=== PATIENT | male | born 1970 | race Caucasian/White ===

== ENCOUNTER 2023-02-25 08:25 | Outpatient (OUT) | payer MEDICAID, SELFPAY ==
[2023-02-25 08:55] LABS: Basophils Absolute Auto 0.1 10^3/uL (0.0-0.1); Eosinophils Absolute Auto 0.2 10^3/uL (0.0-0.7); Eosinophils Percent Auto 3.9 % (0.9-7.0); Hematocrit 42.3 % (42.0-54.0); Hemoglobin 14.2 g/dL (14.0-18.0); Immature Granulocytes Abs Auto 0.02 10^3/uL (0.00-0.03); Immature Granulocytes Pct Auto 0.3 % (0.0-0.5); Lymphocytes Absolute Auto 1.4 10^3/uL (1.2-3.8); Lymphocytes Percent Auto 22.1 % (20.5-60.0); Mean Corpuscular HGB Conc 33.6 g/dL (29.9-35.2); Mean Corpuscular Hemoglobin 29.5 pg (25.9-34.0); Mean Corpuscular Volume 87.8 fL (80.0-94.0); Mean Platelet Volume 8.7 fL (9.5-13.5); Monocytes Absolute Auto 0.4 10^3/uL (0.3-0.8); Monocytes Percent Auto 6.3 % (1.7-12.0); Neutrophils Absolute Auto 4.1 10^3/uL (1.4-6.5); Neutrophils Percent Auto 66.4 % (43.0-75.0); Platelet Count 229 10^3/uL (150-450); Red Blood Count 4.82 10^6/uL (4.70-6.10); White Blood Count 6.2 10^3/uL (4.0-11.0)
[2023-02-25 09:37] LABS: Estimated Average Glucose 123 mg/dL; Glycohemoglobin A1C 5.9 % (4.5-6.2)
[2023-02-25 09:53] LABS: Alanine Aminotransferase 36 U/L (16-63); Albumin Globulin Ratio 1.1; Albumin Level 4.1 g/dL (3.4-5.0); Alkaline Phosphatase 152 U/L (46-116); Aspartate Amino Transferase 15 U/L (15-37); Bilirubin Total 0.9 mg/dL (0.2-1.0); Calcium 9.5 mg/dL (8.5-10.1); Carbon Dioxide 24.1 mmol/L (21.0-32.0); Chloride 102 mmol/L (98-107); Chol HDL Ratio 3.6; Cholesterol 118 mg/dL (<=200); Estimated GFR (African America >60 (>=60); Estimated GFR (Non-African Ame >60 (>=60); Free T3 2.93 pg/mL (2.18-3.98); Globulin 3.8 g/dL; Glucose 110 mg/dL (74-106); HDL Cholesterol 33 mg/dL (40-60); Potassium 4.1 mmol/L (3.5-5.1); Sodium 136 mmol/L (136-145); Thyroid Stimulating Hormone 1.477 uIU/mL (0.358-3.740); Total Protein 7.9 g/dL (6.4-8.2); Triglycerides 181 mg/dL (<=150); VLDL CHOLESTEROL 36.2 mg/dL
[2023-02-25 10:01] LABS: Prostate Specific Antigen Scrn 0.39 ng/mL (<=4.00)
[2023-02-26 04:23] LABS: CA 19-9 25 U/mL (0-35)
== END 2023-02-25 08:26 | disposition home or self-care (01) ==
LOC: LAB 08:29
PROVIDERS: PCP Family Medicine; Visit Provider Family Medicine
DX: Z00.00 Encounter for general adult medical examination without abnormal findings (principal); R73.09 Other abnormal glucose; E78.5 Hyperlipidemia, unspecified
CPT/HCPCS: 36415; 80053; 80061; 83036; 84436; 84443; 84481; 85025; 86301; G0103

== ENCOUNTER 2023-08-27 10:31 | Outpatient (OUT) | payer MEDICAID, SELFPAY ==
[2023-08-27 11:09] LABS: Ammonia 29 umol/L (11-32)
[2023-08-27 11:22] LABS: Basophils Absolute Auto 0.1 10^3/uL (0.0-0.1); Eosinophils Absolute Auto 0.2 10^3/uL (0.0-0.7); Eosinophils Percent Auto 2.8 % (0.9-7.0); Hematocrit 40.3 % (42.0-54.0); Hemoglobin 13.6 g/dL (14.0-18.0); Immature Granulocytes Abs Auto 0.03 10^3/uL (0.00-0.03); Immature Granulocytes Pct Auto 0.4 % (0.0-0.5); Lymphocytes Absolute Auto 1.4 10^3/uL (1.2-3.8); Lymphocytes Percent Auto 19.9 % (20.5-60.0); Mean Corpuscular HGB Conc 33.7 g/dL (29.9-35.2); Mean Corpuscular Hemoglobin 29.4 pg (25.9-34.0); Mean Platelet Volume 8.8 fL (9.5-13.5); Monocytes Absolute Auto 0.4 10^3/uL (0.3-0.8); Neutrophils Absolute Auto 4.7 10^3/uL (1.4-6.5); Neutrophils Percent Auto 69.9 % (43.0-75.0); Platelet Count 217 10^3/uL (150-450); Red Blood Count 4.63 10^6/uL (4.70-6.10); Red Cell Distribution Width 12.8 % (11.0-15.0); White Blood Count 6.8 10^3/uL (4.0-11.0)
[2023-08-27 11:35] LABS: Estimated Average Glucose 123 mg/dL; Glycohemoglobin A1C 5.9 % (4.5-6.2)
[2023-08-27 11:52] LABS: Prostate Specific Antigen Scrn 0.29 ng/mL (<=4.00)
[2023-08-27 12:07] LABS: Alanine Aminotransferase 50 U/L (16-63); Albumin Level 3.9 g/dL (3.4-5.0); Alkaline Phosphatase 151 U/L (46-116); Anion Gap 14.5; Aspartate Amino Transferase 20 U/L (15-37); BUN Creatinine Ratio 20.5; Calcium 9.3 mg/dL (8.5-10.1); Carbon Dioxide 25.6 mmol/L (21.0-32.0); Chloride 103 mmol/L (98-107); Chol HDL Ratio 3.7; Cholesterol 130 mg/dL (<=200); Estimated GFR (African America >60 (>=60); Estimated GFR (Non-African Ame >60 (>=60); Free T3 3.52 pg/mL (2.18-3.98); Globulin 3.8 g/dL; Glucose 101 mg/dL (74-106); HDL Cholesterol 35 mg/dL (40-60); Potassium 4.1 mmol/L (3.5-5.1); Sodium 139 mmol/L (136-145); Thyroid Stimulating Hormone 1.237 uIU/mL (0.358-3.740); Total Protein 7.7 g/dL (6.4-8.2); Triglycerides 144 mg/dL (<=150); VLDL CHOLESTEROL 28.8 mg/dL
[2023-08-29 11:10] LABS: Insulin 27.9 uIU/mL (2.6-24.9)
== END 2023-08-27 10:32 | disposition home or self-care (01) ==
LOC: LAB 10:32
PROVIDERS: PCP Family Medicine; Visit Provider Family Medicine
DX: F10.10 Alcohol abuse, uncomplicated (principal); I10 Essential (primary) hypertension; E78.5 Hyperlipidemia, unspecified; R73.9 Hyperglycemia, unspecified; Z12.5 Encounter for screening for malignant neoplasm of prostate
CPT/HCPCS: 36415; 80053; 80061; 82140; 83036; 83525; 84436; 84443; 84481; 85025; G0103

== ENCOUNTER 2023-09-13 14:10 | Outpatient (OUT) | payer MEDICAID, SELFPAY ==
--- OUTSIDE RECORDS SUMMARY | 2023-09-13 14:33 | XMS_ITS | CCD ---
Author Name Unknown Address [address] [place] [address] Organization [facility] Care Team Providers Care Diamond Powder Mixer Name Role Phone MERA JURADO Attending Unavailable ALGHOTHANI, MOHAMAD Admitting Unavailable SELF, REFERRED Referring Unavailable RUBIN BARON Primary Care Unavailable VALONE, DR HOLLAND Primary Care Unavailable HOY, DR CONKLIN Attending Unavailable HOY, DR CONKLIN Consulting Unavailable ALIYAY, DR CONKLIN Admitting Unavailable WEST, DR ASHLEIGH Martinez Consulting Unavailable MISC, DR MITCHELL Attending Unavailable MISC, DR MITCHELL Admitting Unavailable MISC, DR MITCHELL Consulting Unavailable ALIYAY, DR CONKLIN Primary Care Unavailable HOY, DR CONKLIN Primary Care Unavailable ALGHOTHANI, MOHAMAAndrey Admitting Unavailable ALGHOTHANI, MICHELLE Attending Unavailable ALGHOTHANI, MOHSHOBHAD Consulting Unavailable LORAINE, DR CONKLIN Admitting Unavailable HOY, DR CONKLIN Attending Unavailable HOY, DR CONKLIN Consulting Unavailable ALIYAY, DR CONKLIN Primary Care Unavailable VALONE, DR HOLLAND Primary Care Unavailable LORAINE, DR CONKLIN Admitting Unavailable HOMiguel Ángel, DR CONKLIN Attending Unavailable MISC, DR MITCHELL Admitting Unavailable MISC, DR MITCHELL Attending Unavailable MISC, DR MITCHELL Consulting Unavailable LORAINE, DR CONKLIN Primary Care Unavailable GAMALIEL, ELVIRA Admitting Unavailable LORAINE, DR CONKLIN Primary Care Unavailable GMAALIELELVIRA Attending Unavailable GAMALIELELVIRA Consulting Unavailable ALGHOTHANI, MOHAMAD Attending Unavailable GAMALIEL, ELVIRA Attending Unavailable Rubin Baron Primary Care Physician Naren MEDEROS Attending Unavailable Naren MEDEROS Attending Unavailable Allergies Allergy Classification Reported Allergen(s) Allergy Type Date of Onset Reaction(s) Facility (1 source) No Known Medication Allergies; Translations: [No Known Medication Allergies] Propensity to adverse reactions (disorder) [facility] Repository Medications Current Medications Medication Drug Class(es) Dates Sig (Normalized) Sig (Original) aspirin 81 mg delayed release oral tablet (1 source) Platelet Aggregation Inhibitor, Nonsteroidal Anti-inflammatory Drug Start: 09-07-2023 take 1 tablet by mouth once daily aspirin 81 mg Oral EC Tab 81 mg = 1 tab(s), Oral, Daily, Refills(s) 0 Start Date: 09/07/23 Status: Ordered atorvastatin 80 mg oral tablet (1 source) HMG-CoA Reductase Inhibitor Start: 09-07-2023 take 1 tablet by mouth once daily atorvastatin 80 mg Tab 80 mg = 1 tab(s), Oral, Daily, Refills(s) 0 Start Date: 09/07/23 Status: Ordered Centrum Silver oral tablet (1 source) Start: 09-07-2023 take 1 tablet by mouth once daily Centrum Silver oral tablet 1 tab(s), Oral, Daily, Refill(s) 0 Start Date: 09/07/23 Status: Ordered clopidogrel 75 mg oral tablet (1 source) P2Y12 Platelet Inhibitor Start: 09-07-2023 take 1 tablet by mouth once daily Plavix 75 mg Tab 75 mg = 1 tab(s), Oral, Daily, Refills(s) 0 Start Date: 09/07/23 Status: Ordered ferrous sulfate 325 mg oral tablet (1 source) Start: 09-08-2023 take 1 tablet by mouth twice daily ferrous sulfate 325 mg Tab 325 mg = 1 tab(s), Oral, BID, Refills(s) 0 Start Date: 09/08/23 Status: Ordered irbesartan 300 mg oral tablet (1 source) Angiotensin 2 Receptor Tiffany Start: 09-07-2023 take 1 tablet by mouth once daily irbesartan 300 mg Tab 300 mg = 1 tab(s), Oral, Daily, Refills(s) 0 Start Date: 09/07/23 Status: Ordered metoprolol tartrate 25 mg oral tablet (1 source) beta-Adrenergic Tiffany Start: 09-07-2023 take 1 tablet by mouth twice daily Metoprolol tartrate 25 mg Tab 25 mg = 1 tab(s), Oral, BID, Refills(s) 0 Start Date: 09/07/23 Status: Ordered nitroglycerin 0.4 mg sublingual tablet (1 source) Nitrate Vasodilator Start: 09-07-2023 nitroglycerin 0.4 mg sublingual Tab 0.4 mg = 1 tab(s), SubLingual, q5min, PRN for chest pain, Refills(s) 0 Start Date: 09/07/23 Status: Ordered Problems Active Problems Problem Classification Problem Date Documented Date Episodic/Chronic Alcohol-related disorders (1 source) Alcohol abuse 09-07-2023 Chronic Cardiac dysrhythmias (2 sources) Palpitations; Translations: [Palpitations] Onset: 08-20-2023 Episodic Coronary atherosclerosis and other heart disease (9 sources) Atherosclerotic heart disease of [place] coronary artery without angina pectoris; Translations: [Coronary atherosclerosis due to lipid rich plaque] Onset: 07-24-2021 Chronic Deficiency and other anemia (2 sources) Anemia; Translations: [Anemia, unspecified] Onset: 09-08-2023 Episodic Diabetes mellitus without complication (1 source) Other abnormal glucose; Translations: [OTHER ABNORMAL GLUCOSE] Onset: 02-25-2022 Episodic Disorders of lipid metabolism (5 sources) Pure hypercholesterolemia, unspecified; Translations: [Mixed hyperlipidemia] Onset: 02-25-2022 Chronic Esophageal disorders (2 sources) Gastroesophageal reflux disease without esophagitis; Translations: [Gastro-esophageal reflux disease without esophagitis] Onset: 09-08-2023 Chronic Essential hypertension (4 sources) Essential (primary) hypertension; Translations: [Hypertensive disorder] Onset: 02-25-2022 Chronic Other nutritional; endocrine; and metabolic disorders (2 sources) Body mass index 40+ - severely obese; Translations: [Body mass index (BMI) 40.0-44.9, adult] Onset: 09-08-2023 Chronic Other nutritional; endocrine; and metabolic disorders (1 source) Morbid obesity 09-07-2023 Chronic Other screening for suspected conditions (not mental disorders or infectious disease) (2 sources) Encounter for screening for malignant neoplasm of prostate; Translations: [Encounter for screening for malignant neoplasm of rectum] Onset: 02-25-2022 Episodic Substance-related disorders (4 sources) Nicotine dependence, unspecified, uncomplicated; Translations: [Nicotine dependence] Onset: 07-24-2021 Chronic Past or Other Problems Problem Classification Problem Date Documented Da te Episodic/Chronic Nonspecific chest pain (4 sources) Chest pain, unspecified; Translations: [CHEST PAIN UNSPECIFIED] Onset: 06-09-2021 Episodic Results Test Name Value Interpretation Reference Range Facility Consent for Procedure/Surger yon 09-10-2023 Consent for Procedure/Surgery [id number] [facility] Facesheeton 09-09-2023 Facesheet [id number] 0TIFF [facility] Ambulatory Visit Summaryon 0 09-08-2023 Ambulatory Visit Summary THAD CASTRO :1970 Visit Date:09/08/2023 Ambulatory Visit Instructions Your Care Team Attending Physician - GATITO HARRISON, Naren Persaud Primary Care Physician - Loraine HARRISON, Ruibn This Is Your Medications List Contact prescribing physician if questions or concerns aspirin (aspirin 81 mg Oral EC Tab) atorvastatin (atorvastatin 80 mg Tab) clopidogrel (Plavix 75 mg Tab) ferrous sulfate (ferrous sulfate 325 mg Tab) irbesartan (irbesartan 300 mg Tab) metoprolol (Metoprolol tartrate 25 mg Tab) multivitamin with minerals (Centrum Silver oral tablet) nitroglycerin (nitroglycerin 0.4 mg sublingual Tab) Procedures Performed Angioplasty of bilateral iliac arteries and insertion of bilateral iliac artery stents using fluoroscopic guidance with contrast, Cholecystectomy, Coronary artery stent, History of ankle surgery. Discharge Vitals Heart Rate (Peripheral) 72 Respiratory Rate 16 Blood Pressure 146/88 Height 187.9 cm Height 74 in Weight 146 kg Weight 321.2 lb BMI 41.35 Medications What How Much When Instructions Unchanged aspirin (aspirin 81 mg Oral EC Tab) 1 Tablets By Mouth Every day Contact prescribing physician if questions or concerns Unchanged atorvastatin (atorvastatin 80 mg Tab) 1 Tablets By Mouth Every day Contact prescribing physician if questions or concerns Unchanged clopidogrel (Plavix 75 mg Tab) 1 Tablets By Mouth Every day Contact prescribing physician if questions or concerns Unchanged ferrous sulfate (ferrous sulfate 325 mg Tab) 1 Tablets By Mouth 2 times a day Contact prescribing physician if questions or concerns Unchanged irbesartan (irbesartan 300 mg Tab) 1 Tablets By Mouth Every day Contact prescribing physician if questions or concerns Unchanged metoprolol (Metoprolol tartrate 25 mg Tab) 1 Tablets By Mouth 2 times a day Contact prescribing physician if questions or concerns Unchanged multivitamin with minerals (Centrum Silver oral tablet) 1 Tablets By Mouth Every day Contact prescribing physician if questions or concerns Unchanged nitroglycerin (nitroglycerin 0.4 mg sublingual Tab) 1 Tablets Sublingual Every 5 minutes as needed for for chest pain Contact prescribing physician if questions or concerns Medications and Immunizations Administered Not Given influenza virus vaccine, inactivated, Patient Refuses Allergies No Known Allergies No Known Medication Allergies Problems Ongoing - Any problem that you are currently receiving treatment for. Alcohol abuse Anemia BMI 40.0-44.9, adult Coronary arteriosclerosis Hypertensive disorder Morbid obesity Tobacco dependence syndrome Patient Survey You may receive a survey via text or e-mail asking about your office visit. Please share your experience with us by completing your survey. We appreciate your feedback and thank you for choosing us for your care. Normal [facility] Physician Referralon 024 Physician Referral [id number] [facility] Physician Referralon 024 Physician Referral [id number] [facility] Office Visiton 08-20-2023 Follow-up visit [id number] Thad Castro 1970 M Date Provider Department Center 08/20/2023 120-ELVIRA ALSTON MARY Spears Family History Problem Relation Age of Onset Hypertension Mother Pancreatic cancer Mother Coronary artery disease Father Stomach cancer Father Other Father Heart murmur Sister Hypertension Brother Family Status - Relation Status Age at Mother Father Sister Brother Level of Service:88529 [place] OFFICE/OUTPATIENT ESTABLISHED MOD MDM 30 MIN Normal [facility] Office Visiton 02-12-2023 Follow-up visit [id number] Thad Castro 1970 M Date Provider Department Center 02/12/2023 3848-MICHELLE GLEASON Family History Problem Relation Age of Onset Hypertension Mother Pancreatic cancer Mother Coronary artery disease Father Stomach cancer Father Other Father Heart murmur Sister Hypertension Brother Family Status - Relation Status Age at Mother Father Sister Brother Level of Service:56098 [place] OFFICE/OUTPATIENT ESTABLISHED LOW MDM 20-29 MIN Normal [facility] INSULINon 02-24-2022 Insulin 14.5 uIU/mL Normal 2.6-24.9 [facility] Comment on above: Performed By: #### I NSULIN #### [facility] [address] [place] [address] Dr. Carmelita White BILIRUBIN CONJUGATED (DIRECT )on 02-23-2022 BILI, CONJUGATED 0.2 mg/dL Normal 0.0-0.2 [facility] Comment on above: Performed By: #### D JEMMA #### [facility] [address] [place] [address] Dr. Carmelita White CBC AUTO DIFFon 02-23-2022 BASO # 0.1 103/ul Normal 0.0-0.1 [facility] Comment on above: Performed By: #### C BC #### [facility] [address] [place] [address] Dr. Carmelita White Basophils/100 WBC (Bld) 1.2 % Normal 0.2-2.0 [facility] Comment on above: Performed By: #### C BC #### [facility] [address] [place] [address] Dr. Carmelita White EO # 0.2 103/ul Normal 0.0-0.7 [facility] Comment on above: Performed By: #### C BC #### [facility] [address] [place] [address] Dr. Carmelita White Eosinophils/100 WBC (Bld) 4.0 % Normal 0.9-7.0 [facility] Comment on above: Performed By: #### C BC #### [facility] [address] [place] [address] Dr. Carmelita White Erythrocyte distribution width (RBC) [Ratio] 13.2 % Normal 11.0-15.0 [facility] Comment on above: Performed By: #### C BC #### [facility] [address] [place] [address] Dr. Carmelita White Hematocrit (Bld) [Volume fraction] 38.7 % Critically low 42.0-54.0 [facility] Comment on above: Performed By: #### C BC #### [facility] [address] [place] [address] Dr. Carmelita White Hemoglobin (Bld) [Mass/Vol] 13.4 g/dL Critically low 14.0-18.0 [facility] Comment on above: Performed By: #### C BC #### [facility] [address] [place] [address] Dr. Carmelita White IG # 0.02 10e3/ul Normal 0.00-0.03 [facility] Comment on above: Performed By: #### C BC #### [facility] [address] [place] [address] Dr. Carmelita White IG % 0.3 % Normal 0.0-0.5 [facility] Comment on above: Performed By: #### C BC #### [facility] [address] [place] [address] Dr. Carmelita White LYMPH # 1.5 103/ul Normal 1.2-3.8 [facility] Comment on above: Performed By: #### C BC #### [facility] [address] [place] [address] Dr. Carmelita White Lymphocytes/100 WBC (Bld) 24.1 % Normal 20.5-60.0 [facility] Comment on above: Performed By: #### C BC #### [facility] [address] [place] [address] Dr. Carmelita White MANUAL DIFF REQ NO Normal [facility] Comment on above: Performed By: #### C BC #### [facility] [address] [place] [address] Dr. Carmelita White MCH (RBC) [Entitic mass] 30.5 pg Normal 25.9-34.0 [facility] Comment on above: Performed By: #### C BC #### [facility] [address] [place] [address] Dr. Carmelita White MCHC (RBC) [Mass/Vol] 34.6 g/dL Normal 29.9-35.2 [facility] Comment on above: Performed By: #### C BC #### [facility] [address] [place] [address] Dr. Carmelita White MCV (RBC) [Entitic vol] 88.2 fL Normal 80.0-94.0 [facility] Comment on above: Performed By: #### C BC #### [facility] [address] [place] [address] Dr. Carmelita White MONO # 0.4 103/ul Normal 0.3-0.8 [facility] Comment on above: Performed By: #### C BC #### [facility] [address] [place] [address] Dr. Carmelita White Monocytes/100 WBC (Bld) 6.6 % Normal 1.7-12.0 [facility] Comment on above: Performed By: #### C BC #### [facility] [address] [place] [address] Dr. Carmelita White NEUT # 3.9 103/ul Normal 1.4-6.5 [facility] Comment on above: Performed By: #### C BC #### [facility] [address] [place] [address] Dr. Carmelita White Neutrophils/100 WBC (Bld) 63.8 % Normal 43.0-75.0 [facility] Comment on above: Performed By: #### C BC #### [facility] [address] [place] [address] Dr. Carmelita White Platelet mean volume (Bld) [Entitic vol] 8.5 fL Critically low 9.5-13.5 [facility] Comment on above: Performed By: #### C BC #### [facility] [address] [place] [address] Dr. Carmelita White PLT 204 103/ul Normal 150-450 [facility] Comment on above: Performed By: #### C BC #### [facility] [address] [place] [address] Dr. Carmelita White RBC 4.39 106/ul Critically low 4.70-6.10 [facility] Comment on above: Performed By: #### C BC #### [facility] [address] [place] [address] Dr. Carmelita White WBC 6.1 103/ul Normal 4.0-11.0 [facility] Comment on above: Performed By: #### C BC #### [facility] [address] [address] [address] Carmelita White GLYCOHEMOGLOBIN A1Con 2021 ADA RECOMMENDATION SEE BELOW Normal [facility] Comment on above: Result Comment: ADA RECOMMENDED LIMIT 4.0 - 6.0 ADA THERAPEUTIC TARGET < 7.0 ACTION SUGGESTED > 7.0 Performed By: #### A 1C #### [facility] [address] [address] [address] Carmelita White Glucose [Mass/Vol] 120 mg/dL Normal [facility] Comment on above: Performed By: #### A 1C #### [facility] [address] [address] [address] Carmelita White HbA1c (Bld) [Mass fraction] 5.8 % Normal 4.5-6.2 [facility] Comment on above: Performed By: #### A 1C #### [facility] [address] [address] [address] Carmelita White LIPID PROFILEon 02-23-2022 CHOL-HDL RATIO NORM SEE BELOW Normal [facility] Comment on above: Result Comment: 3.3 - 4.4 LOW RISK 4.4 - 7.1 AVERAGE RISK 7.1 - 11.0 MODERATE RISK >11.0 HIGH RISK Performed By: #### L IPID, CMP, URIC ####[facility] [address] [address]DrSuri White Cholesterol [Mass/Vol] 147 mg/dL Normal <=200 [facility] Comment on above: Performed By: #### L IPID, CMP, URIC ####[facility] [address] [place], [place] [address]TfSuri White Cholesterol in HDL [Mass/Vol] 34 mg/dL Critically low 40-60 [facility] Comment on above: Performed By: #### L IPID, CMP, URIC ####[facility] [address] [address]DrSuri White Cholesterol in LDL [Mass/Vol] 84.6 mg/dL Normal [facility] Comment on above: Performed By: #### L IPID, CMP, URIC ####[facility] [address] [address]Dr. Cramelita White Cholesterol.total/Ch olesterol in HDL [Mass ratio] 4.3 {ratio} Normal [facility] Comment on above: Performed By: #### L IPID, CMP, URIC ####[facility] [address] [address]Dr. Carmelita White HDL NORMAL > or = 60 mg/dl - LO W CARDIOVASCULAR RISK <40 mg/dl - HIGH CARDIOVASCULAR RISK Normal [facility] Comment on above: Performed By: #### L IPID, CMP, URIC ####[facility] [address] [address]Dr. Carmelita White LDL CALC NORMAL SEE BELOW Normal [facility] Comment on above: Result Comment: <100 mg/dl OPTIMAL 100 - 129 mg/dl NEAR OR ABOVE OPTIMAL 130 - 159 mg/dl BORDERLINE HIGH 160 - 189 mg/dl HIGH >190 mg/dl VERY HIGH Performed By: #### L IPID, CMP, URIC ####[facility] [address] [address]Dr. Carmelita White Triglyceride [Mass/Vol] 142 mg/dL Normal <=150 [facility] Comment on above: Performed By: #### L IPID, CMP, URIC ####[facility] [address] [address]Dr. Carmelita White VLDL CALC 28.4 mg/dL Normal [facility] Comment on above: Performed By: #### L IPID, CMP, URIC ####[facility] [address] [address]Dr. Carmelita White PROF 14(COMP METB)on 022 Albumin [Mass/Vol] 4.0 g/dL Normal 3.4-5.0 [facility] Comment on above: Performed By: #### L IPID, CMP, URIC ####[facility] [address] [address]Dr. Carmelita White Albumin/Globulin [Mass ratio] 1.2 {ratio} Normal [facility] Comment on above: Performed By: #### L IPID, CMP, URIC ####[facility] [address] [address]Dr. Carmelita White ALP [Catalytic activity/Vol] 131 U/L Critically high 46-116 [facility] Comment on above: Performed By: #### L IPID, CMP, URIC ####[facility] [address] [address]Dr. Carmelita White ALT [Catalytic activity/Vol] 36 U/L Normal 16-63 [facility] Comment on above: Performed By: #### L IPID, CMP, URIC ####[facility] [address] [address]Dr. Carmelita White Anion gap [Moles/Vol] 13.0 mmol/L Normal [facility] Comment on above: Performed By: #### L IPID, CMP, URIC ####[facility] [address] [place], [place] [address]Dr. Carmelita White AST [Catalytic activity/Vol] 14 U/L Critically low 15-37 [facility] Comment on above: Performed By: #### L IPID, CMP, URIC ####[facility] [address] [place], [place] [address]Dr. Carmelita White Bilirubin [Mass/Vol] 0.7 mg/dL Normal 0.2-1.0 [facility] Comment on above: Performed By: #### L IPID, CMP, URIC ####[facility] [address] [place], [place] [address]Dr. Carmelita Christopher Calcium [Mass/Vol] 9.3 mg/dL Normal 8.5-10.1 [facility] Comment on above: Performed By: #### L IPID, CMP, URIC ####[facility] [address] [address]Dr. Carmelita White Chloride [Moles/Vol] 104 mmol/L Normal 98-107 [facility] Comment on above: Performed By: #### L IPID, CMP, URIC ####[facility] [address] [place], [place] [address]Dr. Carmelita White CO2 [Moles/Vol] 27.2 mmol/L Normal 21.0-32.0 [facility] Comment on above: Performed By: #### L IPID, CMP, URIC ####[facility] [address] [address]Dr. Carmelita White Creatinine [Mass/Vol] 1.20 mg/dL Normal 0.70-1.30 [facility] Comment on above: Performed By: #### L IPID, CMP, URIC ####[facility] [address] [address]Dr. Carmelita White EGFR-AF HAITIAN >60 Normal >=60 [facility] Comment on above: Performed By: #### L IPID, CMP, URIC ####[facility] [address] [address]Dr. Carmelita White EGFR-NON AF HAITIAN >60 Normal >=60 [facility] Comment on above: Performed By: #### L IPID, CMP, URIC ####[facility] [address] [address]Dr. Carmelita White Globulin (S) [Mass/Vol] 3.4 g/dL Normal [facility] Comment on above: Performed By: #### L IPID, CMP, URIC ####[facility] [address] [address]Dr. Carmelita Whiet Glucose [Mass/Vol] 97 mg/dL Normal 74-106 [facility] Comment on above: Performed By: #### L IPID, CMP, URIC ####[facility] [address] [address]Dr. Carmelita White Potassium [Moles/Vol] 4.2 mmol/L Normal 3.5-5.1 [facility] Comment on above: Performed By: #### L IPID, CMP, URIC ####[facility] [address] [address]Dr. Carmelita White Protein [Mass/Vol] 7.4 g/dL Normal 6.4-8.2 [facility] Comment on above: Performed By: #### L IPID, CMP, URIC ####[facility] [address] [address]Dr. Carmelita White Sodium [Moles/Vol] 140 mmol/L Normal 136-145 [facility] Comment on above: Performed By: #### L IPID, CMP, URIC ####[facility] [address] [address]Dr. Carmelita White Urea nitrogen [Mass/Vol] 19.0 mg/dL Critically high 7.0-18.0 [facility] Comment on above: Performed By: #### L IPID, CMP, URIC ####[facility] [address] [address]Dr. Carmelita White Urea nitrogen/Creatinine [Mass ratio] 15.8 mg/mg Normal [facility] Comment on above: Performed By: #### L IPID, CMP, URIC ####[facility] [address] [address]Dr. Carmelita White URIC ACID SERUMon 02-23-2022 Urate [Mass/Vol] 6.5 mg/dL Normal 3.5-7.2 [facility] Comment on above: Performed By: #### L IPID, CMP, URIC ####[facility] [id number] [place] [address]Dr. Carmelita White GLYCOHEMOGLOBIN A1Con 2021 ADA RECOMMENDATION ADA THERAPEUTIC TARGET 6.0 - 7.0 ACTION SUGGESTED > 7.0 Normal [facility] Comment on above: Performed By: #### A 1C #### [facility] [address] [address] [address] Carmelita White Glucose [Mass/Vol] 126 mg/dL Normal [facility] Comment on above: Performed By: #### A 1C #### [facility] [address] [address] [address] Carmelita White HbA1c (Bld) [Mass fraction] 6.0 % Normal <=6.0 [facility] Comment on above: Performed By: #### A 1C #### [facility] [address] [address] [address] Carmelita White LIPID PROFILEon 08-04-2021 CHOL-HDL RATIO NORM SEE BELOW Normal [facility] Comment on above: Result Comment: 3.3 - 4.4 LOW RISK 4.4 - 7.1 AVERAGE RISK 7.1 - 11.0 MODERATE RISK >11.0 HIGH RISK Performed By: #### L IPID #### [facility] [address] [address] [address] Carmelita White Cholesterol [Mass/Vol] 150 mg/dL Normal <=200 [facility] Comment on above: Performed By: #### L IPID #### [facility] [address] [address] [address] Carmelita White Cholesterol in HDL [Mass/Vol] 34 mg/dL Normal [facility] Comment on above: Performed By: #### L IPID #### [facility] [address] [address] [address] Carmelita White Cholesterol in LDL [Mass/Vol] 79.2 mg/dL Normal [facility] Comment on above: Performed By: #### L IPID #### [facility] [address] [address] [address] Carmelita White Cholesterol.total/Ch olesterol in HDL [Mass ratio] 4.4 {ratio} Normal [facility] Comment on above: Performed By: #### L IPID #### [facility] [address] [address] [address] Carmelita White HDL NORMAL > or = 60 mg/dl - LO W CARDIOVASCULAR RISK <40 mg/dl - HIGH CARDIOVASCULAR RISK Normal [facility] Comment on above: Performed By: #### L IPID #### [facility] [address] [address] [address] Carmelita White LDL CALC NORMAL SEE BELOW Normal [facility] Comment on above: Result Comment: <100 mg/dl OPTIMAL 100 - 129 mg/dl NEAR OR ABOVE OPTIMAL 130 - 159 mg/dl BORDERLINE HIGH 160 - 189 mg/dl HIGH >190 mg/dl VERY HIGH Performed By: #### L IPID #### [facility] [address] [address] [address] Carmelita White Triglyceride [Mass/Vol] 184 mg/dL Critically high <=150 [facility] Comment on above: Performed By: #### L IPID #### [facility] [address] [address] [address] Carmelita White VLDL CALC 36.8 mg/dL Normal [facility] Comment on above: Performed By: #### L IPID #### [facility] [address] [address] [address] Carmelita White CBC W/DIFFon 06-24-2021 ABS IMM GRANS 0.0 10*3/uL Normal 0.0-0.2 [facility] Comment on above: Order Comment: No: D o not add to previous draw Performed By: #### 5 0103 #### [facility] [address] [place] [address], [facility] ABS NEUTROPHILS 4.6 10*3/uL Normal 1.6-7.6 [facility] Comment on above: Order Comment: No: D o not add to previous draw Performed By: #### 5 0103 #### [facility] [address] [place] [address], [facility] Basophils (Bld) [#/Vol] 0.1 10*3/uL Normal 0.0-0.2 [facility] Comment on above: Order Comment: No: D o not add to previous draw Performed By: #### 5 0103 #### [facility] [address] [place] [address], [facility] Basophils/100 WBC (Bld) 1.0 % Normal 0.0-1.0 [facility] Comment on above: Order Comment: No: D o not add to previous draw Performed By: #### 5 0103 #### [facility] [address] [place] [address], [facility] Eosinophils (Bld) [#/Vol] 0.2 10*3/uL Normal 0.0-0.5 [facility] Comment on above: Order Comment: No: D o not add to previous draw Performed By: #### 5 0103 #### [facility] [address] [place] [address], [facility] Eosinophils/100 WBC (Bld) 2.8 % Normal 0.0-6.0 [facility] Comment on above: Order Comment: No: D o not add to previous draw Performed By: #### 5 0103 #### [facility] [address] Erythrocyte distribution width (RBC) [Ratio] 12.7 % Normal 11.5-15.0 [facility] Comment on above: Order Comment: No: D o not add to previous draw Performed By: #### 5 0103 #### [facility] [address] Hematocrit (Bld) [Volume fraction] 41.5 % Normal 39.0-50.0 [facility] Comment on above: Order Comment: No: D o not add to previous draw Performed By: #### 5 0103 #### [facility] [address] [facility] [place] [address], [facility] Hemoglobin (Bld) [Mass/Vol] 13.9 g/dL Normal 13.0-17.0 [facility] Comment on above: Order Comment: No: D o not add to previous draw Performed By: #### 5 0103 #### [facility] [address] [facility] [place] [address], [facility] IMMATURE GRANS 0.3 % Normal 0.0-1.0 [facility] Comment on above: Order Comment: No: D o not add to previous draw Performed By: #### 5 0103 #### [facility] [address] [place] [address], [facility] Lymphocytes (Bld) [#/Vol] 1.7 10*3/uL Normal 1.2-4.0 [facility] Comment on above: Order Comment: No: D o not add to previous draw Performed By: #### 5 0103 #### [facility] [address] [place] [address], [facility] Lymphocytes/100 WBC (Bld) 24.0 % Normal 20.0-45.0 [facility] Comment on above: Order Comment: No: D o not add to previous draw Performed By: #### 5 0103 #### [facility] [address] [place] [address], [facility] MCH (RBC) [Entitic mass] 29.9 pg Normal 27.0-33.0 [facility] Comment on above: Order Comment: No: D o not add to previous draw Performed By: #### 5 0103 #### [facility] [address] [place] [address], [facility] MCHC (RBC) [Mass/Vol] 33.5 g/dL Normal 32.0-35.0 [facility] Comment on above: Order Comment: No: D o not add to previous draw Performed By: #### 5 0103 #### [facility] [address] [facility] [place] [address], [facility] MCV (RBC) [Entitic vol] 89.2 fL Normal 82.0-98.0 [facility] Comment on above: Order Comment: No: D o not add to previous draw Performed By: #### 5 0103 #### [facility] [address] [place] [address], [facility] Monocytes (Bld) [#/Vol] 0.6 10*3/uL Normal 0.1-1.0 [facility] Comment on above: Order Comment: No: D o not add to previous draw Performed By: #### 5 0103 #### [facility] [address] [place] [address], [facility] MONOS 8.0 % Normal 5.0-12.0 [facility] Comment on above: Order Comment: No: D o not add to previous draw Performed By: #### 5 0103 #### [facility] [address] [place] [address], [facility] Neutrophils/100 WBC (Bld) 63.9 % Normal 40.0-72.0 [facility] Comment on above: Order Comment: No: D o not add to previous draw Performed By: #### 5 0103 #### [facility] [address] [facility] [place] [address], [facility] Nucleated RBC/100 WBC (Bld) [Ratio] 0 % Normal 0-0 [facility] Comment on above: Order Comment: No: D o not add to previous draw Performed By: #### 5 0103 #### [facility] [address] [facility] [place] [address], [facility] PLAT CNT 187 10*3/uL Normal 150-400 [facility] Comment on above: Order Comment: No: D o not add to previous draw Performed By: #### 5 0103 #### [facility] [address] [facility] [address], [facility] RBC (Bld) [#/Vol] 4.65 10*6/uL Normal 4.20-5.70 The [facility] Comment on above: Order Comment: No: D o not add to previous draw Performed By: #### 5 0103 #### [facility] [address] [facility] [place] [address], [facility] WBC (Bld) [#/Vol] 7.22 10*3/uL Normal 4.00-10.60 [facility] Comment on above: Order Comment: No: D o not add to previous draw Performed By: #### 5 0103 #### [facility] [address] [facility] [address], [facility] COMP METABOLIC PANELon 06-24 Albumin [Mass/Vol] 3.9 g/dL Normal 3.5-5.7 [facility] Comment on above: Order Comment: No: D o not add to previous draw Performed By: #### 0 0121, [id number] #### [facility] [address] [place] [address], [facility] ALKALINE PHOSPH 108 IU/L High 34-104 [facility] Comment on above: Order Comment: No: D o not add to previous draw Performed By: #### 0 0121, 15306 #### [facility] [address] [place] [address], [place] ALT [Catalytic activity/Vol] 26 U/L Normal 7-52 [facility] Comment on above: Order Comment: No: D o not add to previous draw Performed By: #### 0 0121, [id number] #### [facility] [address] [place] [address], [place] AST [Catalytic activity/Vol] 12 U/L Low 13-39 [facility] Comment on above: Order Comment: No: D o not add to previous draw Performed By: #### 0 012, 26960 #### [facility] [address] [place] [address], [place] Bilirubin [Mass/Vol] 0.8 mg/dL Normal 0.3-1.0 [facility] Comment on above: Order Comment: No: D o not add to previous draw Performed By: #### 0 0121, [id number] #### [facility] [address] [place] [address], [place] Calcium [Mass/Vol] 9.0 mg/dL Normal 8.6-10.3 [facility] Comment on above: Order Comment: No: D o not add to previous draw Performed By: #### 0 0121, [id number] #### [facility] [address] [place] [address], [place] Chloride [Moles/Vol] 103 mmol/L Normal 98-107 [facility] Comment on above: Order Comment: No: D o not add to previous draw Performed By: #### 0 0121, 78313 #### [facility] [address] [place] [address], [place] CO2 [Moles/Vol] 28 mmol/L Normal 21-31 [facility] Comment on above: Order Comment: No: D o not add to previous draw Performed By: #### 0 0121, 13135 #### [facility] [address] [place] [address], [place] Creatinine [Mass/Vol] 1.24 mg/dL Normal 0.70-1.30 [facility] Comment on above: Order Comment: No: D o not add to previous draw Performed By: #### 0 0121, 32402 #### [facility] [address] [place] [address], [place] GFR/1.73 sq M.predicted among blacks MDRD (S/P/Bld) [Vol rate/Area] mL/min/{1.73_m2} Normal >60 [facility] Comment on above: Order Comment: No: D o not add to previous draw Performed By: #### 0 012, 07102 #### [facility] [address] [place] [address], [place] GFR/1.73 sq M.predicted among non-blacks MDRD (S/P/Bld) [Vol rate/Area] mL/min/{1.73_m2} Normal >60 [facility] Comment on above: Order Comment: No: D o not add to previous draw Performed By: #### 0 0121, 61162 #### [facility] [address] [place] [address], [place] Glucose [Mass/Vol] 102 mg/dL High 70-100 [facility] Comment on above: Order Comment: No: D o not add to previous draw Performed By: #### 0 0121, 81533 #### [facility] [address] [place] [address], [place] Potassium [Moles/Vol] 4.3 mmol/L Normal 3.5-5.1 [facility] Comment on above: Order Comment: No: D o not add to previous draw Performed By: #### 0 0121, 36940 #### [facility] [address] [place] [address], [place] Protein [Mass/Vol] 6.3 g/dL Normal 6.0-8.3 [facility] Comment on above: Order Comment: No: D o not add to previous draw Performed By: #### 0 0121, 43588 #### [facility] [address] [place] [address], [place] Sodium [Moles/Vol] 136 mmol/L Normal 136-145 [facility] Comment on above: Order Comment: No: D o not add to previous draw Performed By: #### 0 0121, 15685 #### [facility] [address] [place] [address], [place] Urea nitrogen [Mass/Vol] 22 mg/dL Normal 7-25 [facility] Comment on above: Order Comment: No: D o not add to previous draw Performed By: #### 0 0121, 62212 #### [facility] [address] [place] [address], [place] LIPID PROFILEon 06-24-2021 Cholesterol [Mass/Vol] 149 mg/dL Normal 120-200 [facility] Comment on above: Order Comment: No: D o not add to previous draw Result Comment: CHOL ESTEROL REFERENCE RANGE: 20 YEARS AND OLDER CARDIOVASCULAR RISK Less than 200 mg/dl Low Risk 200 to 239 mg/dl Borderline Risk 240 mg/dl and greater High Risk Performed By: #### 0 0121, 58782 #### [facility] [address] [place] [address], [place] Cholesterol in HDL [Mass/Vol] 34 mg/dL Normal 23-92 [facility] Comment on above: Order Comment: No: D o not add to previous draw Result Comment: Slig ht variation in normal range could be due to gender and/or age. HDL CHOLESTEROL REFERENCE RANGE: 20 years and older Cardiovascular Risk > or =60 mg/dL Desirable 40 TO 59 mg/dL Low Risk <40 mg/dL High Risk Performed By: #### 0 0121, 22307 #### [facility] [address] [place] [address], [facility] Cholesterol in LDL [Mass/Vol] 101 mg/dL Normal 0-130 [facility] Comment on above: Order Comment: No: D o not add to previous draw Result Comment: LDL IS A CALCULATION LDL IS ONLY VALID IF THE TRIG IS LESS THAN 400. Performed By: #### 0 0121, 31986 #### [facility] [address] [place] [address], [facility] Cholesterol.total/Ch olesterol in HDL [Mass ratio] 4.4 {ratio} Normal .0-4.5 [facility] Comment on above: Order Comment: No: D o not add to previous draw Performed By: #### 0 0121, 54562 #### [facility] [address] [place] [address], [facility] NON-HDL CHOLESTEROL 115 mg/dL Normal [facility] Comment on above: Order Comment: No: D o not add to previous draw Performed By: #### 0 0121, 49230 #### [facility] [address] [place] [address], [place] Triglyceride [Mass/Vol] 72 mg/dL Normal 40-149 [facility] Comment on above: Order Comment: No: D o not add to previous draw Result Comment: TRIG LYCERIDE REFERENCE RANGE: 20 YEARS AND OLDER CARDIOVASCULAR RISK LESS THAN 150 mg/dl LOW RISK 150 TO 199 mg/dl BORDERLINE RISK 200 mg/dl AND GREATER HIGH RISK Performed By: #### 0 0121, 20960 #### [facility] [address] [place] [address], [place] VLDL CHOL 14 mg/dL Normal 0-40 [facility] Comment on above: Order Comment: No: D o not add to previous draw Performed By: #### 0 0121, 76407 #### [facility] [address] Cardiovascular Lab Reporton 06-23-2021 Cardiovascular Lab Report [facility] Patient Name: Thad Castro MR #: [id number] [facility] Physician: Michelle Gleason MD Department of Service Date: 06/23/2021 Medicine Birthdate: 1970 Division of Room #: 3CD [id number] Cardiology Adult Cardiovascular Services [facility] [address] [place] [address] Cardiovascular Laboratory Report Cardiovascular Laboratory Report FINAL IMPRESSIONS: 1. 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 2. 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 RECOMMENDATIONS: 1. Aspirin 81 mg lifelong. 2. Plavix 75 mg daily for a minimum of 6 months, preferably intermediate card tender. 3. Aggressive risk factor modification. 4. Optimization of medical management; high-intensity statin therapy, a beta tiffany, and angiotensin-convertin g enzyme inhibitor as indicated. 5. Medical management of non obstructive lesions. May consider PCI of RCA if patient continues to have symptoms. 6. Follow up with me in Clinic in 4 weeks, or sooner as needed. 7. Follow up with PCP as scheduled PROCEDURE: After risks, benefits, and alternatives were explained, written informed consent was obtained. The patient was prepped and draped in usual sterile fashion. Using 1% lidocaine solution, local infiltration anesthesia was achieved over the right femoral artery. Using a micropuncture kit with ultrasound guidance and using a modified Seldinger technique, access to the right femoral artery was obtained. Coronary angiography was performed using the JR4 and JL4 catheters. After reviewing the images, it was elected to proceed with an interventional procedure. A 6-Kosovan XB 3.5 catheter was advanced in and coaxially engaged into the left main ostium. A 0.014 Runthrough NS wire was advanced through the catheter across the suspect stenosis and positioned distally. Balloon angioplasty was performed using a 2.5 x 12 mm noncompliant balloon. Balloon angioplasty was repeated using a 3.0 x 20 mm noncompliant balloon. An inadequate result over the proximal to mid LAD was treated using a 3.0 x 24 mm Synergy drug-eluting stent. Final dilation of the proximal portion of the stent was performed with a 3.5 x 12 mm noncompliant balloon. Repeat imaging showed an optimal result. Final angiography with the wire removed showed TEZ-3 flow with no dissection, thrombus, or distal wire trauma. At this point, it was elected to conclude the procedure. Overall, the patient tolerated the procedure well. There were no overt complications. He was to be transferred to Recovery in stable condition. FINDINGS: Hemodynamics: AO 95/68 (79). Left Ventriculography: This was not performed. Ejection fraction: Normal by noninvasive imaging. CORONARY ARTERIES: Left Main Coronary Artery: This arises from the left coronary cusp. It bifurcates into the left anterior descending and left circumflex coronary artery. Minimal narrowing in distal portion of vessel. Left Anterior Descendin% MiD LAD stenosis with TEZ 2 flow. This was a the bifrucation of a small diagnoal vessel, which was patent. Severe stenosis followed by several tandem lesions of moderate severity. 99% stenosis at baseline was reduced to 0% by balloon angioplasty and placement of a 3.0 x 24 mm Synergy drug-eluting stent. Final images showed TEZ-3 flow with no dissection, thrombus, or distal wire trauma. Left Circumflex: Luminal irregularities throughout. Right coronary artery. This is a dominant vessel giving rise to the posterior descending and posterolateral branches. There is a 60% mid vessel stenosis, followed by 70% distal vessel stenosis. INDICATIONS: Unstable angina, abnormal stress test Electronically Signed by: Michelle Gleason MD 06/23/2021 08:23 P Michelle Gleason MD Date Dict: 06/23/2021/07:55 P/Michelle Gleason MD Date Trans: 06/23/2021 07:55 P/ [id number] cc: Rubin Baron M.D. [address] [place] [address] Normal [facility] POC SARS COV2 ANTIGEN NEGATI VEon 06-23-2021 POC SARS COV2 ANTIGEN NEG Negative Normal NEGATIVE [facility] Comment on above: Result Comment: Nega tive results from patients with symptom onset beyond seven days, should be treated presumptive and confirmation with a molecular assay, if necessary, for patient management, may be performed. Negative results do not rule out SARS-CoV-2 infection and should not be used as the sole basis for treatment or patient management decisions, including infection control decisions. Negative results should be considered in the context of a patient?s recent exposures, history and the presence of clinical signs and symptoms consistent with COVID-19. The [employer] COVID-19 Ag Card is a lateral flow immunoassay intended for the qualitative detection of nucleocapsid protein antigen from SARS-CoV-2 in direct nasal swabs from individuals within the first seven days of symptom onset. Testing is limited to laboratories certified under the Clinical Laboratory Improvement Amendments of 1988 (CLIA), 42 U.S.C. ???263a, that meet the requirements to perform moderate, high or waived complexity tests. This test is authorized for use at the Point of Care (POC), i.e., in patient care settings operating under a CLIA Certificate of Waiver, Certificate of Compliance, or Certificate of Accreditation. Performed By: #### 3 1977 #### [facility] [address] [place] [address], [facility] CBC AUTO DIFFon 06-18-2021 BASO # 0.1 103/ul Normal 0.0-0.1 [facility] Comment on above: Performed By: #### C BC #### [facility] [address] [place] [address] Dr. Carmelita White Basophils/100 WBC (Bld) 0.9 % Normal 0.2-2.0 [facility] Comment on above: Performed By: #### C BC #### [facility] [address] [place] [address] Dr. Carmelita White EO # 0.2 103/ul Normal 0.0-0.7 [facility] Comment on above: Performed By: #### C BC #### [facility] [address] [place] [address] Dr. Carmelita White Eosinophils/100 WBC (Bld) 2.6 % Normal 0.9-7.0 [facility] Comment on above: Performed By: #### C BC #### [facility] [address] [place] [address] Dr. Carmelita White Erythrocyte distribution width (RBC) [Ratio] 12.4 % Normal 11.0-15.0 [facility] Comment on above: Performed By: #### C BC #### [facility] [address] [place] [address] Dr. Carmelita White Hematocrit (Bld) [Volume fraction] 44.8 % Normal 42.0-54.0 [facility] Comment on above: Performed By: #### C BC #### [facility] [address] [place] [address] Dr. Carmelita White Hemoglobin (Bld) [Mass/Vol] 15.2 g/dL Normal 14.0-18.0 [facility] Comment on above: Performed By: #### C BC #### [facility] [address] [place] [address] Dr. Carmelita White IG # 0.03 10e3/ul Normal 0.00-0.03 [facility] Comment on above: Performed By: #### C BC #### [facility] [address] [place] [address] Dr. Carmelita White IG % 0.5 % Normal 0.0-0.5 [facility] Comment on above: Performed By: #### C BC #### [facility] [address] [place] [address] Dr. Carmelita White LYMPH # 1.5 103/ul Normal 1.2-3.8 [facility] Comment on above: Performed By: #### C BC #### [facility] [address] [place] [address] Dr. Carmelita White Lymphocytes/100 WBC (Bld) 22.5 % Normal 20.5-60.0 [facility] Comment on above: Performed By: #### C BC #### [facility] [address] [place] [address] Dr. Carmelita White MANUAL DIFF REQ NO Normal [facility] Comment on above: Performed By: #### C BC #### [facility] [address] [place] [address] Dr. Carmelita White MCH (RBC) [Entitic mass] 29.7 pg Normal 25.9-34.0 [facility] Comment on above: Performed By: #### C BC #### [facility] [address] [place] [address] Dr. Carmelita White MCHC (RBC) [Mass/Vol] 33.9 g/dL Normal 29.9-35.2 [facility] Comment on above: Performed By: #### C BC #### [facility] [address] [place] [address] Dr. Carmelita White MCV (RBC) [Entitic vol] 87.5 fL Normal 80.0-94.0 [facility] Comment on above: Performed By: #### C BC #### [facility] [address] [place] [address] Dr. Carmelita White MONO # 0.4 103/ul Normal 0.3-0.8 [facility] Comment on above: Performed By: #### C BC #### [facility] [address] [place] [address] Dr. Carmelita White Monocytes/100 WBC (Bld) 5.5 % Normal 1.7-12.0 [facility] Comment on above: Performed By: #### C BC #### [facility] [address] [place] [address] Dr. Carmelita White NEUT # 4.5 103/ul Normal 1.4-6.5 [facility] Comment on above: Performed By: #### C BC #### [facility] [address] [place] [address] Dr. Carmelita White Neutrophils/100 WBC (Bld) 68.0 % Normal 43.0-75.0 [facility] Comment on above: Performed By: #### C BC #### [facility] [address] [address] [address] Carmelita White Platelet mean volume (Bld) [Entitic vol] 8.5 fL Critically low 9.5-13.5 [facility] Comment on above: Performed By: #### C BC #### [facility] [address] [place] [address] Dr. Carmelita White PLT 238 103/ul Normal 150-450 [facility] Comment on above: Performed By: #### C BC #### [facility] [address] [address] [address] Carmelita White RBC 5.12 106/ul Normal 4.70-6.10 [facility] Comment on above: Performed By: #### C BC #### [facility] [address] [place] [address] Dr. Carmelita White WBC 6.5 103/ul Normal 4.0-11.0 [facility] Comment on above: Performed By: #### C BC #### [facility] [address] [place] [address] Dr. Carmelita White PROF CHEM 8 (BAS METB)on Anion gap [Moles/Vol] 14.7 mmol/L Normal [facility] Comment on above: Performed By: #### B MP #### [facility] [address] [place] [address] Dr. Carmelita White Calcium [Mass/Vol] 9.3 mg/dL Normal 8.4-10.2 [facility] Comment on above: Performed By: #### B MP #### [facility] [address] [place] [address] Dr. Carmelita White Chloride [Moles/Vol] 101 mmol/L Normal 98-107 [facility] Comment on above: Performed By: #### B MP #### [facility] [address] [place] [address] Dr. Carmelita White CO2 [Moles/Vol] 28.2 mmol/L Normal 22.0-30.0 [facility] Comment on above: Performed By: #### B MP #### [facility] [address] [place] [address] Dr. Carmelita White Creatinine [Mass/Vol] 1.33 mg/dL Critically high 0.66-1.25 [facility] Comment on above: Performed By: #### B MP #### [facility] [address] [address] [address] Carmelita White EGFR-AF HAITIAN >60 Normal >=60 [facility] Comment on above: Performed By: #### B MP #### [facility] [address] [address] [address] Carmelita White EGFR-NON AF HAITIAN 57 mL/min/1.73m2 Critically low >=60 [facility] Comment on above: Performed By: #### B MP #### [facility] [address] [address] [address] Carmelita White Glucose [Mass/Vol] 99 mg/dL Normal 74-106 [facility] Comment on above: Performed By: #### B MP #### [facility] [address] [address] [address] Carmelita White Potassium [Moles/Vol] 4.9 mmol/L Normal 3.4-5.0 [facility] Comment on above: Performed By: #### B MP #### [facility] [address] [address] [address] Carmelita White Sodium [Moles/Vol] 139 mmol/L Normal 137-145 [facility] Comment on above: Performed By: #### B MP #### [facility] [address] [address] [address] Carmelita White Urea nitrogen [Mass/Vol] 21.0 mg/dL Critically high 9.0-20.0 [facility] Comment on above: Performed By: #### B MP #### [facility] [address] [address] [address] Carmelita White Urea nitrogen/Creatinine [Mass ratio] 15.8 mg/mg Normal [facility] Comment on above: Performed By: #### B MP #### [facility] [address] [address] [address] Carmelita White NM STRESS/REST MULTIon 06-09 NM STRESS/REST MULTI Patient: JOO CASTRO. Exam Date: 06/09/2021 : 1970 Gender:M Ordering : DR RUBIN BARON . Admission #: [id number] Family : Order #: [id number] CLICK HERE TO VIEW EXAM RADIOLOGY REPORT PROCEDURE: RADIONUCLIDE IMAGING STRESS/REST MULTI COMPARISON: None. INDICATIONS: Chest pain TECHNIQUE: Exam Description: Stress/Rest two day protocol gated SPECT Rest Imagin.1 mCi Tc-99m Cardiolite IV on 06-11-2021 Stress Imaging 25.4 mCi Tc-99m Cardiolite IV on 06-09-2021 Exercise Protocol: 0.4 mg Lexiscan given IV Heart Rate (bpm): Rest: 95 Max: 115 PMHR: 68 Blood Pressure: Rest: 134/90 Max: 138/88 Symptoms: Rest and peak stress ECG findings were non-diagnostic and the exercise portion of the study was Non-diagnostic per attending physician Dr. Desir due to EKG changes at baseline. For more details please see separate cardiac stress test report. FINDINGS: QUALITY OF STUDY: Good. PERFUSION DEFECT: LOCATION: Mid-anterior. Mid-anteroseptal. Apical anterior. [place]. SIZE: Medium (3-4 segments). SEVERITY: Severe. TYPE: Reversible. WALL MOTION: Moderate hypokinesis: Mid-anterior. Mid-anteroseptal. Apical anterior. LV SIZE: Normal. 95 mL. TID / TCD: None; 1.0 LVEF: Normal. Calculated EF 63%. SUMMARY: Myocardial perfusion imaging study has ABNORMAL findings. CONCLUSION: 1. Large area of transmural decreased perfusion in the anterior wall and apex, LAD distribution. This area demonstrates significant redistribution. Reversible ischemia is suspected. 2. Nondiagnostic exercise test secondary to baseline EKG changes 3. Further evaluation is recommended Dictated by: Ashleigh Mathur MD on 06/11/2021 at 13:15 Approved by: Ashleigh Mathur MD on 06/11/2021 at 13:23 Normal [facility] Vital Signs Date Time Vital Sign Value Performing Clinician Rudolph patton 09-08-2023 14:53-0500 Blood Pressure Location Naren MEDEROS [facility] [place] 09-08-2023 14:53-0500 Diastolic blood pressure 88 mm[Hg] Naren MEDEROS [facility] [place] 09-08-2023 14:53-0500 Heart rate 72 /min Naren NILL [facility] [place] 09-08-2023 14:53-0500 Respiratory rate 16 /min Naren NILL [facility] [place] 09-08-2023 14:53-0500 Systolic blood pressure 146 mm[Hg] Naren NILL [facility] [place] Encounters Encounter Date Encounter Type Care Provider Facility Start: 09-08-2023 End: 09-09-2023 [facility] Start: 09-08-2023 End: 09-08-2023 Patient encounter procedure Naren R NILL [facility] [place] Start: 09-07-2023 ambulatory Naren MEDEROS [facility] Start: 09-06-2023 ambulatory Naren MEDEROS [facility] Start: 08-20-2023 End: 08-20-2023 ambulatory ELVIRA ALSTON [facility] Start: 02-12-2023 End: 02-12-2023 ambulatory MICHELLE GLEASON [facility] Start: 02-23-2022 End: 02-24-2022 ambulatory ELVIRA ALSTON Facility: Start: 08-04-2021 End: 08-05-[address] RUBIN BARON Facility:[facility] Start: 06-28-2021 Encounter for preprocedural laboratory examination DR DOCTOR MILLER [facility] Start: 06-25-[address] DOCTOR MILLER Facility :[facility] Start: 06-23-2021 End: 06-24-2021 ambulatory MERA JURADO Facility:[facility] Start: 06-18-2021 End: 06-19-[address] DOCTOR MILLER Facility:[facility] Start: 06-18-2021 End: 06-19-2021 Encounter for preprocedural laboratory examination DR DOCTOR MILLER Facility:[facility] Start: 06-11-[address] AMALIA loo:[facility] Start: 06-09-2021 End: 06-10-[address] AMALIA FLORES Facility:[facility] Procedures Date Procedure Procedure Detail Performing Clinician Start: 02-23-[address] LAURA FLORES Comment on above: Performed By: #### P [facility] #### [facility] [address] [address] [address] Carmelita White [facility] [employer] Coronary artery sten t (physical object) Naren SeeMeL Fluoroscopic angiopl asty of bilateral iliac arteries and insertion of bilateral iliac artery stents Naren [employer] History of ankle surgery Maik hanatalie [employer] Immunizations Immunization Date Immunization Notes Care Provider Fa [facility] 07-24-2021 SARS-CoV-2 (COVID-19 ) mRNA BNT-162b2 vax [employer] [facility] 11-25-2020 SARS-CoV-2 (COVID-19 ) mRNA BNT-162b2 vax [employer] [facility] 11-04-2020 SARS-CoV-2 (COVID-19 ) mRNA BNT-162b2 vax [employer] [facility] NEGATED: Highlighted row has not occurred!09-08-2023 influenza virus vaccine, unspecified formulation Naren SeeMeL [facility] Payers Date Payer Category Payer Unknown [id number] 2.16.8 [id number] 1970 Unknown [id number] 2.16.84 [id number] 1970 Unknown [id number] 2.16.84 [id number] 1970 Unknown [id number] 2.16.84 [id number] 1970 Unknown [id number] 2.16.84 [id number] 1970 Unknown [id number] 2.16.84 [id number] 1970 Unknown [id number] 2.16.84 [id number] 1970 Unknown [id number] 2.16.84 [id number] 1970 Unknown [id number] 2.16.8 [id number] 1970 Unknown [id number] 2.16.8 [id number] 1960 Medicaid [id number] Social History Date Type Detail Facility Start: 09-08-2023 Tobacco smoking status Light t obacco smoker (finding) [facility] [place] Tobacco smoking status Smokeless tobacco user within last 30 days [facility] [place] Sex Assigned At Male [facility] Functional Status Date Assessment Result Facility 09-08-2023 Functional Status N/A [facility] Clinical Notes 02-12-2023 to 09-08-2023 Note Date & Type Note Facility 09-08-2023 Note Chief Complaint consultation for anemia HPI Staff 52 year old male presents on consultation from Dr. Baron for anemia. H/H 13.6/ 40.3. Patient on Plavix for history of coronary stent. Denies abdominal or rectal pain. No rectal bleeding or change in bowel habits. Denies nausea or vomiting. No unexplained weight loss. Never had colonoscopy in the past. No known family history of colon cancer. History of Present Illness 52 yo male with h/o CAD, h/o angioplasty with stent, PVD, htn, referred for mild anemia and GERD; no dysphagia or odynophagia, takes over the counter H2 blockers with some relief; no N/V, no abd pain, no change in bms or blood in stools, no melena; recently started on iron therapy; abd operations significant for open cholecystectomy, no previous EGD or colonoscopy; no fmhx of colon cancer or IBD; on baby asa and Plavix daily, no SBE prophylaxis; smokes and chews tobacco daily. Review of Systems PHQ Score Initial Depression Screen Score: 0 SCORE ROS - Provider Constitutional: no fever, no sweats, no weight loss. Eyes: no glasses, no blurred vision, no visual loss. ENMT: no dentures, no hoarseness, no swallowing difficulties, no hearing loss, no ear infection(s), no nose bleeds. Cardiovascular: normal blood pressure, no chest pain, regular heartbeat, no heart murmur. Respiratory: no shortness of breath, no cough, no asthma, no wheezing. Gastrointestinal: no nausea, no vomiting, no diarrhea, no constipation, no blood in stool, no change in bowel habits, no abdominal pain, no hepatitis. Genitourinary: no kidney stones, no urine infection, no dysuria. Musculoskeletal: no pain, no weakness. Skin: no changing moles, no rash, no skin lumps. Neurologic: no seizures, no epilepsy, no headache. Psychiatric: no emotional or psychiatric problem. Heme/Lymph: no bleeding problems, no anemia, no blood clots, no transfusions. Allergy/Immunologic: no swollen lymph nodes/glands, no IV drug abuse. Other: Additional ROS info: Except as noted in the above Review of Systems and in the History of Present Illness, all other systems have been reviewed and are negative or noncontributory. Physical Exam Vitals & Measurements HR: 72(Peripheral) RR: 16 BP: 146/88 HT: 74 in HT: 187.9 cm WT: 146 kg WT: 321.2 lb BMI: 41.35 HEENT: normal conjunctiva, sclera clear, no scleral icterus, EOM intact, PERRLA, oral mucosa moist without lesions. Neck: trachea midline, no mass, symmetric, no thyromegaly or nodules, no adenopathy Respiratory: lungs expiratory wheezes, respirations non labored. Cardiovascular: regular rate and rhythm, no murmur, no pedal edema or varicosities. Gastrointestinal: obese, soft, non distended, well-healed, right subcostal incision and right lower quadrant incision no tenderness, no masses, no palpable hernias, diastasis recti no, no hepatosplenomegaly; normal bs Lymphatic: no cervical adenopathy, no supraclavicular adenopathy. Musculoskeletal: normal gait, digits and nails without infection, nodes, cyanosis, clubbing. Skin: no rashes, no lesions, no ulcers, no subcutaneous nodules, induration. Psychiatric/Neuro: oriented to time, place, person, judgement normal, affect appropriate for age, insight intact, no focal deficits. Tests: labs reviewed, , review of old records completed , Discussed surgical options, risks, and possible complications with patient. Assessment/Plan 1. Anemia (D64.9: Anemia, unspecified) plan EGD and colonoscopy under anesthesia for further evaluation, informed consent obtained. 2. Chronic GERD (K21.9: Gastro-esophageal reflux disease without esophagitis) see # 1 3. BMI 40.0-44.9, adult (Z68.41: Body mass index [BMI] 40.0-44.9, adult) recommend diet and exercise 4. Tobacco dependence syndrome (F17.290: Nicotine dependence, other tobacco product, uncomplicated) We strongly recommend to quit tobacco use. Cigarette smoking harms nearly every organ of the body, causes many diseases, and reduces the health of smokers in general. Quitting smoking lowers your risk for smoking-related diseases and can add years to your life. We encourage you to visit www.smokefree.gov access to helpful resources including free telephone support. If you decide on prescription treatment to help you quit, your family doctor would be happy to provide these. Follow-up No qualifying data available Problem List/Past Medical History Ongoing Alcohol abuse Anemia BMI 40.0-44.9, adult Chronic GERD Coronary arteriosclerosis Hypertensive disorder Morbid obesity Tobacco dependence syndrome Historical No qualifying data Procedure/Surgical History Angioplasty of bilateral iliac arteries and insertion of bilateral iliac artery stents using fluoroscopic guidance with contrast, Cholecystectomy, Coronary artery stent, History of ankle surgery. Medications aspirin 81 mg Oral EC Tab, 81 mg= 1 tab(s), Oral, Daily atorvastatin 80 mg Tab, 80 mg= 1 tab(s), Oral, Daily Centrum Silver oral tablet, 1 tab(s), (more content not included)... [facility] Comment on above: Result Comment: Elec tronically Signed By: GATITO HARRISON, Naren Gleason\Date and Time Signed: 09/08/23 19:40 EST 08-20-2023 Note Continues to smoke a nd provider had strong conversation with pt that he needs to completely stop smoking to prevent stent re-occlusion and management of CAD [facility] 08-20-2023 Note Patient here for 6 m o follow up CAD, hypertension, and hyperlipidemia. Had routine labs back in Feb 2023. Denies chest pain, SOB, and palpitations. Review of Systems Cardiovascular: Positive for leg swelling (resolves by morning). Musculoskeletal: Positive for arthritis and back pain. All other systems reviewed and are negative. [facility] 08-20-2023 Note [facility] CARDIOLOGY PROGR ESS NOTE HPI: Thad Castro is a 52 y.o. male here for past medical history including hypertension, hyperlipidemia, and CAD status post PCI of the LAD in 05/2021. HPI Patient here for 6 mo follow up CAD, hypertension, and hyperlipidemia. Had routine labs back in Feb 2023. Denies chest pain, SOB, and palpitations. States overall he feels well, denied any activity limiting symptoms. States he remains active with work, does not have a regular exercise regime. Still smokes here and there. Denied chest pain, SOB, Orthopnea, palpitations or bleeding tendencies Having routine annual labs next month with PCP. Review of Systems Cardiovascular: Positive for leg swelling (resolves by morning). Musculoskeletal: Positive for arthritis and back pain. All other systems reviewed and are negative. Visit Vitals BP 138/86 (BP Location: Right arm, Patient Position: Sitting) Pulse 96 Ht 1.88 m (6' 2 ) Wt (!) 146 kg (322 lb) SpO2 94% BMI 41.34 kg/m??? Smoking Status Every Day BSA 2.76 m??? No Known Allergies Medications: Current Outpatient Medications on File Prior to Visit Medication Sig Dispense Refill nitroglycerin (Nitrostat) 0.4 mg SL tablet DISSOLVE 1 TAB UNDER TONGUE FOR CHEST PAIN*MAY REPEAT EVERY 5 MINUTES IF PAIN PERSISTS/MAX 3 TABS* [DISCONTINUED] aspirin 81 mg EC tablet Take 1 tablet (81 mg) by mouth in the morning. 90 tablet 3 [DISCONTINUED] atorvastatin (Lipitor) 80 mg tablet Take 1 tablet (80 mg) by mouth in the morning. 90 tablet 3 [DISCONTINUED] clopidogrel (Plavix) 75 mg tablet Take 1 tablet (75 mg) by mouth in the morning. 90 tablet 3 [DISCONTINUED] ezetimibe (Zetia) 10 mg tablet Take 1 tablet (10 mg) by mouth in the morning. 90 tablet 3 [DISCONTINUED] irbesartan (Avapro) 300 mg tablet Take 300 mg by mouth in the morning. [DISCONTINUED] metoprolol tartrate (Lopressor) 25 mg tablet Take 0.5 tablets (12.5 mg) by mouth in the morning and at bedtime. 90 tablet 3 No current facility-administered medications on file prior to visit. Physical Exam: Constitutional: Appearance: Normal appearance. Without apparent distress, Obese HENT: Head: Normocephalic and atraumatic. Nose: Nose normal. Mouth/Throat: Mouth: Mucous membranes are moist. Eyes: Extraocular Movements: Extraocular movements intact. Conjunctiva/sclera: Conjunctivae normal. Neck: Vascular: No JVD. Cardiovascular: Rate and Rhythm: Normal rate and regular rhythm. Pulses: Radial pulses are 3 on the right side and 3on the left side. Posterior tibial pulses are 3 on the right side and 3 on the left side. Heart sounds: Normal heart sounds, S1 normal and S2 normal. Pulmonary: Effort: Pulmonary effort is normal. Breath sounds: Normal breath sounds. Abdominal: General: Bowel sounds are normal. Palpations: Abdomen is soft. Musculoskeletal: General: Normal range of motion. Cervical back: Normal range of motion. Right lower leg: No edema. Left lower leg: No edema. Skin: General: Skin is warm and dry. Capillary Refill: Capillary refill takes less than 2 seconds. Neurological: General: No focal deficit present. Mental Status: he is alert and oriented to person, place, and time. Psychiatric: Mood and Affect: Mood normal. Behavior: Behavior normal. Thought Content: Thought content normal. Judgment: Judgment normal. Labs: 02/25/23 CBC normal K+ normal BUN 17, CR 1.13 normal GFR > 60 A1C 5.9 borderline AST 15, ALT 36- normal ALP 152- elevated Chol 118, Trig 181, HDL 33, LDL 49- well controlled Last lab values have been reviewed CV Testin06/23/21 TTE 06/03/21 No echocardiogram results found for the past 12 months Assessment/Plan: Mixed hyperlipidemia Continue lipitor and zetia Well controlled and liver function normal Hypertension Hypertension is well controlled Continue irbesartan, metoprolol Renal function normal Coronary arteriosclerosis Coronary artery disease is stable Continue GDMT- ASA and plavix group home, lipitor and zetia, with metoprolol D/W risk factor and lifestyle modifications- heart healthy diet, regular exercise as tolerated and continue all medications. Tobacco dependence syndrome Continues to smoke and provider had strong conversation with pt that he needs to completely stop smoking to prevent stent re-occlusion and management of CAD RTC 6 months [facility] 08-20-2023 Note Coronary artery dise ase is stable Continue GDMT- ASA and plavix group home, lipitor and zetia, with metoprolol D/W risk factor and lifestyle modifications- heart healthy diet, regular exercise as tolerated and continue all medications. [facility] 08-20-2023 Note Hypertension is well controlled Continue irbesartan, metoprolol Renal function normal [facility] 08-20-2023 Note Continue lipitor and zetia Well controlled and liver function normal [facility] 02-12-2023 Note Cardiology Follow Up Progress Note Chief Complaint: follow up HPI: Thad Castro is a 51 y.o. male with a past medical history including hypertension, hyperlipidemia, and CAD status post PCI of the LAD in 05/2021. Patient presents to clinic for routine follow up. Patient adamantly denies any cardiac complaints or concerns. Patient denies any chest pain or shortness of breath. Patient denies any lower extremity edema, orthopnea, or proximal nocturnal dyspnea. No near-syncope or syncope. No dizziness or lightheadedness. He is taking all of his medications without issue. Metoprolol was previously stopped by his PCP due to borderline blood pressure, and has since been resumed. He states that his Bp is well controlled at home when he checks. Cardiology ROS: GENERAL: Denies fever, chills, night sweats, weight loss. HEENT: Denies changes in vision, photophobia, changes in hearing, epistaxis, oral bleeding. CARDIOVASCULAR: Denies chest pain, exertional dyspnea, orthopnea/PND, lower extremity edema, palpitations, lightheadedness/dizziness. RESPIRATORY: Denies SOB, coughing, wheezing GI: Denies abdominal pain, nausea/vomiting, heartburn, melena/hematochezia. RENAL: Denies dysuria, hematuria, flank pain. MSK: Denies muscle weakness/pain, arthralgias/joint pain. NEUROLOGIC: Denies LOC, weakness, numbness, headaches. SKIN: Denies abnormal rashes or bleeding. PSYCH: Denies significant anxiety, depression, sleep disturbances. Medications Current Outpatient Medications on File Prior to Visit Medication Sig Dispense Refill aspirin 81 mg EC tablet Take 1 tablet (81 mg) by mouth in the morning. 90 tablet 3 atorvastatin (Lipitor) 80 mg tablet Take 1 tablet (80 mg) by mouth in the morning. 90 tablet 3 clopidogrel (Plavix) 75 mg tablet Take 1 tablet (75 mg) by mouth in the morning. 90 tablet 3 ezetimibe (Zetia) 10 mg tablet Take 1 tablet (10 mg) by mouth in the morning. 90 tablet 3 irbesartan (Avapro) 300 mg tablet Take 300 mg by mouth in the morning. metoprolol tartrate (Lopressor) 25 mg tablet Take 12.5 mg by mouth in the morning and at bedtime. nitroglycerin (Nitrostat) 0.4 mg SL tablet DISSOLVE 1 TAB UNDER TONGUE FOR CHEST PAIN*MAY REPEAT EVERY 5 MINUTES IF PAIN PERSISTS/MAX 3 TABS* No current facility-administered medications on file prior to visit. Allergies Patient has no known allergies. Physical Exam VITAL SIGNS: BP 142/88 (BP Location: Right arm, Patient Position: Sitting) Pulse 83 Ht 1.88 m (6' 2 ) Wt (!) 144 kg (318 lb) SpO2 96% BMI 40.83 kg/m??? Constitutional: Well developed, Well nourished, No acute distress, Non-toxic appearance. HENT: Normocephalic, Atraumatic, Bilateral external ears have normal appearance, Nose appears normal, nares are patent. Eyes: PERRLA, EOMI, Conjunctiva normal, No discharge. Neck: Normal range of motion, No tenderness, Supple, No stridor. No cervical lymphadenopathy noted. Cardiovascular: Normal heart rate, Normal rhythm, No murmurs, No rubs, No gallops. Thorax & Lungs: Normal breath sounds, No respiratory distress, No wheezing, No chest tenderness to palpation. Abdomen: Bowel sounds normal, Soft, Nontender, No masses, No pulsatile masses. Skin: Warm, Dry, No erythema, No rash. Back: No tenderness, No CVA tenderness. Extremities: Intact distal pulses, No edema, No tenderness, No cyanosis, No clubbing. Musculoskeletal: Grossly normal strength in extremities Neurologic: Alert & oriented x 3, no gross focal neurological deficits Psychiatric: Affect normal, Judgment normal, Mood normal. Impression: -HTN: well controlled -Hyperlipidemia: on atorvastatin and ezetimibe -CAD s/p PCI: no angina or anginal equivalents Plan: -We will continue aspirin, Plavix, atorvastatin, and ezetimibe for CAD. Patient denies any angina or anginal equivalents. He denies any bleeding risk. He prefers to stay on Plavix at this time and will continue unless patient has any bleeding issues. -Continue Metoprolol for CAD and HTN. He will monitor daily blood pressures and will contact cardiology for persistently abnormal Bps. Can change to Toprol if Bp is issue. -Optimize medical management -Aggressive risk factor modification -Plan of care discussed with patient. All questions were answered. Patient voices understanding and is agreeable with current plan. -Patient was educated on red flag symptoms. Strict return precautions were provided. Patient verbalizes understanding -Follow-up in cardiology clinic in 6 months, or sooner as needed. Michelle Gleason MD Interventional Cardiology [facility] Michelle Gleason MD Interventional Cardiology [facility] 02-12-2023 Note Patient here for 6 m o follow up CAD, hypertension, and hyperlipidemia. Since last visit, Dr. Baron re-started him on low dose metoprolol. Doesn't check his BP at home very often, as he feels great. Denies chest pain, SOB, and lightheadedness. [facility] Evaluation + Plan note No data available for this section General Surgery [facility] Discharge instructions No data available for this section General [facility] [place] [facility] note No data available for this section General [facility] [place] Summary Purpose Family History No Family History Records FoundNo Family History Records FoundNo Family History Records Found No data available for this section No Family History Records Found Advance Directives No Advanced Directives Records FoundNo Advanced Directives Records FoundNo Advanced Directives Records FoundNo Advanced Directives Records Found Additional Source Comments (unrecognized sect ion and content) No Status Records FoundNo Status Records FoundNo Status Records FoundNo Status Records Found INFORMATION SOURCE (unrecogn ized section and content) DATE CREATED AUTHOR 06/28/2021 [facility] DATE CREATED AUTHOR AUTHOR'S ORGANIZ ATION 02/26/2022 [facility] DATE CREATED AUTHOR AUTHOR'S ORGANIZ ATION 08/21/2023 [facility] DATE CREATED AUTHOR AUTHOR'S ORGANIZ ATION [facility] informatio n (unrecognized section and content) Personnel Name: Rubin Baron MD Address: Address: [address] [place] [address] FOR RECORDS PERTAINING TO PATIENTS WHO ARE OR HAVE BEEN ENROLLED IN A CHEMICAL DEPENDENCY/SUBSTANCEABUSE PROGRAM, SOME INFORMATION MAY BE OMITTED. This clinical summary was aggregated from multiple sources. Caution should be exercised in using it in the provision of clinical care. This summary normalizes information from multiple sources, and as a consequence, information in this document may materially change the coding, format and clinical context of patient data. In addition, data may be omitted in some cases. CLINICAL DECISIONS SHOULD BE BASED ON THE PRIMARY CLINICAL RECORDS. [facility] [employer] provides no warranty or guarantee of the accuracy or completeness of information in this document.
== END 2023-09-13 14:11 | disposition home or self-care (01) ==
LOC: PST 14:10
PROVIDERS: PCP Family Medicine; Visit Provider Surgery
DX: D64.9 Anemia, unspecified (principal); K21.9 Gastro-esophageal reflux disease without esophagitis; Z12.11 Encounter for screening for malignant neoplasm of colon

== ENCOUNTER 2023-09-22 07:49 | Day surgery (SDC) | payer MEDICAID, SELFPAY ==
--- NOTE | 2023-09-22 | OP_ITS ---
OPERATION DATE: 09/22/2023 PREOPERATIVE DIAGNOSIS: Iron deficiency anemia, gastroesophageal reflux disease. POSTOPERATIVE DIAGNOSIS: Small hiatal hernia as well as antral gastritis and a 3 mm sigmoid colon polyp. PROCEDURE: EGD with antral biopsy and colonoscopy to cecum with cold forceps polypectomy x1 for sigmoid polyp. SURGEON: Naren Valentino M.D. ANESTHESIA: Monitored anesthesia care. ESTIMATED BLOOD LOSS: Less than 1 mL. INDICATIONS AND CONSENT: Patient is a 52 yo male with h/o mild anemia and GERD, indications, risks benefits of proceeding with EGD and colonoscopy under anesthesia were explained in detail to patient, including risks of bleeding, aspiration, bowel perforation, anesthesia complications or need for further surgery, and informed consent was obtained. PROCEDURE: Patient brought to the operating room, placed in the left lateral decubitus position. Monitored anesthesia care was provided. Bite block was placed in the patient?s mouth. Scope was inserted into the oropharynx. Under direct visualization, it was advanced into the esophagus, past the cricopharyngeus, down to the stomach. The stomach was insufflated with air. The pylorus was traversed down to the descending portion of the duodenum. There was no evidence of duodenitis or ulceration. There was no scarring within the pyloric channel. Scope was pulled back into the stomach and retroflexed. There was noted to be a small, sliding type hiatal hernia. Within the antrum, there was noted to be superficial gastritis with erosions. No ulcerations. No active bleeding. o old or new blood. Biopsy was obtained with pediatric cold biopsy forceps with good hemostasis. The GE junction was noted at approximately 40 cm. There was no distal esophagitis or Gallardo?s changes. The remainder of the esophagus was unremarkable. The scope was then withdrawn. Patient was then positioned for colonoscopy. Rectal exam was performed which showed no masses or blood. The scope was inserted into the anal canal. Under direct visualization was advanced. It was advanced to the cecum where cecal markings were clearly identified. There was noted to be a good prep. Upon withdrawal of the scope, mucosal surfaces were carefully examined. There were no mass lesions or inflammatory changes. No significant diverticulosis. Within the distal sigmoid colon, there was noted to be a 3 mm sessile polyp that was removed with cold biopsy forceps with good hemostasis. The scope was retroflexed in the anal canal. There was no significant hemorrhoidal disease. Scope was then withdrawn. Patient tolerated procedure well, was sent to recovery room in good condition. folow up colonoscopy likely in 5 years, but will depend on pathology results. CC: Leeroy Baron M.D. [facility]
--- OUTSIDE RECORDS SUMMARY | 2023-09-22 07:50 | XMS_ITS | CCD ---
Author Name Unknown Address [address] [place] [address] Organization [facility] Care Team Providers Care Consumer Insight Analyst Name Role Phone MERA JURADO Attending Unavailable ALGHOTHANI, MOHAMAD Admitting Unavailable SELF, REFERRED Referring Unavailable RUBIN BARON Primary Care Unavailable VALONE, DR HOLLAND Primary Care Unavailable HOY, DR CONKLIN Attending Unavailable HOY, DR CONKILN Consulting Unavailable ALIYAY, DR CONKLIN Admitting Unavailable WEST, DR ASHLEIGH Martinez Consulting Unavailable MISC, DR MITCHELL Attending Unavailable MISC, DR MITCHELL Admitting Unavailable MISC, DR MITCHELL Consulting Unavailable ALIYAY, DR CONKLIN Primary Care Unavailable HOY, DR CONKLIN Primary Care Unavailable ALGHOTHANI, MOHAMAAndrey Admitting Unavailable ALGHOTHANI, MICHELLE Attending Unavailable ALGHOTHANI, MOHSHOBHAD Consulting Unavailable LORAINE, DR CONKLIN Admitting Unavailable HOY, DR CONKILN Attending Unavailable HOY, DR CONKLIN Consulting Unavailable ALIYAY, DR CONKLIN Primary Care Unavailable VALONE, DR HOLLAND Primary Care Unavailable LORAINE, DR CONKLIN Admitting Unavailable HOMiguel Ángel, DR CONKLIN Attending Unavailable MISC, DR MITCHELL Admitting Unavailable MISC, DR MITCHELL Attending Unavailable MISC, DR MITCHELL Consulting Unavailable LORAINE, DR CONKLIN Primary Care Unavailable GAMALIEL, ELVIRA Admitting Unavailable LORAINE, DR CONKLIN Primary Care Unavailable GAMALIELELVIRA Attending Unavailable GAMALIELELVIRA Consulting Unavailable ALGHOTHANI, MOHAMAD [...] disease (9 sources) Atherosclerotic heart disease of [place] coronary artery without angina pectoris; Translations: [Coronary [...] Test Name Value Interpretation Reference Range Facility [facility] 09-13-2023 Forms [id number] .00TIFF [facility] Consent for Procedure/Surger yon 09-10-2023 Consent for Procedure/Surgery [id number] .00TIFF [facility] Facesheeton 09-09-2023 Facesheet [id number]#1.0 0TIFF [facility] Ambulatory Visit Summaryon 0 09-08-2023 Ambulatory Visit Summary THAD CASTRO :1970 Visit Date:09/08/2023 Ambulatory Visit Instructions Your Care Team Attending Physician - GATITO HARRISON, Naren Persaud Primary Care Physician - Loraine HARRISON, Rubin This Is Your Medications List Contact prescribing [...] for choosing us for your care. Normal [facility] Physician Referralon 024 Physician Referral [id number] .00TIFF Normal [facility] Physician Referralon 024 Physician Referral [id number] .00TIFF Normal [facility] Office Visiton 08-20-2023 Follow-up visit [id number] Thad Castro 1970 M [facility] Provider Department Center 08/20/2023 120-ELVIRA ALSTON MARY Spears Family History Problem Relation Age of Onset Hypertension Mother Pancreatic cancer Mother Coronary artery disease Father Stomach cancer Father Other Father Heart murmur Sister Hypertension Brother Family Status - Relation Status Age at Mother Father Sister Brother Level of Service:95677 [place] OFFICE/OUTPATIENT ESTABLISHED MOD MDM 30 MIN Normal [facility] Office Visiton 02-12-2023 Follow-up visit [id number] Thad Castro 1970 M Date Provider Department Center 02/12/2023 3848-MICHELLE GLEASON MARY Spears Family History Problem Relation Age of Onset Hypertension Mother Pancreatic cancer Mother Coronary artery disease Father Stomach cancer Father Other Father Heart murmur Sister Hypertension Brother Family Status - Relation Status Age at Mother Father Sister Brother Level of Service:02096 [place] OFFICE/OUTPATIENT ESTABLISHED LOW MDM 20-29 MIN Normal [facility] INSULINon 02-24-2022 Insulin 14.5 uIU/mL Normal 2.6-24.9 [facility] Comment on above: Performed By: #### I NSULIN #### [facility] [address] [place] [address] Dr. Carmelita White BILIRUBIN CONJUGATED (DIRECT )on 02-23-2022 BILI, CONJUGATED 0.2 mg/dL Normal 0.0-0.2 [facility] Comment on above: Performed By: #### D JEMMA #### [facility] [address] [place] [address] Dr. Carmelita White CBC AUTO DIFFon 02-23-2022 BASO # 0.1 103/ul Normal 0.0-0.1 [facility] Comment on above: Performed By: #### C BC #### [facility] [address] [place] [address] Dr. Carmelita White Basophils/100 WBC (Bld) 1.2 % Normal 0.2-2.0 [facility] Comment on above: Performed By: #### C BC #### [facility] [address] [place] [address] Dr. Carmelita White EO # 0.2 103/ul Normal 0.0-0.7 [facility] Comment on above: Performed By: #### C BC #### [facility] [address] [place] [address] Dr. Carmelita White Eosinophils/100 WBC (Bld) 4.0 % Normal 0.9-7.0 [facility] Comment on above: Performed By: #### C BC #### [facility] [address] [place] [address] Dr. Carmelita White Erythrocyte distribution width (RBC) [Ratio] 13.2 % Normal 11.0-15.0 [facility] Comment on above: Performed By: #### C BC #### [facility] [address] [place] [address] Dr. Carmelita White Hematocrit (Bld) [Volume fraction] 38.7 % Critically low 42.0-54.0 [facility] Comment on above: Performed By: #### C BC #### [facility] [address] [place] [address] Dr. Carmelita White Hemoglobin (Bld) [Mass/Vol] 13.4 g/dL Critically low 14.0-18.0 [facility] Comment on above: Performed By: #### C BC #### [facility] [address] [place] [address] Dr. Carmelita White IG # 0.02 10e3/ul Normal 0.00-0.03 [facility] Comment on above: Performed By: #### C BC #### [facility] [address] [place] [address] Dr. Carmelita White IG % 0.3 % Normal 0.0-0.5 [facility] Comment on above: Performed By: #### C BC #### [facility] [address] [place] [address] Dr. Carmelita White LYMPH # 1.5 103/ul Normal 1.2-3.8 [facility] Comment on above: Performed By: #### C BC #### [facility] [address] [place] [address] Dr. Carmelita White Lymphocytes/100 WBC (Bld) 24.1 % Normal 20.5-60.0 [facility] Comment on above: Performed By: #### C BC #### [facility] [address] [place] [address] Dr. Carmelita Whtie MANUAL DIFF REQ NO Normal [facility] Comment on above: Performed By: #### C BC #### [facility] [address] [place] [address] Dr. Carmelita White MCH (RBC) [Entitic mass] 30.5 pg Normal 25.9-34.0 [facility] Comment on above: Performed By: #### C BC #### [facility] [address] [place] [address] Dr. Carmelita White MCHC (RBC) [Mass/Vol] 34.6 g/dL Normal 29.9-35.2 [facility] Comment on above: Performed By: #### C BC #### [facility] [address] [address] [address] Carmelita White MCV (RBC) [Entitic vol] 88.2 fL Normal 80.0-94.0 [facility] Comment on above: Performed By: #### C BC #### [facility] [address] [address] [address] Carmelita White MONO # 0.4 103/ul Normal 0.3-0.8 [facility] Comment on above: Performed By: #### C BC #### [facility] [address] [address] [address] Carmelita White Monocytes/100 WBC (Bld) 6.6 % Normal 1.7-12.0 [facility] Comment on above: Performed By: #### C BC #### [facility] [address] [place] [address] Dr. Carmelita White NEUT # 3.9 103/ul Normal 1.4-6.5 [facility] Comment on above: Performed By: #### C BC #### [facility] [address] [place] [address] Dr. Carmelita White Neutrophils/100 WBC (Bld) 63.8 % Normal 43.0-75.0 [facility] Comment on above: Performed By: #### C BC #### [facility] [address] [place] [address] Dr. Carmelita White Platelet mean volume (Bld) [Entitic vol] 8.5 fL Critically low 9.5-13.5 [facility] Comment on above: Performed By: #### C BC #### [facility] [address] [place] [address] Dr. Carmelita White PLT 204 103/ul Normal 150-450 [facility] Comment on above: Performed By: #### C BC #### [facility] [address] [address] [address] Carmelita White RBC 4.39 106/ul Critically low 4.70-6.10 The [facility] Comment on above: Performed By: #### C BC #### [facility] [address] [address] [address] Carmelita White WBC 6.1 103/ul Normal 4.0-11.0 [facility] Comment on above: Performed By: #### C BC #### [facility] [address] [address] [address] Carmelita White GLYCOHEMOGLOBIN A1Con 2021 ADA RECOMMENDATION SEE BELOW Normal [facility] Comment on above: Result Comment: ADA RECOMMENDED LIMIT 4.0 - 6.0 ADA THERAPEUTIC TARGET < 7.0 ACTION SUGGESTED > 7.0 Performed By: #### A 1C #### [facility] [address] [address] [address] Carmelita White Glucose [Mass/Vol] 120 mg/dL Normal [facility] Comment on above: Performed By: #### A 1C #### [facility] [address] [address] [address] Carmelita White HbA1c (Bld) [Mass fraction] 5.8 % Normal 4.5-6.2 [facility] Comment on above: Performed By: #### A 1C #### [facility] [address] [address] [address] Carmelita White LIPID PROFILEon 02-23-2022 CHOL-HDL RATIO NORM SEE BELOW Normal [facility] Comment on above: Result Comment: 3.3 - 4.4 LOW RISK 4.4 - 7.1 AVERAGE RISK 7.1 - 11.0 MODERATE RISK >11.0 HIGH RISK Performed By: #### L IPID, CMP, URIC ####[facility] [address] [id number]. Carmelita White Cholesterol [Mass/Vol] 147 mg/dL Normal <=200 [facility] Comment on above: Performed By: #### L IPID, CMP, URIC ####[facility] [address] [place] [id number] White Cholesterol in HDL [Mass/Vol] 34 mg/dL Critically low 40-60 [facility] Comment on above: Performed By: #### L IPID, CMP, URIC ####[facility] [address] [id number]. Carmelita White Cholesterol in LDL [Mass/Vol] 84.6 mg/dL Normal [facility] Comment on above: Performed By: #### L IPID, CMP, URIC ####[facility] [address] [id number]. Carmelita White Cholesterol.total/Ch olesterol in HDL [Mass ratio] 4.3 {ratio} Normal [facility] Comment on above: Performed By: #### L IPID, CMP, URIC ####[facility] [address] [id number]. Carmelita White HDL NORMAL > or = 60 mg/dl - LO W CARDIOVASCULAR RISK <40 mg/dl - HIGH CARDIOVASCULAR RISK Normal [facility] Comment on above: Performed By: #### L IPID, CMP, URIC ####[facility] [address] [address]Dr. Carmelita White LDL CALC NORMAL SEE BELOW Normal The [facility] Comment on above: Result Comment: <100 mg/dl OPTIMAL 100 - 129 mg/dl NEAR OR ABOVE OPTIMAL 130 - 159 mg/dl BORDERLINE HIGH 160 - 189 mg/dl HIGH >190 mg/dl VERY HIGH Performed By: #### L IPID, CMP, URIC ####[facility] [address] [id number]. Carmelita White Triglyceride [Mass/Vol] 142 mg/dL Normal <=150 [facility] Comment on above: Performed By: #### L IPID, CMP, URIC ####[facility] [address] [id number]. Carmelita White VLDL CALC 28.4 mg/dL Normal [facility] Comment on above: Performed By: #### L IPID, CMP, URIC ####[facility] [address] [address]Dr. Carmelita White PROF 14(COMP METB)on 022 Albumin [Mass/Vol] 4.0 g/dL Normal 3.4-5.0 [facility] Comment on above: Performed By: #### L IPID, CMP, URIC ####[facility] [address] [address]Dr. Carmelita White Albumin/Globulin [Mass ratio] 1.2 {ratio} Normal [facility] Comment on above: Performed By: #### L IPID, CMP, URIC ####[facility] [address] [address]Dr. Carmelita White ALP [Catalytic activity/Vol] 131 U/L Critically high 46-116 [facility] Comment on above: Performed By: #### L IPID, CMP, URIC ####[facility] [address] [address]Dr. Carmelita White ALT [Catalytic activity/Vol] 36 U/L Normal 16-63 [facility] Comment on above: Performed By: #### L IPID, CMP, URIC ####[facility] [address] [address]Dr. Carmelita White Anion gap [Moles/Vol] 13.0 mmol/L Normal [facility] Comment on above: Performed By: #### L IPID, CMP, URIC ####[facility] [address] [place], [place] [address]Dr. Carmelita White AST [Catalytic activity/Vol] 14 U/L Critically low 15-37 [facility] Comment on above: Performed By: #### L IPID, CMP, URIC ####[facility] [address] [address]Dr. Carmelita White Bilirubin [Mass/Vol] 0.7 mg/dL Normal 0.2-1.0 [facility] Comment on above: Performed By: #### L IPID, CMP, URIC ####[facility] [address] [address]Dr. Carmelita White Calcium [Mass/Vol] 9.3 mg/dL Normal 8.5-10.1 [facility] Comment on above: Performed By: #### L IPID, CMP, URIC ####[facility] [address] [address]Dr. Carmelita White Chloride [Moles/Vol] 104 mmol/L Normal 98-107 [facility] Comment on above: Performed By: #### L IPID, CMP, URIC ####[facility] [address] [address]Dr. Nandaenrique Christopher CO2 [Moles/Vol] 27.2 mmol/L Normal 21.0-32.0 [facility] Comment on above: Performed By: #### L IPID, CMP, URIC ####[facility] [address] [address]Dr. Carmelita White Creatinine [Mass/Vol] 1.20 mg/dL Normal 0.70-1.30 [facility] Comment on above: Performed By: #### L IPID, CMP, URIC ####[facility] [address] [address]Dr. Carmelita White EGFR-AF PALAUAN >60 Normal >=60 [facility] Comment on above: Performed By: #### L IPID, CMP, URIC ####[facility] [address] [address]Dr. Carmelita White EGFR-NON AF PALAUAN >60 Normal >=60 [facility] Comment on above: Performed By: #### L IPID, CMP, URIC ####[facility] [address] [place], [place] [address]Dr. Carmelita White Globulin (S) [Mass/Vol] 3.4 g/dL Normal [facility] Comment on above: Performed By: #### L IPID, CMP, URIC ####[facility] [address] [address]Dr. Carmelita White Glucose [Mass/Vol] 97 mg/dL Normal 74-106 [facility] Comment on above: Performed By: #### L IPID, CMP, URIC ####[facility] [address] [address]Dr. Carmelita White Potassium [Moles/Vol] 4.2 mmol/L Normal 3.5-5.1 [facility] Comment on above: Performed By: #### L IPID, CMP, URIC ####[facility] [address] [address]Dr. Carmelita White Protein [Mass/Vol] 7.4 g/dL Normal 6.4-8.2 [facility] Comment on above: Performed By: #### L IPID, CMP, URIC ####[facility] [address] [address]Dr. Carmelita White Sodium [Moles/Vol] 140 mmol/L Normal 136-145 [facility] Comment on above: Performed By: #### L IPID, CMP, URIC ####[facility] [address] [address]Dr. Carmelita White Urea nitrogen [Mass/Vol] 19.0 mg/dL Critically high 7.0-18.0 [facility] Comment on above: Performed By: #### L IPID, CMP, URIC ####[facility] [address] [address]Dr. Carmelita White Urea nitrogen/Creatinine [Mass ratio] 15.8 mg/mg Normal [facility] Comment on above: Performed By: #### L IPID, CMP, URIC ####[facility] [address] [address]Dr. Carmelita White URIC ACID SERUMon 02-23-2022 Urate [Mass/Vol] 6.5 mg/dL Normal 3.5-7.2 [facility] Comment on above: Performed By: #### L IPID, CMP, URIC ####[facility] [address] [address]Dr. Carmelita White GLYCOHEMOGLOBIN A1Con 2021 ADA RECOMMENDATION ADA THERAPEUTIC TARGET 6.0 - 7.0 ACTION SUGGESTED > 7.0 Normal [facility] Comment on above: Performed By: #### A 1C #### [facility] [address] [address] [address] Carmelita White Glucose [Mass/Vol] 126 mg/dL Normal [facility] Comment on above: Performed By: #### A 1C #### [facility] [address] [address] [address] Carmelita White HbA1c (Bld) [Mass fraction] 6.0 % Normal <=6.0 [facility] Comment on above: Performed By: #### A 1C #### [facility] [address] [address] [address] Carmelita White LIPID PROFILEon 08-04-2021 CHOL-HDL RATIO NORM SEE BELOW Normal [facility] Comment on above: Result Comment: 3.3 - 4.4 LOW RISK 4.4 - 7.1 AVERAGE RISK 7.1 - 11.0 MODERATE RISK >11.0 HIGH RISK Performed By: #### L IPID #### [facility] [address] [address] [address] Carmelita White Cholesterol [Mass/Vol] 150 mg/dL Normal <=200 [facility] Comment on above: Performed By: #### L IPID #### [facility] [address] [address] [address] Carmelita White Cholesterol in HDL [Mass/Vol] 34 mg/dL Normal [facility] Comment on above: Performed By: #### L IPID #### [facility] [address] [address] [address] Carmelita White Cholesterol in LDL [Mass/Vol] 79.2 mg/dL Normal [facility] Comment on above: Performed By: #### L IPID #### [facility] [address] [address] [address] Carmelita White Cholesterol.total/Ch olesterol in HDL [Mass ratio] 4.4 {ratio} Normal [facility] Comment on above: Performed By: #### L IPID #### [facility] [address] [address] [address] Carmelita White HDL NORMAL > or = 60 mg/dl - LO W CARDIOVASCULAR RISK <40 mg/dl - HIGH CARDIOVASCULAR RISK Normal [facility] Comment on above: Performed By: #### L IPID #### [facility] [address] [place], [place] [id number] Dr. Carmelita White LDL CALC NORMAL SEE BELOW Normal The [facility] Comment on above: Result Comment: <100 mg/dl OPTIMAL 100 - 129 mg/dl NEAR OR ABOVE OPTIMAL 130 - 159 mg/dl BORDERLINE HIGH 160 - 189 mg/dl HIGH >190 mg/dl VERY HIGH Performed By: #### L IPID #### [facility] [address] [address] [address] Carmelita White Triglyceride [Mass/Vol] 184 mg/dL Critically high <=150 [facility] Comment on above: Performed By: #### L IPID #### [facility] [address] [address] [address] Carmelita White VLDL CALC 36.8 mg/dL Normal [facility] Comment on above: Performed By: #### L IPID #### [facility] [address] [address] [address] Carmelita White CBC W/DIFFon 06-24-2021 ABS IMM GRANS 0.0 10*3/uL Normal 0.0-0.2 The [facility] Comment on above: Order Comment: No: D o not add to previous draw Performed By: #### 5 0103 #### [facility] [address] ABS NEUTROPHILS 4.6 10*3/uL Normal 1.6-7.6 [facility] Comment on above: Order Comment: No: D o not add to previous draw Performed By: #### 5 0103 #### [facility] [address] [place] [address], [facility] Basophils (Bld) [#/Vol] 0.1 10*3/uL Normal 0.0-0.2 The [facility] Comment on above: Order Comment: No: D o not add to previous draw Performed By: #### 5 0103 #### [facility] [address] [place] [address], [facility] Basophils/100 WBC (Bld) 1.0 % Normal 0.0-1.0 [facility] Comment on above: Order Comment: No: D o not add to previous draw Performed By: #### 5 0103 #### [facility] [address] [place] [address], [facility] Eosinophils (Bld) [#/Vol] 0.2 10*3/uL Normal 0.0-0.5 [facility] Comment on above: Order Comment: No: D o not add to previous draw Performed By: #### 5 0103 #### [facility] [address] [place] [address], [facility] Eosinophils/100 WBC (Bld) 2.8 % Normal 0.0-6.0 The [facility] Comment on above: Order Comment: No: D o not add to previous draw Performed By: #### 5 0103 #### [facility] [address] Erythrocyte distribution width (RBC) [Ratio] 12.7 % Normal 11.5-15.0 The [facility] Comment on above: Order Comment: No: D o not add to previous draw Performed By: #### 5 0103 #### [facility] [address] Hematocrit (Bld) [Volume fraction] 41.5 % Normal 39.0-50.0 [facility] Comment on above: Order Comment: No: D o not add to previous draw Performed By: #### 5 0103 #### [facility] [address] [place] [address], [facility] Hemoglobin (Bld) [Mass/Vol] 13.9 g/dL Normal 13.0-17.0 [facility] Comment on above: Order Comment: No: D o not add to previous draw Performed By: #### 5 0103 #### [facility] [address] [place] [address], [facility] IMMATURE GRANS 0.3 % Normal 0.0-1.0 The [facility] Comment on above: Order Comment: No: D o not add to previous draw Performed By: #### 5 0103 #### [facility] [address] [place] [address], [facility] Lymphocytes (Bld) [#/Vol] 1.7 10*3/uL Normal 1.2-4.0 The [facility] Comment on above: Order Comment: No: D o not add to previous draw Performed By: #### 5 0103 #### [facility] [address] [place] [address], [facility] Lymphocytes/100 WBC (Bld) 24.0 % Normal 20.0-45.0 [facility] Comment on above: Order Comment: No: D o not add to previous draw Performed By: #### 5 0103 #### [facility] [address] [place] [address], [facility] MCH (RBC) [Entitic mass] 29.9 pg Normal 27.0-33.0 [facility] Comment on above: Order Comment: No: D o not add to previous draw Performed By: #### 5 0103 #### [facility] [address] MCHC (RBC) [Mass/Vol] 33.5 g/dL Normal 32.0-35.0 [facility] Comment on above: Order Comment: No: D o not add to previous draw Performed By: #### 5 0103 #### [facility] [address] [place] [address], [facility] MCV (RBC) [Entitic vol] 89.2 fL Normal 82.0-98.0 [facility] Comment on above: Order Comment: No: D o not add to previous draw Performed By: #### 5 0103 #### [facility] [address] [place] [address], [facility] Monocytes (Bld) [#/Vol] 0.6 10*3/uL Normal 0.1-1.0 The [facility] Comment on above: Order Comment: No: D o not add to previous draw Performed By: #### 5 0103 #### [facility] [address] [place] [address], [facility] MONOS 8.0 % Normal 5.0-12.0 The [facility] Comment on above: Order Comment: No: D o not add to previous draw Performed By: #### 5 0103 #### [facility] [address] [place] [id number], [facility] Neutrophils/100 WBC (Bld) 63.9 % Normal 40.0-72.0 The [facility] Comment on above: Order Comment: No: D o not add to previous draw Performed By: #### 5 0103 #### [facility] [address] [place] [id number], [facility] Nucleated RBC/100 WBC (Bld) [Ratio] 0 % Normal 0-0 The [facility] Comment on above: Order Comment: No: D o not add to previous draw Performed By: #### 5 0103 #### [facility] [address] [facility] [place] [address], [facility] PLAT CNT 187 10*3/uL Normal 150-400 The [facility] Comment on above: Order Comment: No: D o not add to previous draw Performed By: #### 5 0103 #### [facility] [address] [place] [address], [facility] RBC (Bld) [#/Vol] 4.65 10*6/uL Normal 4.20-5.70 The [facility] Comment on above: Order Comment: No: D o not add to previous draw Performed By: #### 5 0103 #### [facility] [address] [place] [address], [facility] WBC (Bld) [#/Vol] 7.22 10*3/uL Normal 4.00-10.60 [facility] Comment on above: Order Comment: No: D o not add to previous draw Performed By: #### 5 3 #### [facility] [address] [place] [id number], [facility] COMP METABOLIC PANELon 06-24 Albumin [Mass/Vol] 3.9 g/dL Normal 3.5-5.7 [facility] Comment on above: Order Comment: No: D o not add to previous draw Performed By: #### 0 0121, [id number] #### [facility] [address] [place] [address], [place] ALKALINE PHOSPH 108 IU/L High 34-104 [facility] Comment on above: Order Comment: No: D o not add to previous draw Performed By: #### 0 0121, [id number] #### [facility] [address] [place] [address], [place] ALT [Catalytic activity/Vol] 26 U/L Normal 7-52 [facility] Comment on above: Order Comment: No: D o not add to previous draw Performed By: #### 0 0121, [id number] #### [facility] [address] [place] [address], [place] AST [Catalytic activity/Vol] 12 U/L Low 13-39 [facility] Comment on above: Order Comment: No: D o not add to previous draw Performed By: #### 0 0121, [id number] #### [facility] [address] [place] [address], [place] Bilirubin [Mass/Vol] 0.8 mg/dL Normal 0.3-1.0 [facility] Comment on above: Order Comment: No: D o not add to previous draw Performed By: #### 0 0121, [id number] #### [facility] [address] [place] [address], [place] Calcium [Mass/Vol] 9.0 mg/dL Normal 8.6-10.3 [facility] Comment on above: Order Comment: No: D o not add to previous draw Performed By: #### 0 0121, 85106 #### [facility] [address] [place] [address], [place] Chloride [Moles/Vol] 103 mmol/L Normal 98-107 [facility] Comment on above: Order Comment: No: D o not add to previous draw Performed By: #### 0 0121, [id number] #### [facility] [address] [place] [address], [place] CO2 [Moles/Vol] 28 mmol/L Normal 21-31 [facility] Comment on above: Order Comment: No: D o not add to previous draw Performed By: #### 0 0121, 11283 #### [facility] [address] [place] [address], [place] Creatinine [Mass/Vol] 1.24 mg/dL Normal 0.70-1.30 [facility] Comment on above: Order Comment: No: D o not add to previous draw Performed By: #### 0 0121, 77359 #### [facility] [address] [place] [address], [place] GFR/1.73 sq M.predicted among blacks MDRD (S/P/Bld) [Vol rate/Area] mL/min/{1.73_m2} Normal >60 [facility] Comment on above: Order Comment: No: D o not add to previous draw Performed By: #### 0 0121, 10914 #### [facility] [address] [place] [address], [place] GFR/1.73 sq M.predicted among non-blacks MDRD (S/P/Bld) [Vol rate/Area] mL/min/{1.73_m2} Normal >60 [facility] Comment on above: Order Comment: No: D o not add to previous draw Performed By: #### 0 0121, 06822 #### [facility] [address] [place] [address], [place] Glucose [Mass/Vol] 102 mg/dL High 70-100 [facility] Comment on above: Order Comment: No: D o not add to previous draw Performed By: #### 0 0121, 81870 #### [facility] [address] [place] [address], [facility] Potassium [Moles/Vol] 4.3 mmol/L Normal 3.5-5.1 [facility] Comment on above: Order Comment: No: D o not add to previous draw Performed By: #### 0 0121, 77100 #### [facility] [address] [place] [address], [facility] Protein [Mass/Vol] 6.3 g/dL Normal 6.0-8.3 [facility] Comment on above: Order Comment: No: D o not add to previous draw Performed By: #### 0 0121, 34814 #### [facility] [address] [place] [address], [facility] Sodium [Moles/Vol] 136 mmol/L Normal 136-145 [facility] Comment on above: Order Comment: No: D o not add to previous draw Performed By: #### 0 0121, 08825 #### [facility] [address] [place] [id number], [facility] Urea nitrogen [Mass/Vol] 22 mg/dL Normal 7-25 [facility] Comment on above: Order Comment: No: D o not add to previous draw Performed By: #### 0 0121, 69065 #### [facility] [address] [place] [address], [place] LIPID PROFILEon 06-24-2021 Cholesterol [Mass/Vol] 149 mg/dL Normal 120-200 [facility] Comment on above: Order Comment: No: D o not add to previous draw Result Comment: CHOL ESTEROL REFERENCE RANGE: 20 YEARS AND OLDER CARDIOVASCULAR RISK Less than 200 mg/dl Low Risk 200 to 239 mg/dl Borderline Risk 240 mg/dl and greater High Risk Performed By: #### 0 0121, 14454 #### [facility] [address] [place] [address], [facility] Cholesterol in HDL [Mass/Vol] 34 mg/dL Normal 23-92 [facility] Comment on above: Order Comment: No: D o not add to previous draw Result Comment: Slig ht variation in normal range could be due to gender and/or age. HDL CHOLESTEROL REFERENCE RANGE: 20 years and older Cardiovascular Risk > or =60 mg/dL Desirable 40 TO 59 mg/dL Low Risk <40 mg/dL High Risk Performed By: #### 0 0121, 17282 #### [facility] [address] [place] [address], [facility] Cholesterol in LDL [Mass/Vol] 101 mg/dL Normal 0-130 [facility] Comment on above: Order Comment: No: D o not add to previous draw Result Comment: LDL IS A CALCULATION LDL IS ONLY VALID IF THE TRIG IS LESS THAN 400. Performed By: #### 0 0121, [id number] #### [facility] [address] [place] [address], [facility] Cholesterol.total/Ch olesterol in HDL [Mass ratio] 4.4 {ratio} Normal .0-4.5 [facility] Comment on above: Order Comment: No: D o not add to previous draw Performed By: #### 0 0121, 27669 #### [facility] [address] [place] [address], [facility] NON-HDL CHOLESTEROL 115 mg/dL Normal [facility] Comment on above: Order Comment: No: D o not add to previous draw Performed By: #### 0 0121, 39577 #### [facility] [address] [place] [address], [place] Triglyceride [Mass/Vol] 72 mg/dL Normal 40-149 [facility] Comment on above: Order Comment: No: D o not add to previous draw Result Comment: TRIG LYCERIDE REFERENCE RANGE: 20 YEARS AND OLDER CARDIOVASCULAR RISK LESS THAN 150 mg/dl LOW RISK 150 TO 199 mg/dl BORDERLINE RISK 200 mg/dl AND GREATER HIGH RISK Performed By: #### 0 0121, 77979 #### [facility] [address] [place] [address], [facility] VLDL CHOL 14 mg/dL Normal 0-40 [facility] Comment on above: Order Comment: No: D o not add to previous draw Performed By: #### 0 0121, 99022 #### [facility] [address] [place], [place] [id number] [place] [address] Cardiovascular Lab Reporton 06-23-2021 Cardiovascular Lab Report [facility] Patient Name: Thad Castro MR #: [id number] [facility] Physician: Michelle Gleason MD Department of Service Date: 06/23/2021 Medicine Birthdate: 1970 Division of Room #: 3CD 602633 Cardiology Adult Cardiovascular Services [facility] [address] [facility] [place]. [place] [address] Cardiovascular Laboratory Report Cardiovascular Laboratory Report FINAL IMPRESSIONS: 1. 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 2. 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 RECOMMENDATIONS: 1. Aspirin 81 mg lifelong. 2. Plavix 75 mg daily for a minimum of 6 months, preferably usp. 3. Aggressive risk factor modification. 4. Optimization [...] to proceed with an interventional procedure. A 6-Malay XB 3.5 catheter was advanced in and [...] Gleason MD Date Trans: 06/23/2021 07:55 P/ [id number] cc: Rubin Baron M.D. [address] [facility] [id number] Normal [facility] POC SARS COV2 ANTIGEN NEGATI VEon 06-23-2021 POC SARS COV2 ANTIGEN NEG Negative Normal NEGATIVE [facility] Comment on above: Result Comment: Nega [...] signs and symptoms consistent with COVID-19. The [facility] COVID-19 Ag Card is a lateral flow [...] Certificate of Accreditation. Performed By: #### 3 [facility] #### [facility] [address] CBC AUTO DIFFon 06-18-2021 BASO # 0.1 103/ul Normal 0.0-0.1 [facility] Comment on above: Performed By: #### C BC #### [facility] [address] [place] [address] [address] Carmelita White Basophils/100 WBC (Bld) 0.9 % Normal 0.2-2.0 [facility] Comment on above: Performed By: #### C BC #### [facility] [address] [place] [address] Dr. Carmelita White EO # 0.2 103/ul Normal 0.0-0.7 [facility] Comment on above: Performed By: #### C BC #### [facility] [address] [place] [address] Dr. Carmelita White Eosinophils/100 WBC (Bld) 2.6 % Normal 0.9-7.0 [facility] Comment on above: Performed By: #### C BC #### [facility] [address] [place] [address] Dr. Carmelita White Erythrocyte distribution width (RBC) [Ratio] 12.4 % Normal 11.0-15.0 [facility] Comment on above: Performed By: #### C BC #### [facility] [address] [place] [address] Dr. Carmelita White Hematocrit (Bld) [Volume fraction] 44.8 % Normal 42.0-54.0 [facility] Comment on above: Performed By: #### C BC #### [facility] [address] [place] [address] Dr. Carmelita White Hemoglobin (Bld) [Mass/Vol] 15.2 g/dL Normal 14.0-18.0 [facility] Comment on above: Performed By: #### C BC #### [facility] [address] [place] [address] Dr. Carmelita White IG # 0.03 10e3/ul Normal 0.00-0.03 [facility] Comment on above: Performed By: #### C BC #### [facility] [address] [place] [address] Dr. Carmelita White IG % 0.5 % Normal 0.0-0.5 [facility] Comment on above: Performed By: #### C BC #### [facility] [address] [place] [address] Dr. Carmelita White LYMPH # 1.5 103/ul Normal 1.2-3.8 [facility] Comment on above: Performed By: #### C BC #### [facility] [address] [place] [address] Dr. Carmelita White Lymphocytes/100 WBC (Bld) 22.5 % Normal 20.5-60.0 [facility] Comment on above: Performed By: #### C BC #### [facility] [address] [place] [address] Dr. Carmelita White MANUAL DIFF REQ NO Normal [facility] Comment on above: Performed By: #### C BC #### [facility] [address] [place] [address] Dr. Carmelita White MCH (RBC) [Entitic mass] 29.7 pg Normal 25.9-34.0 [facility] Comment on above: Performed By: #### C BC #### [facility] [address] [place] [address] Dr. Carmelita White MCHC (RBC) [Mass/Vol] 33.9 g/dL Normal 29.9-35.2 [facility] Comment on above: Performed By: #### C BC #### [facility] [address] [place] [address] Dr. Carmelita White MCV (RBC) [Entitic vol] 87.5 fL Normal 80.0-94.0 [facility] Comment on above: Performed By: #### C BC #### [facility] [address] [place] [address] Dr. Carmelita White MONO # 0.4 103/ul Normal 0.3-0.8 [facility] Comment on above: Performed By: #### C BC #### [facility] [address] [place] [address] Dr. Carmelita White Monocytes/100 WBC (Bld) 5.5 % Normal 1.7-12.0 [facility] Comment on above: Performed By: #### C BC #### [facility] [address] [place] [address] Dr. Carmelita White NEUT # 4.5 103/ul Normal 1.4-6.5 [facility] Comment on above: Performed By: #### C BC #### [facility] [address] [place] [address] Dr. Carmelita White Neutrophils/100 WBC (Bld) 68.0 % Normal 43.0-75.0 [facility] Comment on above: Performed By: #### C BC #### [facility] [address] [place] [address] Dr. Carmelita White Platelet mean volume (Bld) [Entitic vol] 8.5 fL Critically low 9.5-13.5 [facility] Comment on above: Performed By: #### C BC #### [facility] [address] [place] [address] Dr. Carmelita White PLT 238 103/ul Normal 150-450 [facility] Comment on above: Performed By: #### C BC #### [facility] [address] [place] [address] Dr. Carmelita White RBC 5.12 106/ul Normal 4.70-6.10 [facility] Comment on above: Performed By: #### C BC #### [facility] [address] [place] [address] Dr. Carmelita White WBC 6.5 103/ul Normal 4.0-11.0 [facility] Comment on above: Performed By: #### C BC #### [facility] [address] [place] [address] Dr. Carmelita White PROF CHEM 8 (BAS METB)on Anion gap [Moles/Vol] 14.7 mmol/L Normal [facility] Comment on above: Performed By: #### B MP #### [facility] [address] [place] [address] Dr. Carmelita White Calcium [Mass/Vol] 9.3 mg/dL Normal 8.4-10.2 [facility] Comment on above: Performed By: #### B MP #### [facility] [address] [place] [address] Dr. Carmelita White Chloride [Moles/Vol] 101 mmol/L Normal 98-107 [facility] Comment on above: Performed By: #### B MP #### [facility] [address] [place] [address] Dr. Carmelita White CO2 [Moles/Vol] 28.2 mmol/L Normal 22.0-30.0 [facility] Comment on above: Performed By: #### B MP #### [facility] [address] [place] [address] [address] Carmelita White Creatinine [Mass/Vol] 1.33 mg/dL Critically high 0.66-1.25 [facility] Comment on above: Performed By: #### B MP #### [facility] [address] [place] [address] [address] Carmelita White EGFR-AF PALAUAN >60 Normal >=60 [facility] Comment on above: Performed By: #### B MP #### [facility] [address] [place] [address] [address] Carmelita White EGFR-NON AF PALAUAN 57 mL/min/1.73m2 Critically low >=60 [facility] Comment on above: Performed By: #### B MP #### [facility] [address] [place] [address] [address] Carmelita White Glucose [Mass/Vol] 99 mg/dL Normal 74-106 [facility] Comment on above: Performed By: #### B MP #### [facility] [address] [place] [address] [address] Carmelita White Potassium [Moles/Vol] 4.9 mmol/L Normal 3.4-5.0 [facility] Comment on above: Performed By: #### B MP #### [facility] [address] [place] [address] [address] Carmelita White Sodium [Moles/Vol] 139 mmol/L Normal 137-145 [facility] Comment on above: Performed By: #### B MP #### [facility] [address] [place] [address] [address] Carmelita White Urea nitrogen [Mass/Vol] 21.0 mg/dL Critically high 9.0-20.0 [facility] Comment on above: Performed By: #### B MP #### [facility] [address] [place] [address] [address] Carmelita White Urea nitrogen/Creatinine [Mass ratio] 15.8 mg/mg Normal [facility] Comment on above: Performed By: #### B #### [facility] [address] [place] [address] [address] Carmelita White NM STRESS/REST MULTIon 06-09 NM STRESS/REST MULTI Patient: JOO CASTRO. Exam Date: 06/09/2021 : 1970 Gender:M Ordering : DR RUBIN BARON . Admission #: [id number] Family : Order #: [id number] CLICK HERE TO VIEW EXAM RADIOLOGY REPORT [...] PERFUSION DEFECT: LOCATION: Mid-anterior. Mid-anteroseptal. Apical anterior. Corona. SIZE: Medium (3-4 segments). SEVERITY: Severe. TYPE: [...] Mathur MD on 06/11/2021 at 13:23 Normal [facility] Vital Signs Date Time Vital Sign Value Performing Clinician Faci [facility] 09-08-2023 14:53-0500 Blood Pressure Location Naren NILL [facility] 09-08-2023 14:53-0500 Diastolic blood pressure 88 mm[Hg] Naren NILL [facility] 09-08-2023 14:53-0500 Heart rate 72 /min Naren NILL [facility] [place] 09-08-2023 14:53-0500 Respiratory rate 16 /min Naren NILL [facility] 09-08-2023 14:53-0500 Systolic blood pressure 146 mm[Hg] Naren NILL [facility] Encounters Encounter Date Encounter Type Care Provider Facility Start: 09-08-2023 End: 09-09-2023 ambulatory Naren R JIMYL [facility] Start: 09-08-2023 End: 09-08-2023 Patient encounter procedure Naren Hung NILL [facility] [place] Start: 09-07-2023 ambulatory Naren AHNL Facility:[facility] Start: 09-06-2023 ambulatory Naren AHNL Facility:[facility] Start: 08-20-2023 End: 08-20-2023 ambulatory ELVIRA ALSTON [facility] Start: 02-12-2023 End: 02-12-2023 ambulatory MICHELLE GLEASON [facility] Start: 02-23-2022 End: 02-24-2022 ambulatory ELVIRA ALSTON Facility:[facility] Start: 08-04-2021 End: 08-05-[address] RUBIN BARON Facility:[facility] Start: 06-28-2021 Encounter for preprocedural laboratory examination DR DOCTOR MILLER [facility] Start: 06-25-[address] DOCTOR MILLER Facility :[facility] Start: 06-23-2021 End: 06-24-2021 ambulatory MERA JURADO Facility:[facility] Start: 06-18-2021 End: 06-19-[address] DOCTOR MILLER Facility:[facility] Start: 06-18-2021 End: 06-19-2021 Encounter for preprocedural laboratory examination DR DOCTOR MILLER Facility:[facility] Start: 06-11-[address] AMALIA FLORES Facil ity:[facility] Start: 06-09-2021 End: 06-10-[address] AMALIA FLORES Facility:[facility] Procedures Date Procedure Procedure Detail Performing Clinician Start: 02-23-[address] LAURA FLORES Comment on above: Performed By: #### P [facility] #### [facility] [address] [place] [address] [address] Carmelita White Cholecystectomy Naren [employer] Coronary artery sten t (physical object) Naren [employer] Fluoroscopic angiopl asty of bilateral iliac arteries and insertion of bilateral iliac artery stents Naren [employer] History of ankle surgery Maik hael NILL Immunizations Immunization Date Immunization Notes Care Provider [facility] 07-24-2021 SARS-CoV-2 (COVID-19 ) mRNA BNT-162b2 vax Naren [employer] [facility] 11-25-2020 SARS-CoV-2 (COVID-19 ) mRNA BNT-162b2 vax Naren [employer] [facility] 11-04-2020 SARS-CoV-2 (COVID-19 ) mRNA BNT-162b2 vax Naren [employer] [facility] NEGATED: Highlighted row has not occurred!09-08-2023 influenza virus vaccine, unspecified formulation Naren [employer] [facility] Payers Date Payer Category Payer Unknown [id number] 2.16.8 [id number] 1970 Unknown [id number] 2.16.84 [id number] 1970 Unknown [id number] 2.16.84 [id number] 1970 Unknown [id number] 2.16.84 [id number] 1970 Unknown [id number] 2.16.84 [id number] 1970 Unknown [id number] 2.16.84 [id number] 1970 Unknown [id number] 2.16.84 [id number] 1970 Unknown [id number] 2.16.84 [id number] 1970 Unknown [id number] 2.16.8 [id number] 1970 Unknown [id number] 2.16.8 [id number] 1960 Medicaid [id number] Social History Date Type Detail Facility Start: 09-08-2023 Tobacco smoking status Light t obacco smoker (finding) [facility] Tobacco smoking status Smokeless tobacco user within last 30 days [facility] Sex Assigned At Male [facility] Functional Status Date Assessment Result Facility 09-08-2023 Functional Status N/A [facility] Clinical Notes 02-12-2023 to 09-08-2023 Note Date [...] tablet, 1 tab(s), (more content not included)... [facility] Comment on above: Result Comment: Elec tronically Signed By: GATITO HARRISON, Naren Gleason\Date and Time Signed: 09/08/23 19:40 EST 08-20-2023 Note Continues to smoke a nd provider had strong conversation with pt that he needs to completely stop smoking to prevent stent re-occlusion and management of CAD [facility] 08-20-2023 Note Patient here for 6 m o follow up CAD, hypertension, and hyperlipidemia. Had routine labs back in Feb 2023. Denies chest pain, SOB, and palpitations. Review of Systems Cardiovascular: Positive for leg swelling (resolves by morning). Musculoskeletal: Positive for arthritis and back pain. All other systems reviewed and are negative. [facility] 08-20-2023 Note UTP CARDIOLOGY PROGR ESS [...] is stable Continue GDMT- ASA and plavix usp, lipitor and zetia, with metoprolol D/W risk factor and lifestyle modifications- heart healthy diet, regular exercise as tolerated and continue all medications. 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 [facility] 08-20-2023 Note Hypertension is well controlled Continue irbesartan, metoprolol Renal function normal [facility] 08-20-2023 Note Continue lipitor and zetia Well controlled and liver function normal [facility] 02-12-2023 Note Cardiology Follow Up Progress [...] as needed. Michelle Gleason MD Interventional Cardiology [facility] Michelle Gleason MD Interventional Cardiology [facility] 02-12-2023 Note Patient here for 6 m o follow up CAD, hypertension, and hyperlipidemia. Since last visit, Dr. Baron re-started him on low dose metoprolol. Doesn't check his BP at home very often, as he feels great. Denies chest pain, SOB, and lightheadedness. [facility] Evaluation + Plan note No data available for this section [facility] Discharge instructions No data available for this section [facility] Progress note No data available for this section [facility] Summary Purpose Family History No Family History [...] and content) DATE CREATED AUTHOR 06/28/2021 [facility] DATE CREATED AUTHOR AUTHOR'S ORGANIZ ATION 02/26/2022 [facility] DATE CREATED AUTHOR AUTHOR'S ORGANIZ ATION 08/21/2023 [facility] DATE CREATED AUTHOR AUTHOR'S ORGANIZ ATION 09/14/2023 [facility] Patient Care team informatio n (unrecognized section and content) Personnel Name: Rubin Baron MD Address: Address: [address] [place] [address] FOR RECORDS PERTAINING TO PATIENTS WHO ARE [...] BE BASED ON THE PRIMARY CLINICAL RECORDS. [employer] provides no warranty or guarantee of the accuracy or completeness of information in this document.
[2023-09-22 08:00] VITALS: BP 139/89; PULSE 110; RESP 20; TEMP 36.2; O2SAT 97; BMI 44.2
[2023-09-22] MEDS: LACTATED RINGER'S SOLUTION 1,000 ML 50 ML IV (08:21)
[2023-09-22 10:29] VITALS: BP 125/82; PULSE 79; RESP 20; O2SAT 98
[2023-09-22 10:59] VITALS: BP 140/99; PULSE 90; RESP 20; O2SAT 96
== END 2023-09-22 10:59 | disposition home or self-care (01) ==
PROVIDERS: PCP Family Medicine; Visit Provider Surgery
PROC: (CPT 00813; principal; 2023-09-22 09:10)
DX: Z12.11 Encounter for screening for malignant neoplasm of colon (principal); K21.9 Gastro-esophageal reflux disease without esophagitis; D50.9 Iron deficiency anemia, unspecified; K44.9 Diaphragmatic hernia without obstruction or gangrene; K63.5 Polyp of colon; K29.70 Gastritis, unspecified, without bleeding; F17.210 Nicotine dependence, cigarettes, uncomplicated; I25.10 Atherosclerotic heart disease of native coronary artery without angina pectoris; F10.10 Alcohol abuse, uncomplicated; Z79.02 Long term (current) use of antithrombotics/antiplatelets; Z95.5 Presence of coronary angioplasty implant and graft; I73.9 Peripheral vascular disease, unspecified; I10 Essential (primary) hypertension; Z90.49 Acquired absence of other specified parts of digestive tract; Z79.82 Long term (current) use of aspirin; E66.9 Obesity, unspecified; Z68.41 Body mass index [BMI] 40.0-44.9, adult
CPT/HCPCS: 00813; 43239; 45380; 88305; 99999; J2704

== ENCOUNTER 2024-02-25 13:58 | Outpatient (OUT) | payer MEDICAID, SELFPAY ==
--- OUTSIDE RECORDS SUMMARY | 2024-02-25 14:08 | XMS_ITS | CCD ---
Author Organization [facility] Care Team Providers Care Mottler Operator Name Role Phone MERA JURADO Attending Unavailable ALGHOROSA M MOHAMAD Admitting Unavailable SELF, REFERRED Referring Unavailable RUBIN BARON Primary Care Unavailable VALONE, DR HOLLAND Primary Care Unavailable HOY, DR CONKLIN Attending Unavailable HOY, DR CONKLIN Consulting Unavailable HOY, DR CONKLIN Admitting Unavailable WEST, DR ASHLEIGH Martinez Consulting Unavailable MISC, DR MITCHELL Attending Unavailable MISC, DR MITCHELL Admitting Unavailable MISC, DR MITCHELL Consulting Unavailable ALIYAY, DR CONKLIN Primary Care Unavailable HOY, DR CONKLIN Primary Care Unavailable ALGHOTHANI, MOHAMAD Admitting Unavailable ALGHOTHANI, MICHELLE Attending Unavailable ALGHOTHPANCHO, MOHSHOBHAD Consulting Unavailable ALIYAY, DR CONKLIN Admitting Unavailable HOY, DR CONKLIN Attending Unavailable HOY, DR CONKLIN Consulting Unavailable ALIYAY, DR CONKLIN Primary Care Unavailable VALONE, DR HOLLAND Primary Care Unavailable HOY, DR CONKLIN Admitting Unavailable HOY, DR CONKLIN Attending Unavailable MISC, DR MITCHELL Admitting Unavailable MISC, DR MITCHELL Attending Unavailable MISC, DR MITCHELL Consulting Unavailable LOU, DR CONKLIN Primary Care Unavailable GAMALIEL, ELVIRA Admitting Unavailable HOMiguel Ángel, DR CONKLIN Primary Care Unavailable GAMALIEL, ELVIRA Attending Unavailable GAMALIEL, ELVIRA Consulting Unavailable Rubin Baron Primary Care Physician [phone] Naren MEDEROS Attending Unavailable NILLNaren Attending Unavailable NILNaren Hernandez Attending Unavailable NILLNaren Attending Unavailable ALGHOTHANI, MOHAMAD Attending Unavailable ALGHOTHANI, MOHAMAD Attending Unavailable GAMALIEL, ELVIRA Attending Unavailable Allergies Allergy Classification Reported Allergen(s) Allergy Type Date of Onset Reaction(s) Facility (1 source) No Known Medication Allergies; Translations: [No Known Medication Allergies] Propensity to adverse reactions (disorder) [facility] Repository Medications Current Medications Medication Drug Class(es) Dates Sig (Normalized) Sig (Original) aspirin 81 mg delayed release oral tablet (2 sources) Platelet Aggregation Inhibitor, Nonsteroidal Anti-inflammatory Drug Start: 09-07-2023 take 1 tablet by mouth once daily aspirin 81 mg Oral EC Tab 81 mg = 1 tab(s), Oral, Daily, Refills(s) 0 Start Date: 09/07/23 Status: Ordered atorvastatin 80 mg oral tablet (2 sources) HMG-CoA Reductase Inhibitor Start: 09-07-2023 take 1 tablet by mouth once daily atorvastatin 80 mg Tab 80 mg = 1 tab(s), Oral, Daily, Refills(s) 0 Start Date: 09/07/23 Status: Ordered Centrum Silver oral tablet (2 sources) Start: 09-07-2023 take 1 tablet by mouth once daily Centrum Silver oral tablet 1 tab(s), Oral, Daily, Refill(s) 0 Start Date: 09/07/23 Status: Ordered clopidogrel 75 mg oral tablet (2 sources) P2Y12 Platelet Inhibitor Start: 09-07-2023 take 1 tablet by mouth once daily Plavix 75 mg Tab 75 mg = 1 tab(s), Oral, Daily, Refills(s) 0 Start Date: 09/07/23 Status: Ordered ferrous sulfate 325 mg oral tablet (2 sources) Start: 09-08-2023 take 1 tablet by mouth twice daily ferrous sulfate 325 mg Tab 325 mg = 1 tab(s), Oral, BID, Refills(s) 0 Start Date: 09/08/23 Status: Ordered irbesartan 300 mg oral tablet (2 sources) Angiotensin 2 Receptor Tiffany Start: 09-07-2023 take 1 tablet by mouth once daily irbesartan 300 mg Tab 300 mg = 1 tab(s), Oral, Daily, Refills(s) 0 Start Date: 09/07/23 Status: Ordered metoprolol tartrate 25 mg oral tablet (2 sources) beta-Adrenergic Tiffany Start: 09-07-2023 take 1 tablet by mouth twice daily Metoprolol tartrate 25 mg Tab 25 mg = 1 tab(s), Oral, BID, Refills(s) 0 Start Date: 09/07/23 Status: Ordered nitroglycerin 0.4 mg sublingual tablet (2 sources) Nitrate Vasodilator Start: 09-07-2023 nitroglycerin 0.4 mg sublingual Tab 0.4 mg = 1 tab(s), SubLingual, q5min, PRN for chest pain, Refills(s) 0 Start Date: 09/07/23 Status: Ordered Problems Active Problems Problem Classification Problem Date Documented Date Episodic/Chronic Abdominal hernia (1 source) Diaphragmatic hernia; Translations: [Diaphragmatic hernia without obstruction or gangrene] Onset: 10-05-2023 Episodic Alcohol-related disorders (2 sources) Alcohol abuse 09-07-2023 Chronic Cardiac dysrhythmias (2 sources) Palpitations; Translations: [Palpitations] Onset: 01-25-2024 Episodic Coronary atherosclerosis and other heart disease (10 sources) Atherosclerotic heart disease of [place] coronary artery without angina pectoris; Translations: [Coronary arteriosclerosis] Onset: 07-24-2021 Chronic Deficiency and other anemia (3 sources) Anemia; Translations: [Anemia, unspecified] Onset: 09-08-2023 Episodic Diabetes mellitus without complication (1 source) Other abnormal glucose; Translations: [OTHER ABNORMAL GLUCOSE] Onset: 02-25-2022 Episodic Disorders of lipid metabolism (5 sources) Pure hypercholesterolemia, unspecified; Translations: [Mixed hyperlipidemia] Onset: 02-25-2022 Chronic Esophageal disorders (5 sources) Gastroesophageal reflux disease without esophagitis; Translations: [Gastro-esophageal reflux disease without esophagitis] Onset: 09-08-2023 Chronic Essential hypertension (5 sources) Essential (primary) hypertension; Translations: [Hypertensive disorder] Onset: 02-25-2022 09-07-2023 Chronic Other and unspecified benign neoplasm (1 source) Polyp of colon; Translations: [Polyp of colon] Onset: 10-05-2023 Episodic Other and unspecified benign neoplasm (1 source) Polyp of sigmoid colon 10-05-2023 Episodic Other nutritional; endocrine; and metabolic disorders (3 sources) Body mass index 40+ - severely obese; Translations: [Body mass index (BMI) 40.0-44.9, adult] Onset: 09-08-2023 Chronic Other nutritional; endocrine; and metabolic disorders (2 sources) Morbid obesity 09-07-2023 Chronic Other screening for suspected conditions (not mental disorders or infectious disease) (2 sources) Encounter for screening for malignant neoplasm of prostate; Translations: [Encounter for screening for malignant neoplasm of rectum] Onset: 02-25-2022 Episodic Substance-related disorders (5 sources) Nicotine dependence; Translations: [Nicotine dependence, other tobacco product, uncomplicated] Onset: 07-24-2021 Chronic Past or Other Problems Problem Classification Problem Date Documented Da te Episodic/Chronic Nonspecific chest pain (4 sources) Chest pain, unspecified; Translations: [CHEST PAIN UNSPECIFIED] Onset: 06-09-2021 Episodic Results Test Name Value Interpretation Reference Range Facility Office Visiton 01-25-2024 Follow-up visit [id number] Thad Castro 1970 M Date Provider Department Center 01/25/2024 3848-MICHELLE GLEASON CARD [facility] Family History Problem Relation Age of Onset Hypertension Mother Pancreatic cancer Mother Coronary artery disease Father Stomach cancer Father Other Father Heart murmur Sister Hypertension Brother Family Status - Relation Status Age at Mother Father Sister Brother Level of Service:35793 MI OFFICE/OUTPATIENT ESTABLISHED LOW MDM 20 MIN Normal [facility] Pathology Noteon 10-11-2023 Pathology Note [id number]#1.00TIFF Normal [facility] Pathology Noteon 10-07-2023 Pathology Note [id number]#1.00TIFF Normal [facility] Reminderson 10-07-2023 Reminders - From: Tanya Ibrahim LPN To: N - Clinical; Sent: 10/07/2023 09:11:34 EDT Show up: 08/22/2033 07:00:00 EST Subject: colonoscopy recall Due Date/Time: 09/22/2033 07:00:00 EST Reminder/Recall Patient due for screening colonoscopy 09/22/2033. Normal [facility] Ambulatory Visit Summaryon 0 10-05-2023 Ambulatory Visit Summary GLORIA, THADSHERI ASHRAF :1970 Visit Date:10/05/2023 Ambulatory Visit Instructions Your Care Team Attending Physician - GATITO HARRISON, Naren Persaud Primary Care Physician - Rubin Baron MD This Is Your Medications List aspirin (aspirin 81 mg Oral EC Tab) atorvastatin (atorvastatin 80 mg Tab) clopidogrel (Plavix 75 mg Tab) ferrous sulfate (ferrous sulfate 325 mg Tab) irbesartan (irbesartan 300 mg Tab) metoprolol (Metoprolol tartrate 25 mg Tab) multivitamin with minerals (Centrum Silver oral tablet) nitroglycerin (nitroglycerin 0.4 mg sublingual Tab) Procedures Performed Colonoscopy (09/22/2023), EGD - esophagogastroduodenoscopy (09/22/2023), Angioplasty of bilateral iliac arteries and insertion of bilateral iliac artery stents using fluoroscopic guidance with contrast, Cholecystectomy, Coronary artery stent, History of ankle surgery. Medications What How Much When Instructions Unchanged aspirin (aspirin 81 mg Oral EC Tab) 1 Tablets By Mouth Every day Unchanged atorvastatin (atorvastatin 80 mg Tab) 1 Tablets By Mouth Every day Unchanged clopidogrel (Plavix 75 mg Tab) 1 Tablets By Mouth Every day Unchanged ferrous sulfate (ferrous sulfate 325 mg Tab) 1 Tablets By Mouth 2 times a day Unchanged irbesartan (irbesartan 300 mg Tab) 1 Tablets By Mouth Every day Unchanged metoprolol (Metoprolol tartrate 25 mg Tab) 1 Tablets By Mouth 2 times a day Unchanged multivitamin with minerals (Centrum Silver oral tablet) 1 Tablets By Mouth Every day Unchanged nitroglycerin (nitroglycerin 0.4 mg sublingual Tab) 1 Tablets Sublingual Every 5 minutes as needed for for chest pain Allergies No Known Allergies No Known Medication Allergies Problems Ongoing - Any problem that you are currently receiving treatment for. Alcohol abuse Anemia BMI 40.0-44.9, adult Chronic GERD Coronary arteriosclerosis Hypertensive disorder Morbid obesity Tobacco dependence syndrome Patient Survey You may receive a survey via text or e-mail asking about your office visit. Please share your experience with us by completing your survey. We appreciate your feedback and thank you for choosing us for your care. Dottie Ruiz [facility] General Surgery Office/Clini c Noteon 10-05-2023 General Surgery Office/Clinic Note Chief Complaint post operative follow up HPI Staff 13 day post operative follow up post EGD with antral biopsy and colonoscopy with sigmoid polypectomy. History of Present Illness s/p EGD and colonoscopy done for mild anemia and GERD; small hiatal hernia, mild antral gastritis, bx obtained, but pathology pending; 3 mm sigmoid colon polyp removed, path pending; denies abd pain or blood in stools; GERD controlled. Review of Systems ROS - Provider Constitutional: no fever, no [...] and are negative or noncontributory. Physical Exam ROS - Provider Constitutional: no fever, no [...] been reviewed and are negative or noncontributory. Assessment/Plan 1. Hiatal hernia with GERD (K44.9: Diaphragmatic hernia without obstruction or gangrene) controlled; call with problems/questions. 2. Sigmoid polyp (K63.5: Polyp of colon) path pending, if adenomatous polyp, recommend surveillance colonoscopy in 5 years, will call patient with results. Gastro-esophageal reflux disease without esophagitis (K21.9: Gastro-esophageal reflux disease without esophagitis) Follow-up No qualifying data available Problem List/Past Medical History Ongoing Alcohol abuse Anemia BMI 40.0-44.9, adult Chronic GERD Coronary arteriosclerosis Hiatal hernia with GERD Hypertensive disorder Morbid obesity Sigmoid polyp Tobacco dependence syndrome Historical No qualifying data Procedure/Surgical History Colonoscopy (09/22/2023), EGD - esophagogastroduodenoscopy (09/22/2023), Angioplasty of bilateral iliac arteries and insertion of bilateral iliac artery stents using fluoroscopic guidance with contrast, Cholecystectomy, Coronary artery stent, History of ankle surgery. Medications aspirin 81 mg Oral EC Tab, 81 mg= 1 tab(s), Oral, Daily atorvastatin 80 mg Tab, 80 mg= 1 tab(s), Oral, Daily Centrum Silver oral tablet, 1 tab(s), Oral, Daily ferrous sulfate 325 mg Tab, 325 mg= 1 tab(s), Oral, BID irbesartan 300 mg Tab, 300 mg= 1 tab(s), Oral, Daily Metoprolol tartrate 25 mg Tab, 25 mg= 1 tab(s), Oral, BID nitroglycerin 0.4 mg sublingual Tab, 0.4 mg= 1 tab(s), SubLingual, q5min, PRN Plavix 75 mg Tab, 75 mg= 1 tab(s), Oral, Daily Allergies No Known Allergies No Known Medication Allergies Social History Alcohol Current, Beer, 1-2 times per week, 09/08/2023 Substance Abuse - Denies Substance Abuse, 09/08/2023 Tobacco 5-9 cigarettes (between 1/4 to 1/2 pack)/day in last 30 days Tobacco Use:. Smokeless tobacco user within last 30 days Smokeless Tobacco Use:. Cigarettes, Oral, Started age 20.0 Years. Yes, 09/08/2023 Family History Heart disease: Father. Pancreatic adenocarcinoma: Mother and Father. Immunizations Vaccine Date Status Comments influenza virus vaccine, inactivated - Not Given Patient Refuses SARS-CoV-2 (COVID-19) mRNA BNT-162b2 vax (more content not included)... [facility] Comment on above: Result Comment: Elec tronically Signed By: GATIOT HARRISON, Naren Persaud\.br\Date and Time Signed: 10/05/23 15:16 EDT Outside Colonoscopyon 2023 Outside Colonoscopy [id number]#1.00TIFF [facility] Formson 09-13-2023 Forms [id number]#1.00TIFF [facility] Consent for Procedure/Surger yon 09-10-2023 Consent for Procedure/Surgery [id number]#1.00TIFF [facility] Facesheeton 09-09-2023 Facesheet [id number]#1.00TIFF [facility] Ambulatory Visit Summaryon 0 09-08-2023 Ambulatory Visit Summary THAD CASTRO :1970 Visit Date:09/08/2023 Ambulatory Visit Instructions Your Care Team Attending Physician - Naren MEDEROS MD Primary Care Physician - Rubin Baron MD This Is Your Medications List Contact prescribing [...] you for choosing us for your care. [facility] Physician Referralon 024 Physician Referral [id number]#1.00TIFF [facility] Physician Referralon 024 Physician Referral [id number]#1.00TIFF [facility] Office Visiton 08-20-2023 Follow-up visit [id number] Thad Castro 1970 M Date Provider Department Center 08/20/2023 ELVIRA PAIGE Family History Problem Relation Age of Onset Hypertension Mother Pancreatic cancer Mother Coronary artery disease Father Stomach cancer Father Other Father Heart murmur Sister Hypertension Brother Family Status - Relation Status Age at Mother Father Sister Brother Level of Service:37039 MI OFFICE/OUTPATIENT ESTABLISHED MOD MDM 30 MIN Normal [facility] Office Visiton 02-12-2023 Follow-up visit [id number] Thad Castro 1970 M Date Provider Department Center 02/12/2023 3848-MICHELLE GLEASON CARD [facility] Family History Problem Relation Age of Onset Hypertension Mother Pancreatic cancer Mother Coronary artery disease Father Stomach cancer Father Other Father Heart murmur Sister Hypertension Brother Family Status - Relation Status Age at Mother Father Sister Brother Level of Service:18189 MI OFFICE/OUTPATIENT ESTABLISHED LOW MDM 20-29 MIN Normal [facility] INSULINon 02-24-2022 Insulin 14.5 uIU/mL Normal 2.6-24.9 [facility] Comment on above: Performed By: #### I NSULIN #### [facility] [address] [place] [address] Dr. Carmelita White BILIRUBIN CONJUGATED (DIRECT )on 02-23-2022 BILI, CONJUGATED 0.2 mg/dL Normal 0.0-0.2 [facility] Comment on above: Performed By: #### D JEMMA #### [facility] [address] [place] [address] Dr. Carmelita White CBC AUTO DIFFon 02-23-2022 BASO # 0.1 103/ul Normal 0.0-0.1 [facility] Comment on above: Performed By: #### C BC #### [facility] [address] [place] [address] Dr. Carmelita White Basophils/100 WBC (Bld) 1.2 % Normal 0.2-2.0 [facility] Comment on above: Performed By: #### C BC #### [facility] [address] [place] [address] Dr. Carmelita White EO # 0.2 103/ul Normal 0.0-0.7 [facility] Comment on above: Performed By: #### C BC #### [facility] [address] [place] [address] Dr. Carmelita White Eosinophils/100 WBC (Bld) 4.0 % Normal 0.9-7.0 [facility] Comment on above: Performed By: #### C BC #### [facility] [address] [place] [address] Dr. Carmelita White Erythrocyte distribution width (RBC) [Ratio] 13.2 % Normal 11.0-15.0 [facility] Comment on above: Performed By: #### C BC #### [facility] [address] [place] [address] Dr. Carmelita White Hematocrit (Bld) [Volume fraction] 38.7 % Critically low 42.0-54.0 [facility] Comment on above: Performed By: #### C BC #### [facility] [address] [place] [address] Dr. Carmelita White Hemoglobin (Bld) [Mass/Vol] 13.4 g/dL Critically low 14.0-18.0 [facility] Comment on above: Performed By: #### C BC #### [facility] [address] [place] [address] Dr. Carmelita White IG # 0.02 10e3/ul Normal 0.00-0.03 [facility] Comment on above: Performed By: #### C BC #### [facility] [address] [place] [address] Dr. Carmelita White IG % 0.3 % Normal 0.0-0.5 [facility] Comment on above: Performed By: #### C BC #### [facility] [address] [place] [address] Dr. Carmelita White LYMPH # 1.5 103/ul Normal 1.2-3.8 [facility] Comment on above: Performed By: #### C BC #### [facility] [address] [place] [address] Dr. Carmelita White Lymphocytes/100 WBC (Bld) 24.1 % Normal 20.5-60.0 [facility] Comment on above: Performed By: #### C BC #### [facility] [address] [place] [address] Dr. Carmelita White MANUAL DIFF REQ NO Normal [facility] Comment on above: Performed By: #### C BC #### [facility] [address] [place] [address] Dr. Carmelita White MCH (RBC) [Entitic mass] 30.5 pg Normal 25.9-34.0 [facility] Comment on above: Performed By: #### C BC #### [facility] [address] [place] [address] Dr. Carmelita White MCHC (RBC) [Mass/Vol] 34.6 g/dL Normal 29.9-35.2 [facility] Comment on above: Performed By: #### C BC #### [facility] [address] [place] [address] Dr. Carmelita White MCV (RBC) [Entitic vol] 88.2 fL Normal 80.0-94.0 [facility] Comment on above: Performed By: #### C BC #### [facility] [address] [place] [address] Dr. Carmelita White MONO # 0.4 103/ul Normal 0.3-0.8 [facility] Comment on above: Performed By: #### C BC #### [facility] [address] [place] [address] Dr. Carmelita White Monocytes/100 WBC (Bld) 6.6 % Normal 1.7-12.0 [facility] Comment on above: Performed By: #### C BC #### [facility] [address] [place] [address] Dr. Carmelita White NEUT # 3.9 103/ul Normal 1.4-6.5 [facility] Comment on above: Performed By: #### C BC #### [facility] [address] [place] [address] Dr. Carmelita White Neutrophils/100 WBC (Bld) 63.8 % Normal 43.0-75.0 [facility] Comment on above: Performed By: #### C BC #### [facility] [address] [place] [address] Dr. Carmelita White Platelet mean volume (Bld) [Entitic vol] 8.5 fL Critically low 9.5-13.5 [facility] Comment on above: Performed By: #### C BC #### [facility] [address] [place] [address] Dr. Carmelita White PLT 204 103/ul Normal 150-450 [facility] Comment on above: Performed By: #### C BC #### [facility] [address] [address] [address] Carmelita White RBC 4.39 106/ul Critically low 4.70-6.10 [facility] Comment on above: Performed By: #### C BC #### [facility] [address] [place] [address] Dr. Carmelita White WBC 6.1 103/ul Normal 4.0-11.0 [facility] Comment on above: Performed By: #### C BC #### [facility] [address] [place] [address] Dr. Carmelita White GLYCOHEMOGLOBIN A1Con 2021 ADA RECOMMENDATION SEE BELOW Normal [facility] Comment on above: Result Comment: ADA RECOMMENDED LIMIT 4.0 - 6.0 ADA THERAPEUTIC TARGET < 7.0 ACTION SUGGESTED > 7.0 Performed By: #### A 1C #### [facility] [address] [place] [address] Dr. Carmelita White Glucose [Mass/Vol] 120 mg/dL Normal [facility] Comment on above: Performed By: #### A 1C #### [facility] [address] [place] [address] Dr. Carmelita White HbA1c (Bld) [Mass fraction] 5.8 % Normal 4.5-6.2 [facility] Comment on above: Performed By: #### A 1C #### [facility] [address] [place] [address] Dr. Carmelita White LIPID PROFILEon 02-23-2022 CHOL-HDL RATIO NORM SEE BELOW Normal [facility] Comment on above: Result Comment: 3.3 - 4.4 LOW RISK 4.4 - 7.1 AVERAGE RISK 7.1 - 11.0 MODERATE RISK >11.0 HIGH RISK Performed By: #### L IPID, CMP, URIC ####[facility] [id number] [id number]. Carmelita White Cholesterol [Mass/Vol] 147 mg/dL Normal <=200 [facility] Comment on above: Performed By: #### L IPID, CMP, URIC ####[facility] [id number] [id number]. Carmelita White Cholesterol in HDL [Mass/Vol] 34 mg/dL Critically low 40-60 [facility] Comment on above: Performed By: #### L IPID, CMP, URIC ####[facility] [id number] [id number]. Carmelita White Cholesterol in LDL [Mass/Vol] 84.6 mg/dL Normal [facility] Comment on above: Performed By: #### L IPID, CMP, URIC ####[facility] [id number] [id number]. Carmelita White Cholesterol.total/ Cholesterol in HDL [Mass ratio] 4.3 {ratio} Normal [facility] Comment on above: Performed By: #### L IPID, CMP, URIC ####[facility] [id number] [id number]. Carmelita White HDL NORMAL > or = 60 mg/dl - LO W CARDIOVASCULAR RISK <40 mg/dl - HIGH CARDIOVASCULAR RISK Normal [facility] Comment on above: Performed By: #### L IPID, CMP, URIC ####[facility] [id number] [id number]. Carmelita White LDL CALC NORMAL SEE BELOW Normal [facility] Comment on above: Result Comment: <100 mg/dl OPTIMAL 100 - 129 mg/dl NEAR OR ABOVE OPTIMAL 130 - 159 mg/dl BORDERLINE HIGH 160 - 189 mg/dl HIGH >190 mg/dl VERY HIGH Performed By: #### L IPID, CMP, URIC ####[facility] [id number] [id number]. Carmelita White Triglyceride [Mass/Vol] 142 mg/dL Normal <=150 [facility] Comment on above: Performed By: #### L IPID, CMP, URIC ####[facility] [id number] [id number]. Carmelita White VLDL CALC 28.4 mg/dL Normal [facility] Comment on above: Performed By: #### L IPID, CMP, URIC ####[facility] [address] [place] [address]Dr. Carmelita White PROF 14(COMP METB)on 022 Albumin [Mass/Vol] 4.0 g/dL Normal 3.4-5.0 [facility] Comment on above: Performed By: #### L IPID, CMP, URIC ####[facility] [id number] [place] [address]Dr. Carmelita White Albumin/Globulin [Mass ratio] 1.2 {ratio} Normal [facility] Comment on above: Performed By: #### L IPID, CMP, URIC ####[facility] [id number] [address]Dr. Carmelita White ALP [Catalytic activity/Vol] 131 U/L Critically high 46-116 [facility] Comment on above: Performed By: #### L IPID, CMP, URIC ####[facility] [id number] [place] [address]Dr. Carmelita White ALT [Catalytic activity/Vol] 36 U/L Normal 16-63 [facility] Comment on above: Performed By: #### L IPID, CMP, URIC ####[facility] [id number] [place] [address]Dr. Carmelita White Anion gap [Moles/Vol] 13.0 mmol/L Normal [facility] Comment on above: Performed By: #### L IPID, CMP, URIC ####[facility] [address] [place] [address]Dr. Carmelita White AST [Catalytic activity/Vol] 14 U/L Critically low 15-37 [facility] Comment on above: Performed By: #### L IPID, CMP, URIC ####[facility] [address] [place] [address]Dr. Carmelita White Bilirubin [Mass/Vol] 0.7 mg/dL Normal 0.2-1.0 [facility] Comment on above: Performed By: #### L IPID, CMP, URIC ####[facility] [address] [place] [address]Dr. Carmelita White Calcium [Mass/Vol] 9.3 mg/dL Normal 8.5-10.1 [facility] Comment on above: Performed By: #### L IPID, CMP, URIC ####[facility] [address] [place] [address]Dr. Carmelita White Chloride [Moles/Vol] 104 mmol/L Normal 98-107 [facility] Comment on above: Performed By: #### L IPID, CMP, URIC ####[facility] [address] [place], [place] [address]Dr. Carmelita White CO2 [Moles/Vol] 27.2 mmol/L Normal 21.0-32.0 [facility] Comment on above: Performed By: #### L IPID, CMP, URIC ####[facility] [address] [place], [place] [address]Dr. Carmelita White Creatinine [Mass/Vol] 1.20 mg/dL Normal 0.70-1.30 [facility] Comment on above: Performed By: #### L IPID, CMP, URIC ####[facility] [address] [place], [place] [address]Dr. Carmelita White EGFR-AF NIGERIEN >60 Normal >=60 [facility] Comment on above: Performed By: #### L IPID, CMP, URIC ####[facility] [address] [place], [place] [address]Dr. Carmelita White EGFR-NON AF NIGERIEN >60 Normal >=60 [facility] Comment on above: Performed By: #### L IPID, CMP, URIC ####[facility] H[address] [place], [place] [address]Dr. Carmelita White Globulin (S) [Mass/Vol] 3.4 g/dL Normal [facility] Comment on above: Performed By: #### L IPID, CMP, URIC ####[facility] [address] [place] [address]Dr. Carmelita White Glucose [Mass/Vol] 97 mg/dL Normal 74-106 [facility] Comment on above: Performed By: #### L IPID, CMP, URIC ####[facility] [address] [place] [address]Dr. Carmelita White Potassium [Moles/Vol] 4.2 mmol/L Normal 3.5-5.1 [facility] Comment on above: Performed By: #### L IPID, CMP, URIC ####[facility] [address] [place] [address]Dr. Carmelita White Protein [Mass/Vol] 7.4 g/dL Normal 6.4-8.2 [facility] Comment on above: Performed By: #### L IPID, CMP, URIC ####[facility] [address] [place], [place] [address]Dr. Nandaenrique White Sodium [Moles/Vol] 140 mmol/L Normal 136-145 [facility] Comment on above: Performed By: #### L IPID, CMP, URIC ####[facility] [address] [place] [address]Dr. Carmelita White Urea nitrogen [Mass/Vol] 19.0 mg/dL Critically high 7.0-18.0 [facility] Comment on above: Performed By: #### L IPID, CMP, URIC ####[facility] [address] [place] [address]Dr. Nandaenrique White Urea nitrogen/Creatinin e [Mass ratio] 15.8 mg/mg Normal [facility] Comment on above: Performed By: #### L IPID, CMP, URIC ####[facility] [address] [place] [address]Dr. Carmelita White URIC ACID SERUMon 02-23-2022 Urate [Mass/Vol] 6.5 mg/dL Normal 3.5-7.2 [facility] Comment on above: Performed By: #### L IPID, CMP, URIC ####[facility] [address] [place], [place] [address]Dr. Nandaenrique White GLYCOHEMOGLOBIN A1Con 2021 ADA RECOMMENDATION ADA THERAPEUTIC TARG ET 6.0 - 7.0 ACTION SUGGESTED > 7.0 Normal [facility] Comment on above: Performed By: #### A 1C #### [facility] [address] [place] [address] Dr. Carmelita White Glucose [Mass/Vol] 126 mg/dL Normal [facility] Comment on above: Performed By: #### A 1C #### [facility] [address] [address] [address] Carmelita White HbA1c (Bld) [Mass fraction] 6.0 % Normal <=6.0 [facility] Comment on above: Performed By: #### A 1C #### [facility] [address] [place] [address] Dr. Carmelita White LIPID PROFILEon 08-04-2021 CHOL-HDL RATIO NORM SEE BELOW Normal [facility] Comment on above: Result Comment: 3.3 - 4.4 LOW RISK 4.4 - 7.1 AVERAGE RISK 7.1 - 11.0 MODERATE RISK >11.0 HIGH RISK Performed By: #### L IPID #### [facility] [address] [address] [address] Carmelita White Cholesterol [Mass/Vol] 150 mg/dL Normal <=200 [facility] Comment on above: Performed By: #### L IPID #### [facility] [address] [place] [address] Dr. Carmelita White Cholesterol in HDL [Mass/Vol] 34 mg/dL Normal [facility] Comment on above: Performed By: #### L IPID #### [facility] [address] [address] [address] Carmelita White Cholesterol in LDL [Mass/Vol] 79.2 mg/dL Normal [facility] Comment on above: Performed By: #### L IPID #### [facility] [address] [place] [address] Dr. Carmelita White Cholesterol.total/ Cholesterol in HDL [Mass ratio] 4.4 {ratio} Normal [facility] Comment on above: Performed By: #### L IPID #### [facility] [address] [address] [address] Carmelita White HDL NORMAL > or = 60 mg/dl - LO W CARDIOVASCULAR RISK <40 mg/dl - HIGH CARDIOVASCULAR RISK Normal [facility] Comment on above: Performed By: #### L IPID #### [facility] [address] [address] [address] Carmelita White LDL CALC NORMAL SEE BELOW Normal [facility] Comment on above: Result Comment: <100 mg/dl OPTIMAL 100 - 129 mg/dl NEAR OR ABOVE OPTIMAL 130 - 159 mg/dl BORDERLINE HIGH 160 - 189 mg/dl HIGH >190 mg/dl VERY HIGH Performed By: #### L IPID #### [facility] [address] [address] [address] Carmelita White Triglyceride [Mass/Vol] 184 mg/dL Critically high <=150 [facility] Comment on above: Performed By: #### L IPID #### [facility] [address] [address] [address] Carmelita White VLDL CALC 36.8 mg/dL Normal [facility] Comment on above: Performed By: #### L IPID #### [facility] [address] [address] [address] Carmelita White CBC W/DIFFon 06-24-2021 ABS IMM GRANS 0.0 10*3/uL Normal 0.0-0.[address] [facility] Comment on above: Order Comment: No: D o not add to previous draw Performed By: #### 5 0103 #### [facility] [address] [place] [address], [facility] ABS NEUTROPHILS 4.6 10*3/uL Normal 1.6-7.[address] [facility] Comment on above: Order Comment: No: D o not add to previous draw Performed By: #### 5 0103 #### [facility] [address] [place] [address], [facility] Basophils (Bld) [#/Vol] 0.1 10*3/uL Normal 0.0-0.[address] [facility] Comment on above: Order Comment: No: D o not add to previous draw Performed By: #### 5 0103 #### [facility] [address] [place] [address], [facility] Basophils/100 WBC (Bld) 1.0 % Normal 0.0-1.[address] [facility] Comment on above: Order Comment: No: D o not add to previous draw Performed By: #### 5 0103 #### [facility] [address] [place] [address], [facility] Eosinophils (Bld) [#/Vol] 0.2 10*3/uL Normal 0.0-0.[address] [facility] Comment on above: Order Comment: No: D o not add to previous draw Performed By: #### 5 0103 #### [facility] [address] [place] [address], [facility] Eosinophils/100 WBC (Bld) 2.8 % Normal 0.0-6.[address] [facility] Comment on above: Order Comment: No: D o not add to previous draw Performed By: #### 5 0103 #### [facility] [address] [place] [address], [facility] Erythrocyte distribution width (RBC) [Ratio] 12.7 % Normal 11.5-15.[address] [facility] Comment on above: Order Comment: No: D o not add to previous draw Performed By: #### 5 0103 #### [facility] [address] [place] [address], [facility] Hematocrit (Bld) [Volume fraction] 41.5 % Normal 39.0-50.[address] [facility] Comment on above: Order Comment: No: D o not add to previous draw Performed By: #### 5 0103 #### [facility] [address] [place] [address], [facility] Hemoglobin (Bld) [Mass/Vol] 13.9 g/dL Normal 13.0-17.[address] [facility] Comment on above: Order Comment: No: D o not add to previous draw Performed By: #### 5 0103 #### [facility] [address] [place] [address], [facility] IMMATURE GRANS 0.3 % Normal 0.0-1.[address] [facility] Comment on above: Order Comment: No: D o not add to previous draw Performed By: #### 5 0103 #### [facility] [address] [place] [address], [facility] Lymphocytes (Bld) [#/Vol] 1.7 10*3/uL Normal 1.2-4.[address] [facility] Comment on above: Order Comment: No: D o not add to previous draw Performed By: #### 5 0103 #### [facility] [address] [place] [address], [facility] Lymphocytes/100 WBC (Bld) 24.0 % Normal 20.0-45.[address] [facility] Comment on above: Order Comment: No: D o not add to previous draw Performed By: #### 5 0103 #### [facility] [address] [place] [address], [facility] MCH (RBC) [Entitic mass] 29.9 pg Normal 27.0-33.[address] [facility] Comment on above: Order Comment: No: D o not add to previous draw Performed By: #### 5 0103 #### [facility] [address] [place] [address], [facility] MCHC (RBC) [Mass/Vol] 33.5 g/dL Normal 32.0-35.[address] [facility] Comment on above: Order Comment: No: D o not add to previous draw Performed By: #### 5 0103 #### [facility] [address] [place] [address], [facility] MCV (RBC) [Entitic vol] 89.2 fL Normal 82.0-98.[address] [facility] Comment on above: Order Comment: No: D o not add to previous draw Performed By: #### 5 0103 #### [facility] [address] [place] [address], [facility] Monocytes (Bld) [#/Vol] 0.6 10*3/uL Normal 0.1-1.[address] [facility] Comment on above: Order Comment: No: D o not add to previous draw Performed By: #### 5 0103 #### [facility] [address] [place] [address], [facility] MONOS 8.0 % Normal 5.0-12.[address] [facility] Comment on above: Order Comment: No: D o not add to previous draw Performed By: #### 5 0103 #### [facility] [address] [place] [address], [facility] Neutrophils/100 WBC (Bld) 63.9 % Normal 40.0-72.[address] [facility] Comment on above: Order Comment: No: D o not add to previous draw Performed By: #### 5 0103 #### [facility] [address] [facility] [address], [facility] Nucleated RBC/100 WBC (Bld) [Ratio] 0 % Normal 0-[address] [facility] Comment on above: Order Comment: No: D o not add to previous draw Performed By: #### 5 0103 #### [facility] [address] [facility] [address], [facility] PLAT CNT 187 10*3/uL Normal 150-[address] [facility] Comment on above: Order Comment: No: D o not add to previous draw Performed By: #### 5 0103 #### [facility] [address] [facility] [address], [facility] RBC (Bld) [#/Vol] 4.65 10*6/uL Normal 4.20-5.[address] [facility] Comment on above: Order Comment: No: D o not add to previous draw Performed By: #### 5 0103 #### [facility] [address] [place] [address], [facility] WBC (Bld) [#/Vol] 7.22 10*3/uL Normal 4.00-10.[address] [facility] Comment on above: Order Comment: No: D o not add to previous draw Performed By: #### 5 0103 #### [facility] [address] [place] [address], [facility] COMP METABOLIC PANELon 06-24 Albumin [Mass/Vol] 3.9 g/dL Normal 3.5-5.[address] [facility] Comment on above: Order Comment: No: D o not add to previous draw Performed By: #### 0 0121, [id number] #### [facility] [address] [place] [address], [facility] ALKALINE PHOSPH 108 IU/L High 34-[address] [facility] Comment on above: Order Comment: No: D o not add to previous draw Performed By: #### 0 0121, 78546 #### [facility] [address] [place] [address], [facility] ALT [Catalytic activity/Vol] 26 U/L Normal 7-[address] [facility] Comment on above: Order Comment: No: D o not add to previous draw Performed By: #### 0 0121, [id number] #### [facility] [address] [place] [address], [facility] AST [Catalytic activity/Vol] 12 U/L Low 13-[address] [facility] Comment on above: Order Comment: No: D o not add to previous draw Performed By: #### 0 0121, [id number] #### [facility] [address] [place] [address], [facility] Bilirubin [Mass/Vol] 0.8 mg/dL Normal 0.3-1.[address] [facility] Comment on above: Order Comment: No: D o not add to previous draw Performed By: #### 0 0121, 34090 #### [facility] [address] [place] [address], [place] Calcium [Mass/Vol] 9.0 mg/dL Normal 8.6-10.[address] [facility] Comment on above: Order Comment: No: D o not add to previous draw Performed By: #### 0 0121, 07440 #### [facility] [address] [place] [address], [place] Chloride [Moles/Vol] 103 mmol/L Normal 98-[address] [facility] Comment on above: Order Comment: No: D o not add to previous draw Performed By: #### 0 0121, 56769 #### [facility] [address] [place] [address], [place] CO2 [Moles/Vol] 28 mmol/L Normal 21-[address] [facility] Comment on above: Order Comment: No: D o not add to previous draw Performed By: #### 0 0121, 81876 #### [facility] [address] [place] [address], [place] Creatinine [Mass/Vol] 1.24 mg/dL Normal 0.70-1.[address] [facility] Comment on above: Order Comment: No: D o not add to previous draw Performed By: #### 0 0121, [id number] #### [facility] [address] [place] [address], [place] GFR/1.73 sq M.predicted among blacks MDRD (S/P/Bld) [Vol rate/Area] mL/min/{1.73_m2} Normal >[address] [facility] Comment on above: Order Comment: No: D o not add to previous draw Performed By: #### 0 0121, 23517 #### [facility] [address] [place] [address], [place] GFR/1.73 sq M.predicted among non-blacks MDRD (S/P/Bld) [Vol rate/Area] mL/min/{1.73_m2} Normal >[address] [facility] Comment on above: Order Comment: No: D o not add to previous draw Performed By: #### 0 0121, 03266 #### [facility] [address] [place] [address], [place] Glucose [Mass/Vol] 102 mg/dL High 70-[address] [facility] Comment on above: Order Comment: No: D o not add to previous draw Performed By: #### 0 0121, 73365 #### [facility] [address] [place] [address], [place] Potassium [Moles/Vol] 4.3 mmol/L Normal 3.5-5.[address] [facility] Comment on above: Order Comment: No: D o not add to previous draw Performed By: #### 0 0121, 02960 #### [facility] [address] [place] [address], [place] Protein [Mass/Vol] 6.3 g/dL Normal 6.0-8.[address] [facility] Comment on above: Order Comment: No: D o not add to previous draw Performed By: #### 0 0121, 39798 #### [facility] [address] [place] [address], [place] Sodium [Moles/Vol] 136 mmol/L Normal 136-[address] [facility] Comment on above: Order Comment: No: D o not add to previous draw Performed By: #### 0 0121, 24529 #### [facility] [address] [place] [address], [place] Urea nitrogen [Mass/Vol] 22 mg/dL Normal 7-[address] [facility] Comment on above: Order Comment: No: D o not add to previous draw Performed By: #### 0 0121, 79133 #### [facility] [address] [place] [address], [place] LIPID PROFILEon 06-24-2021 Cholesterol [Mass/Vol] 149 mg/dL Normal 120-[address] [facility] Comment on above: Order Comment: No: D o not add to previous draw Result Comment: CHOL ESTEROL REFERENCE RANGE: 20 YEARS AND OLDER CARDIOVASCULAR RISK Less than 200 mg/dl Low Risk 200 to 239 mg/dl Borderline Risk 240 mg/dl and greater High Risk Performed By: #### 0 0121, 46935 #### [facility] [address] [place] [address], [facility] Cholesterol in HDL [Mass/Vol] 34 mg/dL Normal 23-[address] [facility] Comment on above: Order Comment: No: D o not add to previous draw Result Comment: Slig ht variation in normal range could be due to gender and/or age. HDL CHOLESTEROL REFERENCE RANGE: 20 years and older Cardiovascular Risk > or =60 mg/dL Desirable 40 TO 59 mg/dL Low Risk <40 mg/dL High Risk Performed By: #### 0 0121, 53763 #### [facility] [address] [place] [address], [facility] Cholesterol in LDL [Mass/Vol] 101 mg/dL Normal 0-[address] [facility] Comment on above: Order Comment: No: D o not add to previous draw Result Comment: LDL IS A CALCULATION LDL IS ONLY VALID IF THE TRIG IS LESS THAN 400. Performed By: #### 0 0121, [id number] #### [facility] [address] [place] [address], [facility] Cholesterol.total/ Cholesterol in HDL [Mass ratio] 4.4 {ratio} Normal .0-4.[address] [facility] Comment on above: Order Comment: No: D o not add to previous draw Performed By: #### 0 0121, 99579 #### [facility] [address] [place] [address], [facility] NON-HDL CHOLESTEROL 115 mg/dL Normal [facility] Comment on above: Order Comment: No: D o not add to previous draw Performed By: #### 0 0121, 80602 #### [facility] [address] Triglyceride [Mass/Vol] 72 mg/dL Normal 40-[address] [facility] Comment on above: Order Comment: No: D o not add to previous draw Result Comment: TRIG LYCERIDE REFERENCE RANGE: 20 YEARS AND OLDER CARDIOVASCULAR RISK LESS THAN 150 mg/dl LOW RISK 150 TO 199 mg/dl BORDERLINE RISK 200 mg/dl AND GREATER HIGH RISK Performed By: #### 0 0121, 75168 #### [facility] [address] VLDL CHOL 14 mg/dL Normal 0-[address] [facility] Comment on above: Order Comment: No: D o not add to previous draw Performed By: #### 0 0121, 70161 #### [facility] [address] Cardiovascular Lab Reporton 06-23-2021 Cardiovascular Lab Report [facility] Patient Name: Thad Castro MR #: [id number] [facility] Physician: Michelle Gleason MD Department of Service Date: 06/23/2021 Medicine Birthdate: 1970 Division of Room #: [id number] Cardiology Adult Cardiovascular Services [place] [address] Cardiovascular Laboratory Report Cardiovascular Laboratory Report FINAL IMPRESSIONS: 1. 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 2. 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 RECOMMENDATIONS: 1. Aspirin 81 mg lifelong. 2. Plavix 75 mg daily for a minimum of 6 months, preferably alf. 3. Aggressive risk factor modification. 4. Optimization of medical management; high-intensity statin therapy, a beta tiffany, and angiotensin-converting enzyme inhibitor as indicated. 5. Medical management [...] to proceed with an interventional procedure. A 6-Hebrew XB 3.5 catheter was advanced in and [...] Gleason MD Date Trans: 06/23/2021 07:55 P/ [id number] cc: Rubin Baron M.D. [address] [place] [facility] [id number] [address] [facility] POC SARS COV2 ANTIGEN NEGATI VEon 06-23-2021 POC SARS COV2 ANTIGEN NEG Negative Normal NEGATIVE [facility] Comment on above: Result Comment: Nega tive [...] signs and symptoms consistent with COVID-19. The [employer] COVID-19 Ag Card is a lateral flow [...] Accreditation. Performed By: #### 3 1977 #### [facility] [address] [place] [address], [facility] CBC AUTO DIFFon 06-18-2021 BASO # 0.1 103/ul Normal 0.0-0.1 [facility] Comment on above: Performed By: #### C BC #### [facility] [address] [address] [address] Carmelita White Basophils/100 WBC (Bld) 0.9 % Normal 0.2-2.0 [facility] Comment on above: Performed By: #### C BC #### [facility] [address] [address] [address] Carmelita White EO # 0.2 103/ul Normal 0.0-0.7 [facility] Comment on above: Performed By: #### C BC #### [facility] [address] [place] [address] Dr. Carmelita White Eosinophils/100 WBC (Bld) 2.6 % Normal 0.9-7.0 [facility] Comment on above: Performed By: #### C BC #### [facility] [address] [place] [address] Dr. Carmelita White Erythrocyte distribution width (RBC) [Ratio] 12.4 % Normal 11.0-15.0 [facility] Comment on above: Performed By: #### C BC #### [facility] [address] [place] [address] Dr. Carmelita White Hematocrit (Bld) [Volume fraction] 44.8 % Normal 42.0-54.0 [facility] Comment on above: Performed By: #### C BC #### [facility] [address] [place] [address] Dr. Carmelita White Hemoglobin (Bld) [Mass/Vol] 15.2 g/dL Normal 14.0-18.0 [facility] Comment on above: Performed By: #### C BC #### [facility] [address] [place] [address] Dr. Carmelita White IG # 0.03 10e3/ul Normal 0.00-0.03 [facility] Comment on above: Performed By: #### C BC #### [facility] [address] [place] [address] Dr. Carmelita White IG % 0.5 % Normal 0.0-0.5 [facility] Comment on above: Performed By: #### C BC #### [facility] [address] [place] [address] Dr. Carmelita White LYMPH # 1.5 103/ul Normal 1.2-3.8 [facility] Comment on above: Performed By: #### C BC #### [facility] [address] [place] [address] Dr. Carmelita White Lymphocytes/100 WBC (Bld) 22.5 % Normal 20.5-60.0 [facility] Comment on above: Performed By: #### C BC #### [facility] [address] [place] [address] Dr. Carmelita White MANUAL DIFF REQ NO Normal [facility] Comment on above: Performed By: #### C BC #### [facility] [address] [place] [address] Dr. Carmelita White MCH (RBC) [Entitic mass] 29.7 pg Normal 25.9-34.0 [facility] Comment on above: Performed By: #### C BC #### [facility] [address] [place] [address] Dr. Carmelita White MCHC (RBC) [Mass/Vol] 33.9 g/dL Normal 29.9-35.2 [facility] Comment on above: Performed By: #### C BC #### [facility] [address] [place] [address] Dr. Carmelita White MCV (RBC) [Entitic vol] 87.5 fL Normal 80.0-94.0 [facility] Comment on above: Performed By: #### C BC #### [facility] [address] [place] [address] Dr. Carmelita White MONO # 0.4 103/ul Normal 0.3-0.8 [facility] Comment on above: Performed By: #### C BC #### [facility] [address] [place] [address] Dr. Carmelita White Monocytes/100 WBC (Bld) 5.5 % Normal 1.7-12.0 [facility] Comment on above: Performed By: #### C BC #### [facility] [address] [place] [address] Dr. Carmelita White NEUT # 4.5 103/ul Normal 1.4-6.5 [facility] Comment on above: Performed By: #### C BC #### [facility] [address] [place] [address] Dr. Carmelita White Neutrophils/100 WBC (Bld) 68.0 % Normal 43.0-75.0 [facility] Comment on above: Performed By: #### C BC #### [facility] [address] [place] [address] Dr. Carmelita White Platelet mean volume (Bld) [Entitic vol] 8.5 fL Critically low 9.5-13.5 [facility] Comment on above: Performed By: #### C BC #### [facility] [address] [place] [address] Dr. Carmelita White PLT 238 103/ul Normal 150-450 [facility] Comment on above: Performed By: #### C BC #### [facility] [address] [place] [address] Dr. Carmelita White RBC 5.12 106/ul Normal 4.70-6.10 [facility] Comment on above: Performed By: #### C BC #### [facility] [address] [place] [address] Dr. Carmelita White WBC 6.5 103/ul Normal 4.0-11.0 [facility] Comment on above: Performed By: #### C BC #### [facility] [address] [place] [address] Dr. Carmelita White PROF CHEM 8 (BAS METB)on Anion gap [Moles/Vol] 14.7 mmol/L Normal [facility] Comment on above: Performed By: #### B MP #### [facility] [address] [place] [address] Dr. Carmelita White Calcium [Mass/Vol] 9.3 mg/dL Normal 8.4-10.2 [facility] Comment on above: Performed By: #### B MP #### [facility] [address] [address] [address] Carmelita White Chloride [Moles/Vol] 101 mmol/L Normal 98-107 [facility] Comment on above: Performed By: #### B MP #### [facility] [address] [address] [address] Carmelita Whtie CO2 [Moles/Vol] 28.2 mmol/L Normal 22.0-30.0 [facility] Comment on above: Performed By: #### B MP #### [facility] [address] [address] [address] Carmelita White Creatinine [Mass/Vol] 1.33 mg/dL Critically high 0.66-1.25 [facility] Comment on above: Performed By: #### B MP #### [facility] [address] [address] [address] Carmelita White EGFR-AF NIGERIEN >60 Normal >=60 [facility] Comment on above: Performed By: #### B MP #### [facility] [address] [address] [address] Carmelita White EGFR-NON AF NIGERIEN 57 mL/min/1.73m2 Critically low >=60 [facility] Comment on above: Performed By: #### B MP #### [facility] [address] [address] [address] Carmelita White Glucose [Mass/Vol] 99 mg/dL Normal 74-106 [facility] Comment on above: Performed By: #### B MP #### [facility] [address] [address] [address] Carmelita White Potassium [Moles/Vol] 4.9 mmol/L Normal 3.4-5.0 [facility] Comment on above: Performed By: #### B MP #### [facility] [address] [address] [address] Carmelita White Sodium [Moles/Vol] 139 mmol/L Normal 137-145 [facility] Comment on above: Performed By: #### B MP #### [facility] [address] [address] [address] Carmelita White Urea nitrogen [Mass/Vol] 21.0 mg/dL Critically high 9.0-20.0 [facility] Comment on above: Performed By: #### B MP #### [facility] [address] [address] [address] Carmelita White Urea nitrogen/Creatinin e [Mass ratio] 15.8 mg/mg Normal [facility] Comment on above: Performed By: #### B MP #### [facility] [address] [address] [address] Carmelita White NM STRESS/REST MULTIon 06-09 NM STRESS/REST MULTI Patient: THAD CASTRO Exam Date: 06/09/2021 : 1970 Gender:M Ordering : DR RUBIN BARON . Admission #: [id number] Family : Order #: [id number] CLICK HERE TO VIEW EXAM RADIOLOGY REPORT [...] PERFUSION DEFECT: LOCATION: Mid-anterior. Mid-anteroseptal. Apical anterior. [place]. SIZE: Medium (3-4 segments). SEVERITY: Severe. TYPE: [...] Mathur MD on 06/11/2021 at 13:23 Normal [facility] Vital Signs Date Time Vital Sign Value Performing Clinician Rudolph patton 09-08-2023 14:53-0500 Blood Pressure Location Naren NILL [facility] 09-08-2023 14:53-0500 Diastolic blood pressure 88 mm[Hg] Naren NILL [facility] 09-08-2023 14:53-0500 Heart rate 72 /min Naren NILL [facility] 09-08-2023 14:53-0500 Respiratory rate 16 /min Naren NILL [facility] 09-08-2023 14:53-0500 Systolic blood pressure 146 mm[Hg] Naren NILL [facility] Encounters Encounter Date Encounter Type Care Provider Facility Start: 01-25-2024 End: 01-25-2024 ambulatory [facility] Start: 10-05-2023 End: 10-06-2023 ambulatory Naren R NILL Facility:[facility] Start: 10-05-2023 End: 10-05-2023 Patient encounter procedure Naren R NILL [facility] Nill[facility] [place] Start: 09-22-2023 End: 09-23-2023 ambulatory Naren R NILL Facility: [facility] Start: 09-08-2023 End: 09-09-2023 ambulatory Naren R NILL Facility:[facility] Start: 09-08-2023 End: 09-08-2023 Patient encounter procedure Naren R NILL [facility] N[facility] [place] Start: 09-07-2023 ambulatory Naren MEDEROS Facility:[facility] Start: 09-06-2023 ambulatory Naren MEDEROS [facility] Start: 08-20-2023 End: 08-20-2023 ambulatory ELVIRA ALSTON [facility] Start: 02-12-2023 End: 02-12-2023 ambulatory MICHELLE GLEASON [facility] Start: 02-23-2022 End: 02-24-2022 ambulatory ELVIRA ALSTON Facility:[facility] Start: 08-04-2021 End: 08-05-[address] RUBIN BARON Facility:[facility] Start: 06-28-2021 Encounter for preprocedural laboratory examination DR DOCTOR MILLER [facility] Start: 06-25-[address] DOCTOR MILLER Facility :[facility] Start: 06-23-2021 End: 06-24-2021 ambulatory MERA JURADO Facility:[facility] Start: 06-18-2021 End: 06-19-[address] DOCTOR MILLER Facility:[facility] Start: 06-18-2021 End: 06-19-2021 Encounter for preprocedural laboratory examination DR DOCTOR MILLER Facility:[facility] Start: 06-11-[address] AMALIA FLORES Facil ity:[facility] Start: 06-09-2021 End: 06-10-[address] AMALIA FLORES Facility:[facility] Procedures Date Procedure Procedure Detail Performing Clinician Start: 09-22-2023 Colonoscopy Naren MEDEROS Start: 09-22-2023 Esophagogastroduodenoscopy Naren MEDEROS Start: 02-23-[address] AMALIA FLORES Comment on above: Performed By: #### PSASC #### [facility] [address] [place] [address] Dr. Carmelita MEDEROS Coronary artery sten t (physical object) Naren MEDEROS Fluoroscopic angiopl asty of bilateral iliac arteries and insertion of bilateral iliac artery stents Naren MEDEROS History of ankle surgery Maik hael NILL Immunizations Immunization Date Immunization Notes Care Provider Fa cili 07-24-2021 SARS-CoV-2 (COVID-19 ) mRNA BNT-162b2 vax Naren NILL [facility] 11-25-2020 SARS-CoV-2 (COVID-19 ) mRNA BNT-162b2 vax Naren NILL [facility] 11-04-2020 SARS-CoV-2 (COVID-19 ) mRNA BNT-162b2 vax Naren NILL [facility] NEGATED: Highlighted row has not occurred!09-08-2023 influenza virus vaccine, unspecified formulation Naren NILL [facility] Payers Date Payer Category Payer Unknown [id number] 2.16.8 [id number] 1970 Unknown [id number] 2.16.84 [id number] 1970 Unknown [id number] 2.16.84 [id number] 1970 Unknown [id number] 2.16.84 [id number] 1970 Unknown [id number] 2.16.84 [id number] 1970 Unknown [id number] 2.16.84 [id number] 1970 Unknown [id number] 2.16.84 [id number] 1970 Unknown [id number] 2.16.84 [id number] 1970 Unknown [id number] 2.16.8 [id number] 1970 Unknown [id number] 2.16.8 [id number] 1970 Unknown [id number] 2.16.8 [id number] 1970 Unknown [id number] 2.16.8 [id number] 1960 Medicaid [id number] Social History Date Type Detail Facility Start: 09-08-2023 Tobacco smoking status Light t obacco smoker (finding) [facility] [place] Tobacco smoking status Smokeless tobacco user within last 30 days [facility] [place] Sex Assigned At Male [facility] Functional Status Date Assessment Result Facility 09-08-2023 Functional Status N/A [facility] Clinical Notes 02-12-2023 to 01-25-2024 Note Date & Type Note Facility 01-25-2024 Note Cardiology Follow Up Progress Note Chief Complaint: follow up HPI: Thad Castro is a 51 y.o. male with a past medical history including hypertension, hyperlipidemia, and CAD status post PCI of the LAD in 05/2021. Patient here for 6 mo follow up CAD, hypertension, and hyperlipidemia. He had routine labs w/ lipid profile in Aug 2023. He denies chest pain, SOB, palpitations, and lightheadedness/syncope. Doing very well from cardiac standpoint. He is taking all of his medications without issue. Cardiology ROS: GENERAL: Denies fever, chills, night [...] Take 1 tablet (81 mg) by mouth once daily as directed. 90 tablet 3 atorvastatin (Lipitor) 80 mg tablet Take 1 tablet (80 mg) by mouth in the evening. 90 tablet 3 clopidogrel (Plavix) 75 mg tablet Take 1 tablet (75 mg) by mouth once daily as directed. 90 tablet 3 ezetimibe (Zetia) 10 mg tablet Take 1 tablet (10 mg) by mouth once daily as directed. 90 tablet 3 irbesartan (Avapro) 300 mg tablet Take 1 tablet (300 mg) by mouth once daily as directed. 90 tablet 3 metoprolol tartrate (Lopressor) 25 mg tablet Take 0.5 tablets (12.5 mg) by mouth in the morning and at bedtime. 90 tablet 3 nitroglycerin (Nitrostat) 0.4 mg SL tablet DISSOLVE 1 TAB UNDER TONGUE FOR CHEST PAIN*MAY REPEAT EVERY 5 MINUTES IF PAIN PERSISTS/MAX 3 TABS* No current facility-administered medications on file prior to visit. Allergies Patient has no known allergies. Physical Exam VITAL SIGNS: BP 122/76 (BP Location: Left arm, Patient Position: Sitting) Pulse 89 Ht 1.88 m (6' 2 ) Wt (!) 148 kg (327 lb) SpO2 97% BMI 41.98 kg/m??? Constitutional: Well developed, Well nourished, No [...] will contact cardiology for persistently abnormal Bps. -Optimize medical management -Aggressive risk factor modification -Plan of care discussed with patient. All questions were answered. Patient voices understanding and is agreeable with current plan. -Patient was educated on red flag symptoms. Strict return precautions were provided. Patient verbalizes understanding -Follow-up in cardiology clinic in 6 months, or sooner as needed. Michelle Gleason MD Interventional Cardiology [facility] 09-08-2023 Note Chief Complaint consultation for anemia [...] tablet, 1 tab(s), (more content not included)... [facility] Comment on above: Result Comment: Elec tronically Signed By: GATITO HARRISON, Naren Gleason\Date and Time Signed: 09/08/23 19:40 EST 08-20-2023 Note Continues to smoke a nd provider had strong conversation with pt that he needs to completely stop smoking to prevent stent re-occlusion and management of CAD [facility] 08-20-2023 Note Patient here for 6 m o follow up CAD, hypertension, and hyperlipidemia. Had routine labs back in Feb 2023. Denies chest pain, SOB, and palpitations. Review of Systems Cardiovascular: Positive for leg swelling (resolves by morning). Musculoskeletal: Positive for arthritis and back pain. All other systems reviewed and are negative. [facility] 08-20-2023 Note [facility] CARDIOLOGY PROGR ESS NOTE [...] is stable Continue GDMT- ASA and plavix alf, lipitor and zetia, with metoprolol D/W risk factor and lifestyle modifications- heart healthy diet, regular exercise as tolerated and continue all medications. Tobacco dependence syndrome Continues to smoke and provider had strong conversation with pt that he needs to completely stop smoking to prevent stent re-occlusion and management of CAD RTC [address] [facility] 08-20-2023 Note Coronary artery dise ase is stable Continue GDMT- ASA and plavix alf, lipitor and zetia, with metoprolol D/W risk factor and lifestyle modifications- heart healthy diet, regular exercise as tolerated and continue all medications. [facility] 08-20-2023 Note Hypertension is well controlled Continue irbesartan, metoprolol Renal function normal [facility] 08-20-2023 Note Continue lipitor and zetia Well controlled and liver function normal [facility] 02-12-2023 Note Patient here for 6 m o follow up CAD, hypertension, and hyperlipidemia. Since last visit, Dr. Baron re-started him on low dose metoprolol. Doesn't check his BP at home very often, as he feels great. Denies chest pain, SOB, and lightheadedness. [facility] 02-12-2023 Note Cardiology Follow Up Progress Note [...] as needed. Michelle Gleason MD Interventional Cardiology [facility] Michelle Gleason MD Interventional Cardiology [facility] Evaluation + Plan note No data available for this section [facility] Discharge instructions No data available for this section [facility] [place] Progress note No data available for this section [facility] [place] Summary Purpose Family History No Family History Records FoundNo Family History Records Found No data available for this section No data available for this section No Family History Records FoundNo Family History Records Found Advance Directives No Advanced Directives Records FoundNo Advanced Directives Records FoundNo Advanced Directives Records FoundNo Advanced Directives Records Found Additional Source Comments (unrecognized sect ion and content) No Status Records FoundNo Status Records FoundNo Status Records FoundNo Status Records Found INFORMATION SOURCE (unrecogn ized section and content) DATE CREATED AUTHOR 06/28/2021 [facility] DATE CREATED AUTHOR AUTHOR'S ORGANIZ ATION 02/26/2022 [facility] DATE CREATED AUTHOR AUTHOR'S ORGANIZ ATION 10/12/2023 [facility] DATE CREATED AUTHOR AUTHOR'S ORGANIZ ATION 01/26/2024 [facility] Patient Care team informatio n (unrecognized section and content) Personnel Name: Rubin Baron MD Address: Address: [address] [place] [address] Personnel Name: Rubin Baron MD Address: Address: [address] [place] [address] FOR RECORDS PERTAINING TO PATIENTS WHO ARE [...] BE BASED ON THE PRIMARY CLINICAL RECORDS. [facility]. provides no warranty or guarantee of the accuracy or completeness of information in this document.
[2024-02-25 14:42] LABS: Alanine Aminotransferase 48 U/L (16-63); Albumin Globulin Ratio 1.1; Albumin Level 3.9 g/dL (3.4-5.0); Alkaline Phosphatase 142 U/L (46-116); Anion Gap 11.5; Aspartate Amino Transferase 19 U/L (15-37); BUN Creatinine Ratio 12.7; Calcium 9.2 mg/dL (8.5-10.1); Carbon Dioxide 27.4 mmol/L (21.0-32.0); Chloride 101 mmol/L (98-107); Estimated GFR (African America >60 (>=60); Estimated GFR (Non-African Ame 60 (>=60); Globulin 3.6 g/dL; Glucose 83 mg/dL (74-106); Potassium 3.9 mmol/L (3.5-5.1); Sodium 136 mmol/L (136-145); Total Protein 7.5 g/dL (6.4-8.2)
[2024-02-26 04:08] LABS: CA 19-9 24 U/mL (0-35)
== END 2024-02-25 13:59 | disposition home or self-care (01) ==
LOC: LAB 13:58
PROVIDERS: PCP Family Medicine; Visit Provider Family Medicine
DX: K21.9 Gastro-esophageal reflux disease without esophagitis (principal)
CPT/HCPCS: 36415; 80053; 86301

== ENCOUNTER 2024-08-23 11:17 | Emergency (ER) | payer MEDICAID, SELFPAY ==
[2024-08-23 11:24] VITALS: BP 108/72; PULSE 98; TEMP 37.7; O2SAT 95; BMI 37.5
--- NOTE | 2024-08-23 11:27 | XR_ITS ---
The [address] [address] Patient Name: THAD CASTRO MRN: [id number] date: 1970 Sex: M Assigned Patient Location: ER Current Patient Location: ER Accession/Order Number: [id number] Exam Date: 08/23/2024 11:30 Report Date: 08/23/2024 11:54 At the request of: MARIE CASH Procedure: XR chest 2V EXAMINATION: XR chest 2V HISTORY: sob COMPARISON: No relevant comparison available. FINDINGS: LUNGS: Patchy opacities within lateral right mid and lower lung. VASCULATURE: No increased pulmonary vasculature. PLEURA: No pneumothorax, effusion, or pleural thickening. CARDIAC: No cardiomegaly or cardiac silhouette abnormality. MEDIASTINUM: No visible mass or adenopathy. BONES: No fracture or visible bone lesion. OTHER: Negative. XR/XR chest 2V IMPRESSION: 1. Several patchy infiltrates within lateral right mid and lower lung suspected represent pneumonia. Follow-up to document clearing and to exclude soft tissue masses is recommended. Electronically authenticated by: CATHERINE MERINO Date: 08/23/2024 11:54
--- OUTSIDE RECORDS SUMMARY | 2024-08-23 11:34 | XMS_ITS | CCD ---
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 Name Role Phone MERA JURADO Attending Unavailable ALGHOROSA M MOHAMAAndrey Admitting Unavailable SELF, REFERRED Referring Unavailable RUBIN [...] MOHAMAD Admitting Unavailable ALGHOTHANI, MICHELLE Attending Unavailable ALGHOROSA M, MOHSHOBHAD Consulting Unavailable ALIYAY, DR CONKLIN Admitting [...] Consulting Unavailable Rubin Baron Primary Care Physician [phone] Naren MEDEROS Attending Unavailable NILLNaren Attending Unavailable NILNaren Hernandez Attending Unavailable NILLNaren Attending Unavailable ALGHOTHANI, MOHAMAD Attending Unavailable ALGHOTHANI, MOHAMAD Attending Unavailable GAMALIEL, ELVIRA Attending Unavailable Allergies Allergy Classification Reported Allergen(s) Allergy Type Date of Onset Reaction(s) Facility (1 source) No Known Medication Allergies; Translations: [No Known Medication Allergies] Propensity to adverse reactions (disorder) [facility] Repository Medications Current Medications Medication Drug Class(es) [...] disease (10 sources) Atherosclerotic heart disease of [place] coronary artery without angina pectoris; Translations: [Coronary [...] Range Facility Office Visiton 01-25-2024 Follow-up visit [id number] Thad Castro 1970 M Date Provider Department Center 01/25/2024 3848-MICHELLE GLEASON [facility] Family History Problem Relation Age of Onset Hypertension Mother Pancreatic cancer Mother Coronary artery disease Father Stomach cancer Father Other Father Heart murmur Sister Hypertension Brother Family Status - Relation Status Age at Mother Father Sister Brother Level of Service:28680 CO OFFICE/OUTPATIENT ESTABLISHED LOW MDM 20 MIN Normal [facility] Pathology Noteon 10-11-2023 Pathology Note [id number]#1.00TIFF Normal [facility] Pathology Noteon 10-07-2023 Pathology Note [id number]#1.00TIFF Normal [facility] Reminderson 10-07-2023 Reminders - From: Tanya Ibrahim LPN To: N - Clinical; Sent: 10/07/2023 09:11:34 EDT Show up: 08/22/2033 07:00:00 EST Subject: colonoscopy recall Due Date/Time: 09/22/2033 07:00:00 EST Reminder/Recall Patient due for screening colonoscopy 09/22/2033. Normal [facility] Ambulatory Visit Summaryon 0 10-05-2023 Ambulatory Visit [...] choosing us for your care. [facility] General Surgery Office/Clini c Noteon 10-05-2023 General [...] mRNA BNT-162b2 vax (more content not included)... [facility] Comment on above: Result Comment: Elec tronically Signed By: GATITO HARRISON, Naren Persaud\.br\Date and Time Signed: 10/05/23 15:16 EDT Outside Colonoscopyon 2023 Outside Colonoscopy [id number]#1.00TIFF [facility] Formson 09-13-2023 Forms [id number]#1.00TIFF [facility] Consent for Procedure/Surger yon 09-10-2023 Consent for Procedure/Surgery [id number]#1.00TIFF [facility] Facesheeton 09-09-2023 Facesheet [id number]#1.00TIFF [facility] Ambulatory Visit Summaryon 0 09-08-2023 Ambulatory [...] you for choosing us for your care. [facility] Physician Referralon 024 Physician Referral [id number]#1.00TIFF [facility] Physician Referralon 024 Physician Referral [id number]#1.00TIFF [facility] Office Visiton 08-20-2023 Follow-up visit [id number] Thad Castro 1970 M Date Provider Department Center 08/20/2023 ELVIRA PAIGE Family History Problem Relation Age of Onset Hypertension Mother Pancreatic cancer Mother Coronary artery disease Father Stomach cancer Father Other Father Heart murmur Sister Hypertension Brother Family Status - Relation Status Age at Mother Father Sister Brother Level of Service:89441 CO OFFICE/OUTPATIENT ESTABLISHED MOD MDM 30 MIN Normal [facility] Office Visiton 02-12-2023 Follow-up visit [id number] Thad Castro 1970 M Date Provider Department Center 02/12/2023 3848-MICHELLE GLEASON CARD [facility] Family History Problem Relation Age of Onset Hypertension Mother Pancreatic cancer Mother Coronary artery disease Father Stomach cancer Father Other Father Heart murmur Sister Hypertension Brother Family Status - Relation Status Age at Mother Father Sister Brother Level of Service:17589 CO OFFICE/OUTPATIENT ESTABLISHED LOW MDM 20-29 MIN Normal [facility] INSULINon 02-24-2022 Insulin 14.5 uIU/mL Normal 2.6-24.9 [facility] Comment on above: Performed By: #### I NSULIN #### [facility] [address] [place] [address] Dr. Carmelita White BILIRUBIN CONJUGATED (DIRECT )on 02-23-2022 BILI, CONJUGATED 0.2 mg/dL Normal 0.0-0.2 [facility] Comment on above: Performed By: #### D JEMMA #### [facility] [address] [place] [address] Dr. Carmelita White CBC AUTO DIFFon 02-23-2022 BASO # 0.1 103/ul Normal 0.0-0.1 [facility] Comment on above: Performed By: #### C BC #### [facility] [address] [place] [address] Dr. Carmelita White Basophils/100 WBC (Bld) 1.2 % Normal 0.2-2.0 [facility] Comment on above: Performed By: #### C BC #### [facility] [address] [place] [address] Dr. Carmelita White EO # 0.2 103/ul Normal 0.0-0.7 [facility] Comment on above: Performed By: #### C BC #### [facility] [address] [place] [address] Dr. Carmelita White Eosinophils/100 WBC (Bld) 4.0 % Normal 0.9-7.0 [facility] Comment on above: Performed By: #### C BC #### [facility] [address] [place] [address] Dr. Carmelita White Erythrocyte distribution width (RBC) [Ratio] 13.2 % Normal 11.0-15.0 [facility] Comment on above: Performed By: #### C BC #### [facility] [address] [place] [address] Dr. Carmelita White Hematocrit (Bld) [Volume fraction] 38.7 % Critically low 42.0-54.0 [facility] Comment on above: Performed By: #### C BC #### [facility] [address] [place] [address] Dr. Carmelita White Hemoglobin (Bld) [Mass/Vol] 13.4 g/dL Critically low 14.0-18.0 [facility] Comment on above: Performed By: #### C BC #### [facility] [address] [place] [address] Dr. Carmelita White IG # 0.02 10e3/ul Normal 0.00-0.03 [facility] Comment on above: Performed By: #### C BC #### [facility] [address] [place] [address] Dr. Carmelita White IG % 0.3 % Normal 0.0-0.5 [facility] Comment on above: Performed By: #### C BC #### [facility] [address] [place] [address] Dr. Carmelita White LYMPH # 1.5 103/ul Normal 1.2-3.8 [facility] Comment on above: Performed By: #### C BC #### [facility] [address] [place] [address] Dr. Carmelita White Lymphocytes/100 WBC (Bld) 24.1 % Normal 20.5-60.0 [facility] Comment on above: Performed By: #### C BC #### [facility] [address] [place] [address] Dr. Carmelita White MANUAL DIFF REQ NO Normal [facility] Comment on above: Performed By: #### C BC #### [facility] [address] [place] [address] Dr. Carmelita White MCH (RBC) [Entitic mass] 30.5 pg Normal 25.9-34.0 [facility] Comment on above: Performed By: #### C BC #### [facility] [address] [place] [address] Dr. Carmelita White MCHC (RBC) [Mass/Vol] 34.6 g/dL Normal 29.9-35.2 [facility] Comment on above: Performed By: #### C BC #### [facility] [address] [place] [address] Dr. Carmelita White MCV (RBC) [Entitic vol] 88.2 fL Normal 80.0-94.0 [facility] Comment on above: Performed By: #### C BC #### [facility] [address] [place] [address] Dr. Carmelita White MONO # 0.4 103/ul Normal 0.3-0.8 [facility] Comment on above: Performed By: #### C BC #### [facility] [address] [place] [address] Dr. Carmelita White Monocytes/100 WBC (Bld) 6.6 % Normal 1.7-12.0 [facility] Comment on above: Performed By: #### C BC #### [facility] [address] [place] [address] Dr. Carmelita White NEUT # 3.9 103/ul Normal 1.4-6.5 [facility] Comment on above: Performed By: #### C BC #### [facility] [address] [place] [address] Dr. Carmelita White Neutrophils/100 WBC (Bld) 63.8 % Normal 43.0-75.0 [facility] Comment on above: Performed By: #### C BC #### [facility] [address] [place] [address] Dr. Carmelita White Platelet mean volume (Bld) [Entitic vol] 8.5 fL Critically low 9.5-13.5 [facility] Comment on above: Performed By: #### C BC #### [facility] [address] [place] [address] Dr. Carmelita White PLT 204 103/ul Normal 150-450 [facility] Comment on above: Performed By: #### C BC #### [facility] [address] [address] [address] Carmelita White RBC 4.39 106/ul Critically low 4.70-6.10 [facility] Comment on above: Performed By: #### C BC #### [facility] [address] [place] [address] Dr. Carmelita White WBC 6.1 103/ul Normal 4.0-11.0 [facility] Comment on above: Performed By: #### C BC #### [facility] [address] [place] [address] Dr. Carmelita White GLYCOHEMOGLOBIN A1Con 2021 ADA RECOMMENDATION SEE BELOW Normal [facility] Comment on above: Result Comment: ADA RECOMMENDED LIMIT 4.0 - 6.0 ADA THERAPEUTIC TARGET < 7.0 ACTION SUGGESTED > 7.0 Performed By: #### A 1C #### [facility] [address] [place] [address] Dr. Carmelita White Glucose [Mass/Vol] 120 mg/dL Normal [facility] Comment on above: Performed By: #### A 1C #### [facility] [address] [place] [address] Dr. Carmelita White HbA1c (Bld) [Mass fraction] 5.8 % Normal 4.5-6.2 [facility] Comment on above: Performed By: #### A 1C #### [facility] [address] [place] [address] Dr. Carmelita White LIPID PROFILEon 02-23-2022 CHOL-HDL RATIO NORM SEE BELOW Normal [facility] Comment on above: Result Comment: 3.3 - 4.4 LOW RISK 4.4 - 7.1 AVERAGE RISK 7.1 - 11.0 MODERATE RISK >11.0 HIGH RISK Performed By: #### L IPID, CMP, URIC ####[facility] [address] [id number]. Carmelita White Cholesterol [Mass/Vol] 147 mg/dL Normal <=200 [facility] Comment on above: Performed By: #### L IPID, CMP, URIC ####[facility] [address] [id number]. Carmelita White Cholesterol in HDL [Mass/Vol] 34 mg/dL Critically low 40-60 [facility] Comment on above: Performed By: #### L IPID, CMP, URIC ####[facility] [address] [id number]. Carmelita White Cholesterol in LDL [Mass/Vol] 84.6 mg/dL Normal [facility] Comment on above: Performed By: #### L IPID, CMP, URIC ####[facility] [address] [id number]. Carmelita White Cholesterol.total/ Cholesterol in HDL [Mass ratio] 4.3 {ratio} Normal [facility] Comment on above: Performed By: #### L IPID, CMP, URIC ####[facility] [address] [id number]. Carmelita White HDL NORMAL > or = 60 mg/dl - LO W CARDIOVASCULAR RISK <40 mg/dl - HIGH CARDIOVASCULAR RISK Normal [facility] Comment on above: Performed By: #### L IPID, CMP, URIC ####[facility] [address] [id number]. Carmelita White LDL CALC NORMAL SEE BELOW Normal [facility] Comment on above: Result Comment: <100 mg/dl OPTIMAL 100 - 129 mg/dl NEAR OR ABOVE OPTIMAL 130 - 159 mg/dl BORDERLINE HIGH 160 - 189 mg/dl HIGH >190 mg/dl VERY HIGH Performed By: #### L IPID, CMP, URIC ####[facility] [address] [id number]. Carmelita White Triglyceride [Mass/Vol] 142 mg/dL Normal <=150 [facility] Comment on above: Performed By: #### L IPID, CMP, URIC ####[facility] [address] [id number]. Carmelita White VLDL CALC 28.4 mg/dL Normal [facility] Comment on above: Performed By: #### L IPID, CMP, URIC ####[facility] [address] [address]Dr. Carmelita White PROF 14(COMP METB)on 022 Albumin [Mass/Vol] 4.0 g/dL Normal 3.4-5.0 [facility] Comment on above: Performed By: #### L IPID, CMP, URIC ####[facility] [address] [address]Dr. Carmelita White Albumin/Globulin [Mass ratio] 1.2 {ratio} Normal [facility] Comment on above: Performed By: #### L IPID, CMP, URIC ####[facility] [address] [address]Dr. Carmelita White ALP [Catalytic activity/Vol] 131 U/L Critically high 46-116 [facility] Comment on above: Performed By: #### L IPID, CMP, URIC ####[facility] [address] [address]Dr. Carmelita White ALT [Catalytic activity/Vol] 36 U/L Normal 16-63 [facility] Comment on above: Performed By: #### L IPID, CMP, URIC ####[facility] [address] [address]Dr. Carmelita White Anion gap [Moles/Vol] 13.0 mmol/L Normal [facility] Comment on above: Performed By: #### L IPID, CMP, URIC ####[facility] [address] [address]Dr. Carmelita White AST [Catalytic activity/Vol] 14 U/L Critically low 15-37 [facility] Comment on above: Performed By: #### L IPID, CMP, URIC ####[facility] [address] [address]Dr. Carmelita White Bilirubin [Mass/Vol] 0.7 mg/dL Normal 0.2-1.0 [facility] Comment on above: Performed By: #### L IPID, CMP, URIC ####[facility] [address] [address]Dr. Carmelita White Calcium [Mass/Vol] 9.3 mg/dL Normal 8.5-10.1 [facility] Comment on above: Performed By: #### L IPID, CMP, URIC ####[facility] [address] [address]Dr. Carmelita White Chloride [Moles/Vol] 104 mmol/L Normal 98-107 [facility] Comment on above: Performed By: #### L IPID, CMP, URIC ####[facility] [address] [place], [place] [address]Dr. Carmelita White CO2 [Moles/Vol] 27.2 mmol/L Normal 21.0-32.0 [facility] Comment on above: Performed By: #### L IPID, CMP, URIC ####[facility] [address] [place], [place] [address]Dr. Carmelita White Creatinine [Mass/Vol] 1.20 mg/dL Normal 0.70-1.30 [facility] Comment on above: Performed By: #### L IPID, CMP, URIC ####[facility] [address] [place], [place] [address]Dr. Carmelita White EGFR-AF OMANI >60 Normal >=60 [facility] Comment on above: Performed By: #### L IPID, CMP, URIC ####[facility] [address] [place], [place] [address]Dr. Carmelita White EGFR-NON AF OMANI >60 Normal >=60 [facility] Comment on above: Performed By: #### L IPID, CMP, URIC ####[facility] [address] [place], [place] [address]Dr. Carmelita White Globulin (S) [Mass/Vol] 3.4 g/dL Normal [facility] Comment on above: Performed By: #### L IPID, CMP, URIC ####[facility] [address] [address]Dr. Carmelita White Glucose [Mass/Vol] 97 mg/dL Normal 74-106 [facility] Comment on above: Performed By: #### L IPID, CMP, URIC ####[facility] [address] [address]Dr. Carmelita White Potassium [Moles/Vol] 4.2 mmol/L Normal 3.5-5.1 [facility] Comment on above: Performed By: #### L IPID, CMP, URIC ####[facility] [address] [place] [address]Dr. Carmelita White Protein [Mass/Vol] 7.4 g/dL Normal 6.4-8.2 [facility] Comment on above: Performed By: #### L IPID, CMP, URIC ####[facility] [address] [place], [place] [address]Dr. Nandaenrique White Sodium [Moles/Vol] 140 mmol/L Normal 136-145 [facility] Comment on above: Performed By: #### L IPID, CMP, URIC ####[facility] [address] [place] [address]Dr. Carmelita White Urea nitrogen [Mass/Vol] 19.0 mg/dL Critically high 7.0-18.0 [facility] Comment on above: Performed By: #### L IPID, CMP, URIC ####[facility] [address] [address]Dr. Nandaenrique White Urea nitrogen/Creatinin e [Mass ratio] 15.8 mg/mg Normal [facility] Comment on above: Performed By: #### L IPID, CMP, URIC ####[facility] [address] [address]Dr. Carmelita White URIC ACID SERUMon 02-23-2022 Urate [Mass/Vol] 6.5 mg/dL Normal 3.5-7.2 [facility] Comment on above: Performed By: #### L IPID, CMP, URIC ####[facility] [address] [place], [place] [address]Dr. Nandaenrique White GLYCOHEMOGLOBIN A1Con 2021 ADA RECOMMENDATION ADA THERAPEUTIC TARG ET 6.0 - 7.0 ACTION SUGGESTED > 7.0 Normal [facility] Comment on above: Performed By: #### A 1C #### [facility] [address] [place] [address] Dr. Carmelita White Glucose [Mass/Vol] 126 mg/dL Normal [facility] Comment on above: Performed By: #### A 1C #### [facility] [address] [address] [address] Carmelita White HbA1c (Bld) [Mass fraction] 6.0 % Normal <=6.0 [facility] Comment on above: Performed By: #### A 1C #### [facility] [address] [place] [address] Dr. Carmelita White LIPID PROFILEon 08-04-2021 CHOL-HDL RATIO NORM SEE BELOW Normal [facility] Comment on above: Result Comment: 3.3 - 4.4 LOW RISK 4.4 - 7.1 AVERAGE RISK 7.1 - 11.0 MODERATE RISK >11.0 HIGH RISK Performed By: #### L IPID #### [facility] [address] [address] [address] Carmelita White Cholesterol [Mass/Vol] 150 mg/dL Normal <=200 [facility] Comment on above: Performed By: #### L IPID #### [facility] [address] [place] [address] Dr. Carmelita White Cholesterol in HDL [Mass/Vol] 34 mg/dL Normal [facility] Comment on above: Performed By: #### L IPID #### [facility] [address] [address] [address] Carmelita White Cholesterol in LDL [Mass/Vol] 79.2 mg/dL Normal [facility] Comment on above: Performed By: #### L IPID #### [facility] [address] [place] [address] Dr. Carmelita White Cholesterol.total/ Cholesterol in HDL [Mass ratio] 4.4 {ratio} Normal [facility] Comment on above: Performed By: #### L IPID #### [facility] [address] [address] [address] Carmelita White HDL NORMAL > or = 60 mg/dl - LO W CARDIOVASCULAR RISK <40 mg/dl - HIGH CARDIOVASCULAR RISK Normal [facility] Comment on above: Performed By: #### L IPID #### [facility] [address] [address] [address] Carmelita White LDL CALC NORMAL SEE BELOW Normal [facility] Comment on above: Result Comment: <100 mg/dl OPTIMAL 100 - 129 mg/dl NEAR OR ABOVE OPTIMAL 130 - 159 mg/dl BORDERLINE HIGH 160 - 189 mg/dl HIGH >190 mg/dl VERY HIGH Performed By: #### L IPID #### [facility] [address] [address] [address] Carmelita White Triglyceride [Mass/Vol] 184 mg/dL Critically high <=150 [facility] Comment on above: Performed By: #### L IPID #### [facility] [address] [address] [address] Carmelita White VLDL CALC 36.8 mg/dL Normal [facility] Comment on above: Performed By: #### L IPID #### [facility] [address] [address] [address] Carmelita White CBC W/DIFFon 06-24-2021 ABS IMM GRANS 0.0 10*3/uL Normal 0.0-0.2 [facility] Comment on above: Order Comment: No: D o not add to previous draw Performed By: #### 5 0103 #### [facility] [address] [facility] [place] [address], [facility] ABS NEUTROPHILS 4.6 10*3/uL Normal 1.6-7.6 [facility] Comment on above: Order Comment: No: D o not add to previous draw Performed By: #### 5 0103 #### [facility] [address] [facility] [place] [address], [facility] Basophils (Bld) [#/Vol] 0.1 10*3/uL Normal 0.0-0.2 [facility] Comment on above: Order Comment: No: D o not add to previous draw Performed By: #### 5 0103 #### [facility] [address] [place] [address], [facility] Basophils/100 WBC (Bld) 1.0 % Normal 0.0-1.0 [facility] Comment on above: Order Comment: No: D o not add to previous draw Performed By: #### 5 0103 #### [facility] [address] [place] [address], [facility] Eosinophils (Bld) [#/Vol] 0.2 10*3/uL Normal 0.0-0.5 [facility] Comment on above: Order Comment: No: D o not add to previous draw Performed By: #### 5 0103 #### [facility] [address] [place] [address], [facility] Eosinophils/100 WBC (Bld) 2.8 % Normal 0.0-6.0 [facility] Comment on above: Order Comment: No: D o not add to previous draw Performed By: #### 5 0103 #### [facility] [address] [place] [address], [facility] Erythrocyte distribution width (RBC) [Ratio] 12.7 % Normal 11.5-15.0 [facility] Comment on above: Order Comment: No: D o not add to previous draw Performed By: #### 5 0103 #### [facility] [address] [place] [address], [facility] Hematocrit (Bld) [Volume fraction] 41.5 % Normal 39.0-50.0 [facility] Comment on above: Order Comment: No: D o not add to previous draw Performed By: #### 5 0103 #### [facility] [address] [place] [address], [facility] Hemoglobin (Bld) [Mass/Vol] 13.9 g/dL Normal 13.0-17.0 [facility] Comment on above: Order Comment: No: D o not add to previous draw Performed By: #### 5 0103 #### [facility] [address] [facility] [place] [address], [facility] IMMATURE GRANS 0.3 % Normal 0.0-1.0 [facility] Comment on above: Order Comment: No: D o not add to previous draw Performed By: #### 5 0103 #### [facility] [address] [place] [address], [facility] Lymphocytes (Bld) [#/Vol] 1.7 10*3/uL Normal 1.2-4.0 [facility] Comment on above: Order Comment: No: D o not add to previous draw Performed By: #### 5 0103 #### [facility] [address] [place] [address], [facility] Lymphocytes/100 WBC (Bld) 24.0 % Normal 20.0-45.0 [facility] Comment on above: Order Comment: No: D o not add to previous draw Performed By: #### 5 0103 #### [facility] [address] [place] [address], [facility] MCH (RBC) [Entitic mass] 29.9 pg Normal 27.0-33.0 [facility] Comment on above: Order Comment: No: D o not add to previous draw Performed By: #### 5 0103 #### [facility] [address] [place] [address], [facility] MCHC (RBC) [Mass/Vol] 33.5 g/dL Normal 32.0-35.0 [facility] Comment on above: Order Comment: No: D o not add to previous draw Performed By: #### 5 0103 #### [facility] [address] [place] [address], [facility] MCV (RBC) [Entitic vol] 89.2 fL Normal 82.0-98.0 [facility] Comment on above: Order Comment: No: D o not add to previous draw Performed By: #### 5 0103 #### [facility] [address] [place] [address], [facility] Monocytes (Bld) [#/Vol] 0.6 10*3/uL Normal 0.1-1.0 [facility] Comment on above: Order Comment: No: D o not add to previous draw Performed By: #### 5 0103 #### [facility] [address] [place] [address], [facility] MONOS 8.0 % Normal 5.0-12.0 [facility] Comment on above: Order Comment: No: D o not add to previous draw Performed By: #### 5 0103 #### [facility] [address] [place] [address], [facility] Neutrophils/100 WBC (Bld) 63.9 % Normal 40.0-72.0 [facility] Comment on above: Order Comment: No: D o not add to previous draw Performed By: #### 5 0103 #### [facility] [address] [facility] [place] [address], [facility] Nucleated RBC/100 WBC (Bld) [Ratio] 0 % Normal 0-0 [facility] Comment on above: Order Comment: No: D o not add to previous draw Performed By: #### 5 0103 #### [facility] [address] [facility] [place] [address], [facility] PLAT CNT 187 10*3/uL Normal 150-400 [facility] Comment on above: Order Comment: No: D o not add to previous draw Performed By: #### 5 0103 #### [facility] [address] [facility] [place] [address], [facility] RBC (Bld) [#/Vol] 4.65 10*6/uL Normal 4.20-5.70 [facility] Comment on above: Order Comment: No: D o not add to previous draw Performed By: #### 5 0103 #### [facility] [address] [place] [address], [facility] WBC (Bld) [#/Vol] 7.22 10*3/uL Normal 4.00-10.60 [facility] Comment on above: Order Comment: No: D o not add to previous draw Performed By: #### 5 0103 #### [facility] [address] [place] [address], [facility] COMP METABOLIC PANELon 06-24 Albumin [Mass/Vol] 3.9 g/dL Normal 3.5-5.7 [facility] Comment on above: Order Comment: No: D o not add to previous draw Performed By: #### 0 0121, [id number] #### [facility] [address] [place] [address], [facility] ALKALINE PHOSPH 108 IU/L High 34-104 [facility] Comment on above: Order Comment: No: D o not add to previous draw Performed By: #### 0 0121, [id number] #### [facility] [address] [place] [address], [facility] ALT [Catalytic activity/Vol] 26 U/L Normal 7-52 [facility] Comment on above: Order Comment: No: D o not add to previous draw Performed By: #### 0 0121, [id number] #### [facility] [address] [place] [address], [facility] AST [Catalytic activity/Vol] 12 U/L Low 13-39 [facility] Comment on above: Order Comment: No: D o not add to previous draw Performed By: #### 0 0121, 91102 #### [facility] [address] [place] [address], [facility] Bilirubin [Mass/Vol] 0.8 mg/dL Normal 0.3-1.0 [facility] Comment on above: Order Comment: No: D o not add to previous draw Performed By: #### 0 0121, [id number] #### [facility] [address] [place] [address], [place] Calcium [Mass/Vol] 9.0 mg/dL Normal 8.6-10.3 [facility] Comment on above: Order Comment: No: D o not add to previous draw Performed By: #### 0 0121, [id number] #### [facility] [address] [place] [address], [place] Chloride [Moles/Vol] 103 mmol/L Normal 98-107 [facility] Comment on above: Order Comment: No: D o not add to previous draw Performed By: #### 0 0121, 77782 #### [facility] [address] [place] [address], [place] CO2 [Moles/Vol] 28 mmol/L Normal 21-31 [facility] Comment on above: Order Comment: No: D o not add to previous draw Performed By: #### 0 0121, [id number] #### [facility] [address] [place] [address], [place] Creatinine [Mass/Vol] 1.24 mg/dL Normal 0.70-1.30 [facility] Comment on above: Order Comment: No: D o not add to previous draw Performed By: #### 0 0121, 91803 #### [facility] [address] [place] [address], [place] GFR/1.73 sq M.predicted among blacks MDRD (S/P/Bld) [Vol rate/Area] mL/min/{1.73_m2} Normal >60 [facility] Comment on above: Order Comment: No: D o not add to previous draw Performed By: #### 0 0121, 03900 #### [facility] [address] [place] [address], [place] GFR/1.73 sq M.predicted among non-blacks MDRD (S/P/Bld) [Vol rate/Area] mL/min/{1.73_m2} Normal >60 [facility] Comment on above: Order Comment: No: D o not add to previous draw Performed By: #### 0 0121, 97122 #### [facility] [address] [place] [address], [place] Glucose [Mass/Vol] 102 mg/dL High 70-100 [facility] Comment on above: Order Comment: No: D o not add to previous draw Performed By: #### 0 0121, 89206 #### [facility] [address] [place] [address], [place] Potassium [Moles/Vol] 4.3 mmol/L Normal 3.5-5.1 [facility] Comment on above: Order Comment: No: D o not add to previous draw Performed By: #### 0 0121, [id number] #### [facility] [address] [place] [address], [place] Protein [Mass/Vol] 6.3 g/dL Normal 6.0-8.3 [facility] Comment on above: Order Comment: No: D o not add to previous draw Performed By: #### 0 0121, 71498 #### [facility] [address] [place] [address], [place] Sodium [Moles/Vol] 136 mmol/L Normal 136-145 [facility] Comment on above: Order Comment: No: D o not add to previous draw Performed By: #### 0 0121, 95158 #### [facility] [address] [place] [address], [place] Urea nitrogen [Mass/Vol] 22 mg/dL Normal 7-25 [facility] Comment on above: Order Comment: No: D o not add to previous draw Performed By: #### 0 0121, 70556 #### [facility] [address] [place] [address], [place] LIPID PROFILEon 06-24-2021 Cholesterol [Mass/Vol] 149 mg/dL Normal 120-200 [facility] Comment on above: Order Comment: No: D o not add to previous draw Result Comment: CHOL ESTEROL REFERENCE RANGE: 20 YEARS AND OLDER CARDIOVASCULAR RISK Less than 200 mg/dl Low Risk 200 to 239 mg/dl Borderline Risk 240 mg/dl and greater High Risk Performed By: #### 0 0121, [id number] #### [facility] [address] [place] [address], [facility] Cholesterol in HDL [Mass/Vol] 34 mg/dL Normal 23-92 [facility] Comment on above: Order Comment: No: D o not add to previous draw Result Comment: Slig ht variation in normal range could be due to gender and/or age. HDL CHOLESTEROL REFERENCE RANGE: 20 years and older Cardiovascular Risk > or =60 mg/dL Desirable 40 TO 59 mg/dL Low Risk <40 mg/dL High Risk Performed By: #### 0 0121, 77751 #### [facility] [address] [place] [address], [facility] Cholesterol in LDL [Mass/Vol] 101 mg/dL Normal 0-130 [facility] Comment on above: Order Comment: No: D o not add to previous draw Result Comment: LDL IS A CALCULATION LDL IS ONLY VALID IF THE TRIG IS LESS THAN 400. Performed By: #### 0 0121, 68632 #### [facility] [address] [place] [address], [facility] Cholesterol.total/ Cholesterol in HDL [Mass ratio] 4.4 {ratio} Normal .0-4.5 [facility] Comment on above: Order Comment: No: D o not add to previous draw Performed By: #### 0 0121, [id number] #### [facility] [address] [place] [address], [facility] NON-HDL CHOLESTEROL 115 mg/dL Normal [facility] Comment on above: Order Comment: No: D o not add to previous draw Performed By: #### 0 0121, 76183 #### [facility] [address] Triglyceride [Mass/Vol] 72 mg/dL Normal 40-149 [facility] Comment on above: Order Comment: No: D o not add to previous draw Result Comment: TRIG LYCERIDE REFERENCE RANGE: 20 YEARS AND OLDER CARDIOVASCULAR RISK LESS THAN 150 mg/dl LOW RISK 150 TO 199 mg/dl BORDERLINE RISK 200 mg/dl AND GREATER HIGH RISK Performed By: #### 0 0121, 06014 #### [facility] [address] VLDL CHOL 14 mg/dL Normal 0-40 [facility] Comment on above: Order Comment: No: D o not add to previous draw Performed By: #### 0 0121, 67162 #### [facility] [address] Cardiovascular Lab Reporton 06-23-2021 Cardiovascular Lab Report [facility] Patient Name: Thad Castro MR #: [id number] [facility] Physician: Michelle Gleason MD Department of Service Date: 06/23/2021 Medicine Birthdate: 1970 Division of Room #: 3CD 735228 Cardiology Adult Cardiovascular Services [place] [address] Cardiovascular Laboratory Report Cardiovascular Laboratory Report FINAL IMPRESSIONS: 1. 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 2. 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 RECOMMENDATIONS: 1. Aspirin 81 mg lifelong. 2. Plavix 75 mg daily for a minimum of 6 months, preferably filler leaf cutter long. 3. Aggressive risk factor modification. 4. Optimization [...] to proceed with an interventional procedure. A 6-Chinese XB 3.5 catheter was advanced in and [...] Gleason MD Date Trans: 06/23/2021 07:55 P/ [id number] cc: Rubin Baron M.D. [address] [place] [facility] [id number] Normal [facility] POC SARS COV2 ANTIGEN NEGATI VEon 06-23-2021 POC SARS COV2 ANTIGEN NEG Negative Normal NEGATIVE [facility] Comment on above: Result Comment: Nega [...] Accreditation. Performed By: #### 3 1977 #### [facility] [address] [place] [address], [facility] CBC AUTO DIFFon 06-18-2021 BASO # 0.1 103/ul Normal 0.0-0.1 [facility] Comment on above: Performed By: #### C BC #### [facility] [address] [address] [address] Carmelita White Basophils/100 WBC (Bld) 0.9 % Normal 0.2-2.0 [facility] Comment on above: Performed By: #### C BC #### [facility] [address] [address] [address] Carmelita White EO # 0.2 103/ul Normal 0.0-0.7 [facility] Comment on above: Performed By: #### C BC #### [facility] [address] [place] [address] Dr. Carmelita White Eosinophils/100 WBC (Bld) 2.6 % Normal 0.9-7.0 [facility] Comment on above: Performed By: #### C BC #### [facility] [address] [place] [address] Dr. Carmeltia White Erythrocyte distribution width (RBC) [Ratio] 12.4 % Normal 11.0-15.0 [facility] Comment on above: Performed By: #### C BC #### [facility] [address] [place] [address] Dr. Carmelita White Hematocrit (Bld) [Volume fraction] 44.8 % Normal 42.0-54.0 [facility] Comment on above: Performed By: #### C BC #### [facility] [address] [place] [address] Dr. Carmelita White Hemoglobin (Bld) [Mass/Vol] 15.2 g/dL Normal 14.0-18.0 [facility] Comment on above: Performed By: #### C BC #### [facility] [address] [place] [address] Dr. Carmelita White IG # 0.03 10e3/ul Normal 0.00-0.03 [facility] Comment on above: Performed By: #### C BC #### [facility] [address] [place] [address] Dr. Carmelita White IG % 0.5 % Normal 0.0-0.5 [facility] Comment on above: Performed By: #### C BC #### [facility] [address] [place] [address] Dr. Carmelita White LYMPH # 1.5 103/ul Normal 1.2-3.8 [facility] Comment on above: Performed By: #### C BC #### [facility] [address] [place] [address] Dr. Carmelita White Lymphocytes/100 WBC (Bld) 22.5 % Normal 20.5-60.0 [facility] Comment on above: Performed By: #### C BC #### [facility] [address] [place] [address] Dr. Carmelita White MANUAL DIFF REQ NO Normal [facility] Comment on above: Performed By: #### C BC #### [facility] [address] [place] [address] Dr. Carmelita White MCH (RBC) [Entitic mass] 29.7 pg Normal 25.9-34.0 [facility] Comment on above: Performed By: #### C BC #### [facility] [address] [place] [address] Dr. Carmelita White MCHC (RBC) [Mass/Vol] 33.9 g/dL Normal 29.9-35.2 [facility] Comment on above: Performed By: #### C BC #### [facility] [address] [place] [address] Dr. Carmelita White MCV (RBC) [Entitic vol] 87.5 fL Normal 80.0-94.0 [facility] Comment on above: Performed By: #### C BC #### [facility] [address] [place] [address] Dr. Carmelita White MONO # 0.4 103/ul Normal 0.3-0.8 [facility] Comment on above: Performed By: #### C BC #### [facility] [address] [place] [address] Dr. Carmelita White Monocytes/100 WBC (Bld) 5.5 % Normal 1.7-12.0 [facility] Comment on above: Performed By: #### C BC #### [facility] [address] [place] [address] Dr. Carmelita White NEUT # 4.5 103/ul Normal 1.4-6.5 [facility] Comment on above: Performed By: #### C BC #### [facility] [address] [place] [address] Dr. Carmelita White Neutrophils/100 WBC (Bld) 68.0 % Normal 43.0-75.0 [facility] Comment on above: Performed By: #### C BC #### [facility] [address] [place] [address] Dr. Carmelita White Platelet mean volume (Bld) [Entitic vol] 8.5 fL Critically low 9.5-13.5 [facility] Comment on above: Performed By: #### C BC #### [facility] [address] [place] [address] Dr. Carmelita White PLT 238 103/ul Normal 150-450 [facility] Comment on above: Performed By: #### C BC #### [facility] [address] [place] [address] Dr. Carmelita White RBC 5.12 106/ul Normal 4.70-6.10 [facility] Comment on above: Performed By: #### C BC #### [facility] [address] [place] [address] Dr. Carmelita White WBC 6.5 103/ul Normal 4.0-11.0 [facility] Comment on above: Performed By: #### C BC #### [facility] [address] [place] [address] Dr. Carmelita White PROF CHEM 8 (BAS METB)on Anion gap [Moles/Vol] 14.7 mmol/L Normal [facility] Comment on above: Performed By: #### B MP #### [facility] [address] [place] [address] Dr. Carmelita White Calcium [Mass/Vol] 9.3 mg/dL Normal 8.4-10.2 [facility] Comment on above: Performed By: #### B MP #### [facility] [address] [address] [address] Carmelita White Chloride [Moles/Vol] 101 mmol/L Normal 98-107 [facility] Comment on above: Performed By: #### B MP #### [facility] [address] [address] [address] Carmelita White CO2 [Moles/Vol] 28.2 mmol/L Normal 22.0-30.0 [facility] Comment on above: Performed By: #### B MP #### [facility] [address] [address] [address] Carmelita White Creatinine [Mass/Vol] 1.33 mg/dL Critically high 0.66-1.25 [facility] Comment on above: Performed By: #### B MP #### [facility] [address] [address] [address] Carmelita White EGFR-AF OMANI >60 Normal >=60 [facility] Comment on above: Performed By: #### B MP #### [facility] [address] [address] [address] Carmelita White EGFR-NON AF OMANI 57 mL/min/1.73m2 Critically low >=60 [facility] Comment on above: Performed By: #### B MP #### [facility] [address] [address] [address] Carmelita White Glucose [Mass/Vol] 99 mg/dL Normal 74-106 [facility] Comment on above: Performed By: #### B MP #### [facility] [address] [address] [address] Carmelita White Potassium [Moles/Vol] 4.9 mmol/L Normal 3.4-5.0 [facility] Comment on above: Performed By: #### B MP #### [facility] [address] [address] [address] Carmelita White Sodium [Moles/Vol] 139 mmol/L Normal 137-145 [facility] Comment on above: Performed By: #### B MP #### [facility] [address] [address] [address] Carmelita White Urea nitrogen [Mass/Vol] 21.0 mg/dL Critically high 9.0-20.0 [facility] Comment on above: Performed By: #### B MP #### [facility] [address] [address] [address] Carmelita White Urea nitrogen/Creatinin e [Mass ratio] 15.8 mg/mg Normal [facility] Comment on above: Performed By: #### B MP #### [facility] [address] [address] [address] Carmelita White NM STRESS/REST MULTIon 06-09 NM STRESS/REST MULTI Patient: THAD CASTRO Exam Date: 06/09/2021 : 1970 Gender:M Ordering : DR RUBIN BARON . Admission #: [id number] Family : Order #: [id number] CLICK HERE TO VIEW EXAM RADIOLOGY REPORT [...] PERFUSION DEFECT: LOCATION: Mid-anterior. Mid-anteroseptal. Apical anterior. [place]. SIZE: Medium (3-4 segments). SEVERITY: Severe. TYPE: [...] Mathur MD on 06/11/2021 at 13:23 Normal [facility] Vital Signs Date Time Vital Sign Value [...] Provider Facility Start: 01-25-2024 End: 01-25-2024 ambulatory [facility] Start: 10-05-2023 End: 10-06-2023 ambulatory Naren R NILL Facility:[facility] Start: 10-05-2023 End: 10-05-2023 Patient encounter procedure Naren R NILL [facility] Start: 09-22-2023 End: 09-23-2023 ambulatory Naren R NILL Facility: [facility] Start: 09-08-2023 End: 09-09-2023 ambulatory Naren R NILL Facility:[facility] Start: 09-08-2023 End: 09-08-2023 Patient encounter procedure Naren R NILL [facility] Start: 09-07-2023 ambulatory Naren MEDEROS Facility:[facility] Start: 09-06-2023 ambulatory Naren MEDEROS [facility] Start: 08-20-2023 End: 08-20-2023 ambulatory ELVIRA ALSTON [facility] Start: 02-12-2023 End: 02-12-2023 ambulatory MICHELLE GLEASON [facility] Start: 02-23-2022 End: 02-24-2022 ambulatory ELVIRA ALSTON Facility:[facility] Start: 08-04-2021 End: 08-05-[address] RUBIN BARON Facility:[facility] Start: 06-28-2021 Encounter for preprocedural laboratory examination DR DOCTOR MILLER [facility] Start: 06-25-[address] DOCTOR MILLER Facility :[facility] Start: 06-23-2021 End: 06-24-2021 ambulatory MERA JURADO Facility:[facility] Start: 06-18-2021 End: 06-19-[address] [...] on above: Performed By: #### PSASC #### [facility] [address] [place] [address] Dr. Carmelita MEDEROS Coronary artery sten t (physical object) Naren MEDEROS Fluoroscopic angiopl asty of bilateral iliac arteries and insertion of bilateral iliac artery stents Naren MEDEROS History of ankle surgery Maik hael [facility] Immunizations Immunization Date Immunization Notes Care Provider Fa cili 07-24-2021 SARS-CoV-2 (COVID-19 ) mRNA BNT-162b2 vax Naren NILL [facility] 11-25-2020 SARS-CoV-2 (COVID-19 ) mRNA BNT-162b2 vax Naren NILL [facility] 11-04-2020 SARS-CoV-2 (COVID-19 ) mRNA BNT-162b2 vax Naren NILL [facility] NEGATED: Highlighted row has not occurred!09-08-2023 influenza virus vaccine, unspecified formulation Naren NILL [facility] Payers Date Payer Category Payer Unknown [id number] 2.16.8 [id number] 1970 Unknown [id number] 2.16.84 [id number] 1970 Unknown [id number] 2.16.84 [id number] 1970 Unknown [id number] 2.16.84 [id number] 1970 Unknown [id number] 2.16.84 [id number] 1970 Unknown [id number] 2.16.84 [id number] 1970 Unknown [id number] 2.16.84 [id number] 1970 Unknown [id number] 2.16.84 [id number] 1970 Unknown [id number] 2.16.8 [id number] 1970 Unknown [id number] 2.16.8 [id number] 1970 Unknown [id number] 2.16.8 [id number] 1970 Unknown [id number] 2.16.8 [id number] 1960 Medicaid [id number] Social History Date Type Detail Facility Start: 09-08-2023 Tobacco smoking status Light t obacco smoker (finding) [facility] Tobacco smoking status Smokeless tobacco user within last 30 days [facility] Sex Assigned At Male [facility] Functional Status Date Assessment Result Facility 09-08-2023 Functional Status N/A [facility] Clinical Notes 02-12-2023 to 01-25-2024 Note [...] as needed. Michelle Gleason MD Interventional Cardiology [facility] 09-08-2023 Note Chief Complaint consultation for anemia [...] tablet, 1 tab(s), (more content not included)... [facility] Comment on above: Result Comment: Elec tronically Signed By: GATITO HARRISON, Naren Gleason\Date and Time Signed: 09/08/23 19:40 EST 08-20-2023 Note Continues to smoke a nd provider had strong conversation with pt that he needs to completely stop smoking to prevent stent re-occlusion and management of CAD [facility] 08-20-2023 Note Patient here for 6 m o follow up CAD, hypertension, and hyperlipidemia. Had routine labs back in Feb 2023. Denies chest pain, SOB, and palpitations. Review of Systems Cardiovascular: Positive for leg swelling (resolves by morning). Musculoskeletal: Positive for arthritis and back pain. All other systems reviewed and are negative. [facility] 08-20-2023 Note [facility] CARDIOLOGY PROGR ESS [...] is stable Continue GDMT- ASA and plavix filler leaf cutter long, lipitor and zetia, with metoprolol D/W risk factor and lifestyle modifications- heart healthy diet, regular exercise as tolerated and continue all medications. Tobacco dependence syndrome Continues to smoke and provider had strong conversation with pt that he needs to completely stop smoking to prevent stent re-occlusion and management of CAD RTC 6 months [facility] 08-20-2023 Note Coronary artery dise ase is stable Continue GDMT- ASA and plavix fdc, lipitor and zetia, with metoprolol D/W risk factor and lifestyle modifications- heart healthy diet, regular exercise as tolerated and continue all medications. [facility] 08-20-2023 Note Hypertension is well controlled Continue irbesartan, metoprolol Renal function normal [facility] 08-20-2023 Note Continue lipitor and zetia Well controlled and liver function normal [facility] 02-12-2023 Note Patient here for 6 m o follow up CAD, hypertension, and hyperlipidemia. Since last visit, Dr. Baron re-started him on low dose metoprolol. Doesn't check his BP at home very often, as he feels great. Denies chest pain, SOB, and lightheadedness. [facility] 02-12-2023 Note Cardiology Follow Up Progress [...] as needed. Michelle Gleason MD Interventional Cardiology [facility] Michelle Gleason MD Interventional Cardiology [facility] Evaluation + Plan note No data available for this section [facility] Discharge instructions No data available for this section [facility] Progress note No data available for this section [facility] Summary Purpose Family History No Family History [...] and content) DATE CREATED AUTHOR 06/28/2021 [facility] DATE CREATED AUTHOR AUTHOR'S ORGANIZ ATION 02/26/2022 [facility] DATE CREATED AUTHOR AUTHOR'S ORGANIZ ATION 10/12/2023 [facility] DATE CREATED AUTHOR AUTHOR'S ORGANIZ ATION 01/26/2024 [facility] [facility] Patient Care team informatio n (unrecognized section and content) Personnel Name: Rubin Baron MD Address: Address: [address] [place] [address] Personnel Name: Rubin Baron MD Address: Address: [address] [place] [address] FOR RECORDS PERTAINING TO PATIENTS WHO ARE [...] BE BASED ON THE PRIMARY CLINICAL RECORDS. [facility] [employer] [facility]. provides no warranty or guarantee of the accuracy or completeness of information in this document.
[2024-08-23 11:57] LABS: Influenza Virus A Antigen Positive; Influenza Virus B Antigen Negative; Internal Control Within Normal Limits; SARS-CoV-2 Ag NEGATIVE (NEGATIVE)
--- NOTE | 2024-08-23 12:41 | ED.URI1 ---
HPI - URI/Sore Throat General Chief Complaint: Upper Respiratory Infection Stated Complaint: FEVER VOMITTING DIARRHEA Time Seen by Provider: 08/23/24 12:35 Source: patient and family History of Present Illness HPI Narrative: Patient is a 53-year-old male who presents to the emergency department for evaluation of flulike illness for the last 3 days. Patient reports fevers as high as 103.0 Fahrenheit, cough with minimal sputum production, body aches, vomiting and diarrhea. No sick contacts in the home. He has no history of COPD, asthma or emphysema. He denies any history of diabetes. No medications taken prior to arrival. He has a history of coronary artery disease, he denies chest pain. He reports minimal exertional shortness of breath associated with the coughing. Related Data Home Medications ?Medication ?Instructions ?Recorded ?Confirmed aspirin 81 mg tablet,delayed 81 mg PO DAILY 09/13/23 09/22/23 release (Adult Low Dose Aspirin) atorvastatin 80 mg tablet 80 mg PO DAILY 09/13/23 09/22/23 clopidogrel 75 mg tablet (Plavix) 75 mg PO DAILY 09/13/23 09/22/23 ferrous sulfate 325 mg (65 mg 325 mg PO BID 09/13/23 09/22/23 iron) tablet (Feosol) irbesartan 300 mg tablet 300 mg PO DAILY 09/13/23 09/22/23 metoprolol tartrate 25 mg tablet 25 mg PO BID 09/13/23 09/22/23 zhhjtuoo-jfr-jhbwv acid 0.4 1 tab PO DAILY 09/13/23 09/22/23 mg-lycopene 300 mcg-lutein 250 mcg tablet (Centrum Silver) nitroglycerin 0.4 mg sublingual 0.4 mg sublingual Q5M 09/13/23 09/22/23 tablet Previous Rx's ?Medication ?Instructions ?Recorded albuterol sulfate 90 mcg/actuation 2 inh inhalation Q4H PRN shortness 08/23/24 aerosol inhaler of breath or wheezing #8.5 grams wbdqkcakqjzxsit-pmkfmmsrdpghppz-VS 10 ml PO Q6H PRN cold symptoms 08/23/24 2 mg-30 mg-10 mg/5 mL oral syrup #200 mL (Bromfed DM) levofloxacin 750 mg tablet 750 mg PO DAILY 5 days #5 tabs 08/23/24 ondansetron 4 mg disintegrating 4 mg PO Q6H PRN nausea and 08/23/24 tablet vomiting #12 tabs Allergies Allergy/AdvReac Type Severity Reaction Status Date / Time No Known Drug Allergies Allergy Unverified 09/13/23 09:51 Review of Systems ROS Constitutional Reports: fever and chills Ears, nose, mouth, and throat Reports: nasal congestion; Denies: throat pain Cardiovascular Denies: chest pain Respiratory Reports: shortness of breath and cough Gastrointestinal Reports: nausea, vomiting and diarrhea Musculoskeletal Denies: back pain Integumentary/Breast Denies: rash Neurological Denies: numbness in extremities or weakness in extremities Hematologic/Lymphatic Denies: easy bruising or easy bleeding PFSH PFSH Medical History Tobacco dependence ?F17.200 - Nicotine dependence, unspecified, uncomplicated (ICD-10) Morbid obesity ?E66.01 - Morbid (severe) obesity due to excess calories (ICD-10) Hypertensive disorder ?I10 - Essential (primary) hypertension (ICD-10) Coronary arteriosclerosis ?I25.10 - Atherosclerotic heart disease of [place] coronary artery without angina pectoris (ICD-10) Chronic GERD ?K21.9 - Gastro-esophageal reflux disease without esophagitis (ICD-10) Anemia ?D64.9 - Anemia, unspecified (ICD-10) Alcohol abuse ?F10.10 - Alcohol abuse, uncomplicated (ICD-10) Surgical History (Updated 09/13/23 @ 09:51 by Marianne Askew RN) History of ankle surgery ?Z98.890 - Other specified postprocedural states (ICD-10) History of coronary artery stent placement ?Z95.5 - Presence of coronary angioplasty implant and graft (ICD-10) History of cholecystectomy ?Z90.49 - Acquired absence of other specified parts of digestive tract (ICD-10) H/O angioplasty ?Z98.62 - Peripheral vascular angioplasty status (ICD-10) Family History (Updated 09/13/23 @ 09:52 by Marianne Askew RN) Other Heart disease Pancreatic adenocarcinoma Social History Within the past year, how often did you have a drink containing alcohol: 2-3 times a week Smoking status: Current every day smoker Non-prescribed substance use: denies use Highest level of school completed/degree received: high school graduate Little interest or pleasure in doing things: not at all Feeling down, depressed, or hopeless: not at all Exam Narrative Exam Narrative: Gen.: Awake, alert, in no distress Head: Normocephalic, atraumatic ENT: Moist mucous membranes Respiratory: No respiratory distress, lungs clear bilaterally, speaks in full sentences, no wheezing or rhonchi. No coughing noted Cardio: Regular rate and rhythm Extremities: Moves extremities equally Psych: Normal mood and affect Neuro: No focal neuro deficit Skin: Warm, dry, intact Constitutional Vital Signs, click to edit/add: Last Vital Signs Temp 99.8 F 08/23/24 11:24 Pulse 98 H 08/23/24 11:24 Resp 20 08/23/24 11:24 BP 108/72 08/23/24 11:24 Pulse Ox 95 08/23/24 11:24 O2 Del Method Room Air 08/23/24 11:24 Course Vital Signs Vital signs: Vital Signs Temperature 99.8 F 08/23/24 11:24 Pulse Rate 98 H 08/23/24 11:24 Respiratory Rate 20 08/23/24 11:24 Blood Pressure 108/72 08/23/24 11:24 Pulse Oximetry 95 08/23/24 11:24 Oxygen Delivery Method Room Air 08/23/24 11:24 Temperature 99.8 F 08/23/24 11:24 Pulse Rate 98 H 08/23/24 11:24 Respiratory Rate 08/23/24 11:24 Blood Pressure 108/72 08/23/24 11:24 Pulse Oximetry 95 08/23/24 11:24 Oxygen Delivery Method Room Air 08/23/24 11:24 MDM - URI/Sore Throat MDM Narrative Medical decision making narrative: Sitting in a bedside chair, breathing easily in no distress. Chest x-ray shows small patchy opacities which may represent early pneumonia, based on cardiac history, patient will be covered with Levaquin as well as Bromfed-DM and Zofran. He is hemodynamically stable. Follow-up with PCP and return to the emergency department if symptoms change or worsen SUPERVISED APC VISIT, PHYSICIAN ATTESTATION: Based on the medical record the care appears appropriate. ? Medical Records Attestation: I reviewed the patient's medical records. Lab Data Attestation: I reviewed the patient's lab results. Labs: Lab Results 08/23/24 Range/Units 11:29 Influenza Type A Ag Positive A Influenza Type B Ag Negative SARS-CoV-2 Ag (CV2AG) Negative (NEGATIVE) Imaging Data Chest x-ray: Attestation: I have reviewed the pertinent imaging results. Radiologist's impression: ITS Impressions Chest X-Ray 08/23/24 11:27 IMPRESSION: 1. Several patchy infiltrates within lateral right mid and lower lung suspected represent pneumonia. Follow-up to document clearing and to exclude soft tissue masses is recommended. Electronically authenticated by: CATHERINE MERINO Date: 08/23/2024 11:54 Discharge Plan Discharge Chief Complaint: Upper Respiratory Infection Clinical Impression: Influenza A, Pneumonia Patient Disposition: Home, Self-Care Time of Disposition Decision: 12:40 Condition: Good Prescriptions / Home Meds: New levofloxacin 750 mg tablet 750 mg PO DAILY 5 Days Qty: 5 0RF albuterol sulfate 90 mcg/actuation HFA aerosol inhaler 2 inh inhalation Q4H PRN (Reason: shortness of breath or wheezing) Qty: 8.5 0RF uvregtetgzoyaqh-lergsifoz-WQ [Bromfed DM] 2-30-10 mg/5 mL syrup 10 ml PO Q6H PRN (Reason: cold symptoms) Qty: 200 0RF ondansetron 4 mg tablet,disintegrating 4 mg PO Q6H PRN (Reason: nausea and vomiting) Qty: 12 0RF No Action aspirin [Adult Low Dose Aspirin] 81 mg tablet,delayed release (DR/EC) 81 mg PO DAILY atorvastatin 80 mg tablet 80 mg PO DAILY Centrum Silver 0.4 mg-300 mcg- 250 mcg tablet 1 tab PO DAILY ferrous sulfate [Feosol] 325 mg (65 mg iron) tablet 325 mg PO BID irbesartan 300 mg tablet 300 mg PO DAILY metoprolol tartrate 25 mg tablet 25 mg PO BID nitroglycerin 0.4 mg tablet, sublingual 0.4 mg sublingual Q5M Patient Comments: states has never used it Rx Instructions: do not exceed 3 doses per episode clopidogrel [Plavix] 75 mg tablet 75 mg PO DAILY Print Language: [place] Citizen Instructions: Influenza (ED) Referrals: Leeroy Baron MD [Primary Care Provider] - 1 week
[2024-08-23] MEDS: ALBUTEROL SULFATE 2.5 MG/3 ML VIAL NEB IH (12:48)
[2024-08-23 12:50] VITALS: PULSE 85; O2SAT 95
[2024-08-23] MEDS: DEXAMETHASONE SOD PHOS 10 MG/ML VIAL PO (13:47)
== END 2024-08-23 13:51 | disposition home or self-care (01) ==
PROVIDERS: Emergency Provider Emergency Medicine; PCP Family Medicine
DX: J10.00 Influenza due to other identified influenza virus with unspecified type of pneumonia (principal); I25.10 Atherosclerotic heart disease of native coronary artery without angina pectoris; Z95.5 Presence of coronary angioplasty implant and graft; Z90.49 Acquired absence of other specified parts of digestive tract; Z98.62 Peripheral vascular angioplasty status; F17.200 Nicotine dependence, unspecified, uncomplicated
CPT/HCPCS: 71046; 87804; 87811; 94640; 99284; J1100

== ENCOUNTER 2024-09-01 14:56 | Outpatient (OUT) | payer MEDICAID, SELFPAY ==
--- OUTSIDE RECORDS SUMMARY | 2024-09-01 15:06 | XMS_ITS | CCD ---
Author Organization [facility] Care Team Providers Care Corporate Associate Attorney Name Role Phone MERA JURADO Attending Unavailable [...] Consulting Unavailable Rubin Baron Primary Care Physician Naren MEDEROS Attending Unavailable NILLNaren Attending Unavailable NILNaren Hernandez Attending Unavailable NILLNaren Attending Unavailable ALGHOTHANI, MOHAMAD Attending Unavailable ALGHOTHANI, MOHAMAD Attending Unavailable GAMALIEL, ELVIRA Attending Unavailable Allergies Allergy Classification Reported Allergen(s) Allergy Type Date of Onset Reaction(s) Facility (1 source) No Known Medication Allergies; Translations: [No Known Medication Allergies] Propensity to adverse reactions (disorder) [facility] Repository Medications Current Medications Medication Drug [...] disease (10 sources) 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; Translations: [Coronary [...] Range Facility Office Visiton 01-25-2024 Follow-up visit [id number] Thad Castro 1970 M Date Provider Department Center 01/25/2024 3848-MICHELLE GLEASON [facility]ARD [facility] Family History Problem Relation Age of Onset Hypertension Mother Pancreatic cancer Mother Coronary artery disease Father Stomach cancer Father Other Father Heart murmur Sister Hypertension Brother Family Status - Relation Status Age at Mother Father Sister Brother Level of Service:71761 [place] OFFICE/OUTPATIENT ESTABLISHED LOW MDM 20 MIN Normal [facility] Pathology Noteon 10-11-2023 Pathology Note [id number]#1.00TIFF Normal [facility] Pathology Noteon 10-07-2023 Pathology Note [id number]#1.00TIFF Normal [facility] Reminderson 10-07-2023 Reminders - From: Tanya Ibrahim LPN To: N - Clinical; Sent: 10/07/2023 09:11:34 EDT Show up: 08/22/2033 07:00:00 EST Subject: colonoscopy recall Due Date/Time: 09/22/2033 07:00:00 EST Reminder/Recall Patient due for screening colonoscopy 09/22/2033. Normal [facility] Ambulatory Visit Summaryon 0 10-05-2023 Ambulatory [...] choosing us for your care. Dottie Ruiz [facility] General Surgery Office/Clini c Noteon 10-05-2023 [...] mRNA BNT-162b2 vax (more content not included)... [facility] Comment on above: Result Comment: Elec tronically Signed By: GATITO HARRISON, Naren Persaud\.br\Date and Time Signed: 10/05/23 15:16 EDT Outside Colonoscopyon 2023 Outside Colonoscopy [id number]#1.00TIFF [facility] Formson 09-13-2023 Forms [id number]#1.00TIFF [facility] Consent for Procedure/Surger yon 09-10-2023 Consent for Procedure/Surgery [id number]#1.00TIFF [facility] Facesheeton 09-09-2023 Facesheet [id number]#1.00TIFF [facility] Ambulatory Visit Summaryon 0 09-08-2023 Ambulatory Visit [...] you for choosing us for your care. [facility] Physician Referralon 024 Physician Referral [id number]#1.00TIFF [facility] Physician Referralon 024 Physician Referral [id number]#1.00TIFF [facility] Office Visiton 08-20-2023 Follow-up visit [id number] Thad Castro 1970 M Date Provider Department Center 08/20/2023 ELVIRA PAIGE Family History Problem Relation Age of Onset Hypertension Mother Pancreatic cancer Mother Coronary artery disease Father Stomach cancer Father Other Father Heart murmur Sister Hypertension Brother Family Status - Relation Status Age at Mother Father Sister Brother Level of Service:43462 [place] OFFICE/OUTPATIENT ESTABLISHED MOD MDM 30 MIN Normal [facility] Office Visiton 02-12-2023 Follow-up visit [id number] Thad Castro 1970 M Date Provider Department Center 02/12/2023 3848-MICHELLE GLEASON CARD [facility] Family History Problem Relation Age of Onset Hypertension Mother Pancreatic cancer Mother Coronary artery disease Father Stomach cancer Father Other Father Heart murmur Sister Hypertension Brother Family Status - Relation Status Age at Mother Father Sister Brother Level of Service:95391 [place] OFFICE/OUTPATIENT ESTABLISHED LOW MDM 20-29 MIN Normal [facility] INSULINon 02-24-2022 Insulin 14.5 uIU/mL Normal 2.6-24.9 [facility] Comment on above: Performed By: #### I NSULIN #### [facility] [address] [place] [address] Dr. Carmelita White BILIRUBIN CONJUGATED (DIRECT )on 02-23-2022 BILI, CONJUGATED 0.2 mg/dL Normal 0.0-0.2 [facility] Comment on above: Performed By: #### D JEMMA #### [facility] [address] [place] [address] Dr. Carmelita White CBC AUTO DIFFon 02-23-2022 BASO # 0.1 103/ul Normal 0.0-0.1 [facility] Comment on above: Performed By: #### C BC #### [facility] [address] [place] [address] Dr. Carmelita White Basophils/100 WBC (Bld) 1.2 % Normal 0.2-2.0 [facility] Comment on above: Performed By: #### C BC #### [facility] [address] [place] [address] Dr. Carmelita White EO # 0.2 103/ul Normal 0.0-0.7 [facility] Comment on above: Performed By: #### C BC #### [facility] [address] [place] [address] Dr. Carmelita White Eosinophils/100 WBC (Bld) 4.0 % Normal 0.9-7.0 [facility] Comment on above: Performed By: #### C BC #### [facility] [address] [place] [address] Dr. Carmelita White Erythrocyte distribution width (RBC) [Ratio] 13.2 % Normal 11.0-15.0 [facility] Comment on above: Performed By: #### C BC #### [facility] [address] [place] [address] Dr. Carmelita White Hematocrit (Bld) [Volume fraction] 38.7 % Critically low 42.0-54.0 [facility] Comment on above: Performed By: #### C BC #### [facility] [address] [place] [address] Dr. Carmelita White Hemoglobin (Bld) [Mass/Vol] 13.4 g/dL Critically low 14.0-18.0 [facility] Comment on above: Performed By: #### C BC #### [facility] [address] [place] [address] Dr. Carmelita White IG # 0.02 10e3/ul Normal 0.00-0.03 [facility] Comment on above: Performed By: #### C BC #### [facility] [address] [place] [address] Dr. Carmelita White IG % 0.3 % Normal 0.0-0.5 [facility] Comment on above: Performed By: #### C BC #### [facility] [address] [place] [address] Dr. Carmelita White LYMPH # 1.5 103/ul Normal 1.2-3.8 [facility] Comment on above: Performed By: #### C BC #### [facility] [address] [place] [address] Dr. Carmelita White Lymphocytes/100 WBC (Bld) 24.1 % Normal 20.5-60.0 [facility] Comment on above: Performed By: #### C BC #### [facility] [address] [place] [address] Dr. Carmelita White MANUAL DIFF REQ NO Normal [facility] Comment on above: Performed By: #### C BC #### [facility] [address] [place] [address] Dr. Carmelita White MCH (RBC) [Entitic mass] 30.5 pg Normal 25.9-34.0 [facility] Comment on above: Performed By: #### C BC #### [facility] [address] [place] [address] Dr. Carmelita White MCHC (RBC) [Mass/Vol] 34.6 g/dL Normal 29.9-35.2 [facility] Comment on above: Performed By: #### C BC #### [facility] [address] [place] [address] Dr. Carmelita White MCV (RBC) [Entitic vol] 88.2 fL Normal 80.0-94.0 [facility] Comment on above: Performed By: #### C BC #### [facility] [address] [place] [address] Dr. Carmelita White MONO # 0.4 103/ul Normal 0.3-0.8 [facility] Comment on above: Performed By: #### C BC #### [facility] [address] [place] [address] Dr. Carmelita White Monocytes/100 WBC (Bld) 6.6 % Normal 1.7-12.0 [facility] Comment on above: Performed By: #### C BC #### [facility] [address] [place] [address] Dr. Carmelita White NEUT # 3.9 103/ul Normal 1.4-6.5 [facility] Comment on above: Performed By: #### C BC #### [facility] [address] [place] [address] Dr. Carmelita White Neutrophils/100 WBC (Bld) 63.8 % Normal 43.0-75.0 [facility] Comment on above: Performed By: #### C BC #### [facility] [address] [place] [address] Dr. Carmelita White Platelet mean volume (Bld) [Entitic vol] 8.5 fL Critically low 9.5-13.5 [facility] Comment on above: Performed By: #### C BC #### [facility] [address] [place] [address] Dr. Carmelita White PLT 204 103/ul Normal 150-450 [facility] Comment on above: Performed By: #### C BC #### [facility] [address] [address] [address] Carmelita White RBC 4.39 106/ul Critically low 4.70-6.10 [facility] Comment on above: Performed By: #### C BC #### [facility] [address] [place] [address] Dr. Carmelita White WBC 6.1 103/ul Normal 4.0-11.0 [facility] Comment on above: Performed By: #### C BC #### [facility] [address] [place] [address] Dr. Carmelita White GLYCOHEMOGLOBIN A1Con 2021 ADA RECOMMENDATION SEE BELOW Normal [facility] Comment on above: Result Comment: ADA RECOMMENDED LIMIT 4.0 - 6.0 ADA THERAPEUTIC TARGET < 7.0 ACTION SUGGESTED > 7.0 Performed By: #### A 1C #### [facility] [address] [place] [address] Dr. Carmelita White Glucose [Mass/Vol] 120 mg/dL Normal [facility] Comment on above: Performed By: #### A 1C #### [facility] [address] [place] [address] Dr. Carmelita White HbA1c (Bld) [Mass fraction] 5.8 % Normal 4.5-6.2 [facility] Comment on above: Performed By: #### A 1C #### [facility] [address] [place] [address] Dr. Carmelita White LIPID PROFILEon 02-23-2022 CHOL-HDL RATIO NORM SEE BELOW Normal [facility] Comment on above: Result Comment: 3.3 - 4.4 LOW RISK 4.4 - 7.1 AVERAGE RISK 7.1 - 11.0 MODERATE RISK >11.0 HIGH RISK Performed By: #### L IPID, CMP, URIC ####[facility] [id number] [id number]. Carmelita White Cholesterol [Mass/Vol] 147 mg/dL Normal <=200 [facility] Comment on above: Performed By: #### L IPID, CMP, URIC ####[facility] [id number] [id number]. Carmelita White Cholesterol in HDL [Mass/Vol] 34 mg/dL Critically low 40-60 [facility] Comment on above: Performed By: #### L IPID, CMP, URIC ####[facility] [address] [id number]. Carmelita White Cholesterol in LDL [Mass/Vol] 84.6 mg/dL Normal [facility] Comment on above: Performed By: #### L IPID, CMP, URIC ####[facility] [id number] [id number]. Carmelita White Cholesterol.total/ Cholesterol in HDL [Mass ratio] 4.3 {ratio} Normal [facility] Comment on above: Performed By: #### L IPID, CMP, URIC ####[facility] [address] [id number]. Carmelita White HDL NORMAL > or = 60 mg/dl - LO W CARDIOVASCULAR RISK <40 mg/dl - HIGH CARDIOVASCULAR RISK Normal [facility] Comment on above: Performed By: #### L IPID, CMP, URIC ####[facility] [id number] [id number]. Carmelita White LDL CALC NORMAL SEE BELOW Normal [facility] Comment on above: Result Comment: <100 mg/dl OPTIMAL 100 - 129 mg/dl NEAR OR ABOVE OPTIMAL 130 - 159 mg/dl BORDERLINE HIGH 160 - 189 mg/dl HIGH >190 mg/dl VERY HIGH Performed By: #### L IPID, CMP, URIC ####[facility] [id number] [id number]. Carmelita White Triglyceride [Mass/Vol] 142 mg/dL Normal <=150 [facility] Comment on above: Performed By: #### L IPID, CMP, URIC ####[facility] [address] [id number]. Carmelita White VLDL CALC 28.4 mg/dL Normal [facility] Comment on above: Performed By: #### L IPID, CMP, URIC ####[facility] [address] [address]Dr. Carmelita White PROF 14(COMP METB)on 022 Albumin [Mass/Vol] 4.0 g/dL Normal 3.4-5.0 [facility] Comment on above: Performed By: #### L IPID, CMP, URIC ####[facility] [address] [address]Dr. Carmelita White Albumin/Globulin [Mass ratio] 1.2 {ratio} Normal [facility] Comment on above: Performed By: #### L IPID, CMP, URIC ####[facility] [address] [address]Dr. Carmelita White ALP [Catalytic activity/Vol] 131 U/L Critically high 46-116 [facility] Comment on above: Performed By: #### L IPID, CMP, URIC ####[facility] [address] [address]Dr. Carmelita White ALT [Catalytic activity/Vol] 36 U/L Normal 16-63 [facility] Comment on above: Performed By: #### L IPID, CMP, URIC ####[facility] [address] [address]Dr. Carmelita White Anion gap [Moles/Vol] 13.0 mmol/L Normal [facility] Comment on above: Performed By: #### L IPID, CMP, URIC ####[facility] [address] [address]Dr. Carmelita White AST [Catalytic activity/Vol] 14 U/L Critically low 15-37 [facility] Comment on above: Performed By: #### L IPID, CMP, URIC ####[facility] [address] [address]Dr. Carmelita White Bilirubin [Mass/Vol] 0.7 mg/dL Normal 0.2-1.0 [facility] Comment on above: Performed By: #### L IPID, CMP, URIC ####[facility] [id number] [address]Dr. Carmelita White Calcium [Mass/Vol] 9.3 mg/dL Normal 8.5-10.1 [facility] Comment on above: Performed By: #### L IPID, CMP, URIC ####[facility] [address] [address]Dr. Carmelita White Chloride [Moles/Vol] 104 mmol/L Normal 98-107 [facility] Comment on above: Performed By: #### L IPID, CMP, URIC ####[facility] [address] [place], [place] [address]Dr. Carmelita White CO2 [Moles/Vol] 27.2 mmol/L Normal 21.0-32.0 [facility] Comment on above: Performed By: #### L IPID, CMP, URIC ####[facility] [address] [place], [place] [address]Dr. Carmelita White Creatinine [Mass/Vol] 1.20 mg/dL Normal 0.70-1.30 [facility] Comment on above: Performed By: #### L IPID, CMP, URIC ####[facility] [address] [place], [place] [address]Dr. Carmelita White EGFR-AF MACANESE >60 Normal >=60 [facility] Comment on above: Performed By: #### L IPID, CMP, URIC ####[facility] [address] [place], [place] [address]Dr. Carmelita White EGFR-NON AF MACANESE >60 Normal >=60 [facility] Comment on above: Performed By: #### L IPID, CMP, URIC ####[facility] [address] [place], [place] [address]Dr. Carmelita White Globulin (S) [Mass/Vol] 3.4 g/dL Normal [facility] Comment on above: Performed By: #### L IPID, CMP, URIC ####[facility] [address] [address]Dr. Carmelita White Glucose [Mass/Vol] 97 mg/dL Normal 74-106 [facility] Comment on above: Performed By: #### L IPID, CMP, URIC ####[facility] [address] [address]Dr. Carmelita White Potassium [Moles/Vol] 4.2 mmol/L Normal 3.5-5.1 [facility] Comment on above: Performed By: #### L IPID, CMP, URIC ####[facility] [address] [address]Dr. Carmelita White Protein [Mass/Vol] 7.4 g/dL Normal 6.4-8.2 [facility] Comment on above: Performed By: #### L IPID, CMP, URIC ####[facility] [address] [place], [place] [address]Dr. Nandaenrique White Sodium [Moles/Vol] 140 mmol/L Normal 136-145 [facility] Comment on above: Performed By: #### L IPID, CMP, URIC ####[facility] [address] [address]Dr. Carmelita White Urea nitrogen [Mass/Vol] 19.0 mg/dL Critically high 7.0-18.0 [facility] Comment on above: Performed By: #### L IPID, CMP, URIC ####[facility] [address] [address]Dr. Nandaenrique White Urea nitrogen/Creatinin e [Mass ratio] 15.8 mg/mg Normal [facility] Comment on above: Performed By: #### L IPID, CMP, URIC ####[facility] [address] [address]Dr. Carmelita White URIC ACID SERUMon 02-23-2022 Urate [Mass/Vol] 6.5 mg/dL Normal 3.5-7.2 [facility] Comment on above: Performed By: #### L IPID, CMP, URIC ####[facility] [address] [place], [place] [address]Dr. Nandaenrique White GLYCOHEMOGLOBIN A1Con 2021 ADA RECOMMENDATION ADA THERAPEUTIC TARG ET 6.0 - 7.0 ACTION SUGGESTED > 7.0 Normal [facility] Comment on above: Performed By: #### A 1C #### [facility] [address] [place] [address] Dr. Carmelita White Glucose [Mass/Vol] 126 mg/dL Normal [facility] Comment on above: Performed By: #### A 1C #### [facility] [address] [address] [address] Carmelita White HbA1c (Bld) [Mass fraction] 6.0 % Normal <=6.0 [facility] Comment on above: Performed By: #### A 1C #### [facility] [address] [place] [address] Dr. Carmelita White LIPID PROFILEon 08-04-2021 CHOL-HDL RATIO NORM SEE BELOW Normal [facility] Comment on above: Result Comment: 3.3 - 4.4 LOW RISK 4.4 - 7.1 AVERAGE RISK 7.1 - 11.0 MODERATE RISK >11.0 HIGH RISK Performed By: #### L IPID #### [facility] [address] [address] [address] Carmelita White Cholesterol [Mass/Vol] 150 mg/dL Normal <=200 [facility] Comment on above: Performed By: #### L IPID #### [facility] [address] [place] [address] Dr. Carmelita White Cholesterol in HDL [Mass/Vol] 34 mg/dL Normal [facility] Comment on above: Performed By: #### L IPID #### [facility] [address] [address] [address] Carmelita White Cholesterol in LDL [Mass/Vol] 79.2 mg/dL Normal [facility] Comment on above: Performed By: #### L IPID #### [facility] [address] [place] [address] Dr. Carmelita White Cholesterol.total/ Cholesterol in HDL [Mass ratio] 4.4 {ratio} Normal [facility] Comment on above: Performed By: #### L IPID #### [facility] [address] [address] [address] Carmelita White HDL NORMAL > or = 60 mg/dl - LO W CARDIOVASCULAR RISK <40 mg/dl - HIGH CARDIOVASCULAR RISK Normal [facility] Comment on above: Performed By: #### L IPID #### [facility] [address] [address] [address] Carmelita White LDL CALC NORMAL SEE BELOW Normal [facility] Comment on above: Result Comment: <100 mg/dl OPTIMAL 100 - 129 mg/dl NEAR OR ABOVE OPTIMAL 130 - 159 mg/dl BORDERLINE HIGH 160 - 189 mg/dl HIGH >190 mg/dl VERY HIGH Performed By: #### L IPID #### [facility] [address] [address] [address] Carmelita White Triglyceride [Mass/Vol] 184 mg/dL Critically high <=150 [facility] Comment on above: Performed By: #### L IPID #### [facility] [address] [address] [address] Carmelita White VLDL CALC 36.8 mg/dL Normal [facility] Comment on above: Performed By: #### L IPID #### [facility] [address] [address] [address] Carmelita White CBC W/DIFFon 06-24-2021 ABS IMM GRANS 0.0 10*3/uL Normal 0.0-0.2 [facility] Comment on above: Order Comment: No: D o not add to previous draw Performed By: #### 5 0103 #### [facility] [address] [place] [address], [facility] ABS NEUTROPHILS 4.6 10*3/uL Normal 1.6-7.6 [facility] Comment on above: Order Comment: No: D o not add to previous draw Performed By: #### 5 0103 #### [facility] [address] [facility] [place] [address], [facility] Basophils (Bld) [#/Vol] 0.1 10*3/uL Normal 0.0-0.2 [facility] Comment on above: Order Comment: No: D o not add to previous draw Performed By: #### 5 0103 #### [facility] [address] [place] [address], [facility] Basophils/100 WBC (Bld) 1.0 % Normal 0.0-1.0 [facility] Comment on above: Order Comment: No: D o not add to previous draw Performed By: #### 5 0103 #### [facility] [address] [place] [address], [facility] Eosinophils (Bld) [#/Vol] 0.2 10*3/uL Normal 0.0-0.5 [facility] Comment on above: Order Comment: No: D o not add to previous draw Performed By: #### 5 0103 #### [facility] [address] [place] [address], [facility] Eosinophils/100 WBC (Bld) 2.8 % Normal 0.0-6.0 [facility] Comment on above: Order Comment: No: D o not add to previous draw Performed By: #### 5 0103 #### [facility] [address] [place] [address], [facility] Erythrocyte distribution width (RBC) [Ratio] 12.7 % Normal 11.5-15.0 [facility] Comment on above: Order Comment: No: D o not add to previous draw Performed By: #### 5 0103 #### [facility] [address] [place] [address], [facility] Hematocrit (Bld) [Volume fraction] 41.5 % Normal 39.0-50.0 [facility] Comment on above: Order Comment: No: D o not add to previous draw Performed By: #### 5 0103 #### [facility] [address] [place] [address], [facility] Hemoglobin (Bld) [Mass/Vol] 13.9 g/dL Normal 13.0-17.0 [facility] Comment on above: Order Comment: No: D o not add to previous draw Performed By: #### 5 0103 #### [facility] [address] [facility] [place] [address], [facility] IMMATURE GRANS 0.3 % Normal 0.0-1.0 [facility] Comment on above: Order Comment: No: D o not add to previous draw Performed By: #### 5 0103 #### [facility] [address] [place] [address], [facility] Lymphocytes (Bld) [#/Vol] 1.7 10*3/uL Normal 1.2-4.0 [facility] Comment on above: Order Comment: No: D o not add to previous draw Performed By: #### 5 0103 #### [facility] [address] [place] [address], [facility] Lymphocytes/100 WBC (Bld) 24.0 % Normal 20.0-45.0 [facility] Comment on above: Order Comment: No: D o not add to previous draw Performed By: #### 5 0103 #### [facility] [address] [place] [address], [facility] MCH (RBC) [Entitic mass] 29.9 pg Normal 27.0-33.0 [facility] Comment on above: Order Comment: No: D o not add to previous draw Performed By: #### 5 0103 #### [facility] [address] [place] [address], [facility] MCHC (RBC) [Mass/Vol] 33.5 g/dL Normal 32.0-35.0 [facility] Comment on above: Order Comment: No: D o not add to previous draw Performed By: #### 5 0103 #### [facility] [address] [place] [address], [facility] MCV (RBC) [Entitic vol] 89.2 fL Normal 82.0-98.0 [facility] Comment on above: Order Comment: No: D o not add to previous draw Performed By: #### 5 0103 #### [facility] [address] [place] [address], [facility] Monocytes (Bld) [#/Vol] 0.6 10*3/uL Normal 0.1-1.0 [facility] Comment on above: Order Comment: No: D o not add to previous draw Performed By: #### 5 0103 #### [facility] [address] [place] [address], [facility] MONOS 8.0 % Normal 5.0-12.0 [facility] Comment on above: Order Comment: No: D o not add to previous draw Performed By: #### 5 0103 #### [facility] [address] [place] [address], [facility] Neutrophils/100 WBC (Bld) 63.9 % Normal 40.0-72.0 [facility] Comment on above: Order Comment: No: D o not add to previous draw Performed By: #### 5 0103 #### [facility] [address] [facility] [place] [address], [facility] Nucleated RBC/100 WBC (Bld) [Ratio] 0 % Normal 0-0 [facility] Comment on above: Order Comment: No: D o not add to previous draw Performed By: #### 5 0103 #### [facility] [address] [facility] [place] [address], [facility] PLAT CNT 187 10*3/uL Normal 150-400 [facility] Comment on above: Order Comment: No: D o not add to previous draw Performed By: #### 5 0103 #### [facility] [address] [facility] [place] [address], [facility] RBC (Bld) [#/Vol] 4.65 10*6/uL Normal 4.20-5.70 [facility] Comment on above: Order Comment: No: D o not add to previous draw Performed By: #### 5 0103 #### [facility] [address] [place] [address], [facility] WBC (Bld) [#/Vol] 7.22 10*3/uL Normal 4.00-10.60 [facility] Comment on above: Order Comment: No: D o not add to previous draw Performed By: #### 5 0103 #### [facility] [address] [place] [address], [facility] COMP METABOLIC PANELon 06-24 Albumin [Mass/Vol] 3.9 g/dL Normal 3.5-5.7 [facility] Comment on above: Order Comment: No: D o not add to previous draw Performed By: #### 0 0121, [id number] #### [facility] [address] [place] [address], [facility] ALKALINE PHOSPH 108 IU/L High 34-104 [facility] Comment on above: Order Comment: No: D o not add to previous draw Performed By: #### 0 0121, [id number] #### [facility] [address] [place] [address], [facility] ALT [Catalytic activity/Vol] 26 U/L Normal 7-52 [facility] Comment on above: Order Comment: No: D o not add to previous draw Performed By: #### 0 0121, [id number] #### [facility] [address] [place] [address], [facility] AST [Catalytic activity/Vol] 12 U/L Low 13-39 [facility] Comment on above: Order Comment: No: D o not add to previous draw Performed By: #### 0 0121, [id number] #### [facility] [address] [place] [address], [facility] Bilirubin [Mass/Vol] 0.8 mg/dL Normal 0.3-1.0 [facility] Comment on above: Order Comment: No: D o not add to previous draw Performed By: #### 0 0121, 13919 #### [facility] [address] [place] [address], [place] Calcium [Mass/Vol] 9.0 mg/dL Normal 8.6-10.3 [facility] Comment on above: Order Comment: No: D o not add to previous draw Performed By: #### 0 0121, 95330 #### [facility] [address] [place] [address], [place] Chloride [Moles/Vol] 103 mmol/L Normal 98-107 [facility] Comment on above: Order Comment: No: D o not add to previous draw Performed By: #### 0 0121, 37133 #### [facility] [address] [place] [address], [place] CO2 [Moles/Vol] 28 mmol/L Normal 21-31 [facility] Comment on above: Order Comment: No: D o not add to previous draw Performed By: #### 0 0121, 69848 #### [facility] [address] [place] [address], [place] Creatinine [Mass/Vol] 1.24 mg/dL Normal 0.70-1.30 [facility] Comment on above: Order Comment: No: D o not add to previous draw Performed By: #### 0 0121, 57770 #### [facility] [address] [place] [address], [place] GFR/1.73 sq M.predicted among blacks MDRD (S/P/Bld) [Vol rate/Area] mL/min/{1.73_m2} Normal >60 [facility] Comment on above: Order Comment: No: D o not add to previous draw Performed By: #### 0 0121, 39773 #### [facility] [address] [place] [address], [place] GFR/1.73 sq M.predicted among non-blacks MDRD (S/P/Bld) [Vol rate/Area] mL/min/{1.73_m2} Normal >60 [facility] Comment on above: Order Comment: No: D o not add to previous draw Performed By: #### 0 0121, 80798 #### [facility] [address] [place] [address], [place] Glucose [Mass/Vol] 102 mg/dL High 70-100 [facility] Comment on above: Order Comment: No: D o not add to previous draw Performed By: #### 0 0121, 15501 #### [facility] [address] [place] [address], [place] Potassium [Moles/Vol] 4.3 mmol/L Normal 3.5-5.1 [facility] Comment on above: Order Comment: No: D o not add to previous draw Performed By: #### 0 0121, 50217 #### [facility] [address] [place] [address], [place] Protein [Mass/Vol] 6.3 g/dL Normal 6.0-8.3 [facility] Comment on above: Order Comment: No: D o not add to previous draw Performed By: #### 0 0121, 94316 #### [facility] [address] [place] [address], [place] Sodium [Moles/Vol] 136 mmol/L Normal 136-145 [facility] Comment on above: Order Comment: No: D o not add to previous draw Performed By: #### 0 0121, 60435 #### [facility] [address] [place] [address], [place] Urea nitrogen [Mass/Vol] 22 mg/dL Normal 7-25 [facility] Comment on above: Order Comment: No: D o not add to previous draw Performed By: #### 0 0121, 76802 #### [facility] [address] [place] [address], [place] LIPID PROFILEon 06-24-2021 Cholesterol [Mass/Vol] 149 mg/dL Normal 120-200 [facility] Comment on above: Order Comment: No: D o not add to previous draw Result Comment: CHOL ESTEROL REFERENCE RANGE: 20 YEARS AND OLDER CARDIOVASCULAR RISK Less than 200 mg/dl Low Risk 200 to 239 mg/dl Borderline Risk 240 mg/dl and greater High Risk Performed By: #### 0 0121, 30089 #### [facility] [address] [place] [address], [facility] Cholesterol in HDL [Mass/Vol] 34 mg/dL Normal 23-92 [facility] Comment on above: Order Comment: No: D o not add to previous draw Result Comment: Slig ht variation in normal range could be due to gender and/or age. HDL CHOLESTEROL REFERENCE RANGE: 20 years and older Cardiovascular Risk > or =60 mg/dL Desirable 40 TO 59 mg/dL Low Risk <40 mg/dL High Risk Performed By: #### 0 0121, 37093 #### [facility] [address] [place] [address], [facility] Cholesterol in LDL [Mass/Vol] 101 mg/dL Normal 0-130 [facility] Comment on above: Order Comment: No: D o not add to previous draw Result Comment: LDL IS A CALCULATION LDL IS ONLY VALID IF THE TRIG IS LESS THAN 400. Performed By: #### 0 0121, 15520 #### [facility] [address] [place] [address], [facility] Cholesterol.total/ Cholesterol in HDL [Mass ratio] 4.4 {ratio} Normal .0-4.5 [facility] Comment on above: Order Comment: No: D o not add to previous draw Performed By: #### 0 0121, 80049 #### [facility] [address] [place] [address], [facility] NON-HDL CHOLESTEROL 115 mg/dL Normal [facility] Comment on above: Order Comment: No: D o not add to previous draw Performed By: #### 0 0121, 93332 #### [facility] [address] Triglyceride [Mass/Vol] 72 mg/dL Normal 40-149 [facility] Comment on above: Order Comment: No: D o not add to previous draw Result Comment: TRIG LYCERIDE REFERENCE RANGE: 20 YEARS AND OLDER CARDIOVASCULAR RISK LESS THAN 150 mg/dl LOW RISK 150 TO 199 mg/dl BORDERLINE RISK 200 mg/dl AND GREATER HIGH RISK Performed By: #### 0 0121, 17721 #### [facility] [address] VLDL CHOL 14 mg/dL Normal 0-40 [facility] Comment on above: Order Comment: No: D o not add to previous draw Performed By: #### 0 0121, 72470 #### [facility] [address] Cardiovascular Lab Reporton 06-23-2021 Cardiovascular Lab Report [facility] Patient Name: Thad Castro MR #: [id number] [facility] Physician: Michelle Gleason MD Department of Service Date: 06/23/2021 Medicine Birthdate: 1970 Division of Room #: 3CD [id number] Cardiology Adult Cardiovascular Services [place] [address] Cardiovascular Laboratory Report Cardiovascular Laboratory Report FINAL IMPRESSIONS: 1. 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 2. 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 RECOMMENDATIONS: 1. Aspirin 81 mg lifelong. 2. Plavix 75 mg daily for a minimum of 6 months, preferably moth exterminator. 3. Aggressive risk factor modification. 4. Optimization [...] to proceed with an interventional procedure. A 6-Ukrainian XB 3.5 catheter was advanced in and [...] Gleason MD Date Trans: 06/23/2021 07:55 P/ [id number] cc: Rubin Baron M.D. [address] [place] [facility] [id number] Normal [facility] POC SARS COV2 ANTIGEN NEGATI VEon 06-23-2021 POC SARS COV2 ANTIGEN NEG Negative Normal NEGATIVE [facility] Comment on above: Result Comment: Nega tive [...] Accreditation. Performed By: #### 3 1977 #### [facility] [address] [place] [address], [facility] CBC AUTO DIFFon 06-18-2021 BASO # 0.1 103/ul Normal 0.0-0.1 [facility] Comment on above: Performed By: #### C BC #### [facility] [address] [place] [address] [address] Carmelita White Basophils/100 WBC (Bld) 0.9 % Normal 0.2-2.0 [facility] Comment on above: Performed By: #### C BC #### [facility] [address] [place] [address] [address] Carmelita White EO # 0.2 103/ul Normal 0.0-0.7 [facility] Comment on above: Performed By: #### C BC #### [facility] [address] [place] [address] Dr. Carmelita White Eosinophils/100 WBC (Bld) 2.6 % Normal 0.9-7.0 [facility] Comment on above: Performed By: #### C BC #### [facility] [address] [place] [address] Dr. Carmelita White Erythrocyte distribution width (RBC) [Ratio] 12.4 % Normal 11.0-15.0 [facility] Comment on above: Performed By: #### C BC #### [facility] [address] [place] [address] Dr. Carmelita White Hematocrit (Bld) [Volume fraction] 44.8 % Normal 42.0-54.0 [facility] Comment on above: Performed By: #### C BC #### [facility] [address] [place] [address] Dr. Carmelita White Hemoglobin (Bld) [Mass/Vol] 15.2 g/dL Normal 14.0-18.0 [facility] Comment on above: Performed By: #### C BC #### [facility] [address] [place] [address] Dr. Carmelita White IG # 0.03 10e3/ul Normal 0.00-0.03 [facility] Comment on above: Performed By: #### C BC #### [facility] [address] [place] [address] Dr. Carmelita White IG % 0.5 % Normal 0.0-0.5 [facility] Comment on above: Performed By: #### C BC #### [facility] [address] [place] [address] Dr. Carmelita White LYMPH # 1.5 103/ul Normal 1.2-3.8 [facility] Comment on above: Performed By: #### C BC #### [facility] [address] [place] [address] Dr. Carmelita White Lymphocytes/100 WBC (Bld) 22.5 % Normal 20.5-60.0 [facility] Comment on above: Performed By: #### C BC #### [facility] [address] [place] [address] Dr. Carmelita White MANUAL DIFF REQ NO Normal [facility] Comment on above: Performed By: #### C BC #### [facility] [address] [place] [address] Dr. Carmelita White MCH (RBC) [Entitic mass] 29.7 pg Normal 25.9-34.0 [facility] Comment on above: Performed By: #### C BC #### [facility] [address] [place] [address] Dr. Carmelita White MCHC (RBC) [Mass/Vol] 33.9 g/dL Normal 29.9-35.2 [facility] Comment on above: Performed By: #### C BC #### [facility] [address] [place] [address] Dr. Carmelita White MCV (RBC) [Entitic vol] 87.5 fL Normal 80.0-94.0 [facility] Comment on above: Performed By: #### C BC #### [facility] [address] [place] [address] Dr. Carmelita White MONO # 0.4 103/ul Normal 0.3-0.8 [facility] Comment on above: Performed By: #### C BC #### [facility] [address] [place] [address] Dr. Carmelita White Monocytes/100 WBC (Bld) 5.5 % Normal 1.7-12.0 [facility] Comment on above: Performed By: #### C BC #### [facility] [address] [place] [address] Dr. Carmelita White NEUT # 4.5 103/ul Normal 1.4-6.5 [facility] Comment on above: Performed By: #### C BC #### [facility] [address] [place] [address] Dr. Carmelita White Neutrophils/100 WBC (Bld) 68.0 % Normal 43.0-75.0 [facility] Comment on above: Performed By: #### C BC #### [facility] [address] [place] [address] Dr. Carmelita White Platelet mean volume (Bld) [Entitic vol] 8.5 fL Critically low 9.5-13.5 [facility] Comment on above: Performed By: #### C BC #### [facility] [address] [place] [address] Dr. Carmelita White PLT 238 103/ul Normal 150-450 [facility] Comment on above: Performed By: #### C BC #### [facility] [address] [place] [address] Dr. Carmelita White RBC 5.12 106/ul Normal 4.70-6.10 [facility] Comment on above: Performed By: #### C BC #### [facility] [address] [place] [address] Dr. Carmelita White WBC 6.5 103/ul Normal 4.0-11.0 [facility] Comment on above: Performed By: #### C BC #### [facility] [address] [place] [address] Dr. Carmelita White PROF CHEM 8 (BAS METB)on Anion gap [Moles/Vol] 14.7 mmol/L Normal [facility] Comment on above: Performed By: #### B MP #### [facility] [address] [place] [address] Dr. Carmelita White Calcium [Mass/Vol] 9.3 mg/dL Normal 8.4-10.2 [facility] Comment on above: Performed By: #### B MP #### [facility] [address] [place] [address] [address] Carmelita White Chloride [Moles/Vol] 101 mmol/L Normal 98-107 [facility] Comment on above: Performed By: #### B MP #### [facility] [address] [place] [address] [address] Carmelita White CO2 [Moles/Vol] 28.2 mmol/L Normal 22.0-30.0 [facility] Comment on above: Performed By: #### B MP #### [facility] [address] [place] [address] [address] Carmelita White Creatinine [Mass/Vol] 1.33 mg/dL Critically high 0.66-1.25 [facility] Comment on above: Performed By: #### B MP #### [facility] [address] [address] [address] Carmelita White EGFR-AF MACANESE >60 Normal >=60 [facility] Comment on above: Performed By: #### B MP #### [facility] [address] [address] [address] Carmelita White EGFR-NON AF MACANESE 57 mL/min/1.73m2 Critically low >=60 [facility] Comment on above: Performed By: #### B MP #### [facility] [address] [address] [address] Carmelita White Glucose [Mass/Vol] 99 mg/dL Normal 74-106 [facility] Comment on above: Performed By: #### B MP #### [facility] [address] [address] [address] Carmelita White Potassium [Moles/Vol] 4.9 mmol/L Normal 3.4-5.0 [facility] Comment on above: Performed By: #### B MP #### [facility] [address] [place] [address] [address] Carmelita White Sodium [Moles/Vol] 139 mmol/L Normal 137-145 [facility] Comment on above: Performed By: #### B MP #### [facility] [address] [place] [address] [address] Carmelita White Urea nitrogen [Mass/Vol] 21.0 mg/dL Critically high 9.0-20.0 [facility] Comment on above: Performed By: #### B MP #### [facility] [address] [place] [address] [address] Carmelita White Urea nitrogen/Creatinin e [Mass ratio] 15.8 mg/mg Normal [facility] Comment on above: Performed By: #### B MP #### [facility] [address] [place] [address] [address] Carmelita White NM STRESS/REST MULTIon 06-09 NM STRESS/REST MULTI Patient: THAD CASTRO Exam Date: 06/09/2021 : 1970 Gender:M Ordering : DR RUBIN BARON . Admission #: [id number] Family : Order #: [id number] CLICK HERE TO VIEW EXAM RADIOLOGY REPORT [...] PERFUSION DEFECT: LOCATION: Mid-anterior. Mid-anteroseptal. Apical anterior. [place]. SIZE: Medium (3-4 segments). SEVERITY: Severe. TYPE: [...] Mathur MD on 06/11/2021 at 13:23 Normal [facility] Vital Signs Date Time Vital Sign Value Performing Clinician Rudolph patton 09-08-2023 14:53-0500 Blood Pressure Location Naren NILL [facility] 09-08-2023 14:53-0500 Diastolic blood pressure 88 mm[Hg] Naren NILL [facility] 09-08-2023 14:53-0500 Heart rate 72 /min Naren NILL [facility] 09-08-2023 14:53-0500 Respiratory rate 16 /min Naren NILL [facility] 09-08-2023 14:53-0500 Systolic blood pressure 146 mm[Hg] Naren NILL [facility] Encounters Encounter Date Encounter Type Care Provider Facility Start: 01-25-2024 End: 01-25-2024 ambulatory [facility] Start: 10-05-2023 End: 10-06-2023 ambulatory Naren R NILL Facility:[facility] Start: 10-05-2023 End: 10-05-2023 Patient encounter procedure Naren R NILL [facility] Start: 09-22-2023 End: 09-23-2023 ambulatory Naren R NILL Facility: [facility] Start: 09-08-2023 End: 09-09-2023 ambulatory Naren R NILL Facility:[facility] Start: 09-08-2023 End: 09-08-2023 Patient encounter procedure Naren R NILL General Surgery [facility] Start: 09-07-2023 ambulatory Naren MEDEROS Facility:[facility] Start: 09-06-2023 ambulatory Naren MEDEROS [facility] Start: 08-20-2023 End: 08-20-2023 ambulatory ELVIRA ALSTON [facility] Start: 02-12-2023 End: 02-12-2023 ambulatory MICHELLE GLEASON [facility] Start: 02-23-2022 End: 02-24-2022 ambulatory ELVIRA ALSTON Facility:[facility] Start: 08-04-2021 End: 08-05-[address] RUBIN BARON Facility:[facility] Start: 06-28-2021 Encounter for preprocedural laboratory examination DR DOCTOR MILLER [facility] Start: 06-25-2021 ambulatory DR DOCTOR MILLER Facility :[facility] Start: 06-23-2021 End: 06-24-2021 ambulatory MERA JURADO Facility:[facility] Start: 06-18-2021 End: 06-19-[address] [...] on above: Performed By: #### [facility] #### [facility] [address] [place] [address] Dr. Carmelita MEDEROS Coronary artery sten t (physical object) Naren MEDEROS Fluoroscopic angiopl asty of bilateral iliac arteries and insertion of bilateral iliac artery stents Naren MEDEROS History of ankle surgery Maik hael NILL Immunizations Immunization Date Immunization Notes Care Provider Fa cili 07-24-2021 SARS-CoV-2 (COVID-19 ) mRNA BNT-162b2 vax Naren NILL [facility] 11-25-2020 SARS-CoV-2 (COVID-19 ) mRNA BNT-162b2 vax Naren NILL [facility] 11-04-2020 SARS-CoV-2 (COVID-19 ) mRNA BNT-162b2 vax Naren NILL [facility] NEGATED: Highlighted row has not occurred!09-08-2023 influenza virus vaccine, unspecified formulation Naren NILL [facility] Payers Date Payer Category Payer Unknown [id number] 2.16.8 [id number] 1970 Unknown [id number] 2.16.84 [id number] 1969 Unknown [id number] 2.16.84 [id number] 1969 Unknown [id number] 2.16.84 [id number] 1969 Unknown [id number] 2.16.84 [id number] 1969 Unknown [id number] 2.16.84 [id number] 1969 Unknown [id number] 2.16.84 [id number] 1969 Unknown [id number] 2.16.84 [id number] 1969 Unknown [id number] 2.16.8 [id number] 1969 Unknown [id number] 2.16.8 [id number] 1969 Unknown [id number] 2.16.8 [id number] 1969 Unknown [id number] 2.16.8 [id number] 1960 Medicaid [id number] Social History Date Type Detail Facility Start: 09-08-2023 Tobacco smoking status Light t obacco smoker (finding) [facility] Tobacco smoking status Smokeless tobacco user within last 30 days [facility] Sex Assigned At Male [facility] Functional Status Date Assessment Result Facility 09-08-2023 Functional Status N/A [facility] Clinical Notes 02-12-2023 to 01-25-2024 Note [...] as needed. Michelle Gleason MD Interventional Cardiology [facility] 09-08-2023 Note Chief Complaint consultation for [...] tablet, 1 tab(s), (more content not included)... [facility] Comment on above: Result Comment: Elec tronically Signed By: GATITO HARRISON, Naren Gleason\Date and Time Signed: 09/08/23 19:40 EST 08-20-2023 Note Continues to smoke a nd provider had strong conversation with pt that he needs to completely stop smoking to prevent stent re-occlusion and management of CAD [facility] 08-20-2023 Note Patient here for 6 m o follow up CAD, hypertension, and hyperlipidemia. Had routine labs back in Feb 2023. Denies chest pain, SOB, and palpitations. Review of Systems Cardiovascular: Positive for leg swelling (resolves by morning). Musculoskeletal: Positive for arthritis and back pain. All other systems reviewed and are negative. 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 Tobacco dependence syndrome Continues to smoke and provider had strong conversation with pt that he needs to completely stop smoking to prevent stent re-occlusion and management of CAD RTC 6 months [facility] 08-20-2023 Note Coronary artery dise ase is stable Continue GDMT- ASA and plavix usp, lipitor and zetia, with metoprolol D/W risk factor and lifestyle modifications- heart healthy diet, regular exercise as tolerated and continue all medications. [facility] 08-20-2023 Note Hypertension is well controlled Continue irbesartan, metoprolol Renal function normal [facility] 08-20-2023 Note Continue lipitor and zetia Well controlled and liver function normal [facility] 02-12-2023 Note Patient here for 6 m o follow up CAD, hypertension, and hyperlipidemia. Since last visit, Dr. Baron re-started him on low dose metoprolol. Doesn't check his BP at home very often, as he feels great. Denies chest pain, SOB, and lightheadedness. [facility] 02-12-2023 Note Cardiology Follow Up Progress Note [...] as needed. Michelle Gleason MD Interventional Cardiology [facility] Michelle Gleason MD Interventional Cardiology [facility] Evaluation + Plan note No data available for this section [facility] Discharge instructions No data available for this section [facility] Progress note No data available for this section [facility] Summary Purpose Family History No Family History [...] and content) DATE CREATED AUTHOR 06/28/2021 [facility] DATE CREATED AUTHOR AUTHOR'S ORGANIZ ATION 02/26/2022 [facility] DATE CREATED AUTHOR AUTHOR'S ORGANIZ ATION 10/12/2023 [facility] DATE CREATED AUTHOR AUTHOR'S ORGANIZ ATION 01/26/2024 [facility] Patient Care team informatio n (unrecognized section and content) Personnel Name: Rubin Baron MD Address: Address: [address] [place] [address] Personnel Name: Rubin Baron MD Address: Address: [address] [place] [address] FOR RECORDS PERTAINING TO PATIENTS WHO ARE [...] BE BASED ON THE PRIMARY CLINICAL RECORDS. [facility] [employer] [facility] provides no warranty or guarantee of the accuracy or completeness of information in this document.
[2024-09-01 15:32] LABS: Basophils Percent Auto 0.5 % (0.2-2.0); Eosinophils Absolute Auto 0.1 10^3/uL (0.0-0.7); Eosinophils Percent Auto 1.9 % (0.9-7.0); Hematocrit 41.6 % (42.0-54.0); Hemoglobin 14.2 g/dL (14.0-18.0); Immature Granulocytes Abs Auto 0.02 10^3/uL (0.00-0.03); Immature Granulocytes Pct Auto 0.5 % (0.0-0.5); Lymphocytes Absolute Auto 1.3 10^3/uL (1.2-3.8); Lymphocytes Percent Auto 31.7 % (20.5-60.0); Mean Corpuscular HGB Conc 34.1 g/dL (29.9-35.2); Mean Corpuscular Hemoglobin 29.5 pg (25.9-34.0); Mean Corpuscular Volume 86.3 fL (80.0-94.0); Mean Platelet Volume 8.6 fL (9.5-13.5); Monocytes Absolute Auto 0.4 10^3/uL (0.3-0.8); Monocytes Percent Auto 9.5 % (1.7-12.0); Neutrophils Absolute Auto 2.4 10^3/uL (1.4-6.5); Neutrophils Percent Auto 55.9 % (43.0-75.0); Platelet Count 236 10^3/uL (150-450); Red Blood Count 4.82 10^6/uL (4.70-6.10); Red Cell Distribution Width 13.1 % (11.0-15.0); White Blood Count 4.2 10^3/uL (4.0-11.0)
[2024-09-01 15:59] LABS: Estimated Average Glucose 146 mg/dL; Glycohemoglobin A1C 6.7 % (4.5-6.2)
[2024-09-01 16:28] LABS: Alanine Aminotransferase 90 U/L (16-63); Albumin Level 3.8 g/dL (3.4-5.0); Alkaline Phosphatase 139 U/L (46-116); Aspartate Amino Transferase 51 U/L (15-37); Bilirubin Total 1.3 mg/dL (0.2-1.0); Calcium 9.2 mg/dL (8.5-10.1); Carbon Dioxide 26.1 mmol/L (21.0-32.0); Chloride 103 mmol/L (98-107); Chol HDL Ratio 4.2; Cholesterol 121 mg/dL (<=200); Estimated GFR (African America >60 (>=60 mL/min/1.73m^2); Estimated GFR (Non-African Ame 57 (>=60 mL/min/1.73m^2); Free T3 2.78 pg/mL (2.18-3.98); Globulin 3.7 g/dL; Glucose 100 mg/dL (74-106); HDL Cholesterol 29 mg/dL (40-60); Potassium 4.1 mmol/L (3.5-5.1); Sodium 140 mmol/L (136-145); Thyroid Stimulating Hormone 1.677 uIU/mL (0.358-3.740); Total Protein 7.5 g/dL (6.4-8.2); Triglycerides 217 mg/dL (<=150); VLDL CHOLESTEROL 43.4 mg/dL
[2024-09-01 16:31] LABS: Prostate Specific Antigen Scrn 1.01 ng/mL (<=4.00)
[2024-09-02 04:06] LABS: CA 19-9 28 U/mL (0-35)
== END 2024-09-01 14:57 | disposition home or self-care (01) ==
LOC: LAB 14:57
PROVIDERS: PCP Family Medicine; Visit Provider Family Medicine
DX: Z00.00 Encounter for general adult medical examination without abnormal findings (principal)
CPT/HCPCS: 36415; 80053; 80061; 83036; 84436; 84443; 84481; 85025; 86301; G0103

== ENCOUNTER 2024-12-08 08:24 | Outpatient (OUT) | payer MEDICAID, SELFPAY ==
--- OUTSIDE RECORDS SUMMARY | 2024-12-08 08:29 | XMS_ITS | CCD ---
Author Organization [facility] Care Team Providers Care Catalog Library Assistant Name Role Phone MERA JURADO Attending Unavailable [...] Consulting Unavailable Rubin Baron Primary Care Physician [phone] Naren MEDEROS Attending Unavailable NILLNaren Attending Unavailable NILNaren Hernandez Attending Unavailable NILLNaren Attending Unavailable ALGHOTHANI, MOHAMAD Attending Unavailable ALGHOTHANI, MOHAMAD Attending Unavailable GAMALIEL, ELVIRA Attending Unavailable Allergies Allergy Classification Reported Allergen(s) Allergy Type Date of Onset Reaction(s) Facility (1 source) No Known Medication Allergies; Translations: [No Known Medication Allergies] Propensity to adverse reactions (disorder) [facility] Repository Medications Current Medications Medication [...] disease (10 sources) Atherosclerotic heart disease of [place] coronary artery without angina pectoris; Translations: [Coronary [...] Range Facility Office Visiton 01-25-2024 Follow-up visit [id number] Thad Castro 1970 M Date Provider Department Center 01/25/2024 3848-MICHELLE GLEASON CARD [facility] Family History Problem Relation Age of Onset Hypertension Mother Pancreatic cancer Mother Coronary artery disease Father Stomach cancer Father Other Father Heart murmur Sister Hypertension Brother Family Status - Relation Status Age at Mother Father Sister Brother Level of Service:91824 NE OFFICE/OUTPATIENT ESTABLISHED LOW MDM 20 MIN Normal [facility] Pathology Noteon 10-11-2023 Pathology Note [id number]#1.00TIFF Normal [facility] Pathology Noteon 10-07-2023 Pathology Note [id number]#1.00TIFF Normal [facility] Reminderson 10-07-2023 Reminders - From: Tanya Ibrahim LPN To: N - Clinical; Sent: 10/07/2023 09:11:34 EDT Show up: 08/22/2033 07:00:00 EST Subject: colonoscopy recall Due Date/Time: 09/22/2033 07:00:00 EST Reminder/Recall Patient due for screening colonoscopy 09/22/2033. Normal [facility] Ambulatory Visit Summaryon 0 10-05-2023 Ambulatory Visit [...] choosing us for your care. Dottie Ruiz [facility] General Surgery Office/Clini c Noteon 10-05-2023 General [...] mRNA BNT-162b2 vax (more content not included)... [facility] Comment on above: Result Comment: Elec tronically Signed By: GATITO HARRISON, Naren Persaud\.br\Date and Time Signed: 10/05/23 15:16 EDT Outside Colonoscopyon 2023 Outside Colonoscopy [id number]#1.00TIFF [facility] Formson 09-13-2023 Forms [id number]#1.00TIFF [facility] Consent for Procedure/Surger yon 09-10-2023 Consent for Procedure/Surgery [id number]#1.00TIFF [facility] Facesheeton 09-09-2023 Facesheet [id number]#1.00TIFF [facility] Ambulatory Visit Summaryon 0 09-08-2023 Ambulatory [...] you for choosing us for your care. [facility] Physician Referralon 024 Physician Referral [id number]#1.00TIFF [facility] Physician Referralon 024 Physician Referral [id number]#1.00TIFF [facility] Office Visiton 08-20-2023 Follow-up visit [id number] Thad Castro 1970 M Date Provider Department Center 08/20/2023 ELVIRA PAIGE Family History Problem Relation Age of Onset Hypertension Mother Pancreatic cancer Mother Coronary artery disease Father Stomach cancer Father Other Father Heart murmur Sister Hypertension Brother Family Status - Relation Status Age at Mother Father Sister Brother Level of Service:60159 NE OFFICE/OUTPATIENT ESTABLISHED MOD MDM 30 MIN Normal [facility] Office Visiton 02-12-2023 Follow-up visit [id number] Thad Castro 1970 M Date Provider Department Center 02/12/2023 3848-MICHELLE GLEASON CARD [facility] Family History Problem Relation Age of Onset Hypertension Mother Pancreatic cancer Mother Coronary artery disease Father Stomach cancer Father Other Father Heart murmur Sister Hypertension Brother Family Status - Relation Status Age at Mother Father Sister Brother Level of Service:71361 NE OFFICE/OUTPATIENT ESTABLISHED LOW MDM 20-29 MIN Normal [facility] INSULINon 02-24-2022 Insulin 14.5 uIU/mL Normal 2.6-24.9 [facility] Comment on above: Performed By: #### I NSULIN #### [facility] [address] [place] [address] Dr. Carmelita White BILIRUBIN CONJUGATED (DIRECT )on 02-23-2022 BILI, CONJUGATED 0.2 mg/dL Normal 0.0-0.2 [facility] Comment on above: Performed By: #### D JEMMA #### [facility] [address] [place] [address] Dr. Carmelita White CBC AUTO DIFFon 02-23-2022 BASO # 0.1 103/ul Normal 0.0-0.1 [facility] Comment on above: Performed By: #### C BC #### [facility] [address] [place] [address] Dr. Carmelita White Basophils/100 WBC (Bld) 1.2 % Normal 0.2-2.0 [facility] Comment on above: Performed By: #### C BC #### [facility] [address] [place] [address] Dr. Carmelita White EO # 0.2 103/ul Normal 0.0-0.[address] [facility] Comment on above: Performed By: #### C BC #### [facility] [address] [place] [address] Dr. Carmelita White Eosinophils/100 WBC (Bld) 4.0 % Normal 0.9-7.0 [facility] Comment on above: Performed By: #### C BC #### [facility] [address] [place] [address] Dr. Carmelita White Erythrocyte distribution width (RBC) [Ratio] 13.2 % Normal 11.0-15.0 [facility] Comment on above: Performed By: #### C BC #### [facility] [address] [place] [address] Dr. Carmelita White Hematocrit (Bld) [Volume fraction] 38.7 % Critically low 42.0-54.0 [facility] Comment on above: Performed By: #### C BC #### [facility] [address] [place] [address] Dr. Carmelita White Hemoglobin (Bld) [Mass/Vol] 13.4 g/dL Critically low 14.0-18.0 [facility] Comment on above: Performed By: #### C BC #### [facility] [address] [place] [address] Dr. Carmelita White IG # 0.02 10e3/ul Normal 0.00-0.03 [facility] Comment on above: Performed By: #### C BC #### [facility] [address] [place] [address] Dr. Carmelita White IG % 0.3 % Normal 0.0-0.5 [facility] Comment on above: Performed By: #### C BC #### [facility] [address] [place] [address] Dr. Carmelita White LYMPH # 1.5 103/ul Normal 1.2-3.[address] [facility] Comment on above: Performed By: #### C BC #### [facility] [address] [place] [address] Dr. Carmelita White Lymphocytes/100 WBC (Bld) 24.1 % Normal 20.5-60.0 [facility] Comment on above: Performed By: #### C BC #### [facility] [address] [place] [address] Dr. Carmelita White MANUAL DIFF REQ NO Normal [facility] Comment on above: Performed By: #### C BC #### [facility] [address] [place] [address] Dr. Carmelita White MCH (RBC) [Entitic mass] 30.5 pg Normal 25.9-34.0 [facility] Comment on above: Performed By: #### C BC #### [facility] [address] [place] [address] Dr. Carmelita White MCHC (RBC) [Mass/Vol] 34.6 g/dL Normal 29.9-35.2 [facility] Comment on above: Performed By: #### C BC #### [facility] [address] [place] [address] Dr. Carmelita White MCV (RBC) [Entitic vol] 88.2 fL Normal 80.0-94.0 [facility] Comment on above: Performed By: #### C BC #### [facility] [address] [place] [address] Dr. Carmelita White MONO # 0.4 103/ul Normal 0.3-0.8 [facility] Comment on above: Performed By: #### C BC #### [facility] [address] [place] [address] Dr. Carmelita White Monocytes/100 WBC (Bld) 6.6 % Normal 1.7-12.0 [facility] Comment on above: Performed By: #### C BC #### [facility] [address] [place] [address] Dr. Carmelita White NEUT # 3.9 103/ul Normal 1.4-6.[address] [facility] Comment on above: Performed By: #### C BC #### [facility] [address] [place] [address] Dr. Carmelita White Neutrophils/100 WBC (Bld) 63.8 % Normal 43.0-75.0 [facility] Comment on above: Performed By: #### C BC #### [facility] [address] [place] [address] Dr. Carmelita White Platelet mean volume (Bld) [Entitic vol] 8.5 fL Critically low 9.5-13.5 [facility] Comment on above: Performed By: #### C BC #### [facility] [address] [place] [address] Dr. Carmelita White PLT 204 103/ul Normal 150-450 [facility] Comment on above: Performed By: #### C BC #### [facility] [address] [address] [address] Carmelita White RBC 4.39 106/ul Critically low 4.70-6.10 [facility] Comment on above: Performed By: #### C BC #### [facility] [address] [place] [address] Dr. Carmelita White WBC 6.1 103/ul Normal 4.0-11.0 [facility] Comment on above: Performed By: #### C BC #### [facility] [address] [place] [address] Dr. Caremlita White GLYCOHEMOGLOBIN A1Con 2021 ADA RECOMMENDATION SEE BELOW Normal [facility] Comment on above: Result Comment: ADA RECOMMENDED LIMIT 4.0 - 6.0 ADA THERAPEUTIC TARGET < 7.0 ACTION SUGGESTED > 7.0 Performed By: #### A 1C #### [facility] [address] [place] [address] Dr. Carmelita White Glucose [Mass/Vol] 120 mg/dL Normal [facility] Comment on above: Performed By: #### A 1C #### [facility] [address] [place] [address] Dr. Carmelita White HbA1c (Bld) [Mass fraction] 5.8 % Normal 4.5-6.2 [facility] Comment on above: Performed By: #### A 1C #### [facility] [address] [place] [address] Dr. Carmelita White LIPID PROFILEon 02-23-2022 CHOL-HDL RATIO NORM SEE BELOW Normal [facility] Comment on above: Result Comment: 3.3 - 4.4 LOW RISK 4.4 - 7.1 AVERAGE RISK 7.1 - 11.0 MODERATE RISK >11.0 HIGH RISK Performed By: #### L IPID, CMP, URIC ####[facility] [address] [id number]. Carmelita White Cholesterol [Mass/Vol] 147 mg/dL Normal <=[address] [facility] Comment on above: Performed By: #### L IPID, CMP, URIC ####[facility] [address] [id number]. Carmelita White Cholesterol in HDL [Mass/Vol] 34 mg/dL Critically low 40-[address] [facility] Comment on above: Performed By: #### L IPID, CMP, URIC ####[facility] [address] [id number]. Carmelita White Cholesterol in LDL [Mass/Vol] 84.6 mg/dL Normal [facility] Comment on above: Performed By: #### L IPID, CMP, URIC ####[facility] [address] [place] [id number]. Carmelita White Cholesterol.total/ Cholesterol in HDL [Mass ratio] 4.3 {ratio} Normal [facility] Comment on above: Performed By: #### L IPID, CMP, URIC ####[facility] [address] [id number]. Carmelita White HDL NORMAL > or = 60 mg/dl - LO W CARDIOVASCULAR RISK <40 mg/dl - HIGH CARDIOVASCULAR RISK Normal [facility] Comment on above: Performed By: #### L IPID, CMP, URIC ####[facility] [address] [id number]. Carmelita White LDL CALC NORMAL SEE BELOW Normal [facility] Comment on above: Result Comment: <100 mg/dl OPTIMAL 100 - 129 mg/dl NEAR OR ABOVE OPTIMAL 130 - 159 mg/dl BORDERLINE HIGH 160 - 189 mg/dl HIGH >190 mg/dl VERY HIGH Performed By: #### L IPID, CMP, URIC ####[facility] [address] [id number]. Carmelita White Triglyceride [Mass/Vol] 142 mg/dL Normal <=[address] [facility] Comment on above: Performed By: #### L IPID, CMP, URIC ####[facility] [address] [id number]. Carmelita White VLDL CALC 28.4 mg/dL Normal [facility] Comment on above: Performed By: #### L IPID, CMP, URIC ####[facility] [address] [address]Dr. Carmelita White PROF 14(COMP METB)on 022 Albumin [Mass/Vol] 4.0 g/dL Normal 3.4-5.0 [facility] Comment on above: Performed By: #### L IPID, CMP, URIC ####[facility] [address] [address]Dr. Carmelita White Albumin/Globulin [Mass ratio] 1.2 {ratio} Normal [facility] Comment on above: Performed By: #### L IPID, CMP, URIC ####[facility] [address] [place] [address]Dr. Carmelita White ALP [Catalytic activity/Vol] 131 U/L Critically high 46-116 [facility] Comment on above: Performed By: #### L IPID, CMP, URIC ####[facility] [address] [address]Dr. Carmelita White ALT [Catalytic activity/Vol] 36 U/L Normal 16-63 [facility] Comment on above: Performed By: #### L IPID, CMP, URIC ####[facility] [address] [address]Dr. Carmelita White Anion gap [Moles/Vol] 13.0 mmol/L Normal [facility] Comment on above: Performed By: #### L IPID, CMP, URIC ####[facility] [address] [address]Dr. Carmelita White AST [Catalytic activity/Vol] 14 U/L Critically low 15-37 [facility] Comment on above: Performed By: #### L IPID, CMP, URIC ####[facility] [address] [place] [address]Dr. Carmelita White Bilirubin [Mass/Vol] 0.7 mg/dL Normal 0.2-1.0 [facility] Comment on above: Performed By: #### L IPID, CMP, URIC ####[facility] [address] [place] [address]Dr. Carmelita White Calcium [Mass/Vol] 9.3 mg/dL Normal 8.5-10.1 [facility] Comment on above: Performed By: #### L IPID, CMP, URIC ####[facility] [address] [place] [address]Dr. Carmelita White Chloride [Moles/Vol] 104 mmol/L Normal 98-[address] [facility] Comment on above: Performed By: #### L IPID, CMP, URIC ####[facility] [address] [place], [place] [address]Dr. Carmelita White CO2 [Moles/Vol] 27.2 mmol/L Normal 21.0-32.0 [facility] Comment on above: Performed By: #### L IPID, CMP, URIC ####[facility] [address] [place], [place] [address]Dr. Carmelita White Creatinine [Mass/Vol] 1.20 mg/dL Normal 0.70-1.[address] [facility] Comment on above: Performed By: #### L IPID, CMP, URIC ####[facility] [address] [place], [place] [address]Dr. Carmelita White EGFR-AF NAURUAN >60 Normal >=60 [facility] Comment on above: Performed By: #### L IPID, CMP, URIC ####[facility] [address] [place], [place] [address]Dr. Carmelita White EGFR-NON AF NAURUAN >60 Normal >=[address] [facility] Comment on above: Performed By: #### L IPID, CMP, URIC ####[facility] [address] [place], [place] [address]Dr. Carmelita White Globulin (S) [Mass/Vol] 3.4 g/dL Normal [facility] Comment on above: Performed By: #### L IPID, CMP, URIC ####[facility] [address] [place] [address]Dr. Carmelita White Glucose [Mass/Vol] 97 mg/dL Normal 74-106 [facility] Comment on above: Performed By: #### L IPID, CMP, URIC ####[facility] [address] [place] [address]Dr. Carmelita White Potassium [Moles/Vol] 4.2 mmol/L Normal 3.5-5.[address] [facility] Comment on above: Performed By: #### L IPID, CMP, URIC ####[facility] [address] [place] [address]Dr. Carmelita White Protein [Mass/Vol] 7.4 g/dL Normal 6.4-8.2 [facility] Comment on above: Performed By: #### L IPID, CMP, URIC ####[facility] [address] [place], [place] [address]Dr. Nandaenrique White Sodium [Moles/Vol] 140 mmol/L Normal 136-145 [facility] Comment on above: Performed By: #### L IPID, CMP, URIC ####[facility] [address] [place] [address]Dr. Carmelita White Urea nitrogen [Mass/Vol] 19.0 mg/dL Critically high 7.0-18.[address] [facility] Comment on above: Performed By: #### L IPID, CMP, URIC ####[facility] [address] [place] [address]Dr. Nandaenrique White Urea nitrogen/Creatinin e [Mass ratio] 15.8 mg/mg Normal [facility] Comment on above: Performed By: #### L IPID, CMP, URIC ####[facility] [address] [place] [address]Dr. Carmelita White URIC ACID SERUMon 02-23-2022 Urate [Mass/Vol] 6.5 mg/dL Normal 3.5-7.2 [facility] Comment on above: Performed By: #### L IPID, CMP, URIC ####[facility] [address] [place], [place] [address]Dr. Nandaenrique White GLYCOHEMOGLOBIN A1Con 2021 ADA RECOMMENDATION ADA THERAPEUTIC TARG ET 6.0 - 7.0 ACTION SUGGESTED > 7.0 Normal [facility] Comment on above: Performed By: #### A 1C #### [facility] [address] [place] [address] Dr. Carmelita White Glucose [Mass/Vol] 126 mg/dL Normal [facility] Comment on above: Performed By: #### A 1C #### [facility] [address] [address] [address] Carmelita White HbA1c (Bld) [Mass fraction] 6.0 % Normal <=6.0 [facility] Comment on above: Performed By: #### A 1C #### [facility] [address] [place] [address] Dr. Carmelita White LIPID PROFILEon 08-04-2021 CHOL-HDL RATIO NORM SEE BELOW Normal [facility] Comment on above: Result Comment: 3.3 - 4.4 LOW RISK 4.4 - 7.1 AVERAGE RISK 7.1 - 11.0 MODERATE RISK >11.0 HIGH RISK Performed By: #### L IPID #### [facility] [address] [address] [address] Carmelita White Cholesterol [Mass/Vol] 150 mg/dL Normal <=200 [facility] Comment on above: Performed By: #### L IPID #### [facility] [address] [place] [address] Dr. Carmelita White Cholesterol in HDL [Mass/Vol] 34 mg/dL Normal [facility] Comment on above: Performed By: #### L IPID #### [facility] [address] [address] [address] Carmelita White Cholesterol in LDL [Mass/Vol] 79.2 mg/dL Normal [facility] Comment on above: Performed By: #### L IPID #### [facility] [address] [place] [address] Dr. Carmelita White Cholesterol.total/ Cholesterol in HDL [Mass ratio] 4.4 {ratio} Normal [facility] Comment on above: Performed By: #### L IPID #### [facility] [address] [address] [address] Carmelita White HDL NORMAL > or = 60 mg/dl - LO W CARDIOVASCULAR RISK <40 mg/dl - HIGH CARDIOVASCULAR RISK Normal [facility] Comment on above: Performed By: #### L IPID #### [facility] [address] [address] [address] Carmelita White LDL CALC NORMAL SEE BELOW Normal [facility] Comment on above: Result Comment: <100 mg/dl OPTIMAL 100 - 129 mg/dl NEAR OR ABOVE OPTIMAL 130 - 159 mg/dl BORDERLINE HIGH 160 - 189 mg/dl HIGH >190 mg/dl VERY HIGH Performed By: #### L IPID #### [facility] [address] [address] [address] Carmelita White Triglyceride [Mass/Vol] 184 mg/dL Critically high <=150 [facility] Comment on above: Performed By: #### L IPID #### [facility] [address] [address] [address] Carmelita White VLDL CALC 36.8 mg/dL Normal [facility] Comment on above: Performed By: #### L IPID #### [facility] [address] [address] [address] Carmelita White CBC W/DIFFon 06-24-2021 ABS IMM GRANS 0.0 10*3/uL Normal 0.0-0.2 [facility] Comment on above: Order Comment: No: D o not add to previous draw Performed By: #### 5 0103 #### [facility] [address] [facility] [place] [address], [facility] ABS NEUTROPHILS 4.6 10*3/uL Normal 1.6-7.6 [facility] Comment on above: Order Comment: No: D o not add to previous draw Performed By: #### 5 0103 #### [facility] [address] [facility] [place] [address], [facility] Basophils (Bld) [#/Vol] 0.1 10*3/uL Normal 0.0-0.2 [facility] Comment on above: Order Comment: No: D o not add to previous draw Performed By: #### 5 0103 #### [facility] [address] [place] [address], [facility] Basophils/100 WBC (Bld) 1.0 % Normal 0.0-1.0 [facility] Comment on above: Order Comment: No: D o not add to previous draw Performed By: #### 5 0103 #### [facility] [address] [place] [address], [facility] Eosinophils (Bld) [#/Vol] 0.2 10*3/uL Normal 0.0-0.5 [facility] Comment on above: Order Comment: No: D o not add to previous draw Performed By: #### 5 0103 #### [facility] [address] [place] [address], [facility] Eosinophils/100 WBC (Bld) 2.8 % Normal 0.0-6.0 [facility] Comment on above: Order Comment: No: D o not add to previous draw Performed By: #### 5 0103 #### [facility] [address] [place] [address], [facility] Erythrocyte distribution width (RBC) [Ratio] 12.7 % Normal 11.5-15.0 [facility] Comment on above: Order Comment: No: D o not add to previous draw Performed By: #### 5 0103 #### [facility] [address] [place] [address], [facility] Hematocrit (Bld) [Volume fraction] 41.5 % Normal 39.0-50.0 [facility] Comment on above: Order Comment: No: D o not add to previous draw Performed By: #### 5 0103 #### [facility] [address] [place] [address], [facility] Hemoglobin (Bld) [Mass/Vol] 13.9 g/dL Normal 13.0-17.0 [facility] Comment on above: Order Comment: No: D o not add to previous draw Performed By: #### 5 0103 #### [facility] [address] [facility] [place] [place] [address], [facility] IMMATURE GRANS 0.3 % Normal 0.0-1.0 [facility] Comment on above: Order Comment: No: D o not add to previous draw Performed By: #### 5 0103 #### [facility] [address] [place] [address], [facility] Lymphocytes (Bld) [#/Vol] 1.7 10*3/uL Normal 1.2-4.0 [facility] Comment on above: Order Comment: No: D o not add to previous draw Performed By: #### 5 0103 #### [facility] [address] [place] [address], [facility] Lymphocytes/100 WBC (Bld) 24.0 % Normal 20.0-45.0 [facility] Comment on above: Order Comment: No: D o not add to previous draw Performed By: #### 5 0103 #### [facility] [address] [place] [address], [facility] MCH (RBC) [Entitic mass] 29.9 pg Normal 27.0-33.0 [facility] Comment on above: Order Comment: No: D o not add to previous draw Performed By: #### 5 0103 #### [facility] [address] [place] [address], [facility] MCHC (RBC) [Mass/Vol] 33.5 g/dL Normal 32.0-35.0 [facility] Comment on above: Order Comment: No: D o not add to previous draw Performed By: #### 5 0103 #### [facility] [address] [place] [address], [facility] MCV (RBC) [Entitic vol] 89.2 fL Normal 82.0-98.0 [facility] Comment on above: Order Comment: No: D o not add to previous draw Performed By: #### 5 0103 #### [facility] [address] [place] [address], [facility] Monocytes (Bld) [#/Vol] 0.6 10*3/uL Normal 0.1-1.0 [facility] Comment on above: Order Comment: No: D o not add to previous draw Performed By: #### 5 0103 #### [facility] [address] [place] [address], [facility] MONOS 8.0 % Normal 5.0-12.0 [facility] Comment on above: Order Comment: No: D o not add to previous draw Performed By: #### 5 0103 #### [facility] [address] [place] [address], [facility] Neutrophils/100 WBC (Bld) 63.9 % Normal 40.0-72.0 [facility] Comment on above: Order Comment: No: D o not add to previous draw Performed By: #### 5 0103 #### [facility] [address] [facility] [place] [address], [facility] Nucleated RBC/100 WBC (Bld) [Ratio] 0 % Normal 0-0 [facility] Comment on above: Order Comment: No: D o not add to previous draw Performed By: #### 5 0103 #### [facility] [address] [facility] [place] [address], [facility] PLAT CNT 187 10*3/uL Normal 150-400 [facility] Comment on above: Order Comment: No: D o not add to previous draw Performed By: #### 5 0103 #### [facility] [address] [facility] [place] [address], [facility] RBC (Bld) [#/Vol] 4.65 10*6/uL Normal 4.20-5.70 [facility] Comment on above: Order Comment: No: D o not add to previous draw Performed By: #### 5 0103 #### [facility] [address] [place] [address], [facility] WBC (Bld) [#/Vol] 7.22 10*3/uL Normal 4.00-10.60 [facility] Comment on above: Order Comment: No: D o not add to previous draw Performed By: #### 5 0103 #### [facility] [address] [place] [address], [facility] COMP METABOLIC PANELon 06-24 Albumin [Mass/Vol] 3.9 g/dL Normal 3.5-5.7 [facility] Comment on above: Order Comment: No: D o not add to previous draw Performed By: #### 0 0121, [id number] #### [facility] [address] [place] [address], [facility] ALKALINE PHOSPH 108 IU/L High 34-104 [facility] Comment on above: Order Comment: No: D o not add to previous draw Performed By: #### 0 0121, [id number] #### [facility] [address] [place] [address], [facility] ALT [Catalytic activity/Vol] 26 U/L Normal 7-52 [facility] Comment on above: Order Comment: No: D o not add to previous draw Performed By: #### 0 0121, 02030 #### [facility] [address] [place] [address], [facility] AST [Catalytic activity/Vol] 12 U/L Low 13-39 [facility] Comment on above: Order Comment: No: D o not add to previous draw Performed By: #### 0 0121, 74948 #### [facility] [address] [place] [address], [facility] Bilirubin [Mass/Vol] 0.8 mg/dL Normal 0.3-1.0 [facility] Comment on above: Order Comment: No: D o not add to previous draw Performed By: #### 0 0121, 81821 #### [facility] [address] [place] [address], [place] Calcium [Mass/Vol] 9.0 mg/dL Normal 8.6-10.3 [facility] Comment on above: Order Comment: No: D o not add to previous draw Performed By: #### 0 0121, 05328 #### [facility] [address] [place] [address], [place] Chloride [Moles/Vol] 103 mmol/L Normal 98-107 [facility] Comment on above: Order Comment: No: D o not add to previous draw Performed By: #### 0 0121, [id number] #### [facility] [address] [place] [address], [place] CO2 [Moles/Vol] 28 mmol/L Normal 21-31 [facility] Comment on above: Order Comment: No: D o not add to previous draw Performed By: #### 0 0121, 15299 #### [facility] [address] [place] [address], [place] Creatinine [Mass/Vol] 1.24 mg/dL Normal 0.70-1.30 [facility] Comment on above: Order Comment: No: D o not add to previous draw Performed By: #### 0 0121, 73943 #### [facility] [address] [place] [address], [place] GFR/1.73 sq M.predicted among blacks MDRD (S/P/Bld) [Vol rate/Area] mL/min/{1.73_m2} Normal >60 [facility] Comment on above: Order Comment: No: D o not add to previous draw Performed By: #### 0 0121, 23509 #### [facility] [address] [place] [address], [place] GFR/1.73 sq M.predicted among non-blacks MDRD (S/P/Bld) [Vol rate/Area] mL/min/{1.73_m2} Normal >60 [facility] Comment on above: Order Comment: No: D o not add to previous draw Performed By: #### 0 0121, 87821 #### [facility] [address] [place] [address], [place] Glucose [Mass/Vol] 102 mg/dL High 70-100 [facility] Comment on above: Order Comment: No: D o not add to previous draw Performed By: #### 0 0121, 76006 #### [facility] [address] [place] [address], [place] Potassium [Moles/Vol] 4.3 mmol/L Normal 3.5-5.1 [facility] Comment on above: Order Comment: No: D o not add to previous draw Performed By: #### 0 0121, 96434 #### [facility] [address] [place] [address], [place] Protein [Mass/Vol] 6.3 g/dL Normal 6.0-8.3 [facility] Comment on above: Order Comment: No: D o not add to previous draw Performed By: #### 0 0121, 50738 #### [facility] [address] [place] [address], [place] Sodium [Moles/Vol] 136 mmol/L Normal 136-145 [facility] Comment on above: Order Comment: No: D o not add to previous draw Performed By: #### 0 0121, 95510 #### [facility] [address] [place] [address], [place] Urea nitrogen [Mass/Vol] 22 mg/dL Normal 7-25 [facility] Comment on above: Order Comment: No: D o not add to previous draw Performed By: #### 0 0121, 95028 #### [facility] [address] [place] [address], [place] LIPID PROFILEon 06-24-2021 Cholesterol [Mass/Vol] 149 mg/dL Normal 120-200 [facility] Comment on above: Order Comment: No: D o not add to previous draw Result Comment: CHOL ESTEROL REFERENCE RANGE: 20 YEARS AND OLDER CARDIOVASCULAR RISK Less than 200 mg/dl Low Risk 200 to 239 mg/dl Borderline Risk 240 mg/dl and greater High Risk Performed By: #### 0 0121, 03223 #### [facility] [address] [place] [address], [facility] Cholesterol in HDL [Mass/Vol] 34 mg/dL Normal 23-92 [facility] Comment on above: Order Comment: No: D o not add to previous draw Result Comment: Slig ht variation in normal range could be due to gender and/or age. HDL CHOLESTEROL REFERENCE RANGE: 20 years and older Cardiovascular Risk > or =60 mg/dL Desirable 40 TO 59 mg/dL Low Risk <40 mg/dL High Risk Performed By: #### 0 0121, 74906 #### [facility] [address] [place] [address], [facility] Cholesterol in LDL [Mass/Vol] 101 mg/dL Normal 0-130 [facility] Comment on above: Order Comment: No: D o not add to previous draw Result Comment: LDL IS A CALCULATION LDL IS ONLY VALID IF THE TRIG IS LESS THAN 400. Performed By: #### 0 0121, 93564 #### [facility] [address] [place] [address], [facility] Cholesterol.total/ Cholesterol in HDL [Mass ratio] 4.4 {ratio} Normal .0-4.5 [facility] Comment on above: Order Comment: No: D o not add to previous draw Performed By: #### 0 0121, 04853 #### [facility] [address] [place] [address], [facility] NON-HDL CHOLESTEROL 115 mg/dL Normal [facility] Comment on above: Order Comment: No: D o not add to previous draw Performed By: #### 0 0121, 23756 #### [facility] [address] Triglyceride [Mass/Vol] 72 mg/dL Normal 40-149 [facility] Comment on above: Order Comment: No: D o not add to previous draw Result Comment: TRIG LYCERIDE REFERENCE RANGE: 20 YEARS AND OLDER CARDIOVASCULAR RISK LESS THAN 150 mg/dl LOW RISK 150 TO 199 mg/dl BORDERLINE RISK 200 mg/dl AND GREATER HIGH RISK Performed By: #### 0 0121, 72902 #### [facility] [address] VLDL CHOL 14 mg/dL Normal 0-40 [facility] Comment on above: Order Comment: No: D o not add to previous draw Performed By: #### 0 0121, 32949 #### [facility] [address] Cardiovascular Lab Reporton 06-23-2021 Cardiovascular Lab Report [facility] Patient Name: Thad Castro MR #: [id number] [facility] Physician: Michelle Gleason MD Department of Service Date: 06/23/2021 Medicine Birthdate: 1970 Division of Room #: 3CD [id number] Cardiology Adult Cardiovascular Services [place] [address] Cardiovascular Laboratory Report Cardiovascular Laboratory Report FINAL IMPRESSIONS: 1. 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 2. 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 RECOMMENDATIONS: 1. Aspirin 81 mg lifelong. 2. Plavix 75 mg daily for a minimum of 6 months, preferably half-way. 3. Aggressive risk factor modification. 4. Optimization [...] to proceed with an interventional procedure. A 6-Bur[place] XB 3.5 catheter was advanced in and [...] Gleason MD Date Trans: 06/23/2021 07:55 P/ [id number] cc: Rubin Baron M.D. [address] [place] [facility] [id number] Normal [facility] POC SARS COV2 ANTIGEN NEGATI VEon 06-23-2021 POC SARS COV2 ANTIGEN NEG Negative Normal NEGATIVE [facility] Comment on above: Result Comment: Nega [...] Accreditation. Performed By: #### 3 1977 #### [facility] [address] [place] [address], [facility] CBC AUTO DIFFon 06-18-2021 BASO # 0.1 103/ul Normal 0.0-0.[address] [facility] Comment on above: Performed By: #### C BC #### [facility] [address] [place] [address] [address] Carmelita White Basophils/100 WBC (Bld) 0.9 % Normal 0.2-2.0 [facility] Comment on above: Performed By: #### C BC #### [facility] [address] [place] [address] [address] Carmelita White EO # 0.2 103/ul Normal 0.0-0.[address] [facility] Comment on above: Performed By: #### C BC #### [facility] [address] [place] [address] Dr. Carmelita White Eosinophils/100 WBC (Bld) 2.6 % Normal 0.9-7.0 [facility] Comment on above: Performed By: #### C BC #### [facility] [address] [place] [address] Dr. Carmelita White Erythrocyte distribution width (RBC) [Ratio] 12.4 % Normal 11.0-15.0 [facility] Comment on above: Performed By: #### C BC #### [facility] [address] [place] [address] Dr. Carmelita White Hematocrit (Bld) [Volume fraction] 44.8 % Normal 42.0-54.0 [facility] Comment on above: Performed By: #### C BC #### [facility] [address] [place] [address] Dr. Carmelita White Hemoglobin (Bld) [Mass/Vol] 15.2 g/dL Normal 14.0-18.0 [facility] Comment on above: Performed By: #### C BC #### [facility] [address] [place] [address] Dr. Carmelita White IG # 0.03 10e3/ul Normal 0.00-0.03 [facility] Comment on above: Performed By: #### C BC #### [facility] [address] [place] [address] Dr. Carmelita White IG % 0.5 % Normal 0.0-0.5 [facility] Comment on above: Performed By: #### C BC #### [facility] [address] [place] [address] Dr. Carmelita White LYMPH # 1.5 103/ul Normal 1.2-3.8 [facility] Comment on above: Performed By: #### C BC #### [facility] [address] [place] [address] Dr. Carmelita White Lymphocytes/100 WBC (Bld) 22.5 % Normal 20.5-60.0 [facility] Comment on above: Performed By: #### C BC #### [facility] [address] [place] [address] Dr. Carmelita White MANUAL DIFF REQ NO Normal [facility] Comment on above: Performed By: #### C BC #### [facility] [address] [place] [address] Dr. Carmelita White MCH (RBC) [Entitic mass] 29.7 pg Normal 25.9-34.0 [facility] Comment on above: Performed By: #### C BC #### [facility] [address] [place] [address] Dr. Carmelita White MCHC (RBC) [Mass/Vol] 33.9 g/dL Normal 29.9-35.[address] [facility] Comment on above: Performed By: #### C BC #### [facility] [address] [place] [address] Dr. Carmelita White MCV (RBC) [Entitic vol] 87.5 fL Normal 80.0-94.0 [facility] Comment on above: Performed By: #### C BC #### [facility] [address] [place] [address] Dr. Carmelita White MONO # 0.4 103/ul Normal 0.3-0.[address] [facility] Comment on above: Performed By: #### C BC #### [facility] [address] [place] [address] Dr. Carmelita White Monocytes/100 WBC (Bld) 5.5 % Normal 1.7-12.[address] [facility] Comment on above: Performed By: #### C BC #### [facility] [address] [place] [address] Dr. Carmelita White NEUT # 4.5 103/ul Normal 1.4-6.5 [facility] Comment on above: Performed By: #### C BC #### [facility] [address] [place] [address] Dr. Carmelita White Neutrophils/100 WBC (Bld) 68.0 % Normal 43.0-75.0 [facility] Comment on above: Performed By: #### C BC #### [facility] [address] [place] [address] Dr. Carmelita White Platelet mean volume (Bld) [Entitic vol] 8.5 fL Critically low 9.5-13.5 [facility] Comment on above: Performed By: #### C BC #### [facility] [address] [place] [address] Dr. Carmelita White PLT 238 103/ul Normal 150-[address] [facility] Comment on above: Performed By: #### C BC #### [facility] [address] [place] [address] Dr. Carmelita White RBC 5.12 106/ul Normal 4.70-6.10 [facility] Comment on above: Performed By: #### C BC #### [facility] [address] [place] [address] Dr. Carmelita White WBC 6.5 103/ul Normal 4.0-11.0 [facility] Comment on above: Performed By: #### C BC #### [facility] [address] [place] [address] Dr. Carmelita White PROF CHEM 8 (BAS METB)on Anion gap [Moles/Vol] 14.7 mmol/L Normal [facility] Comment on above: Performed By: #### B MP #### [facility] [address] [place] [address] Dr. Carmelita White Calcium [Mass/Vol] 9.3 mg/dL Normal 8.4-10.2 [facility] Comment on above: Performed By: #### B MP #### [facility] [address] [place] [address] [address] Carmelita White Chloride [Moles/Vol] 101 mmol/L Normal 98-[address] [facility] Comment on above: Performed By: #### B MP #### [facility] [address] [place] [address] [address] Carmelita White CO2 [Moles/Vol] 28.2 mmol/L Normal 22.0-30.0 [facility] Comment on above: Performed By: #### B MP #### [facility] [address] [place] [address] [address] Carmelita White Creatinine [Mass/Vol] 1.33 mg/dL Critically high 0.66-1.[address] [facility] Comment on above: Performed By: #### B MP #### [facility] [address] [address] [address] Carmelita White EGFR-AF NAURUAN >60 Normal >=60 [facility] Comment on above: Performed By: #### B MP #### [facility] [address] [address] [address] Carmelita White EGFR-NON AF NAURUAN 57 mL/min/1.73m2 Critically low >=[address] [facility] Comment on above: Performed By: #### B MP #### [facility] [address] [address] [address] Carmelita Whiet Glucose [Mass/Vol] 99 mg/dL Normal 74-106 [facility] Comment on above: Performed By: #### B MP #### [facility] [address] [address] [address] Carmelita White Potassium [Moles/Vol] 4.9 mmol/L Normal 3.4-5.[address] [facility] Comment on above: Performed By: #### B MP #### [facility] [address] [address] [address] Carmelita White Sodium [Moles/Vol] 139 mmol/L Normal 137-145 [facility] Comment on above: Performed By: #### B MP #### [facility] [address] [place] [address] [address] Carmelita White Urea nitrogen [Mass/Vol] 21.0 mg/dL Critically high 9.0-20.0 [facility] Comment on above: Performed By: #### B MP #### [facility] [address] [address] [address] Carmelita White Urea nitrogen/Creatinin e [Mass ratio] 15.8 mg/mg Normal [facility] Comment on above: Performed By: #### B MP #### [facility] [address] [place] [address] [address] Carmelita White NM STRESS/REST MULTIon 06-09 NM STRESS/REST MULTI Patient: THAD CASTRO Exam Date: 06/09/2021 : 1970 Gender:M Ordering : DR RUBIN BARON . Admission #: [id number] Family : Order #: [id number] CLICK HERE TO VIEW EXAM RADIOLOGY REPORT [...] PERFUSION DEFECT: LOCATION: Mid-anterior. Mid-anteroseptal. Apical anterior. [place]. SIZE: Medium (3-4 segments). SEVERITY: Severe. TYPE: [...] Mathur MD on 06/11/2021 at 13:23 Normal [facility] Vital Signs Date Time Vital Sign Value Performing Clinician Rudolph patton 09-08-2023 14:53-0500 Blood Pressure Location Naren NILL [facility] 09-08-2023 14:53-0500 Diastolic blood pressure 88 mm[Hg] Naren NILL [facility] 09-08-2023 14:53-0500 Heart rate 72 /min Naren NILL [facility] 09-08-2023 14:53-0500 Respiratory rate 16 /min Naren NILL [facility] 09-08-2023 14:53-0500 Systolic blood pressure 146 mm[Hg] Naren NILL [facility] Encounters Encounter Date Encounter Type Care Provider Facility Start: 01-25-2024 End: 01-25-2024 ambulatory [facility] Start: 10-05-2023 End: 10-06-2023 ambulatory Naren R NILL Facility:[facility] Start: 10-05-2023 End: 10-05-2023 Patient encounter procedure Naren R NILL General Surgery Nill/[facility] [place] Start: 09-22-2023 End: 09-23-2023 ambulatory Naren R NILL Facility: [facility] Start: 09-08-2023 End: 09-09-2023 ambulatory Naren R NILL Facility:[facility] Start: 09-08-2023 End: 09-08-2023 Patient encounter procedure Naren R NILL General Surgery [facility] [place] Start: 09-07-2023 ambulatory Naren MEDEROS Facility:[facility] Start: 09-06-2023 ambulatory [facility]ren MEDEROS [facility] Start: 08-20-2023 End: 08-20-2023 ambulatory ELVIRA ALSTON [facility] Start: 02-12-2023 End: 02-12-2023 ambulatory MICHELLE GLEASON [facility] Start: 02-23-2022 End: 02-24-2022 ambulatory ELVIRA ALSTON Facility:[facility] Start: 08-04-2021 End: 08-05-[address] RUBIN BARON Facility:[facility] Start: 06-28-2021 Encounter for preprocedural laboratory examination DR DOCTOR MILLER [facility] Start: 06-25-[address] DOCTOR MILLER Facility :[facility] Start: 06-23-2021 End: 06-24-2021 ambulatory MERA JURADO Facility:[facility] Start: 06-18-2021 End: 06-19-2021 [...] on above: Performed By: #### PSASC #### [facility] [address] [place] [address] Dr. Carmelita MEDEROS Coronary artery sten t (physical object) Naren MEDEROS Fluoroscopic angiopl asty of bilateral iliac arteries and insertion of bilateral iliac artery stents Naren MEDEROS History of ankle surgery Maik hael NILL Immunizations Immunization Date Immunization Notes Care Provider Fa cili 07-24-2021 SARS-CoV-2 (COVID-19 ) mRNA BNT-162b2 vax Naren NILL [facility] 11-25-2020 SARS-CoV-2 (COVID-19 ) mRNA BNT-162b2 vax Naren NILL [facility] 11-04-2020 SARS-CoV-2 (COVID-19 ) mRNA BNT-162b2 vax Naren NILL [facility] NEGATED: Highlighted row has not occurred!09-08-2023 influenza virus vaccine, unspecified formulation Naren NILL [facility] [place] Payers Date Payer Category Payer Unknown [id number] 2.16.8 [id number] 1970 Unknown [id number] 2.16.84 [id number] 1969 Unknown [id number] 2.16.84 0.1.066284.3.579.2.593 1969 Unknown [id number] 2.16.84 0.1.896890.3.579.2.593 1969 Unknown [id number] 2.16.84 0.1.571809.3.579.2.593 1969 Unknown [id number] 2.16.84 0.1.311441.3.579.2.593 1969 Unknown [id number] 2.16.84 0.1.033413.3.579.2.593 1969 Unknown [id number] 2.16.84 0.1.966115.3.579.2.593 1969 Unknown [id number] 2.16.8 40.1.743876.3.579.2.727 1969 Unknown [id number] 2.16.8 40.1.275828.3.579.2.727 1969 Unknown [id number] 2.16.8 40.1.354330.3.579.2.727 1969 Unknown [id number] 2.16.8 [id number] 1960 Medicaid [id number] Social History Date Type Detail Facility Start: 09-08-2023 Tobacco smoking status Light t obacco smoker (finding) [facility] [place] Tobacco smoking status Smokeless tobacco user within last 30 days [facility] [place] Sex Assigned At Male [facility] Functional Status Date Assessment Result Facility 09-08-2023 Functional Status N/A [facility] Clinical Notes 02-12-2023 to 01-25-2024 Note [...] as needed. Michelle Gleason MD Interventional Cardiology [facility] 09-08-2023 Note Chief Complaint consultation for [...] tablet, 1 tab(s), (more content not included)... [facility] Comment on above: Result Comment: Elec tronically Signed By: GATITO HARRISON, Naren Gleason\Date and Time Signed: 09/08/23 19:40 EST 08-20-2023 Note Continues to smoke a nd provider had strong conversation with pt that he needs to completely stop smoking to prevent stent re-occlusion and management of CAD [facility] 08-20-2023 Note Patient here for 6 m o follow up CAD, hypertension, and hyperlipidemia. Had routine labs back in Feb 2023. Denies chest pain, SOB, and palpitations. Review of Systems Cardiovascular: Positive for leg swelling (resolves by morning). Musculoskeletal: Positive for arthritis and back pain. All other systems reviewed and are negative. 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 Tobacco dependence syndrome Continues to smoke and provider had strong conversation with pt that he needs to completely stop smoking to prevent stent re-occlusion and management of CAD RTC 6 months [facility] 08-20-2023 Note Coronary artery dise ase is stable Continue GDMT- ASA and plavix half-way, lipitor and zetia, with metoprolol D/W risk factor and lifestyle modifications- heart healthy diet, regular exercise as tolerated and continue all medications. [facility] 08-20-2023 Note Hypertension is well controlled Continue irbesartan, metoprolol Renal function normal [facility] 08-20-2023 Note Continue lipitor and zetia Well controlled and liver function normal [facility] 02-12-2023 Note Patient here for 6 m o follow up CAD, hypertension, and hyperlipidemia. Since last visit, Dr. Baron re-started him on low dose metoprolol. Doesn't check his BP at home very often, as he feels great. Denies chest pain, SOB, and lightheadedness. [facility] 02-12-2023 Note Cardiology Follow Up Progress [...] as needed. Michelle Gleason MD Interventional Cardiology [facility] Michelle Gleason MD Interventional Cardiology [facility] Evaluation + Plan note No data available for this section [facility] [place] [facility] Discharge instructions No data available for this section [facility] [place] Progress note No data available for this section [facility] [place] Summary Purpose Family History No Family History [...] and content) DATE CREATED AUTHOR 06/28/2021 [facility] DATE CREATED AUTHOR AUTHOR'S ORGANIZ ATION 02/26/2022 [facility] DATE CREATED AUTHOR AUTHOR'S ORGANIZ ATION 10/12/2023 [facility] DATE CREATED AUTHOR AUTHOR'S ORGANIZ ATION 01/26/2024 [facility] Patient Care team informatio n (unrecognized section and content) Personnel Name: Rubin Baron MD Address: Address: [address] [place] [address] Personnel Name: Rubin Baron MD Address: Address: [address] [place] [address] FOR RECORDS PERTAINING TO PATIENTS WHO ARE [...] BE BASED ON THE PRIMARY CLINICAL RECORDS. [facility]. provides no warranty or guarantee of the accuracy or completeness of information in this document.
[2024-12-08 09:05] LABS: Estimated Average Glucose 146 mg/dL; Glycohemoglobin A1C 6.7 % (4.5-6.2)
[2024-12-08 09:40] LABS: Free T4 1.28 ng/dL (0.76-1.46)
[2024-12-08 09:42] LABS: Alanine Aminotransferase 54 U/L (16-63); Albumin Level 3.8 g/dL (3.4-5.0); Alkaline Phosphatase 166 U/L (46-116); Anion Gap 13.2; Aspartate Amino Transferase 24 U/L (15-37); Bilirubin Total 0.7 mg/dL (0.2-1.0); Calcium 9.2 mg/dL (8.5-10.1); Carbon Dioxide 27.1 mmol/L (21.0-32.0); Chloride 102 mmol/L (98-107); Estimated GFR (African America >60 (>=60 mL/min/1.73m^2); Estimated GFR (Non-African Ame >60 (>=60 mL/min/1.73m^2); Globulin 3.7 g/dL; Glucose 132 mg/dL (74-106); Potassium 4.3 mmol/L (3.5-5.1); Sodium 138 mmol/L (136-145); Thyroid Stimulating Hormone 1.904 uIU/mL (0.358-3.740); Total Protein 7.5 g/dL (6.4-8.2)
== END 2024-12-08 08:25 | disposition home or self-care (01) ==
LOC: LAB 08:24
PROVIDERS: PCP Family Medicine; Visit Provider Family Medicine
DX: E11.9 Type 2 diabetes mellitus without complications (principal)
CPT/HCPCS: 80053; 83036; 84439; 84443

== ENCOUNTER 2025-02-19 06:40 | Outpatient (OUT) | payer MEDICAID, SELFPAY ==
--- OUTSIDE RECORDS SUMMARY | 2025-02-19 06:42 | XMS_ITS | CCD ---
Author Organization [facility] Care Team Providers Care Stockroom Helper Name Role Phone MERA JURADO Attending Unavailable [...] Primary Care Unavailable ALGHOTHANI, MOHAMAD Admitting Unavailable ALGHOTHANI MOHAMAAndrey Attending Unavailable ALGHOTHANI, MOHSHOBHAD Consulting Unavailable ALIYAY, DR CONKLIN Admitting [...] Primary Care Unavailable GAMALIEL, ELVIRA Admitting Unavailable HOY, DR CONKLIN Primary Care Unavailable GAMALIEL, ELVIRA Attending Unavailable GAMALIELLACHELLEELVIRA Consulting Unavailable Rubin Baron Primary Care Physician [phone] Naren MEDEROS Attending Unavailable JIMYL, Naren Persaud Attending Unavailable Naren MEDEROS Attending Unavailable JIMYLNaren Attending Unavailable MERA JURADO Attending Unavailable Allergies Allergy Classification Reported Allergen(s) Allergy Type Date of Onset Reaction(s) Facility (1 source) No Known Medication Allergies; Translations: [No Known Medication Allergies] Propensity to adverse reactions (disorder) [facility] Repository Medications Current Medications Medication Drug Class(es) [...] [Diaphragmatic hernia without obstruction or gangrene] Onset: 4 Episodic Alcohol-related disorders (2 sources) Alcohol abuse 09-07-2023 Chronic Coronary atherosclerosis and other heart disease (10 sources) Atherosclerotic heart disease of [place] coronary artery without angina pectoris; Translations: [Coronary arteriosclerosis] Onset: 1 Chronic Deficiency and other anemia (3 sources) Anemia; Translations: [Anemia, unspecified] Onset: 4 Episodic Diabetes mellitus without complication (2 sources) Type 2 diabetes mellitus without complications; Translations: [Type 2 diabetes mellitus without complications] Onset: 5 Chronic Diabetes mellitus without complication (1 source) Other abnormal glucose; Translations: [OTHER ABNORMAL GLUCOSE] Onset: 2 Episodic Disorders of lipid metabolism (1 source) Pure hypercholesterolemia, unspecified; Translations: [PURE HYPERCHOLESTEROLEMIA UNSPEC] Onset: 2 Chronic Esophageal disorders (5 sources) Gastroesophageal reflux disease without esophagitis; Translations: [Gastro-esophageal reflux disease without esophagitis] Onset: 4 Chronic Essential hypertension (3 sources) Essential (primary) hypertension; Translations: [Hypertensive disorder] Onset: 2 09-07-2023 Chronic Other and unspecified benign neoplasm (1 source) Polyp of colon; Translations: [Polyp of colon] Onset: 4 Episodic Other and unspecified benign neoplasm (1 source) Polyp of sigmoid colon 10-05-2023 Episodic Other circulatory disease (2 sources) Other disorder of circulatory system; Translations: [Other disorder of circulatory system] Onset: 5 Episodic Other lower respiratory disease (2 sources) Other forms of dyspnea; Translations: [Other forms of dyspnea] Onset: 5 Episodic Other nutritional; endocrine; and metabolic disorders (3 sources) Body mass index 40+ - severely obese; Translations: [Body mass index (BMI) 40.0-44.9, adult] Onset: 4 Chronic Other nutritional; endocrine; and metabolic disorders (2 sources) Morbid obesity 09-07-2023 Chronic Other screening for suspected conditions (not mental disorders or infectious disease) (2 sources) Encounter for screening for malignant neoplasm of prostate; Translations: [Encounter for screening for malignant neoplasm of rectum] Onset: 2 Episodic Substance-related disorders (3 sources) Nicotine dependence; Translations: [Nicotine dependence, other tobacco product, uncomplicated] Onset: 1 Chronic Past or Other Problems Problem Classification Problem Date Documented Da te Episodic/Chronic Nonspecific chest pain (4 sources) Chest pain, unspecified; Translations: [CHEST PAIN UNSPECIFIED] Onset: 06-09-2021 Episodic Results Test Name Value Interpretation Reference Range Facility Office Visiton 02-01-2025 Follow-up visit [id number] Thad Castro 1970 M Date Provider Department Center 02/01/2025 Allison-MERA JURADO CARD [facility] Family History Problem Relation Age of Onset Hypertension Mother Pancreatic cancer Mother Coronary artery disease Father Stomach cancer Father Other Father Heart murmur Sister Hypertension Brother Family Status - Relation Status Age at Mother Father Sister Brother Level of Service:[address]07 [place] OFFICE/OUTPATIENT ESTABLISHED MOD MDM 30 MIN Normal [facility] Pathology Noteon 10-11-2023 Pathology Note [id number]#1.00TIFF Normal [facility] Pathology Noteon 10-07-2023 Pathology Note [id number]#1.00TIFF Normal [facility] Reminderson 10-07-2023 Reminders - From: Tanya Ibrahim LPN To: GSN - Clinical; Sent: 10/07/2023 09:11:34 EDT Show up: 08/22/2033 07:00:00 EST Subject: colonoscopy recall Due Date/Time: 09/22/2033 07:00:00 EST Reminder/Recall Patient due for screening colonoscopy 09/22/2033. Normal [facility] Ambulatory Visit Summaryon 0 10-05-2023 Ambulatory Visit Summary THAD CASTRO :1970 Visit Date:10/05/2023 Ambulatory Visit Instructions Your [...] choosing us for your care. Dottie Ruiz [facility] General Surgery Office/Clini c Noteon 10-05-2023 [...] mRNA BNT-162b2 vax (more content not included)... [facility] Comment on above: Result Comment: Elec tronically Signed By: GATITO HARRISON, Naren Persaud\.br\Date and Time Signed: 10/05/23 15:16 EDT Outside Colonoscopyon 2023 Outside Colonoscopy [id number]#1.00TIFF [facility] Formson 09-13-2023 Forms [id number]#1.00TIFF [facility] Consent for Procedure/Surger yon 09-10-2023 Consent for Procedure/Surgery [id number]#1.00TIFF [facility] Facesheeton 09-09-2023 Facesheet [id number]#1.00TIFF [facility] Ambulatory Visit Summaryon 0 09-08-2023 Ambulatory Visit Summary GLORIATHAD ANDRIY :1970 Visit Date:09/08/2023 Ambulatory Visit Instructions Your [...] for choosing us for your care. Normal [facility] Physician Referralon 024 Physician Referral [id number]#1.00TIFF Normal [facility] Physician Referralon 024 Physician Referral [id number]#1.00TIFF Normal [facility] INSULINon 02-24-2022 Insulin 14.5 uIU/mL Normal 2.6-24.9 [facility] Comment on above: Performed By: #### I NSULIN #### [facility] [address] [place] [address] Dr. Carmelita White BILIRUBIN CONJUGATED (DIRECT )on 02-23-2022 BILI, CONJUGATED 0.2 mg/dL Normal 0.0-0.2 The [facility] Comment on above: Performed By: #### D JEMMA #### [facility] [address] [place] [address] Dr. Carmelita White CBC AUTO DIFFon 02-23-2022 BASO # 0.1 103/ul Normal 0.0-0.1 [facility] Comment on above: Performed By: #### C BC #### [facility] [address] [place] [address] Dr. Carmelita White Basophils/100 WBC (Bld) 1.2 % Normal 0.2-2.0 [facility] Comment on above: Performed By: #### C BC #### [facility] [address] [place] [address] Dr. Carmelita White EO # 0.2 103/ul Normal 0.0-0.7 [facility] Comment on above: Performed By: #### C BC #### [facility] [address] [place] [address] Dr. Carmelita White Eosinophils/100 WBC (Bld) 4.0 % Normal 0.9-7.0 [facility] Comment on above: Performed By: #### C BC #### [facility] [address] [place] [address] Dr. Carmelita White Erythrocyte distribution width (RBC) [Ratio] 13.2 % Normal 11.0-15.0 [facility] Comment on above: Performed By: #### C BC #### [facility] [address] [place] [address] Dr. Carmelita White Hematocrit (Bld) [Volume fraction] 38.7 % Critically low 42.0-54.0 [facility] Comment on above: Performed By: #### C BC #### [facility] [address] [place] [address] Dr. Carmelita White Hemoglobin (Bld) [Mass/Vol] 13.4 g/dL Critically low 14.0-18.0 [facility] Comment on above: Performed By: #### C BC #### [facility] [address] [place] [address] Dr. Carmelita White IG # 0.02 10e3/ul Normal 0.00-0.03 [facility] Comment on above: Performed By: #### C BC #### [facility] [address] [place] [address] Dr. Carmelita Whtie IG % 0.3 % Normal 0.0-0.5 [facility] Comment on above: Performed By: #### C BC #### [facility] [address] [place] [address] Dr. Carmelita White LYMPH # 1.5 103/ul Normal 1.2-3.8 [facility] Comment on above: Performed By: #### C BC #### [facility] [address] [place] [address] Dr. Carmelita White Lymphocytes/100 WBC (Bld) 24.1 % Normal 20.5-60.0 [facility] Comment on above: Performed By: #### C BC #### [facility] [address] [place] [address] Dr. Carmelita White MANUAL DIFF REQ NO Normal [facility] Comment on above: Performed By: #### C BC #### [facility] [address] [place] [address] Dr. Carmelita White MCH (RBC) [Entitic mass] 30.5 pg Normal 25.9-34.0 [facility] Comment on above: Performed By: #### C BC #### [facility] [address] [place] [address] Dr. Carmelita White MCHC (RBC) [Mass/Vol] 34.6 g/dL Normal 29.9-35.2 [facility] Comment on above: Performed By: #### C BC #### [facility] [address] [place] [address] Dr. Carmelita White MCV (RBC) [Entitic vol] 88.2 fL Normal 80.0-94.0 [facility] Comment on above: Performed By: #### C BC #### [facility] [address] [place] [address] Dr. Carmelita White MONO # 0.4 103/ul Normal 0.3-0.8 [facility] Comment on above: Performed By: #### C BC #### [facility] [address] [place] [address] Dr. Carmelita White Monocytes/100 WBC (Bld) 6.6 % Normal 1.7-12.0 [facility] Comment on above: Performed By: #### C BC #### [facility] [address] [place] [address] Dr. Camrelita White NEUT # 3.9 103/ul Normal 1.4-6.5 [facility] Comment on above: Performed By: #### C BC #### [facility] [address] [place] [address] Dr. Carmelita White Neutrophils/100 WBC (Bld) 63.8 % Normal 43.0-75.0 [facility] Comment on above: Performed By: #### C BC #### [facility] [address] [place] [address] Dr. Carmelita White Platelet mean volume (Bld) [Entitic vol] 8.5 fL Critically low 9.5-13.5 [facility] Comment on above: Performed By: #### C BC #### [facility] [address] [place] [address] Dr. Carmelita White PLT 204 103/ul Normal 150-450 [facility] Comment on above: Performed By: #### C BC #### [facility] [address] [place], [place] [address] Dr. Carmelita White RBC 4.39 106/ul Critically low 4.70-6.10 [facility] Comment on above: Performed By: #### C BC #### [facility] [address] [place] [address] Dr. Carmelita White WBC 6.1 103/ul Normal 4.0-11.0 [facility] Comment on above: Performed By: #### C BC #### [facility] [address] [address] [address] Carmelita White GLYCOHEMOGLOBIN A1Con 2021 ADA RECOMMENDATION SEE BELOW Normal [facility] Comment on above: Result Comment: ADA RECOMMENDED LIMIT 4.0 - 6.0 ADA THERAPEUTIC TARGET < 7.0 ACTION SUGGESTED > 7.0 Performed By: #### A 1C #### [facility] [address] [address] [address] Caremlita White Glucose [Mass/Vol] 120 mg/dL Normal [facility] Comment on above: Performed By: #### A 1C #### [facility] [address] [address] [address] Carmelita White HbA1c (Bld) [Mass fraction] 5.8 % Normal 4.5-6.2 [facility] Comment on above: Performed By: #### A 1C #### [facility] [address] [address] [address] Carmelita White LIPID PROFILEon 02-23-2022 CHOL-HDL RATIO NORM SEE BELOW Normal [facility] Comment on above: Result Comment: 3.3 - 4.4 LOW RISK 4.4 - 7.1 AVERAGE RISK 7.1 - 11.0 MODERATE RISK >11.0 HIGH RISK Performed By: #### L IPID, CMP, URIC ####[facility] [address] [address]Dr. Carmelita White Cholesterol [Mass/Vol] 147 mg/dL Normal <=200 [facility] Comment on above: Performed By: #### L IPID, CMP, URIC ####[facility] [address] [place], [place] [address]LbDr. Carmelita White Cholesterol in HDL [Mass/Vol] 34 mg/dL Critically low 40-60 [facility] Comment on above: Performed By: #### L IPID, CMP, URIC ####[facility] [address] [id number]. Carmelita White Cholesterol in LDL [Mass/Vol] 84.6 mg/dL Normal [facility] Comment on above: Performed By: #### L IPID, CMP, URIC ####[facility] [address] [address]Dr. Carmelita White Cholesterol.total/ Cholesterol in HDL [Mass ratio] 4.3 {ratio} Normal [facility] Comment on above: Performed By: #### L IPID, CMP, URIC ####[facility] [address] [address]Dr. Carmelita White HDL NORMAL > or = 60 mg/dl - LO W CARDIOVASCULAR RISK <40 mg/dl - HIGH CARDIOVASCULAR RISK Normal [facility] Comment on above: Performed By: #### L IPID, CMP, URIC ####[facility] [address] [address]Dr. Carmelita White LDL CALC NORMAL SEE BELOW Normal [facility] Comment on above: Result Comment: <100 mg/dl OPTIMAL 100 - 129 mg/dl NEAR OR ABOVE OPTIMAL 130 - 159 mg/dl BORDERLINE HIGH 160 - 189 mg/dl HIGH >190 mg/dl VERY HIGH Performed By: #### L IPID, CMP, URIC ####[facility] [address] [address]Dr. Carmelita White Triglyceride [Mass/Vol] 142 mg/dL Normal <=150 [facility] Comment on above: Performed By: #### L IPID, CMP, URIC ####[facility] [address] [id number]. Carmelita White VLDL CALC 28.4 mg/dL Normal [facility] Comment on above: Performed By: #### L IPID, CMP, URIC ####[facility] [address] [id number]. Carmelita White PROF 14(COMP METB)on 022 Albumin [Mass/Vol] 4.0 g/dL Normal 3.4-5.0 [facility] Comment on above: Performed By: #### L IPID, CMP, URIC ####[facility] [address] [place] [id number]. Carmelita White Albumin/Globulin [Mass ratio] 1.2 {ratio} Normal [facility] Comment on above: Performed By: #### L IPID, CMP, URIC ####[facility] [address] [address]Dr. Carmelita White ALP [Catalytic activity/Vol] 131 U/L Critically high 46-116 [facility] Comment on above: Performed By: #### L IPID, CMP, URIC ####[facility] [address] [address]Dr. Nandaenrique Christopher ALT [Catalytic activity/Vol] 36 U/L Normal 16-63 [facility] Comment on above: Performed By: #### L IPID, CMP, URIC ####[facility] [address] [address]Dr. Carmelita White Anion gap [Moles/Vol] 13.0 mmol/L Normal [facility] Comment on above: Performed By: #### L IPID, CMP, URIC ####[facility] [address] [place], [place] [address]Dr. Carmelita White AST [Catalytic activity/Vol] 14 U/L Critically low 15-37 [facility] Comment on above: Performed By: #### L IPID, CMP, URIC ####[facility] [address] [place], [place] [address]Dr. Carmelita White Bilirubin [Mass/Vol] 0.7 mg/dL Normal 0.2-1.0 [facility] Comment on above: Performed By: #### L IPID, CMP, URIC ####[facility] [address] [place], [place] [address]Dr. Carmelita White Calcium [Mass/Vol] 9.3 mg/dL Normal 8.5-10.1 [facility] Comment on above: Performed By: #### L IPID, CMP, URIC ####[facility] [address] [place], [place] [address]Dr. Carmelita White Chloride [Moles/Vol] 104 mmol/L Normal 98-107 [facility] Comment on above: Performed By: #### L IPID, CMP, URIC ####[facility] [address] [place], [place] [address]Dr. Carmelita White CO2 [Moles/Vol] 27.2 mmol/L Normal 21.0-32.0 [facility] Comment on above: Performed By: #### L IPID, CMP, URIC ####[facility] [address] [id number]. Carmelita White Creatinine [Mass/Vol] 1.20 mg/dL Normal 0.70-1.30 [facility] Comment on above: Performed By: #### L IPID, CMP, URIC ####[facility] [address] [address]Dr. Carmelita White EGFR-AF JAPANESE >60 Normal >=60 [facility] Comment on above: Performed By: #### L IPID, CMP, URIC ####[facility] [address] [address]Dr. Carmelita White EGFR-NON AF JAPANESE >60 Normal >=60 [facility] Comment on above: Performed By: #### L IPID, CMP, URIC ####[facility] [address] [id number]. Carmelita White Globulin (S) [Mass/Vol] 3.4 g/dL Normal [facility] Comment on above: Performed By: #### L IPID, CMP, URIC ####[facility] [address] [place] [id number]. Carmelita White Glucose [Mass/Vol] 97 mg/dL Normal 74-106 [facility] Comment on above: Performed By: #### L IPID, CMP, URIC ####[facility] [address] [id number]. Carmelita White Potassium [Moles/Vol] 4.2 mmol/L Normal 3.5-5.1 [facility] Comment on above: Performed By: #### L IPID, CMP, URIC ####[facility] [address] [place] [id number]. Carmelita White Protein [Mass/Vol] 7.4 g/dL Normal 6.4-8.2 [facility] Comment on above: Performed By: #### L IPID, CMP, URIC ####[facility] [address] [address]Dr. Carmelita White Sodium [Moles/Vol] 140 mmol/L Normal 136-145 [facility] Comment on above: Performed By: #### L IPID, CMP, URIC ####[facility] [address] [address]Dr. Carmelita White Urea nitrogen [Mass/Vol] 19.0 mg/dL Critically high 7.0-18.0 [facility] Comment on above: Performed By: #### L IPID, CMP, URIC ####[facility] [address] [address]Dr. Carmelita White Urea nitrogen/Creatinin e [Mass ratio] 15.8 mg/mg Normal [facility] Comment on above: Performed By: #### L IPID, CMP, URIC ####[facility] [address] [address]Dr. Carmelita White URIC ACID SERUMon 02-23-2022 Urate [Mass/Vol] 6.5 mg/dL Normal 3.5-7.2 [facility] Comment on above: Performed By: #### L IPID, CMP, URIC ####[facility] [address] [address]Dr. Carmelita White GLYCOHEMOGLOBIN A1Con 2021 ADA RECOMMENDATION ADA THERAPEUTIC TARG ET 6.0 - 7.0 ACTION SUGGESTED > 7.0 Normal [facility] Comment on above: Performed By: #### A 1C #### [facility] [address] [address] [address] Carmelita White Glucose [Mass/Vol] 126 mg/dL Normal [facility] Comment on above: Performed By: #### A 1C #### [facility] [address] [address] [address] Carmelita White HbA1c (Bld) [Mass fraction] 6.0 % Normal <=6.0 [facility] Comment on above: Performed By: #### A 1C #### [facility] [address] [address] [address] Carmelita White LIPID PROFILEon 08-04-2021 CHOL-HDL RATIO NORM SEE BELOW Normal [facility] Comment on above: Result Comment: 3.3 - 4.4 LOW RISK 4.4 - 7.1 AVERAGE RISK 7.1 - 11.0 MODERATE RISK >11.0 HIGH RISK Performed By: #### L IPID #### [facility] [address] [address] [address] Carmelita White Cholesterol [Mass/Vol] 150 mg/dL Normal <=200 [facility] Comment on above: Performed By: #### L IPID #### [facility] [address] [address] [address] Carmelita White Cholesterol in HDL [Mass/Vol] 34 mg/dL Normal [facility] Comment on above: Performed By: #### L IPID #### [facility] [address] [address] [address] Carmelita White Cholesterol in LDL [Mass/Vol] 79.2 mg/dL Normal [facility] Comment on above: Performed By: #### L IPID #### [facility] [address] [address] [address] Carmelita White Cholesterol.total/ Cholesterol in HDL [Mass ratio] 4.4 {ratio} Normal [facility] Comment on above: Performed By: #### L IPID #### [facility] [address] [address] [address] Carmelita White HDL NORMAL > or = 60 mg/dl - LO W CARDIOVASCULAR RISK <40 mg/dl - HIGH CARDIOVASCULAR RISK Normal [facility] Comment on above: Performed By: #### L IPID #### [facility] [address] [address] [address] Carmelita White LDL CALC NORMAL SEE BELOW Normal [facility] Comment on above: Result Comment: <100 mg/dl OPTIMAL 100 - 129 mg/dl NEAR OR ABOVE OPTIMAL 130 - 159 mg/dl BORDERLINE HIGH 160 - 189 mg/dl HIGH >190 mg/dl VERY HIGH Performed By: #### L IPID #### [facility] [address] [address] [address] Carmelita White Triglyceride [Mass/Vol] 184 mg/dL Critically high <=150 [facility] Comment on above: Performed By: #### L IPID #### [facility] [address] [address] [address] Carmelita White VLDL CALC 36.8 mg/dL Normal [facility] Comment on above: Performed By: #### L IPID #### [facility] [address] [address] [address] Carmelita White CBC W/DIFFon 06-24-2021 ABS IMM GRANS 0.0 10*3/uL Normal 0.0-0.2 [facility] Comment on above: Order Comment: No: D o not add to previous draw Performed By: #### 5 0103 #### [facility] [address] ABS NEUTROPHILS 4.6 10*3/uL Normal 1.6-7.6 [facility] Comment on above: Order Comment: No: D o not add to previous draw Performed By: #### 5 0103 #### [facility] [address] [place] [address], [facility] Basophils (Bld) [#/Vol] 0.1 10*3/uL Normal 0.0-0.2 [facility] Comment on above: Order Comment: No: D o not add to previous draw Performed By: #### 5 0103 #### [facility] [address] [place] [address], [facility] Basophils/100 WBC (Bld) 1.0 % Normal 0.0-1.0 [facility] Comment on above: Order Comment: No: D o not add to previous draw Performed By: #### 5 0103 #### [facility] [address] [place] [address], [facility] Eosinophils (Bld) [#/Vol] 0.2 10*3/uL Normal 0.0-0.5 [facility] [facility] Comment on above: Order Comment: No: D o not add to previous draw Performed By: #### 5 0103 #### [facility] [address] [place] [address], [facility] Eosinophils/100 WBC (Bld) 2.8 % Normal 0.0-6.0 [facility] Comment on above: Order Comment: No: D o not add to previous draw Performed By: #### 5 0103 #### [facility] [address] Erythrocyte distribution width (RBC) [Ratio] 12.7 % Normal 11.5-15.0 [facility] Comment on above: Order Comment: No: D o not add to previous draw Performed By: #### 5 0103 #### [facility] [address] Hematocrit (Bld) [Volume fraction] 41.5 % Normal 39.0-50.0 [facility] Comment on above: Order Comment: No: D o not add to previous draw Performed By: #### 5 0103 #### [facility] [address] [facility] [address] Hemoglobin (Bld) [Mass/Vol] 13.9 g/dL Normal 13.0-17.0 [facility] Comment on above: Order Comment: No: D o not add to previous draw Performed By: #### 5 0103 #### [facility] [address] [facility] [place] [address], [facility] IMMATURE GRANS 0.3 % Normal 0.0-1.0 [facility] Comment on above: Order Comment: No: D o not add to previous draw Performed By: #### 5 0103 #### [facility] [address] [facility] [address], [facility] Lymphocytes (Bld) [#/Vol] 1.7 10*3/uL Normal 1.2-4.0 [facility] Comment on above: Order Comment: No: D o not add to previous draw Performed By: #### 5 0103 #### [facility] [address] [place] [address], [facility] Lymphocytes/100 WBC (Bld) 24.0 % Normal 20.0-45.0 [facility] Comment on above: Order Comment: No: D o not add to previous draw Performed By: #### 5 0103 #### [facility] [address] [place] [id number], [facility] MCH (RBC) [Entitic mass] 29.9 pg Normal 27.0-33.0 [facility] Comment on above: Order Comment: No: D o not add to previous draw Performed By: #### 5 0103 #### [facility] [address] [place] [address], [facility] MCHC (RBC) [Mass/Vol] 33.5 g/dL Normal 32.0-35.0 [facility] Comment on above: Order Comment: No: D o not add to previous draw Performed By: #### 5 0103 #### [facility] [address] [facility] [place] [id number], [facility] MCV (RBC) [Entitic vol] 89.2 fL Normal 82.0-98.0 [facility] Comment on above: Order Comment: No: D o not add to previous draw Performed By: #### 5 0103 #### [facility] [address] [facility] [place] [address], [facility] Monocytes (Bld) [#/Vol] 0.6 10*3/uL Normal 0.1-1.0 [facility] Comment on above: Order Comment: No: D o not add to previous draw Performed By: #### 5 0103 #### [facility] [address] [place] [id number], [facility] MONOS 8.0 % Normal 5.0-12.0 [facility] Comment on above: Order Comment: No: D o not add to previous draw Performed By: #### 5 0103 #### [facility] [address] [place] [id number], [facility] Neutrophils/100 WBC (Bld) 63.9 % Normal 40.0-72.0 [facility] Comment on above: Order Comment: No: D o not add to previous draw Performed By: #### 5 0103 #### [facility] [address] [place] [address], [facility] Nucleated RBC/100 WBC (Bld) [Ratio] 0 % Normal 0-0 [facility] Comment on above: Order Comment: No: D o not add to previous draw Performed By: #### 5 0103 #### [facility] [address] [place] [address], [place] PLAT CNT 187 10*3/uL Normal 150-400 [facility] Comment on above: Order Comment: No: D o not add to previous draw Performed By: #### 5 0103 #### [facility] [address] [place] [address], [facility] RBC (Bld) [#/Vol] 4.65 10*6/uL Normal 4.20-5.70 [facility] Comment on above: Order Comment: No: D o not add to previous draw Performed By: #### 5 0103 #### [facility] [address] [place] [address], [place] WBC (Bld) [#/Vol] 7.22 10*3/uL Normal 4.00-10.60 [facility] Comment on above: Order Comment: No: D o not add to previous draw Performed By: #### 5 0103 #### [facility] [address] [place] [address], [place] COMP METABOLIC PANELon 06-24 Albumin [Mass/Vol] 3.9 g/dL Normal 3.5-5.7 [facility] Comment on above: Order Comment: No: D o not add to previous draw Performed By: #### 0 0121, [id number] #### [facility] [address] [place] [address], [place] ALKALINE PHOSPH 108 IU/L High 34-104 [facility] Comment on above: Order Comment: No: D o not add to previous draw Performed By: #### 0 0121, [id number] #### [facility] [address] [place] [address], [place] ALT [Catalytic activity/Vol] 26 U/L Normal 7-52 [facility] Comment on above: Order Comment: No: D o not add to previous draw Performed By: #### 0 0121, [id number] #### [facility] [address] [place] [address], [place] AST [Catalytic activity/Vol] 12 U/L Low 13-39 [facility] Comment on above: Order Comment: No: D o not add to previous draw Performed By: #### 0 012, 89670 #### [facility] [address] [place] [address], [place] Bilirubin [Mass/Vol] 0.8 mg/dL Normal 0.3-1.0 [facility] Comment on above: Order Comment: No: D o not add to previous draw Performed By: #### 0 012, [id number] #### [facility] [address] [place] [address], [place] Calcium [Mass/Vol] 9.0 mg/dL Normal 8.6-10.3 [facility] Comment on above: Order Comment: No: D o not add to previous draw Performed By: #### 0 0121, [id number] #### [facility] [address] [place] [address], [place] Chloride [Moles/Vol] 103 mmol/L Normal 98-107 [facility] Comment on above: Order Comment: No: D o not add to previous draw Performed By: #### 0 012, [id number] #### [facility] [address] [place] [address], [place] CO2 [Moles/Vol] 28 mmol/L Normal 21-31 [facility] Comment on above: Order Comment: No: D o not add to previous draw Performed By: #### 0 0121, 12411 #### [facility] [address] [place] [address], [place] Creatinine [Mass/Vol] 1.24 mg/dL Normal 0.70-1.30 [facility] Comment on above: Order Comment: No: D o not add to previous draw Performed By: #### 0 0121, 80186 #### [facility] [address] [place] [address], [place] GFR/1.73 sq M.predicted among blacks MDRD (S/P/Bld) [Vol rate/Area] mL/min/{1.73_m2} Normal >60 [facility] Comment on above: Order Comment: No: D o not add to previous draw Performed By: #### 0 0121, [id number] #### [facility] [address] [place] [address], [place] GFR/1.73 sq M.predicted among non-blacks MDRD (S/P/Bld) [Vol rate/Area] mL/min/{1.73_m2} Normal >60 The [facility] Comment on above: Order Comment: No: D o not add to previous draw Performed By: #### 0 0121, 73696 #### [facility] [address] [place] [address], [place] Glucose [Mass/Vol] 102 mg/dL High 70-100 [facility] Comment on above: Order Comment: No: D o not add to previous draw Performed By: #### 0 0121, 30799 #### [facility] [address] [place] [address], [place] Potassium [Moles/Vol] 4.3 mmol/L Normal 3.5-5.1 [facility] Comment on above: Order Comment: No: D o not add to previous draw Performed By: #### 0 0121, 51559 #### [facility] [address] [place] [address], [facility] Protein [Mass/Vol] 6.3 g/dL Normal 6.0-8.3 [facility] Comment on above: Order Comment: No: D o not add to previous draw Performed By: #### 0 0121, [id number] #### [facility] [address] [place] [address], [facility] Sodium [Moles/Vol] 136 mmol/L Normal 136-145 [facility] Comment on above: Order Comment: No: D o not add to previous draw Performed By: #### 0 0121, 97188 #### [facility] [address] [place] [address], [facility] Urea nitrogen [Mass/Vol] 22 mg/dL Normal 7-25 [facility] Comment on above: Order Comment: No: D o not add to previous draw Performed By: #### 0 0121, [id number] #### [facility] [address] [place] [address], [facility] LIPID PROFILEon 06-24-2021 Cholesterol [Mass/Vol] 149 mg/dL Normal 120-200 [facility] Comment on above: Order Comment: No: D o not add to previous draw Result Comment: CHOL ESTEROL REFERENCE RANGE: 20 YEARS AND OLDER CARDIOVASCULAR RISK Less than 200 mg/dl Low Risk 200 to 239 mg/dl Borderline Risk 240 mg/dl and greater High Risk Performed By: #### 0 0121, 51655 #### [facility] [address] [place] [address], [place] Cholesterol in HDL [Mass/Vol] 34 mg/dL Normal 23-92 [facility] Comment on above: Order Comment: No: D o not add to previous draw Result Comment: Slig ht variation in normal range could be due to gender and/or age. HDL CHOLESTEROL REFERENCE RANGE: 20 years and older Cardiovascular Risk > or =60 mg/dL Desirable 40 TO 59 mg/dL Low Risk <40 mg/dL High Risk Performed By: #### 0 0121, 97262 #### [facility] [address] [place] [address], [facility] Cholesterol in LDL [Mass/Vol] 101 mg/dL Normal 0-130 [facility] Comment on above: Order Comment: No: D o not add to previous draw Result Comment: LDL IS A CALCULATION LDL IS ONLY VALID IF THE TRIG IS LESS THAN 400. Performed By: #### 0 0121, [id number] #### [facility] [address] [place] [address], [facility] Cholesterol.total/ Cholesterol in HDL [Mass ratio] 4.4 {ratio} Normal .0-4.5 [facility] Comment on above: Order Comment: No: D o not add to previous draw Performed By: #### 0 012, 01234 #### [facility] [address] [place] [address], [facility] NON-HDL CHOLESTEROL 115 mg/dL Normal [facility] Comment on above: Order Comment: No: D o not add to previous draw Performed By: #### 0 0121, 14990 #### [facility] [address] [place] [address], [facility] Triglyceride [Mass/Vol] 72 mg/dL Normal 40-149 [facility] Comment on above: Order Comment: No: D o not add to previous draw Result Comment: TRIG LYCERIDE REFERENCE RANGE: 20 YEARS AND OLDER CARDIOVASCULAR RISK LESS THAN 150 mg/dl LOW RISK 150 TO 199 mg/dl BORDERLINE RISK 200 mg/dl AND GREATER HIGH RISK Performed By: #### 0 0121, 86736 #### [facility] [address] [place] [address], [facility] VLDL CHOL 14 mg/dL Normal 0-40 [facility] Comment on above: Order Comment: No: D o not add to previous draw Performed By: #### 0 0121, [id number] #### [facility] [address] Cardiovascular Lab Reporton 06-23-2021 Cardiovascular Lab Report [facility] Patient Name: Thad Castro MR #: [id number] [facility] Physician: Michelle Gleason MD Department of Service Date: 06/23/2021 Medicine Birthdate: 1970 Division of Room #: [id number] Cardiology Adult Cardiovascular Services [facility] [address] [place], [place] [address] Cardiovascular Laboratory Report Cardiovascular Laboratory Report FINAL IMPRESSIONS: 1. 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 2. 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 RECOMMENDATIONS: 1. Aspirin 81 mg lifelong. 2. Plavix 75 mg daily for a minimum of 6 months, preferably oysterman. 3. Aggressive risk factor modification. 4. Optimization [...] to proceed with an interventional procedure. A 6-Cuban XB 3.5 catheter was advanced in and [...] Gleason MD Date Trans: 06/23/2021 07:55 P/ JANNETTE_JN:[id number] cc: Rubin Baron M.D. [address] [place] [address] Normal [facility] POC SARS COV2 ANTIGEN NEGATI VEon 06-23-2021 POC SARS COV2 ANTIGEN NEG Negative Normal NEGATIVE [facility] Comment on above: Result Comment: Nega tive [...] signs and symptoms consistent with COVID-19. The [employer] COVID-19 Ag Card is a lateral flow [...] Accreditation. Performed By: #### 3 1977 #### [facility] [address] [facility]. [address] CBC AUTO DIFFon 06-18-2021 BASO # 0.1 103/ul Normal 0.0-0.1 The [facility] Comment on above: Performed By: #### C BC #### [facility] [address] [place] [address] Dr. Carmelita White Basophils/100 WBC (Bld) 0.9 % Normal 0.2-2.0 [facility] Comment on above: Performed By: #### C BC #### [facility] [address] [place] [address] Dr. Carmelita White EO # 0.2 103/ul Normal 0.0-0.7 [facility] Comment on above: Performed By: #### C BC #### [facility] [address] [place] [address] Dr. Carmelita White Eosinophils/100 WBC (Bld) 2.6 % Normal 0.9-7.0 The [facility] Comment on above: Performed By: #### C BC #### [facility] [address] [place] [address] Dr. Carmelita White Erythrocyte distribution width (RBC) [Ratio] 12.4 % Normal 11.0-15.0 [facility] Comment on above: Performed By: #### C BC #### [facility] [address] [place] [address] Dr. Carmelita White Hematocrit (Bld) [Volume fraction] 44.8 % Normal 42.0-54.0 [facility] Comment on above: Performed By: #### C BC #### [facility] [address] [place] [address] Dr. Carmelita White Hemoglobin (Bld) [Mass/Vol] 15.2 g/dL Normal 14.0-18.0 [facility] Comment on above: Performed By: #### C BC #### [facility] [address] [place] [address] Dr. Carmelita White IG # 0.03 10e3/ul Normal 0.00-0.03 [facility] Comment on above: Performed By: #### C BC #### [facility] [address] [place] [address] Dr. Carmelita White IG % 0.5 % Normal 0.0-0.5 [facility] Comment on above: Performed By: #### C BC #### [facility] [address] [place] [address] Dr. Carmelita White LYMPH # 1.5 103/ul Normal 1.2-3.8 [facility] Comment on above: Performed By: #### C BC #### [facility] [address] [place] [address] Dr. Carmelita White Lymphocytes/100 WBC (Bld) 22.5 % Normal 20.5-60.0 [facility] Comment on above: Performed By: #### C BC #### [facility] [address] [place] [address] Dr. Carmelita White MANUAL DIFF REQ NO Normal [facility] Comment on above: Performed By: #### C BC #### [facility] [address] [place] [address] Dr. Carmelita White MCH (RBC) [Entitic mass] 29.7 pg Normal 25.9-34.0 [facility] Comment on above: Performed By: #### C BC #### [facility] [address] [place] [address] Dr. Carmelita White MCHC (RBC) [Mass/Vol] 33.9 g/dL Normal 29.9-35.2 [facility] Comment on above: Performed By: #### C BC #### [facility] [address] [place] [address] Dr. Carmelita White MCV (RBC) [Entitic vol] 87.5 fL Normal 80.0-94.0 [facility] Comment on above: Performed By: #### C BC #### [facility] [address] [place] [address] Dr. Carmelita White MONO # 0.4 103/ul Normal 0.3-0.8 [facility] Comment on above: Performed By: #### C BC #### [facility] [address] [place] [address] Dr. Carmelita White Monocytes/100 WBC (Bld) 5.5 % Normal 1.7-12.0 [facility] Comment on above: Performed By: #### C BC #### [facility] [address] [place] [address] Dr. Carmelita White NEUT # 4.5 103/ul Normal 1.4-6.5 [facility] Comment on above: Performed By: #### C BC #### [facility] [address] [place] [address] Dr. Carmelita White Neutrophils/100 WBC (Bld) 68.0 % Normal 43.0-75.0 [facility] Comment on above: Performed By: #### C BC #### [facility] [address] [place] [address] Dr. Carmelita White Platelet mean volume (Bld) [Entitic vol] 8.5 fL Critically low 9.5-13.5 [facility] Comment on above: Performed By: #### C BC #### [facility] [address] [place] [address] [address] Carmelita White PLT 238 103/ul Normal 150-450 [facility] Comment on above: Performed By: #### C BC #### [facility] [address] [place] [address] [address] Carmelita White RBC 5.12 106/ul Normal 4.70-6.10 [facility] Comment on above: Performed By: #### C BC #### [facility] [address] [place] [address] [address] Carmelita White WBC 6.5 103/ul Normal 4.0-11.0 [facility] Comment on above: Performed By: #### C BC #### [facility] [address] [place] [address] Dr. Carmelita White PROF CHEM 8 (BAS METB)on Anion gap [Moles/Vol] 14.7 mmol/L Normal [facility] Comment on above: Performed By: #### B MP #### [facility] [address] [place] [address] Dr. Carmelita White Calcium [Mass/Vol] 9.3 mg/dL Normal 8.4-10.2 [facility] Comment on above: Performed By: #### B MP #### [facility] [address] [place] [address] Dr. Carmelita White Chloride [Moles/Vol] 101 mmol/L Normal 98-107 [facility] Comment on above: Performed By: #### B MP #### [facility] [address] [place] [address] Dr. Carmelita White CO2 [Moles/Vol] 28.2 mmol/L Normal 22.0-30.0 [facility] Comment on above: Performed By: #### B MP #### [facility] [address] [place] [address] Dr. Carmelita White Creatinine [Mass/Vol] 1.33 mg/dL Critically high 0.66-1.25 [facility] Comment on above: Performed By: #### B MP #### [facility] [address] [place] [address] [address] Carmelita White EGFR-AF JAPANESE >60 Normal >=60 [facility] Comment on above: Performed By: #### B MP #### [facility] [address] [id number] Carmelita White EGFR-NON AF JAPANESE 57 mL/min/1.73m2 Critically low >=60 [facility] Comment on above: Performed By: #### B MP #### [facility] [address] [place] [address] [address] Carmelita White Glucose [Mass/Vol] 99 mg/dL Normal 74-106 [facility] Comment on above: Performed By: #### B MP #### [facility] [address] [place] [address] [address] Carmelita White Potassium [Moles/Vol] 4.9 mmol/L Normal 3.4-5.0 [facility] Comment on above: Performed By: #### B MP #### [facility] [address] [place] [address] [address] Carmelita White Sodium [Moles/Vol] 139 mmol/L Normal 137-145 [facility] Comment on above: Performed By: #### B MP #### [facility] [address] [place] [address] [address] Carmelita White Urea nitrogen [Mass/Vol] 21.0 mg/dL Critically high 9.0-20.0 [facility] Comment on above: Performed By: #### B MP #### [facility] [address] [place] [address] [address] Carmelita White Urea nitrogen/Creatinin e [Mass ratio] 15.8 mg/mg Normal [facility] Comment on above: Performed By: #### B MP #### [facility] [address] [place] [address] [address] Carmelita White NM STRESS/REST MULTIon 06-09 NM STRESS/REST MULTI Patient: THAD CASTRO Exam Date: 06/09/2021 : 1970 Gender:M Ordering : DR RUBIN BARON . Admission #: [id number] Family : Order #: [id number] CLICK HERE TO VIEW EXAM RADIOLOGY REPORT [...] PERFUSION DEFECT: LOCATION: Mid-anterior. Mid-anteroseptal. Apical anterior. [place]. SIZE: Medium (3-4 segments). SEVERITY: Severe. TYPE: [...] Mathur MD on 06/11/2021 at 13:23 Normal [facility] Vital Signs Date Time Vital Sign Value Performing Clinician Rudolph patton 09-08-2023 14:53-0500 Blood Pressure Location Naren MEDEROS [facility] 09-08-2023 14:53-0500 Diastolic blood pressure 88 mm[Hg] Naren MEDEROS [facility] 09-08-2023 14:53-0500 Heart rate 72 /min [facility]ren N[facility] 09-08-2023 14:53-0500 Respiratory rate 16 /min Naren NILL [facility] 09-08-2023 14:53-0500 Systolic blood pressure 146 mm[Hg] Naren NILL [facility] Encounters Encounter Date Encounter Type Care Provider Facility Start: 02-01-2025 End: 02-01-2025 ambulatory [facility] Start: 10-05-2023 End: 10-06-2023 ambulatory Naren R NILL Facility:[facility] Start: 10-05-2023 End: 10-05-2023 Patient encounter procedure Naren R NILL [facility] Start: 09-22-2023 End: 09-23-2023 ambulatory Naren R NILL Facility:[facility] Start: 09-08-2023 End: 09-09-2023 ambulatory Naren R NILL Facility:[facility] Start: 09-08-2023 End: 09-08-2023 Patient encounter procedure Naren R NILL [facility] Start: 09-07-2023 ambulatory Naren NILL [facility] Start: 09-06-2023 ambulatory Naren NILL Facility:[facility] [place] Start: 02-23-2022 End: 02-24-2022 ambulatory ELVIR[facility] ALSTON Facility: Start: 08-04-2021 End: 08-05-[address] RUBIN BARON Facility:[facility] Start: 06-28-2021 Encounter for preprocedural laboratory examination DR DOCTOR MILLER [facility] Start: 06-25-[address] DOCTOR MILLER Facility :[facility] Start: 06-23-2021 End: 06-24-2021 ambulatory [facility] Facility:[facility] Start: 06-18-2021 End: 06-19-[address] DOCTOR MILLER Facility:[facility] Start: 06-18-2021 End: 06-19-2021 Encounter for preprocedural laboratory examination DR DOCTOR MILLER Facility:[facility] Start: 06-11-[address] AMALIA FLORES Facil ity:[facility] Start: 06-09-2021 End: 06-10-[address] AMALIA FLORES Facility:[facility] Procedures Date Procedure Procedure Detail Performing Clinician Start: 09-22-2023 Colonoscopy Naren NILL Start: 09-22-2023 Esophagogastroduodenoscopy [facility]ren [employer] Start: 02-23-[address] AMALIA FLORES Comment on above: Performed By: #### PSASC #### [facility] [address] [place] [address] Dr. Carmelita White Cholecystectomy Naren NILL Coronary artery sten t (physical object) Naren That's SolarL Fluoroscopic angiopl asty of bilateral iliac arteries and insertion of bilateral iliac artery stents Naren That's SolarL History of ankle surgery Maik hanatalie NILL Immunizations Immunization Date Immunization Notes Care Provider Fa [facility] 07-24-2021 SARS-CoV-2 (COVID-19 ) mRNA BNT-162b2 vax Naren That's SolarL [facility] 11-25-2020 SARS-CoV-2 (COVID-19 ) mRNA BNT-162b2 vax Naren That's [facility] 11-04-2020 SARS-CoV-2 (COVID-19 ) mRNA BNT-162b2 vax Naren That's [facility] NEGATED: Highlighted row has not occurred!09-08-2023 influenza virus vaccine, unspecified formulation Naren AHNL [facility] Payers Date Payer Category Payer Unknown [id number] 2.16.8 [id number] 1970 Unknown [id number] 2.16.84 [id number] 1970 Unknown [id number] 2.16.84 [id number] 1969 Unknown [id number] 2.16.84 [id number] 1969 Unknown [id number] 2.16.84 [id number] 1969 Unknown [id number] 2.16.84 [id number] 1969 Unknown [id number] 2.16.84 [id number] 1969 Unknown [id number] 2.16.84 [id number] 1969 Unknown [id number] 2.16.8 [id number] 1969 Unknown [id number] 2.16.8 [id number] 1969 Unknown [id number] 2.16.8 [id number] 1969 Unknown [id number] 2.16.8 [id number] 1960 Medicaid [id number] Social History Date Type Detail Facility Start: 09-08-2023 Tobacco smoking status Light t obacco smoker (finding) [facility] Tobacco smoking status Smokeless tobacco user within last 30 days [facility] Sex Assigned At Male [facility] Functional Status Date Assessment Result Facility 09-08-2023 Functional Status N/A [facility] 02-01-2025 Note Date & Type Note Facility 02-01-2025 Note Cardiology Follow Up Progress Note Chief Complaint: Patient here for 1 year follow up CAD, hypertension, and hyperlipidemia. Lipid panel was drawn in Aug 2024. Doing well, denies chest pain and SOB. HPI: Thad Castro is a 54 y.o. male with a past medical history [...] taking all of his medications without issue. Update 02/01/2025: Had chest pain prior to his stress test and PCI in 2020; no similar chest pain. However does have exertional shortness of breath. No orthopnea, no paroxysmal terminal dyspnea, no lower extremity edema. He confirms that he does have diabetes and is being treated with Glucophage. Cardiology ROS: Review of Systems Cardiovascular: Positive for leg swelling (RLE due to past trauma). Medications Current Outpatient Medications on File Prior to Visit Medication Sig Dispense Refill atorvastatin (Lipitor) 80 mg tablet Take 1 tablet (80 mg) by mouth in the evening. 90 tablet 3 ezetimibe (Zetia) 10 mg tablet TAKE 1 TABLET (10 MG) BY MOUTH ONCE DAILY DIRECTED. 90 tablet 0 irbesartan (Avapro) 300 mg tablet Take 1 tablet (300 mg) by mouth once daily as directed. 90 tablet 3 metoprolol tartrate (Lopressor) 25 mg tablet Take 0.5 tablets (12.5 mg) by mouth in the morning and at bedtime. 90 tablet 3 nitroglycerin (Nitrostat) 0.[address] 1 tablet (0.4 mg) under the tongue every 5 (five) minutes if needed for chest pain. 25 tablet 1 [DISCONTINUED] ezetimibe (Zetia) 10 mg tablet Take 1 tablet (10 mg) by mouth once daily as directed. 90 tablet 3 No current facility-administered medications on file prior to visit. Allergies Patient has no known allergies. Physical Exam VITAL SIGNS: BP (!) 140/94 (BP Location: Left arm, Patient Position: Sitting) Pulse 86 Ht 1.88 m (6' 2 ) Wt (!) 159 kg (351 lb) SpO2 94% BMI 45.07 kg/m??? Constitutional: Well developed, Well nourished, No [...] Psychiatric: Affect normal, Judgment normal, Mood normal. Investigations: Cardiac catheterization report 2020: Final impressions: Severely diseased mid left anterior descending stenosis successfully treated by balloon angioplasty and placement of a Synergy drug-eluting stent Moderate to severe mid to distal right coronary artery stenosis Coronary arteries: Left main coronary artery minimal narrowing Left anterior descending coronary artery 99% mid LAD stenosis reduced to 0% by balloon angioplasty and stent placement Left circumflex luminal irregularities Right coronary artery dominant vessel 60% mid vessel stenosis, 70% distal vessel stenosis Echocardiogram-[facility] Name: THAD CASTRO Study Date: 06/23/2021 12:48 PM B/P: / HR: Date of : 1970 Location: [facility] Height: 74 in. Age: 50 year(s) Patient Room : 3165 Weight: 305 lb. Gender: Male Patient Status: OutPt BSA: 2.6 m2 Indication: Shortness of Breath, s/p PCI Examination: Echocardiogram (Complete), Lumason Contrast Image Quality: Poor sound transmission due to body habitus Patient Consent: Procedure explained to patient s p @ c 3 Exam Details Contrast: I.V. dose of Lumason Conclusions Left Ventricle: The left ventricle is normal size. Global left ventricular systolic function is normal. The EF is 65 % visually. Left ventricular wall thickness is normal. No regional wall motion abnormality. Diastolic dysfunction was indeterminate. Right Ventricle: The right ventricle appears normal in size. Right ventricular systolic function appears normal. Unable to assess right sided pressures due to lack of measurable tricuspid regurgitation. Left Atrium: The left atrium appears normal in size. Overall Conclusions: Due to suboptimal imaging Lumason contrast was administered for opacification and (more content not included)... [facility] Clinical Note 09-08-2023 Note Date & Type Note Facility [...] tablet, 1 tab(s), (more content not included)... [facility] Comment on above: Result Comment: Elec tronically Signed By: GATITO HARRISON, Naren Gleason\Date and Time Signed: 09/08/23 19:40 EST Evaluation + Plan note Note Date & Type Note Facility Evaluation + Plan note No data available for this section [facility] Discharge instructions Note Date & Type Note Facility Hospital Discharge instructions No data available for this section [facility] Progress note Note Date & Type Note Facility Progress note No data available for this section [facility] Summary Purpose Family History No Family History [...] and content) DATE CREATED AUTHOR 06/28/2021 [facility] DATE CREATED AUTHOR AUTHOR'S ORGANIZ ATION 02/26/[address] [facility] DATE CREATED AUTHOR AUTHOR'S ORGANIZ ATION 10/12/2023 Ruiz [facility] DATE CREATED AUTHOR AUTHOR'S ORGANIZ ATION 02/05/2025 [facility] Patient Care team informatio n (unrecognized section and content) Personnel Name: Rubin Baron MD Address: Address: [address] [place] [address] Personnel Name: Rubin Baron MD Address: Address: [address] [place] [address] FOR RECORDS PERTAINING TO PATIENTS WHO ARE [...] BE BASED ON THE PRIMARY CLINICAL RECORDS. [facility] [employer] provides no warranty or guarantee of the accuracy or completeness of information in this document.
--- NOTE | 2025-02-19 07:00 | CA_ITS ---
Patient Name: THAD CASTRO MR#: [id number] : 1970 Exam Date: 02/19/2025 Ordering Doctor: DR MERA JURADO M.D. ECHOCARDIOGRAM REPORT PROCEDURE: CA ECHO DOPPLER COMPLETE INDICATIONS: Dyspnea on exertion, coronary artery disease, cardiac stent, hypertension, smoker, diabetes COMPARISON: None. DESCRIPTION: COMPLETE ECHOCARDIOGRAM Real-time transthoracic echocardiography with 2D, M-mode, spectral and color flow Doppler performed. QUALITY: Technically difficult due to poor acoustics. LEFT VENTRICLE: Normal chamber size. Normal left ventricular wall thickness. Normal systolic function. LV EF: Normal left ventricular ejection fraction, (>55%). DIASTOLIC: Normal diastolic function. ATRIAL SEPTUM: LEFT ATRIUM: Normal chamber size. RIGHT ATRIUM: Normal chamber size. RIGHT VENTRICLE: Normal chamber size. TRICUSPID VALVE: Normal mobility and thickness. No stenosis with no regurgitation. Unable to assess right-sided pressures due to lack of measurable tricuspid regurgitation. MITRAL VALVE: Normal mobility and thickness. No evidence of mitral valve stenosis. There is no mitral annular calcification. AORTIC VALVE: Normal trileaflet appearance. No visible sclerosis. Normal leaflet mobility. No evidence of aortic valve stenosis. No aortic regurgitation. AORTIC ROOT: Normal diameter and appearance, measuring 3.6 cm. PULMONIC VALVE: Normal thickness and mobility. No stenosis. No regurgitation. PERICARDIUM: No evidence of pericardial effusion. IVC: Not well visualized. PLEURA: CONCLUSION: 1. Normal ventricular size and function. Estimated LVEF is 60 to 65%. 2. No significant valvular dysfunction. 3. Unable to assess right-sided pressures due to lack of measurable tricuspid regurgitation. Adult Echocardiography Procedure Report Left Ventricle LVEDD (3.7 - 5.6 cm): 4.45 cm LVESD (2.2 - 4.0 cm): 3.55 cm LVIVS thickness (0.6 - 1.2 cm): 0.90 cm LVPW thickness (0.5 - 1.0 cm): 0.88 cm e': 0.09 m/s E - e': 6.21 LVOT Max Gradient: 2.10 mm[Hg] LVOT Area (cm2): 0.73 m/s Peak Velocity (LVOT): 0.73 m/s LVOT Diameter 2.19 cm Left Atrium Left Atrium Systolic Dimension: 3.35 cm Mitral Valve MV E to A Ratio: 0.77 Mitral Valve A-Wave Peak Velocity: 0.70 m/s Mitral Valve E-Wave Peak Velocity: 0.54 m/s Right Ventricle Aorta AO Root Diam: 3.59 cm Aortic Valve AoV Area (Peak Jose Alejandro): 2.59 cm2, 2.59 cm2 Peak Velocity(Antegrade Flow): 1.05 m/s Peak Gradient(Antegrade Flow): 4.42 mm[Hg] Tricuspid Valve Pulmonic Valve Peak Velocity: 0.97 m/s Peak Gradient: 3.73 mm[Hg] Right Atrium Dictated by: Zelalem James M.D. on 02/19/2025 at 08:56 Approved by: Zelalem James M.D. on 02/19/2025 at 09:02
[2025-02-19 07:21] LABS: Alanine Aminotransferase 68 U/L (16-63); Albumin Globulin Ratio 1.1; Albumin Level 3.8 g/dL (3.4-5.0); Alkaline Phosphatase 145 U/L (46-116); Anion Gap 14.9; Aspartate Amino Transferase 23 U/L (15-37); Blood Urea Nitrogen 14.0 mg/dL (7.0-18.0); Calcium 9.2 mg/dL (8.5-10.1); Carbon Dioxide 27.9 mmol/L (21.0-32.0); Chloride 103 mmol/L (98-107); Cholesterol 119 mg/dL (<=200); Estimated GFR (African America >60 (>=60 mL/min/1.73m^2); Estimated GFR (Non-African Ame >60 (>=60 mL/min/1.73m^2); Globulin 3.6 g/dL; Glucose 137 mg/dL (74-106); HDL Cholesterol 31 mg/dL (40-60); Potassium 3.8 mmol/L (3.5-5.1); Sodium 142 mmol/L (136-145); Total Protein 7.4 g/dL (6.4-8.2); Triglycerides 133 mg/dL (<=150); VLDL CHOLESTEROL 26.6 mg/dL
--- NOTE | 2025-02-19 07:35 | NM_ITS ---
Patient Name: THAD CASTRO MR#: [id number] : 1970 Exam Date: 02/19/2025 Ordering Doctor: DR MERA JURADO M.D. RADIOLOGY REPORT PROCEDURE: NM ARMANDO PERF SPECT REST STR COMPARISON: None. INDICATIONS: CORONARY ARTERY DISEASE TECHNIQUE: Exam Description: Stress/Rest two day protocol gated SPECT Rest Imagin.9 mCi Tc-99m Cardiolite IV on 02-19-2025 Stress Imaging 25.6 mCi Tc-99m Cardiolite IV on 02-20-2025 Exercise Protocol: 0.4 mg Lexiscan given IV Heart Rate (bpm): Rest: 92 Max: 127 PMHR: 76 Blood Pressure: Rest: 149/90 Max: 154/94 Symptoms: Rest and peak stress ECG findings were pending and the EKG portion of the study was pending per attending physician [facility] . For more details please see separate cardiac stress test report. FINDINGS: QUALITY OF STUDY: Fair PERFUSION DEFECT: LOCATION: Anterior SIZE: Medium SEVERITY: Mild TYPE: Reversible WALL MOTION: Normal LV SIZE: 93 mL. TID / TCD: 1.0 LVEF: Calculated EF 64%. SUMMARY: Abnormal myocardial perfusion imaging study CONCLUSION: Abnormal myocardial perfusion stress study showing medium sized anterior mild ischemia Normal left ventricular systolic function, ejection fraction 64% No transient ischemic dilatation, TID 1.0 EKG portion of stress test is reported separate Dictated by: Naa Lugo MD on 02/20/2025 at 12:27 Approved by: Naa Lugo MD on 02/20/2025 at 12:34
== END 2025-02-19 06:41 | disposition home or self-care (01) ==
PROVIDERS: PCP Family Medicine; Visit Provider Internal Medicine Interventional Cardiology
DX: I25.10 Atherosclerotic heart disease of native coronary artery without angina pectoris (principal); I25.83 Coronary atherosclerosis due to lipid rich plaque; R06.09 Other forms of dyspnea; I99.8 Other disorder of circulatory system
CPT/HCPCS: 36415; 78452; 80053; 80061; 93306; A9500

== ENCOUNTER 2025-02-20 08:32 | Outpatient (OUT) | payer MEDICAID, SELFPAY ==
--- OUTSIDE RECORDS SUMMARY | 2025-02-20 08:35 | XMS_ITS | Encounter Summary ---
Author Organization [facility] Address [address] [place] [address] Care Team Providers Care Soaker Soda Worker Name Role Phone Leeroy Baron MD Primary Care Provider [phone] Encounter Details Date Type Department Care Team (Late st Contact Info) Description 02/19/2025 Orders Only [facility] [place] [address] [place] [address] Provider, MD Phylicia [address] [place] [id number] Social History Tobacco Use Types Packs/Day Years Used Date Smoking Tobacco: Every Day Cigarettes Smokeless Tobacco: Never Alcohol Use Standard Drinks/Week Comments Yes 0 (1 standard drink = 0.6 oz pur e alcohol) [place] Safety & Environment Answer Date Rec orded Fear of Current or Ex-Partner Not on file Emotionally Abused Not on file 09/16/2023 Physically Abused Not on file 09/16/2023 Sexually Abused Not on file 09/16/2023 Physically or Sexually Abused Not on file Sex and Gender Information Value Date Recorded Sex Assigned at Male 02/11/2023 9:57 AM EDT Legal Sex Male 11:22 PM EDT Gender Identity Male 02/11/2023 9:57 AM EDT Sexual Orientation Heterosexual or Straight 01/24 9:57 AM EDT documented as of this encounter Plan of Treatment Not on file documented as of this encounter Procedures Procedure Name Priority Date/Time Associated Diagnosis Comments COMPLETE TRANSTHORACIC ECHO (TTE) W/WO IMAGING AGENT, STRAIN, 3D, BUBBLE STUDY Routine 02/19/2025 9:34 AM EDT documented in this encounter Results * Complete Echo (TTE) w/wo Imaging Agent, Strain, 3D, Bubble Study (02/19/2025 9:34 AM EDT) Anatomical Region Laterality Modality Ultrasound us Historical Provider CV ECHO PROCEDURES Final Result documented in this encounter Visit Diagnoses Not on filedocumented in this encounter Care Teams Soaker Soda Worker Relationship Specialty Start Date End Date Leeroy Baron MD [address] [facility] [place] [id number] PCP - General 08/21/22 documented as of this encounter
--- OUTSIDE RECORDS SUMMARY | 2025-02-20 08:35 | XMS_ITS | Encounter Summary ---
Author Organization [facility] Address [address] [place] [address] Care Team Providers Care Mechanical Systems Engineer Name Role Phone Leeroy Baron MD Primary Care Provider [phone] Reason for Visit * Reason Comments Med Refill Encounter Details Date Type Department Care Team ([facility] st Contact Info) Description 02/09/2023 Refill [facility] Cardiology [address] [place] [id number] Farida Ayala, KILN TENDER [address] [place] [address] Atherosclerotic heart disease of [place] coronary artery without angina pectoris Social History Tobacco Use Types Packs/Day Years Used Date Smoking Tobacco: Never Assessed Sex and Gender Information Value Date Recorded Sex Assigned at Male 02/11/2023 9:57 AM EDT Legal Sex Male 11:22 PM EDT Gender Identity Male 02/11/2023 9:57 AM EDT Sexual Orientation Heterosexual or Straight 01/24 9:57 AM EDT COVID-19 Exposure Response Date Recorded In the last 10 days, have mesfin u been in contact with someone who was confirmed or suspected to have Coronavirus/COVID-19? No / Unsure 02/12/2023 9:03 AM EDT documented as of this encounter Plan of Treatment Not on file documented as of this encounter Visit Diagnoses Diagnosis Atherosclerotic heart disease of [place] coronary artery without angina pectoris documented in this encounter Care Teams Mechanical Systems Engineer Relationship Specialty Start Date End Date Leeroy Baron MD [address] [facility] [address] [address] PCP - General 08/21/22 documented as of this encounter
--- OUTSIDE RECORDS SUMMARY | 2025-02-20 08:35 | XMS_ITS | Clinical Summary ---
Author Organization [facility] Address [address] [place] [address] Care Team Providers Care Therapist Speech Name Role Phone Leeroy Baron MD Primary Care Provider Allergies No known active allergies Medications irbesartan (Avapro) 300 mg tabletIndications:C oronary arteriosclerosis Take 1 tablet (300 mg) by mouth once daily as directed. 90 tablet 3 024 Active metoprolol tartrate (Lopressor) 25 mg tabletIndications:P rimary hypertension Take 0.5 tablets (12.5 mg) by mouth in the morning and at bedtime. 90 tablet 3 024 Active nitroglycerin (Nitrostat) 0.4 mg SL tabletIndications:C oronary arteriosclerosis Place 1 tablet (0.4 mg) under the tongue every 5 (five) minutes if needed for chest pain. 25 tablet 1 024 Active metFORMIN (Glucophage) 500 mg tablet Take 500 mg by mouth with breakfast and with evening meal. Active pantoprazole (ProtoNix) 40 mg EC tablet Take 1 tablet by mouth in the morning. Active atorvastatin (Lipitor) 80 mg tabletIndications:C oronary artery disease due to lipid rich plaque Take 1 tablet (80 mg) by mouth in the evening. 90 tablet 3 025 2025 Active ezetimibe (Zetia) 10 mg tabletIndications:C oronary artery disease due to lipid rich plaque Take 1 tablet (10 mg) by mouth once daily as directed. 90 tablet 3 025 2025 Active dapagliflozin propanediol (Farxiga) 10 mgIndications:Coron liliana artery disease due to lipid rich plaque Take 1 tablet (10 mg) by mouth in the morning. 90 tablet 3 Active aspirin 81 mg EC tabletIndications:C oronary artery disease due to lipid rich plaque Take 1 tablet (81 mg) by mouth once daily as directed. 90 tablet 3 024 2024 atorvastatin (Lipitor) 80 mg tabletIndications:C oronary artery disease due to lipid rich plaque Take 1 tablet (80 mg) by mouth in the evening. 90 tablet 3 024 2024 Discontinued(R eorder) clopidogrel (Plavix) 75 mg tabletIndications:C oronary artery disease due to lipid rich plaque Take 1 tablet (75 mg) by mouth once daily as directed. 90 tablet 3 024 2024 ezetimibe (Zetia) 10 mg tabletIndications:C oronary artery disease due to lipid rich plaque Take 1 tablet (10 mg) by mouth once daily as directed. 90 tablet 3 024 2024 Discontinued ezetimibe (Zetia) 10 mg tabletIndications:C oronary artery disease due to lipid rich plaque TAKE 1 TABLET (10 MG) BY MOUTH ONCE DAILY DIRECTED. 90 tablet 025 2024 Discontinued(R eorder) Active Problems Problem Noted Date Diagnosed Date Fracture of ankle 02/11/2023 02/11/2023 Coronary arteriosclerosis 07/24/20212022 Assessment & Plan (08/20/2023 9:37 AM EST): Coronary artery disease is stable Continue GDMT- ASA and plavix skilled nursing, lipitor and zetia, with metoprolol D/W risk factor and lifestyle modifications- heart healthy diet, regular exercise as tolerated and continue all medications. Tobacco dependence syndrome 07/24/202101/24 Assessment & Plan (08/20/2023 9:38 AM EST): Continues to smoke and provider had strong conversation with pt that he needs to completely stop smoking to prevent stent re-occlusion and management of CAD Cardiovascular stress test abnormal 06/16/2021 02/11/2023 Closed bimalleolar fracture 06/06/201401/24 Mixed hyperlipidemia Assessment & Plan (08/20/2023 9:35 AM EST): Continue lipitor and zetia Well controlled and liver function normal Hypertension Assessment & Plan (08/20/2023 9:36 AM EST): Hypertension is well controlled Continue irbesartan, metoprolol Renal function normal Encounters Date Type Department Care Team Description 02/19/2025 Orders Only [facility] [address] [place] [facility] [address] Provider, MD Phylicia 02/01/2025 3:00 PM EDT Office Visit [facility] [address] [place] [facility] [address] Alena Slater MD Dyspnea on exertion (Primary Dx); Coronary artery disease due to lipid rich plaque; Silent ischemia; Diabetes mellitus type II, non insulin dependent (CMS/HCC) 01/29/2025 Refill [facility] [address] [place] [facility] [address] Michelle Gleason MD Coronary artery disease due to lipid rich plaque from Last 3 Months Immunizations Immunization Administration Dates Next Due Unspecified Sars-Cov-2 Vaccination 07/24/2021,,11/04/2020 Family History Medical History Relation Name Comments Hypertension Brother Coronary artery disease Father Stomach cancer Father cardiac device Father Hypertension Mother Pancreatic cancer Mother Heart murmur Sister Relation Name Status Comments Brother Father Mother Sister Social History Tobacco Use Types Packs/Day Years Used Date Smoking Tobacco: Every Day Cigarettes Smokeless Tobacco: Never Tobacco Cessation:Ready to Q uit: Not Asked; Counseling Given: Not Answered Alcohol Use Standard Drinks/Week Comments Yes 0 [...] Heterosexual or Straight 01/24 9:57 AM EDT Last Filed Vital Signs Vital Sign Reading Time Taken Comments Blood Pressure 140/94 02/01/2025 3:21 PM EDT Pulse 86 02/01/2025 3:21 PM EDT Temperature - - Respiratory Rate - - Oxygen Saturation 94% 02/01/2025 3:21 PM EDT Inhaled Oxygen Concentration - - Weight 159 kg (351 lb) 02/01/2025 3:21 PM EDT Height 188 cm (6' 2 ) 02/01/2025 3:21 PM EDT Body Mass Index 45.07 02/01/2025 3:21 PM EDT Plan of Treatment Health Maintenance Due Date Last Done Comments CT Colonography 1970 Colonoscopy 1969 Colorectal Cancer Screening 1970 Diabetes: Hemoglobin A1C 1969 FIT-DNA 1969 FIT 1970 FOBT 1970 Sigmoidoscopy 1970 Diabetes: Retinopathy Screening 12/15/1979 Depression Screening 1981 Diabetes: Urine Protein Screening 1988 Hepatitis B Vaccines (1 of 3 - 19+ 3-dose series) 1988 Pneumococcal Vaccine: Pediatrics (0 to 5 Years) and At-Risk Patients (6 to 64 Years) (1 of 2 - PCV) 1988 Adult Tetanus 12/15/1991 Zoster Vaccines (1 of 2) 12/15/2019 COVID-19 Vaccine ( season) 2024 07/24/2021, 07/24/2021, 11/25/2020, Additional history exists Influenza Vaccine (#1) 2025 HIB Vaccines Aged Out No longer eligi ble based on patient's age to complete this topic HPV Vaccines Aged Out No longer eligi ble based on patient's age to complete this topic IPV Vaccines Aged Out No longer eligi ble based on patient's age to complete this topic Meningococcal B Vaccine Aged Out No l onger eligible based on patient's age to complete this topic Meningococcal Vaccine Aged Out No perla william eligible based on patient's age to complete this topic Rotavirus Vaccines Aged Out No longer eligible based on patient's age to complete this topic Procedures Procedure Name Priority Date/Time Associated Diagnosis Comments COMPLETE TRANSTHORACIC ECHO (TTE) W/WO IMAGING AGENT, STRAIN, 3D, BUBBLE STUDY Routine 02/19/2025 9:34 AM EDT from Last 3 Months Results * Complete Echo (TTE) w/wo Imaging Agent, Strain, 3D, Bubble Study (02/19/2025 9:34 AM EDT) Anatomical Region Laterality Modality Ultrasound us Historical Provider MD [facility] ECHO PROCEDURES Final Result from Last 3 Months Insurance MEDICAID [place] Care Teams Therapist Speech Relationship Specialty Start Date End Date Leeroy Baron MD [address] [facility] [address] [place] [id number] PCP - General 08/21/22
--- OUTSIDE RECORDS SUMMARY | 2025-02-20 08:47 | XMS_ITS | CCD ---
Author Organization [facility] Care Team Providers Care Tool Smith Name Role Phone MERA JURADO Attending Unavailable [...] Primary Care Physician Naren MEDEROS Attending Unavailable JIMYL, Naren Persaud Attending Unavailable Naren MEDEROS Attending Unavailable JIMYLNaren Attending Unavailable MERA JURADO Attending Unavailable Allergies Allergy Classification Reported Allergen(s) Allergy Type Date of Onset Reaction(s) Facility (1 source) No Known Medication Allergies; Translations: [No Known Medication Allergies] Propensity to adverse reactions (disorder) [facility] Repository Medications Current Medications Medication Drug [...] disease (10 sources) Atherosclerotic heart disease of morongo coronary artery without angina pectoris; Translations: [Coronary [...] Range Facility Office Visiton 02-01-2025 Follow-up visit [id number] Thad Castro 1970 M Date Provider Department Center 02/01/2025 Allison-MERA JURADO CARD [facility] Family History Problem Relation Age of Onset Hypertension Mother Pancreatic cancer Mother Coronary artery disease Father Stomach cancer Father Other Father Heart murmur Sister Hypertension Brother Family Status - Relation Status Age at Mother Father Sister Brother Level of Service:84281 DE OFFICE/OUTPATIENT ESTABLISHED MOD MDM 30 MIN Normal [facility] Pathology Noteon 10-11-2023 Pathology Note [id number]#1.00TIFF Normal [facility] Pathology Noteon 10-07-2023 Pathology Note [id number]#1.00TIFF Normal [facility] Reminderson 10-07-2023 Reminders - From: Tanya Ibrahim LPN To: GSN - Clinical; Sent: 10/07/2023 09:11:34 EDT Show up: 08/22/2033 07:00:00 EST Subject: colonoscopy recall Due Date/Time: 09/22/2033 07:00:00 EST Reminder/Recall Patient due for screening colonoscopy 09/22/2033. Normal [facility] Ambulatory Visit Summaryon 0 10-05-2023 Ambulatory [...] choosing us for your care. Dottie Ruiz [facility] General Surgery Office/Clini c Noteon 10-05-2023 [...] mRNA BNT-162b2 vax (more content not included)... [facility] Comment on above: Result Comment: Elec tronically Signed By: GATITO HARRISON, Naren Persaud\.br\Date and Time Signed: 10/05/23 15:16 EDT Outside Colonoscopyon 2023 Outside Colonoscopy [id number]#1.00TIFF [facility] Formson 09-13-2023 Forms [id number]#1.00TIFF [facility] Consent for Procedure/Surger yon 09-10-2023 Consent for Procedure/Surgery [id number]#1.00TIFF [facility] Facesheeton 09-09-2023 Facesheet [id number]#1.00TIFF [facility] Ambulatory Visit Summaryon 0 [...] for choosing us for your care. Normal [facility] Physician Referralon 024 Physician Referral [id number]#1.00TIFF Normal [facility] Physician Referralon 024 Physician Referral [id number]#1.00TIFF Normal [facility] INSULINon 02-24-2022 Insulin 14.5 uIU/mL Normal 2.6-24.9 The [facility] Comment on above: Performed By: #### I NSULIN #### [facility] Laboratory [address] [place] [address] Dr. Carmelita White BILIRUBIN CONJUGATED (DIRECT )on 02-23-2022 BILI, CONJUGATED 0.2 mg/dL Normal 0.0-0.2 The [facility] Comment on above: Performed By: #### D JEMMA #### [facility] Laboratory [address] [place] [address] Dr. Carmelita White CBC AUTO DIFFon 02-23-2022 BASO # 0.1 103/ul Normal 0.0-0.1 The [facility] Comment on above: Performed By: #### C BC #### [facility] Laboratory [address] [place] [address] Dr. Carmelita White Basophils/100 WBC (Bld) 1.2 % Normal 0.2-2.0 [facility] Comment on above: Performed By: #### C BC #### [facility] Laboratory [address] [place] [address] Dr. Carmelita White EO # 0.2 103/ul Normal 0.0-0.7 The [facility] Comment on above: Performed By: #### C BC #### [facility] Laboratory [address] [place] [address] Dr. Carmelita White Eosinophils/100 WBC (Bld) 4.0 % Normal 0.9-7.0 The [facility] Comment on above: Performed By: #### C BC #### [facility] Laboratory [address] [place] [address] Dr. Carmelita White Erythrocyte distribution width (RBC) [Ratio] 13.2 % Normal 11.0-15.0 The [facility] Comment on above: Performed By: #### C BC #### [facility] Laboratory [address] [place] [address] Dr. Carmelita White Hematocrit (Bld) [Volume fraction] 38.7 % Critically low 42.0-54.0 [facility] Comment on above: Performed By: #### C BC #### [facility] Laboratory [address] [place] [address] Dr. Carmelita White Hemoglobin (Bld) [Mass/Vol] 13.4 g/dL Critically low 14.0-18.0 [facility] Comment on above: Performed By: #### C BC #### [facility] Laboratory [address] [place] [address] Dr. Carmelita White IG # 0.02 10e3/ul Normal 0.00-0.03 [facility] Comment on above: Performed By: #### C BC #### [facility] Laboratory [address] [place] [address] Dr. Carmelita White IG % 0.3 % Normal 0.0-0.5 [facility] Comment on above: Performed By: #### C BC #### [facility] Laboratory [address] [place] [address] Dr. Carmelita White LYMPH # 1.5 103/ul Normal 1.2-3.8 The [facility] Comment on above: Performed By: #### C BC #### [facility] Laboratory [address] [place] [address] Dr. Carmelita White Lymphocytes/100 WBC (Bld) 24.1 % Normal 20.5-60.0 [facility] Comment on above: Performed By: #### C BC #### [facility] Laboratory [address] [place] [address] Dr. Carmelita White MANUAL DIFF REQ NO Normal [facility] Comment on above: Performed By: #### C BC #### [facility] Laboratory [address] [place] [address] Dr. Carmelita White MCH (RBC) [Entitic mass] 30.5 pg Normal 25.9-34.0 The [facility] Comment on above: Performed By: #### C BC #### [facility] Laboratory [address] [place] [address] Dr. Carmelita White MCHC (RBC) [Mass/Vol] 34.6 g/dL Normal 29.9-35.2 The [facility] Comment on above: Performed By: #### C BC #### [facility] Laboratory [address] [place] [address] Dr. Carmelita White MCV (RBC) [Entitic vol] 88.2 fL Normal 80.0-94.0 The [facility] Comment on above: Performed By: #### C BC #### [facility] Laboratory [address] [place] [address] Dr. Carmelita White MONO # 0.4 103/ul Normal 0.3-0.8 [facility] Comment on above: Performed By: #### C BC #### [facility] Laboratory [address] [place] [address] Dr. Carmelita White Monocytes/100 WBC (Bld) 6.6 % Normal 1.7-12.0 [facility] Comment on above: Performed By: #### C BC #### [facility] Laboratory [address] [place] [address] Dr. Carmelita White NEUT # 3.9 103/ul Normal 1.4-6.5 [facility] Comment on above: Performed By: #### C BC #### [facility] Laboratory [address] [place] [address] Dr. Carmelita White Neutrophils/100 WBC (Bld) 63.8 % Normal 43.0-75.0 The [facility] Comment on above: Performed By: #### C BC #### [facility] Laboratory [address] [place] [address] Dr. Carmelita White Platelet mean volume (Bld) [Entitic vol] 8.5 fL Critically low 9.5-13.5 The [facility] Comment on above: Performed By: #### C BC #### [facility] Laboratory [address] [place] [address] Dr. Carmelita White PLT 204 103/ul Normal 150-450 The [facility] Comment on above: Performed By: #### C BC #### [facility] Laboratory [address] [place], [place] [id number] Dr. Carmelita White RBC 4.39 106/ul Critically low 4.70-6.10 [facility] Comment on above: Performed By: #### C BC #### [facility] Laboratory [address] [place] [address] Dr. Carmelita White WBC 6.1 103/ul Normal 4.0-11.0 The [facility] Comment on above: Performed By: #### C BC #### [facility] Laboratory [address] [address] [address] Carmelita White GLYCOHEMOGLOBIN A1Con 2021 ADA RECOMMENDATION SEE BELOW Normal [facility] Comment on above: Result Comment: ADA RECOMMENDED LIMIT 4.0 - 6.0 ADA THERAPEUTIC TARGET < 7.0 ACTION SUGGESTED > 7.0 Performed By: #### A 1C #### [facility] Laboratory [address] [address] [address] Carmelita White Glucose [Mass/Vol] 120 mg/dL Normal [facility] Comment on above: Performed By: #### A 1C #### [facility] Laboratory [address] [address] [address] Carmelita White HbA1c (Bld) [Mass fraction] 5.8 % Normal 4.5-6.2 [facility] Comment on above: Performed By: #### A 1C #### [facility] Laboratory [address] [address] [address] Carmelita White LIPID PROFILEon 02-23-2022 CHOL-HDL RATIO NORM SEE BELOW Normal [facility] Comment on above: Result Comment: 3.3 - 4.4 LOW RISK 4.4 - 7.1 AVERAGE RISK 7.1 - 11.0 MODERATE RISK >11.0 HIGH RISK Performed By: #### L IPID, CMP, URIC ####[facility] [address] [address]Dr. Carmelita White Cholesterol [Mass/Vol] 147 mg/dL Normal <=200 [facility] Comment on above: Performed By: #### L IPID, CMP, URIC ####[facility] [address] [place], [place] [address]CzDr. Carmelita White Cholesterol in HDL [Mass/Vol] 34 mg/dL Critically low 40-60 [facility] Comment on above: Performed By: #### L IPID, CMP, URIC ####[facility] [address] [id number]. Carmelita White Cholesterol in LDL [Mass/Vol] 84.6 mg/dL Normal [facility] Comment on above: Performed By: #### L IPID, CMP, URIC ####[facility] [address] [id number]. Carmelita White Cholesterol.total/ Cholesterol in HDL [Mass ratio] 4.3 {ratio} Normal [facility] Comment on above: Performed By: #### L IPID, CMP, URIC ####[facility] [address] [id number]. Carmelita White HDL NORMAL > or = 60 mg/dl - LO W CARDIOVASCULAR RISK <40 mg/dl - HIGH CARDIOVASCULAR RISK Normal [facility] Comment on above: Performed By: #### L IPID, CMP, URIC ####[facility] [address] [address]Dr. Carmelita White LDL CALC NORMAL SEE BELOW Normal [facility] Comment on above: Result Comment: <100 mg/dl OPTIMAL 100 - 129 mg/dl NEAR OR ABOVE OPTIMAL 130 - 159 mg/dl BORDERLINE HIGH 160 - 189 mg/dl HIGH >190 mg/dl VERY HIGH Performed By: #### L IPID, CMP, URIC ####[facility] [address] [address]Dr. Carmelita White Triglyceride [Mass/Vol] 142 mg/dL Normal <=150 [facility] Comment on above: Performed By: #### L IPID, CMP, URIC ####[facility] [address] [id number]. Carmelita White VLDL CALC 28.4 mg/dL Normal [facility] Comment on above: Performed By: #### L IPID, CMP, URIC ####[facility] [address] [id number]. Carmelita White PROF 14(COMP METB)on 022 Albumin [Mass/Vol] 4.0 g/dL Normal 3.4-5.0 [facility] Comment on above: Performed By: #### L IPID, CMP, URIC ####[facility] [address] [id number]. Carmelita White Albumin/Globulin [Mass ratio] 1.2 {ratio} Normal [facility] Comment on above: Performed By: #### L IPID, CMP, URIC ####[facility] [address] [address]Dr. Carmelita White ALP [Catalytic activity/Vol] 131 U/L Critically high 46-116 [facility] Comment on above: Performed By: #### L IPID, CMP, URIC ####[facility] [address] [address]Dr. Nandaenrique Christopher ALT [Catalytic activity/Vol] 36 U/L Normal 16-63 [facility] Comment on above: Performed By: #### L IPID, CMP, URIC ####[facility] [address] [address]Dr. Carmelita White Anion gap [Moles/Vol] 13.0 mmol/L Normal [facility] Comment on above: Performed By: #### L IPID, CMP, URIC ####[facility] [address] [place], [place] [address]Dr. Carmelita Wihte AST [Catalytic activity/Vol] 14 U/L Critically low 15-37 [facility] Comment on above: Performed By: #### L IPID, CMP, URIC ####[facility] [address] [place], [place] [address]Dr. Carmelita White Bilirubin [Mass/Vol] 0.7 mg/dL Normal 0.2-1.0 [facility] Comment on above: Performed By: #### L IPID, CMP, URIC ####[facility] [address] [place], [place] [address]Dr. Carmelita White Calcium [Mass/Vol] 9.3 mg/dL Normal 8.5-10.1 [facility] Comment on above: Performed By: #### L IPID, CMP, URIC ####[facility] [address] [place], [place] [address]Dr. Carmelita White Chloride [Moles/Vol] 104 mmol/L Normal 98-107 The [facility] Comment on above: Performed By: #### L IPID, CMP, URIC ####[facility] [address] [place], [place] [id number]. Carmelita White CO2 [Moles/Vol] 27.2 mmol/L Normal 21.0-32.0 The [facility] Comment on above: Performed By: #### L IPID, CMP, URIC ####[facility] [address] [id number]. Carmelita White Creatinine [Mass/Vol] 1.20 mg/dL Normal 0.70-1.30 The [facility] Comment on above: Performed By: #### L IPID, CMP, URIC ####[facility] [address] [id number]. Carmelita White EGFR-AF NIGERIEN >60 Normal >=60 [facility] Comment on above: Performed By: #### L IPID, CMP, URIC ####[facility] [address] [address]Dr. Carmelita White EGFR-NON AF NIGERIEN >60 Normal >=60 The [facility] Comment on above: Performed By: #### L IPID, CMP, URIC ####[facility] [address] [id number]. Carmelita White Globulin (S) [Mass/Vol] 3.4 g/dL Normal The [facility] Comment on above: Performed By: #### L IPID, CMP, URIC ####[facility] [address] [id number]. Carmelita White Glucose [Mass/Vol] 97 mg/dL Normal 74-106 The [facility] Comment on above: Performed By: #### L IPID, CMP, URIC ####[facility] [address] [id number]. Carmelita White Potassium [Moles/Vol] 4.2 mmol/L Normal 3.5-5.1 The [facility] Comment on above: Performed By: #### L IPID, CMP, URIC ####[facility] [address] [id number]. Carmelita White Protein [Mass/Vol] 7.4 g/dL Normal 6.4-8.2 The [facility] Comment on above: Performed By: #### L IPID, CMP, URIC ####[facility] [address] [address]Dr. Carmelita White Sodium [Moles/Vol] 140 mmol/L Normal 136-145 The [facility] Comment on above: Performed By: #### L IPID, CMP, URIC ####[facility] [address] [address]Dr. Carmelita White Urea nitrogen [Mass/Vol] 19.0 mg/dL Critically high 7.0-18.0 [facility] Comment on above: Performed By: #### L IPID, CMP, URIC ####[facility] [address] [address]Dr. Carmelita White Urea nitrogen/Creatinin e [Mass ratio] 15.8 mg/mg Normal [facility] Comment on above: Performed By: #### L IPID, CMP, URIC ####[facility] [address] [address]Dr. Carmelita White URIC ACID SERUMon 02-23-2022 Urate [Mass/Vol] 6.5 mg/dL Normal 3.5-7.2 [facility] Comment on above: Performed By: #### L IPID, CMP, URIC ####[facility] [address] [address]Dr. Carmelita White GLYCOHEMOGLOBIN A1Con 2021 ADA RECOMMENDATION ADA THERAPEUTIC TARG ET 6.0 - 7.0 ACTION SUGGESTED > 7.0 Normal [facility] Comment on above: Performed By: #### A 1C #### [facility] Laboratory [address] [address] [address] Carmelita White Glucose [Mass/Vol] 126 mg/dL Normal The [facility] Comment on above: Performed By: #### A 1C #### [facility] Laboratory [address] [address] [address] Carmelita White HbA1c (Bld) [Mass fraction] 6.0 % Normal <=6.0 [facility] Comment on above: Performed By: #### A 1C #### [facility] Laboratory [address] [address] [address] Carmelita White LIPID PROFILEon 08-04-2021 CHOL-HDL RATIO NORM SEE BELOW Normal [facility] Comment on above: Result Comment: 3.3 - 4.4 LOW RISK 4.4 - 7.1 AVERAGE RISK 7.1 - 11.0 MODERATE RISK >11.0 HIGH RISK Performed By: #### L IPID #### [facility] Laboratory [address] [address] [address] Carmelita White Cholesterol [Mass/Vol] 150 mg/dL Normal <=200 [facility] Comment on above: Performed By: #### L IPID #### [facility] Laboratory [address] [address] [address] Carmelita White Cholesterol in HDL [Mass/Vol] 34 mg/dL Normal [facility] Comment on above: Performed By: #### L IPID #### [facility] Laboratory [address] [address] [address] Carmelita White Cholesterol in LDL [Mass/Vol] 79.2 mg/dL Normal [facility] Comment on above: Performed By: #### L IPID #### [facility] Laboratory [address] [address] [address] Carmelita White Cholesterol.total/ Cholesterol in HDL [Mass ratio] 4.4 {ratio} Normal [facility] Comment on above: Performed By: #### L IPID #### [facility] Laboratory [address] [address] [address] Carmelita White HDL NORMAL > or = 60 mg/dl - LO W CARDIOVASCULAR RISK <40 mg/dl - HIGH CARDIOVASCULAR RISK Normal [facility] Comment on above: Performed By: #### L IPID #### [facility] Laboratory [address] [address] [address] Carmelita White LDL CALC NORMAL SEE BELOW Normal [facility] Comment on above: Result Comment: <100 mg/dl OPTIMAL 100 - 129 mg/dl NEAR OR ABOVE OPTIMAL 130 - 159 mg/dl BORDERLINE HIGH 160 - 189 mg/dl HIGH >190 mg/dl VERY HIGH Performed By: #### L IPID #### [facility] Laboratory [address] [address] [address] Carmelita White Triglyceride [Mass/Vol] 184 mg/dL Critically high <=150 [facility] Comment on above: Performed By: #### L IPID #### [facility] Laboratory [address] [address] [address] Carmelita White VLDL CALC 36.8 mg/dL Normal [facility] Comment on above: Performed By: #### L IPID #### [facility] Laboratory [address] [address] [address] Carmelita White CBC W/DIFFon 06-24-2021 ABS IMM GRANS 0.0 10*3/uL Normal 0.0-0.2 The [facility] Comment on above: Order Comment: No: D o not add to previous draw Performed By: #### 5 0103 #### [facility] [address] ABS NEUTROPHILS 4.6 10*3/uL Normal 1.6-7.6 The [facility] Comment on above: Order Comment: No: D o not add to previous draw Performed By: #### 5 0103 #### [facility] [address] [place] [address], [facility] Basophils (Bld) [#/Vol] 0.1 10*3/uL Normal 0.0-0.2 [facility] Comment on above: Order Comment: No: D o not add to previous draw Performed By: #### 5 0103 #### [facility] [address] [place] [address], [facility] Basophils/100 WBC (Bld) 1.0 % Normal 0.0-1.0 [facility] Comment on above: Order Comment: No: D o not add to previous draw Performed By: #### 5 0103 #### [facility] [address] [place] [address], [place] [facility] Eosinophils (Bld) [#/Vol] 0.2 10*3/uL Normal 0.0-0.5 [facility] Comment on above: Order Comment: No: D o not add to previous draw Performed By: #### 5 0103 #### [facility] [address] [place] [address], [facility] Eosinophils/100 WBC (Bld) 2.8 % Normal 0.0-6.0 [facility] Comment on above: Order Comment: No: D o not add to previous draw Performed By: #### 5 0103 #### [facility] [address] Erythrocyte distribution width (RBC) [Ratio] 12.7 % Normal 11.5-15.0 [facility] Comment on above: Order Comment: No: D o not add to previous draw Performed By: #### 5 0103 #### [facility] [address] Hematocrit (Bld) [Volume fraction] 41.5 % Normal 39.0-50.0 [facility] Comment on above: Order Comment: No: D o not add to previous draw Performed By: #### 5 0103 #### [facility] [address] [facility] Hemoglobin (Bld) [Mass/Vol] 13.9 g/dL Normal 13.0-17.0 [facility] Comment on above: Order Comment: No: D o not add to previous draw Performed By: #### 5 0103 #### [facility] [address] [facility] [place] [address], [facility] IMMATURE GRANS 0.3 % Normal 0.0-1.0 [facility] Comment on above: Order Comment: No: D o not add to previous draw Performed By: #### 5 0103 #### [facility] [address] [facility] [address], [facility] Lymphocytes (Bld) [#/Vol] 1.7 10*3/uL Normal 1.2-4.0 [facility] Comment on above: Order Comment: No: D o not add to previous draw Performed By: #### 5 0103 #### [facility] [address] [place] [address], [facility] Lymphocytes/100 WBC (Bld) 24.0 % Normal 20.0-45.0 [facility] Comment on above: Order Comment: No: D o not add to previous draw Performed By: #### 5 0103 #### [facility] [address] [place] [id number], [facility] MCH (RBC) [Entitic mass] 29.9 pg Normal 27.0-33.0 [facility] Comment on above: Order Comment: No: D o not add to previous draw Performed By: #### 5 0103 #### [facility] [address] [place] [address], [facility] MCHC (RBC) [Mass/Vol] 33.5 g/dL Normal 32.0-35.0 [facility] Comment on above: Order Comment: No: D o not add to previous draw Performed By: #### 5 0103 #### [facility] [address] [place] [id number], [facility] MCV (RBC) [Entitic vol] 89.2 fL Normal 82.0-98.0 [facility] Comment on above: Order Comment: No: D o not add to previous draw Performed By: #### 5 0103 #### [facility] [address] [facility] [place] [address], [facility] Monocytes (Bld) [#/Vol] 0.6 10*3/uL Normal 0.1-1.0 [facility] Comment on above: Order Comment: No: D o not add to previous draw Performed By: #### 5 0103 #### [facility] [address] [place] [id number], [facility] MONOS 8.0 % Normal 5.0-12.0 [facility] Comment on above: Order Comment: No: D o not add to previous draw Performed By: #### 5 0103 #### [facility] [address] [place] [id number], [facility] Neutrophils/100 WBC (Bld) 63.9 % Normal 40.0-72.0 [facility] Comment on above: Order Comment: No: D o not add to previous draw Performed By: #### 5 0103 #### [facility] [address] [place] [address], [facility] Nucleated RBC/100 WBC (Bld) [Ratio] 0 % Normal 0-0 [facility] Comment on above: Order Comment: No: D o not add to previous draw Performed By: #### 5 0103 #### [facility] [address] [place] [address], [place] PLAT CNT 187 10*3/uL Normal 150-400 [facility] Comment on above: Order Comment: No: D o not add to previous draw Performed By: #### 5 0103 #### [facility] [address] [place] [address], [facility] RBC (Bld) [#/Vol] 4.65 10*6/uL Normal 4.20-5.70 [facility] Comment on above: Order Comment: No: D o not add to previous draw Performed By: #### 5 0103 #### [facility] [address] [place] [address], [place] WBC (Bld) [#/Vol] 7.22 10*3/uL Normal 4.00-10.60 [facility] Comment on above: Order Comment: No: D o not add to previous draw Performed By: #### 5 0103 #### [facility] [address] [place] [address], [place] COMP METABOLIC PANELon 06-24 Albumin [Mass/Vol] 3.9 g/dL Normal 3.5-5.7 [facility] Comment on above: Order Comment: No: D o not add to previous draw Performed By: #### 0 0121, 06247 #### [facility] [address] [place] [address], [place] ALKALINE PHOSPH 108 IU/L High 34-104 [facility] Comment on above: Order Comment: No: D o not add to previous draw Performed By: #### 0 0121, 11168 #### [facility] [address] [place] [address], [place] ALT [Catalytic activity/Vol] 26 U/L Normal 7-52 [facility] Comment on above: Order Comment: No: D o not add to previous draw Performed By: #### 0 0121, [id number] #### [facility] [address] [place] [address], [place] AST [Catalytic activity/Vol] 12 U/L Low 13-39 [facility] Comment on above: Order Comment: No: D o not add to previous draw Performed By: #### 0 012, 95760 #### [facility] [address] [place] [address], [place] Bilirubin [Mass/Vol] 0.8 mg/dL Normal 0.3-1.0 [facility] Comment on above: Order Comment: No: D o not add to previous draw Performed By: #### 0 012, 90165 #### [facility] [address] [place] [address], [place] Calcium [Mass/Vol] 9.0 mg/dL Normal 8.6-10.3 [facility] Comment on above: Order Comment: No: D o not add to previous draw Performed By: #### 0 0121, [id number] #### [facility] [address] [place] [address], [place] Chloride [Moles/Vol] 103 mmol/L Normal 98-107 [facility] Comment on above: Order Comment: No: D o not add to previous draw Performed By: #### 0 012, 41962 #### [facility] [address] [place] [address], [place] CO2 [Moles/Vol] 28 mmol/L Normal 21-31 [facility] Comment on above: Order Comment: No: D o not add to previous draw Performed By: #### 0 0121, 25914 #### [facility] [address] [place] [address], [place] Creatinine [Mass/Vol] 1.24 mg/dL Normal 0.70-1.30 [facility] Comment on above: Order Comment: No: D o not add to previous draw Performed By: #### 0 0121, 52298 #### [facility] [address] [place] [address], [place] GFR/1.73 sq M.predicted among blacks MDRD (S/P/Bld) [Vol rate/Area] mL/min/{1.73_m2} Normal >60 [facility] Comment on above: Order Comment: No: D o not add to previous draw Performed By: #### 0 0121, 20840 #### [facility] [address] [place] [address], [place] GFR/1.73 sq M.predicted among non-blacks MDRD (S/P/Bld) [Vol rate/Area] mL/min/{1.73_m2} Normal >60 [facility] Comment on above: Order Comment: No: D o not add to previous draw Performed By: #### 0 0121, 17640 #### [facility] [address] [place] [address], [place] Glucose [Mass/Vol] 102 mg/dL High 70-100 [facility] Comment on above: Order Comment: No: D o not add to previous draw Performed By: #### 0 0121, 38152 #### [facility] [address] [place] [address], [place] Potassium [Moles/Vol] 4.3 mmol/L Normal 3.5-5.1 [facility] Comment on above: Order Comment: No: D o not add to previous draw Performed By: #### 0 0121, 54884 #### [facility] [address] [place] [address], [facility] Protein [Mass/Vol] 6.3 g/dL Normal 6.0-8.3 [facility] Comment on above: Order Comment: No: D o not add to previous draw Performed By: #### 0 0121, 97233 #### [facility] [address] [place] [address], [facility] Sodium [Moles/Vol] 136 mmol/L Normal 136-145 [facility] Comment on above: Order Comment: No: D o not add to previous draw Performed By: #### 0 0121, 21248 #### [facility] [address] [place] [address], [facility] Urea nitrogen [Mass/Vol] 22 mg/dL Normal 7-25 [facility] Comment on above: Order Comment: No: D o not add to previous draw Performed By: #### 0 0121, 93695 #### [facility] [address] [place] [address], [facility] LIPID PROFILEon 06-24-2021 Cholesterol [Mass/Vol] 149 mg/dL Normal 120-200 [facility] Comment on above: Order Comment: No: D o not add to previous draw Result Comment: CHOL ESTEROL REFERENCE RANGE: 20 YEARS AND OLDER CARDIOVASCULAR RISK Less than 200 mg/dl Low Risk 200 to 239 mg/dl Borderline Risk 240 mg/dl and greater High Risk Performed By: #### 0 0121, 74685 #### [facility] [address] [place] [address], [place] Cholesterol in HDL [Mass/Vol] 34 mg/dL Normal 23-92 [facility] Comment on above: Order Comment: No: D o not add to previous draw Result Comment: Slig ht variation in normal range could be due to gender and/or age. HDL CHOLESTEROL REFERENCE RANGE: 20 years and older Cardiovascular Risk > or =60 mg/dL Desirable 40 TO 59 mg/dL Low Risk <40 mg/dL High Risk Performed By: #### 0 0121, 66252 #### [facility] [address] [place] [address], [facility] Cholesterol in LDL [Mass/Vol] 101 mg/dL Normal 0-130 [facility] Comment on above: Order Comment: No: D o not add to previous draw Result Comment: LDL IS A CALCULATION LDL IS ONLY VALID IF THE TRIG IS LESS THAN 400. Performed By: #### 0 0121, 58552 #### [facility] [address] [place] [address], [facility] Cholesterol.total/ Cholesterol in HDL [Mass ratio] 4.4 {ratio} Normal .0-4.5 [facility] Comment on above: Order Comment: No: D o not add to previous draw Performed By: #### 0 012, 65540 #### [facility] [address] [place] [address], [facility] NON-HDL CHOLESTEROL 115 mg/dL Normal [facility] Comment on above: Order Comment: No: D o not add to previous draw Performed By: #### 0 0121, 71127 #### [facility] [address] [place] [address], [facility] Triglyceride [Mass/Vol] 72 mg/dL Normal 40-149 [facility] Comment on above: Order Comment: No: D o not add to previous draw Result Comment: TRIG LYCERIDE REFERENCE RANGE: 20 YEARS AND OLDER CARDIOVASCULAR RISK LESS THAN 150 mg/dl LOW RISK 150 TO 199 mg/dl BORDERLINE RISK 200 mg/dl AND GREATER HIGH RISK Performed By: #### 0 0121, 86452 #### [facility] [address] [place] [address], [facility] VLDL CHOL 14 mg/dL Normal 0-40 [facility] Comment on above: Order Comment: No: D o not add to previous draw Performed By: #### 0 0121, 61132 #### [facility] [address] Cardiovascular Lab Reporton 06-23-2021 Cardiovascular Lab Report [facility] Patient Name: Thad Castro MR #: [id number] [facility] Physician: Michelle Gleason MD Department of Service Date: 06/23/2021 Medicine Birthdate: 1970 Division of Room #: [id number] Cardiology Adult Cardiovascular Services [facility] [address] [place], [place] [address] Cardiovascular Laboratory Report Cardiovascular Laboratory Report FINAL IMPRESSIONS: 1. 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 2. 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 RECOMMENDATIONS: 1. Aspirin 81 mg lifelong. 2. 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 3. Aggressive risk factor modification. 4. Optimization [...] to proceed with an interventional procedure. A 6-Malawian XB 3.5 catheter was advanced in and [...] Gleason MD Date Trans: 06/23/2021 07:55 P/ [id number] cc: Rubin Baron M.D. [address] [place] [address] Normal [facility] POC SARS COV2 ANTIGEN NEGATI VEon 06-23-2021 POC SARS COV2 ANTIGEN NEG Negative Normal NEGATIVE [facility] Comment on above: Result Comment: Nega tive [...] signs and symptoms consistent with COVID-19. The wavecatch COVID-19 Ag Card is a lateral flow [...] Accreditation. Performed By: #### 3 1977 #### [facility] [address] [facility]. [address] CBC AUTO DIFFon 06-18-2021 BASO # 0.1 103/ul Normal 0.0-0.1 [facility] Comment on above: Performed By: #### C BC #### [facility] Laboratory [address] [place] [address] Dr. Carmelita White Basophils/100 WBC (Bld) 0.9 % Normal 0.2-2.0 [facility] Comment on above: Performed By: #### C BC #### [facility] Laboratory [address] [place] [address] Dr. Carmelita White EO # 0.2 103/ul Normal 0.0-0.7 [facility] Comment on above: Performed By: #### C BC #### [facility] Laboratory [address] [place] [address] Dr. Carmelita White Eosinophils/100 WBC (Bld) 2.6 % Normal 0.9-7.0 [facility] Comment on above: Performed By: #### C BC #### [facility] Laboratory [address] [place] [address] Dr. Carmelita White Erythrocyte distribution width (RBC) [Ratio] 12.4 % Normal 11.0-15.0 [facility] Comment on above: Performed By: #### C BC #### [facility] Laboratory [address] [place] [address] Dr. Carmelita White Hematocrit (Bld) [Volume fraction] 44.8 % Normal 42.0-54.0 [facility] Comment on above: Performed By: #### C BC #### [facility] Laboratory [address] [place] [address] Dr. Carmelita White Hemoglobin (Bld) [Mass/Vol] 15.2 g/dL Normal 14.0-18.0 [facility] Comment on above: Performed By: #### C BC #### [facility] Laboratory [address] [place] [address] Dr. Carmelita White IG # 0.03 10e3/ul Normal 0.00-0.03 [facility] Comment on above: Performed By: #### C BC #### [facility] Laboratory [address] [place] [address] Dr. Carmelita White IG % 0.5 % Normal 0.0-0.5 [facility] Comment on above: Performed By: #### C BC #### [facility] Laboratory [address] [place] [address] Dr. Carmelita White LYMPH # 1.5 103/ul Normal 1.2-3.8 [facility] Comment on above: Performed By: #### C BC #### [facility] Laboratory [address] [place] [address] Dr. Carmelita White Lymphocytes/100 WBC (Bld) 22.5 % Normal 20.5-60.0 [facility] Comment on above: Performed By: #### C BC #### [facility] Laboratory [address] [place] [address] Dr. Carmelita White MANUAL DIFF REQ NO Normal [facility] Comment on above: Performed By: #### C BC #### [facility] Laboratory [address] [place] [address] Dr. Carmelita White MCH (RBC) [Entitic mass] 29.7 pg Normal 25.9-34.0 [facility] Comment on above: Performed By: #### C BC #### [facility] Laboratory [address] [place] [address] Dr. Carmelita White MCHC (RBC) [Mass/Vol] 33.9 g/dL Normal 29.9-35.2 [facility] Comment on above: Performed By: #### C BC #### [facility] Laboratory [address] [place] [address] Dr. Carmelita White MCV (RBC) [Entitic vol] 87.5 fL Normal 80.0-94.0 [facility] Comment on above: Performed By: #### C BC #### [facility] Laboratory [address] [place] [address] Dr. Carmelita White MONO # 0.4 103/ul Normal 0.3-0.8 [facility] Comment on above: Performed By: #### C BC #### [facility] Laboratory [address] [place] [address] Dr. Carmelita White Monocytes/100 WBC (Bld) 5.5 % Normal 1.7-12.0 [facility] Comment on above: Performed By: #### C BC #### [facility] Laboratory [address] [place] [address] Dr. Carmelita White NEUT # 4.5 103/ul Normal 1.4-6.5 [facility] Comment on above: Performed By: #### C BC #### [facility] Laboratory [address] [place] [address] Dr. Carmelita White Neutrophils/100 WBC (Bld) 68.0 % Normal 43.0-75.0 [facility] Comment on above: Performed By: #### C BC #### [facility] Laboratory [address] [place] [address] Dr. Carmelita White Platelet mean volume (Bld) [Entitic vol] 8.5 fL Critically low 9.5-13.5 [facility] Comment on above: Performed By: #### C BC #### [facility] Laboratory [address] [place] [address] [address] Carmelita White PLT 238 103/ul Normal 150-450 [facility] Comment on above: Performed By: #### C BC #### [facility] Laboratory [address] [place] [address] [address] Carmelita White RBC 5.12 106/ul Normal 4.70-6.10 [facility] Comment on above: Performed By: #### C BC #### [facility] Laboratory [address] [place] [address] [address] Carmelita White WBC 6.5 103/ul Normal 4.0-11.0 [facility] Comment on above: Performed By: #### C BC #### [facility] Laboratory [address] [place] [address] Dr. Carmelita White PROF CHEM 8 (BAS METB)on Anion gap [Moles/Vol] 14.7 mmol/L Normal [facility] Comment on above: Performed By: #### B MP #### [facility] Laboratory [address] [place] [address] Dr. Carmelita White Calcium [Mass/Vol] 9.3 mg/dL Normal 8.4-10.2 [facility] Comment on above: Performed By: #### B MP #### [facility] Laboratory [address] [place] [address] Dr. Carmelita White Chloride [Moles/Vol] 101 mmol/L Normal 98-107 [facility] Comment on above: Performed By: #### B MP #### [facility] Laboratory [address] [place] [address] Dr. Carmelita White CO2 [Moles/Vol] 28.2 mmol/L Normal 22.0-30.0 [facility] Comment on above: Performed By: #### B MP #### [facility] Laboratory [address] [place] [address] Dr. Carmelita White Creatinine [Mass/Vol] 1.33 mg/dL Critically high 0.66-1.25 [facility] Comment on above: Performed By: #### B MP #### [facility] Laboratory [address] [address] [address] Carmelita White EGFR-AF NIGERIEN >60 Normal >=60 [facility] Comment on above: Performed By: #### B MP #### [facility] Laboratory [address] [id number] Carmelita White EGFR-NON AF NIGERIEN 57 mL/min/1.73m2 Critically low >=60 [facility] Comment on above: Performed By: #### B MP #### [facility] Laboratory [address] [place] [address] [address] Carmelita White Glucose [Mass/Vol] 99 mg/dL Normal 74-106 [facility] Comment on above: Performed By: #### B MP #### [facility] Laboratory [address] [address] [address] Carmelita White Potassium [Moles/Vol] 4.9 mmol/L Normal 3.4-5.0 [facility] Comment on above: Performed By: #### B MP #### [facility] Laboratory [address] [address] [address] Carmelita White Sodium [Moles/Vol] 139 mmol/L Normal 137-145 The [facility] Comment on above: Performed By: #### B MP #### [facility] Laboratory [address] [address] [address] Carmelita White Urea nitrogen [Mass/Vol] 21.0 mg/dL Critically high 9.0-20.0 [facility] Comment on above: Performed By: #### B MP #### [facility] Laboratory [address] [place] [address] [address] Carmelita White Urea nitrogen/Creatinin e [Mass ratio] 15.8 mg/mg Normal [facility] Comment on above: Performed By: #### B MP #### [facility] Laboratory [address] [address] [address] Carmelita White NM STRESS/REST MULTIon 06-09 NM STRESS/REST MULTI Patient: THAD CASTRO Exam Date: 06/09/2021 : 1970 Gender:M Ordering : DR RUBIN BARON . Admission #: [id number] Family : Order #: [id number] CLICK HERE TO VIEW EXAM RADIOLOGY REPORT [...] PERFUSION DEFECT: LOCATION: Mid-anterior. Mid-anteroseptal. Apical anterior. Lyman. SIZE: Medium (3-4 segments). SEVERITY: Severe. TYPE: [...] Mathur MD on 06/11/2021 at 13:23 Normal [facility] Vital Signs Date Time Vital Sign Value Performing Clinician Rudolph patton 09-08-2023 14:53-0500 Blood Pressure Location Naren MEDEROS [facility] 09-08-2023 14:53-0500 Diastolic blood pressure 88 mm[Hg] Naren MEDEROS [facility] 09-08-2023 14:53-0500 Heart rate 72 /min Naren NILL [facility] 09-08-2023 14:53-0500 Respiratory rate 16 /min Naren NILL [facility] 09-08-2023 14:53-0500 Systolic blood pressure 146 mm[Hg] Naren NILL [facility] Encounters Encounter Date Encounter Type Care Provider Facility Start: 02-01-2025 End: 02-01-2025 ambulatory [facility] Start: 10-05-2023 End: 10-06-2023 ambulatory Naren R NILL Facility:[facility] Start: 10-05-2023 End: 10-05-2023 Patient encounter procedure Naren R NILL General [facility] [place] Start: 09-22-2023 End: 09-23-2023 ambulatory Naren R [...] for preprocedural laboratory examination DR DOCTOR MILLER [facility] Start: 06-25-[address] DOCTOR MILLER Facility :[facility] Start: 06-23-2021 End: 06-24-2021 ambulatory [facility] Facility:[facility] Start: 06-18-2021 End: 06-19-[address] DOCTOR MILLER Facility:[facility] Start: 06-18-2021 End: 06-19-2021 Encounter for preprocedural laboratory examination DR DOCTOR MILLER Facility:[facility] Start: 06-11-[address] AMALIA FLORES Facil ity:[facility] Start: 06-09-2021 End: 06-10-[address] AMALIA FLORES Facility:[facility] Procedures Date Procedure Procedure Detail Performing Clinician Start: 09-22-2023 Colonoscopy Naren NILL Start: 09-22-2023 Esophagogastroduodenoscopy Naren ActSocialL Start: 02-23-[address] AMALIA FLORES Comment on above: Performed By: #### [facility] #### [facility] [address] [place] [address] Dr. Carmelita White Cholecystectomy Naren NILL Coronary artery sten t (physical object) Naren ActSocialL Fluoroscopic angiopl asty of bilateral iliac arteries and insertion of bilateral iliac artery stents Naren ActSocialL History of ankle surgery Maik hanatalie NILL Immunizations Immunization Date Immunization Notes Care Provider Fa [facility] 07-24-2021 SARS-CoV-2 (COVID-19 ) mRNA BNT-162b2 vax Naren [facility] 11-25-2020 SARS-CoV-2 (COVID-19 ) mRNA BNT-162b2 vax Naren [facility] 11-04-2020 SARS-CoV-2 (COVID-19 ) mRNA BNT-162b2 vax Naren [facility] NEGATED: Highlighted row has not occurred!09-08-2023 influenza virus vaccine, unspecified formulation Naren AHNL [facility] Payers Date Payer Category Payer Unknown [id number] 2.16.8 [id number] 1970 Unknown [id number] 2.16.84 [id number] 1970 Unknown [id number] 2.16.84 [id number] 1970 Unknown [id number] 2.16.84 [id number] 1970 Unknown [id number] 2.16.84 [id number] 1970 Unknown [id number] 2.16.84 [id number] 1970 Unknown [id number] 2.16.84 [id number] 1970 Unknown [id number] 2.16.84 [id number] 1970 Unknown [id number] 2.16.8 [id number] 1970 Unknown [id number] 2.16.8 [id number] 1970 Unknown [id number] 2.16.8 [id number] 1970 Unknown [id number] 2.16.8 [id number] 1960 Medicaid [id number] Social History Date Type Detail Facility Start: 09-08-2023 Tobacco smoking status Light t obacco smoker (finding) [facility] [place] Tobacco smoking status Smokeless tobacco user within last 30 days [facility] [place] Sex Assigned At Male [facility] Functional Status Date Assessment Result Facility 09-08-2023 Functional Status N/A [facility] 02-01-2025 Note Date & Type [...] mid vessel stenosis, 70% distal vessel stenosis Echocardiogram-[facility] Name: THAD CASTRO Study Date: 06/23/2021 12:48 PM B/P: / HR: Date of : 1970 Location: [facility] Height: 74 in. Age: 50 year(s) Patient [...] for opacification and (more content not included)... [facility] Clinical Note 09-08-2023 Note Date & Type [...] tablet, 1 tab(s), (more content not included)... [facility] Comment on above: Result Comment: Elec tronically Signed By: GATITO HARRISON, Naren Gleason\Date and Time Signed: 09/08/23 19:40 EST Evaluation + Plan note Note Date & Type Note Facility Evaluation + Plan note No data available for this section [facility] Discharge instructions Note Date & Type Note Facility Hospital Discharge instructions No data available for this section [facility] [place] Progress note Note Date & Type Note Facility Progress note No data available for this section [facility] [place] Summary Purpose Family History No Family History [...] and content) DATE CREATED AUTHOR 06/28/2021 [facility] DATE CREATED AUTHOR AUTHOR'S ORGANIZ ATION 02/26/2022 [facility] DATE CREATED AUTHOR AUTHOR'S ORGANIZ ATION 10/12/2023 [facility] DATE CREATED AUTHOR AUTHOR'S ORGANIZ ATION 02/05/2025 [facility] Patient Care team informatio n (unrecognized section and content) Personnel Name: Rubin Baron MD Address: Address: [address] [place] [address] Personnel Name: Rubin Baron MD Address: Address: [address] [place] [address] FOR RECORDS PERTAINING TO PATIENTS WHO ARE [...] BE BASED ON THE PRIMARY CLINICAL RECORDS. [facility] [employer] provides no warranty or guarantee of the accuracy or completeness of information in this document.
--- NOTE | 2025-02-20 10:00 | PC.NURSE ---
Nursing Note Cardiac Stress Test Reviewed: Medication, allergies and patient history reviewed. Stress Test: [x ] Patient tolerated stress test well. [ ] Patient unable to tolerate walking on treadmill. Switched to Lexiscan stress test. [x ] No chest pain noted per patient [ ] Chest pain that resolved prior to leaving stress lab. [x ] No dyspnea noted. [ ] Dyspnea that resolved prior to leaving stress lab. [ x] Patient left stress lab asymptomatic and hemodynamically stable. [ ] Patient taken to the Emergency Room due to non-resolving symptoms following stress test. [ ] Patient achieved target heart rate. [ ] Patient unable to achieve target heart rate. [ ] Aminophylline administered as reversal agent to Lexiscan (Regadenoson). [ ] Nitro administered. Nursing Comments:
[2025-02-20] MEDS: REGADENOSON 0.4 MG/5 ML SYRINGE IV (10:01)
--- NOTE | 2025-02-21 17:43 | PM.STRESS ---
Stress Test Stress Test Allergies Allergy/AdvReac Type Severity Reaction Status Date / Time No Known Drug Allergies Allergy Unverified 09/13/23 09:51 Requesting physician: Alena Slater Procedure: Lexiscan nuclear stress test General Information: Reason for Stress Test: [Coronary artery disease] Cardiac History and Risk Factors: [History of CAD, hypertension, hyperlipidemia, type 2 diabetes mellitus] Resting 12 - Lead Electrocardiogram: Resting twelve-lead EKG showed normal sinus rhythm, heart rate 94 bpm, possible old septal infarct, nonspecific T changes in 1 and aVL. Resting heart rate 92 bpm, resting blood pressure 144/90 mmHg. Lexiscan 0.4 mg IV was injected and the patient was monitored for few minutes. Peak heart rate 127 bpm which represents 76% of age-predicted maximum heart rate and peak blood pressure 154/94 mmHg. Patient experienced generalized heaviness resolved in 2 minutes. No chest pain or shortness of breath. Throughout the test did not show any significant T or ST changes or any arrhythmias Stress Test: Protocol: [Lexiscan] Exercise Capacity: [Not applicable] Blood Pressure Response: [As expected] Rhythm: [No arrhythmia] ST - Response: [No ST changes] Patient Response: [No chest pain or shortness of breath] Interpretation: Negative Lexiscan EKG stress test for ischemia Nuclear myocardial perfusion images result is reported separately Naa Lugo MD, FACC
== END 2025-02-20 08:33 | disposition home or self-care (01) ==
LOC: CARD 08:33
PROVIDERS: PCP Family Medicine; Visit Provider Internal Medicine Interventional Cardiology
DX: I25.10 Atherosclerotic heart disease of native coronary artery without angina pectoris (principal)
CPT/HCPCS: 93017; J2785

== ENCOUNTER 2025-03-01 10:41 | Outpatient (OUT) | payer MEDICAID, SELFPAY ==
--- NOTE | 2025-03-01 | US_ITS ---
[address] [address] Patient Name: THAD CASTRO MRN: [id number] date: 1970 Sex: M Assigned Patient Location: CARD Current Patient Location: CARD Accession/Order Number: [id number] Exam Date: 03/01/2025 13:30 Report Date: 03/01/2025 13:31 At the request of: RUBIN BLAKE MD Procedure: US right upper quadrant LIMITED ABDOMINAL ULTRASOUND: CLINICAL HISTORY: ELEVATED LIVER ENZYMES R74.8 COMPARISON: None TECHNIQUE: Grayscale and color Doppler images of the right upper quadrant organs were obtained. FINDINGS: Pancreas: Not visualized. Liver: Fatty infiltration of the visualized portions of the liver. Gallbladder: Removed. CBD: 3.2 mm RT KIDNEY: No Hydronephrosis US/US right upper quadrant IMPRESSION: FATTY INFILTRATION OF THE LIVER. NO ACUTE PROCESS.. Impression dictated by: Gus Avila Jr., D.O. 03/01/2025 1:31 PM Dictation Location: [place] [address] Electronically authenticated by: [id number] Y Date: 03/01/2025 13:31
== END 2025-03-01 10:42 | disposition home or self-care (01) ==
LOC: US 10:41
PROVIDERS: PCP Family Medicine; Visit Provider Family Medicine
DX: R74.8 Abnormal levels of other serum enzymes (principal); K76.0 Fatty (change of) liver, not elsewhere classified
CPT/HCPCS: 76705

== ENCOUNTER 2025-03-05 15:29 | Outpatient (OUT) | payer MEDICAID, SELFPAY ==
--- OUTSIDE RECORDS SUMMARY | 2025-02-20 10:46 | XMS_ITS ---
Author Organization [facility] [place] Address [address] [place] [address] Care Team Providers Care Distribution Superintendent Name Role Phone Melquiades Baron Primary Care Provider REASON FOR VISIT Flunked Stress Encounters Encounter Location Date Provider Diagnosis [facility] [address] [place] [address] 02/20/2025 Melquiades Baron Plan Of Treatment Next Appt Details Provider Name:Melquiades Scott Oleggalen, 01:00:00 PM, [address] [place], [address], Progress Notes * Wale LEWISDOB:1970 (54 yo M)Acc No.[id number]:02/20/2025 Patient: Cherri HAIDER Wale Snider :1970 A ge:54 Y S ex:Male Address:[address] [address] , [place] [address] * true * Date: Generated for Jay rojas/Lisset/eTransmitting on: 0 03/05/2025 03:35 PM EDT
--- OUTSIDE RECORDS SUMMARY | 2025-03-01 09:45 | XMS_ITS ---
Author Organization [facility] in [place] Address [address] [place] [address] Care Team Providers Care Boring Machine Operator Helper Name Role Phone Melquiades Baron Primary Care Provider [phone] Allergies No Known Allergies REASON FOR VISIT [...] did you stop smoking? 07/26/2019 Vital Signs Blood pressure systolic 128 mm Hg 03/01/20 25 Blood pressure diastolic 76 mm Hg 025 Height 74 in 03/01/2025 Weight 353.4 lbs 03/01/2025 BMI 45.37 kg/m2 03/01/2025 Encounters Encounter Location Date Provider Diagnosis [facility] [address] [place] [address] 03/01/2025 Melquiades Baron Hypertension I10 ; G [...] Provider Name:Melquiades Baron, 01:00:00 PM, [address] [place], [address], Progress Notes * Wale LEWISDOB:1970 (54 yo M)Acc No.[id number]:03/01/2025 UNLOCKED PROGRESS NOTE Progress Note Patient: Wale MCQUEEN Provider: Andrey Baron ([facility])MD :1970 A ge:54 Y S ex:Male Date:03/01/2025 Address:[address] [place], [place] [id number] Check In:01:00 PM ESTCheck O ut:02:19 PM EST Subjective: * Chief Complaints: * 1 . 6mon check-up. 2. Had US done today. * HPI: G eneral: DM -not checkigtn [...] enies. S wollen joints d enies. * Medical History: S noring, Alcohol abuse, Chest pain, Benign essential HTN. * Surgical History: c holecystectomy , angioplasty with stent placement 05/2021, surgery right ankle 2014, EGD- Dr. Valentino . * Hospitalization/Major Diagno stic Procedure: s ee above . * Family History: F ather: 75 yrs, pancreatic cancer. M other: 66 yrs, pancreatic cancer.?Brother(s): alive. S ister(s): alive. 1 brother(s) , 4 sister(s) - healthy. . * Social History: T obacco Use: T obacco Use/Smoking P atient is a f ormer smoker W hen did you start smoking? 0 07/26/1979 W hen did you stop smoking? 0 07/26/2019 * Medications: T aking Aspirin 81(Aspirin) 81 MG Tablet Delayed Release 1 tablet Orally Once a day , Taking Atorvastatin Calcium 80 MG Tablet 1 tablet Orally Once a day , Taking Centrum Silver 50+Men(Multiple Vitamins-Minerals) - Tablet as directed Orally daily , Taking Clopidogrel Bisulfate 75 MG Tablet 1 tablet Orally Once a day , Taking Farxiga , Taking Irbesartan 300 MG Tablet TAKE 1 TABLET BY MOUTH EVERY DAY , Taking metFORMIN HCl 500 MG Tablet 1 tablet with a meal Orally twice a day , Taking Metoprolol Tartrate 25 MG Tablet 1/2 tab Orally Twice a day , Taking Nitroglycerin 0.4 MG Tablet Sublingual every 5 mnutes chest pain max 3 tabs Sublingual , Taking Protonix(Pantoprazole Sodium) 40 MG Tablet Delayed Release 1 tablet Orally Once a day , Medication List reviewed and reconciled with the patient * Allergies: N .K.D.A. Objective: * Vitals: W t:353.4lbs, Ht: 74 [...] uncomplicated - F10.10 Plan: * Treatment: * Preventive Medicine: Screenings/Counseling: B WA ACTION PLAN Above Normal BMI Follow-up D ietary management education, guidance, and counseling * * Electronic signature of Melquiades Baron MD, [id number] on 03/05/2025 at 03:35 PM EDT Sign off status: Pending Visit Status: C HK (Check Out) * Provider: Andrey Baron (TTC)MD Date: 0 03/01/2025 Generated for Jay rojas/Lisset/eTgenevasmitting on: 03/05/2025 03:35 PM EDT History and Physical Notes * HPI [...]
--- OUTSIDE RECORDS SUMMARY | 2025-03-01 10:15 | XMS_ITS ---
Author Organization [facility] in [place] Address [address] [place] [address] Care Team Providers Care Microbiology Teacher Name Role Phone Melquiades Baron Primary Care Provider [phone] Medications Medication SIG (Take, Route, Frequency, Duration) [...] Active Encounters Encounter Location Date Provider Diagnosis [facility] [address] [place] [address] 03/01/2025 Melquiades Baron Hypertension I10 Assessments Encounter [...] Provider Name:Melquiades Baron, 01:00:00 PM, [address] [place], [address], Progress Notes * Wale LEWISDOB:1970 (54 yo M)Acc No.[id number]:03/01/2025 Patient: Cherri HAIDERWale :1970 A ge:54 Y S ex:Male Address:[address] [place] [phone] * Refills Refill Aspirin 81 Tablet Delayed [...] Date: Generated for Jay rojas/Lisset/Jamesitting on: 0 03/05/2025 03:35 PM EDT
--- OUTSIDE RECORDS SUMMARY | 2025-03-05 15:35 | XMS_ITS | Encounter Summary ---
Author Organization [facility] Address [address] [place] [address] Care Team Providers Care Diaper Machine Tender Name Role Phone Leeroy Baron MD Primary Care Provider Encounter Details Date Type Department Care Team (Late st Contact Info) Description 02/26/[address] [facility] Heart at [facility] [address] [place] [address] Melissa Neely MA Social History Tobacco Use Types Packs/Day Years Used Date Smoking Tobacco: Every Day Cigarettes Smokeless Tobacco: Never Alcohol Use Standard Drinks/Week Comments Yes 0 (1 standard drink = 0.6 oz pur e alcohol) [place] Safety & Environment Answer Date Rec orded [...] as of this encounter Plan of Treatment Upcoming Encounters Date Type Department Care Team (Late st Contact Info) Description 03/13/2025 11:30 AM EDT Hospital Encounter [facility] Heart and Vascular Center Vascular Lab [address] [place] [phone] Alena Slater MD [address] [facility] [address] [facility] [place] [address] Abnormal cardiovascular stress test; Coronary artery disease, unspecified vessel or lesion type, unspecified whether angina present, unspecified whether [place] or transplanted heart 03/13/2025 11:30 AM EDT - 03/13/2025 12:30 PM EDT Surgery [facility] Heart and Vascular Center Vascular Lab [address] [place] [address] Alena Slater MD [address] [facility] [address] [place] [address] Coronary angiography documented as of this encounter Visit Diagnoses Not on filedocumented in this encounter Care Teams Diaper Machine Tender Relationship Specialty Start Date End Date Leeroy Baron MD [address] [facility] [address] PCP - General 08/21/22 documented as of this encounter
--- OUTSIDE RECORDS SUMMARY | 2025-03-05 15:35 | XMS_ITS | Encounter Summary ---
Author Organization [facility] Address [address] [place] [address] Care Team Providers Care Pourer Name Role Phone Leeroy Baron MD Primary Care Provider [phone] Reason for Visit * Reason Comments Med Refill Encounter Details Date Type Department Care Team (Late Contact Info) Description 03/05/2023 Refill [facility] [address] [place] [phone] Farida Ayala, SUPERVISING APPRAISER [address] [place] [address] Palpitations Social History Tobacco Use Types Packs/Day Years Used Date Smoking Tobacco: Every Day Cigarettes Smokeless Tobacco: Never Alcohol Use Standard Drinks/Week Comments Yes 0 (1 standard drink = 0.6 oz pur e alcohol) Sex and Gender Information Value Date Recorded Sex Assigned at Male 02/11/2023 9:57 AM EDT Legal Sex Male 11:22 PM EDT Gender Identity Male 02/11/2023 9:57 AM EDT Sexual Orientation Heterosexual or Straight 01/24 9:57 AM EDT COVID-19 Exposure Response Date Recorded In the last 10 days, have yo u been in contact with someone who was confirmed or suspected to have Coronavirus/COVID-19? No / Unsure 02/12/2023 9:03 AM EDT documented as of this encounter Plan of Treatment Upcoming Encounters Date Type Department Care Team (Late Contact Info) Description 03/13/2025 11:30 AM EDT Hospital Encounter [facility] Heart and Vascular Center Vascular Lab [address] [place] [address] Alena Slater MD [address] [place] [address] Abnormal cardiovascular stress test; Coronary artery disease, unspecified vessel or lesion type, unspecified whether angina present, unspecified whether [place] or transplanted heart 03/13/2025 11:30 AM EDT - 03/13/2025 12:30 PM EDT Surgery [facility] Heart and Vascular Center Vascular Lab [address] [place] [address] Alena Slater MD [address] [place] [address] Coronary angiography documented as of this encounter Visit Diagnoses Diagnosis Palpitations Abnormal cardiovascular stress test Other nonspecific abnormal cardiovascular system function study Coronary artery disease, unspecified vessel or lesion type, unspecified whether angina present, unspecified whether [place] or transplanted heart Abnormal cardiovascular stress test Other nonspecific abnormal cardiovascular system function study Coronary artery disease, unspecified vessel or lesion type, unspecified whether angina present, unspecified whether [place] or transplanted heart documented in this encounter Care Teams Pourer Relationship Specialty Start Date End Date Leeroy Baron MD [facility] [address] PCP - General 08/21/22 documented as of this encounter
--- OUTSIDE RECORDS SUMMARY | 2025-03-05 15:36 | XMS_ITS | Encounter Summary ---
Author Organization [facility] Address [address] [place] [address] Care Team Providers Care Counter Clerk Name Role Phone Leeroy Baron MD Primary Care Provider Reason for Visit * Reason Comments Med Refill Encounter Details Date Type Department Care Team (Late st Contact Info) Description 02/09/2023 Refill [facility] Card[facility] [place] [address] Farida Ayala, CLIENT TECHNOLOGIES SPECIALIST [address] [place] [address] Atherosclerotic heart disease of [place] coronary artery without angina pectoris Social History [...] [facility] V[facility] Vascular Lab [address] [place] [address] Alena Slater MD [address] [place] [address] Abnormal cardiovascular stress test; Coronary artery disease, unspecified vessel or lesion type, unspecified whether angina present, unspecified whether [place] or transplanted heart 03/13/2025 11:30 AM EDT - 03/13/2025 12:30 PM EDT Surgery [facility] Heart and Vascular Center Vascular Lab [address] [place] [address] Alena Slater MD [address] [facility] [address] [facility] [address] Coronary angiography documented as of this encounter Visit Diagnoses Diagnosis Atherosclerotic heart disease of [place] coronary artery without angina pectoris Abnormal cardiovascular stress test Other nonspecific abnormal cardiovascular system function study Coronary artery disease, unspecified vessel or lesion type, unspecified whether angina present, unspecified whether [place] or transplanted heart Abnormal cardiovascular stress test Other nonspecific abnormal cardiovascular system function study Coronary artery disease, unspecified vessel or lesion type, unspecified whether angina present, unspecified whether [place] or transplanted heart documented in this encounter Care Teams Counter Clerk Relationship Specialty Start Date End Date Leeroy Baron MD [address] [facility] [address] PCP - General 08/21/22 documented as of this encounter
--- OUTSIDE RECORDS SUMMARY | 2025-03-05 15:36 | XMS_ITS | Encounter Summary ---
Author Organization [facility] Address [address] [place] [address] Care Team Providers Care Plant Taxonomy Teacher Name Role Phone Leeroy Baron MD Primary Care Provider [phone] Encounter Details Date Type Department Care Team (Late st Contact Info) Description 02/22/2025 Orders Only [facility] Heart at [facility] [address] [place] [address] ProviderPhylicia MD [address] [place] [address] Social History Tobacco Use Types Packs/Day Years Used Date Smoking Tobacco: Every Day Cigarettes Smokeless Tobacco: Never Alcohol Use Standard Drinks/Week Comments Yes 0 (1 standard drink = 0.6 oz pur e alcohol) [place] Safety & Environment Answer Date Rec orded [...] Description 03/13/2025 11:30 AM EDT Hospital Encounter [facility] Heart and Vascular Center Vascular Lab [address] [place] [address] Alena Slater MD [address] [place] [address] Abnormal cardiovascular stress test; Coronary artery disease, unspecified vessel or lesion type, unspecified whether angina present, unspecified whether [place] or transplanted heart 03/13/2025 11:30 AM EDT - 03/13/2025 12:30 PM EDT Surgery [facility] Heart and Vascular Center Vascular Lab [address] [place] [address] Alena Slater MD [address] [place] [address] Coronary angiography documented as of this encounter Procedures Procedure Name Priority Date/Time Associated Diagnosis Comments LEXISCAN STRESS MYOCARDIAL PERFUSION IMAGING Routine 02/19/2025 11:51 AM EDT documented in this encounter Results * Lexiscan Stress Myocardial Perfusion Imaging (02/19/2025 11:51 AM EDT) Anatomical Region Laterality Modality Other us Historical Provider CV STRESS PROCEDURES Milvia l Result documented in this encounter Visit Diagnoses Not on filedocumented in this encounter Care Teams Plant Taxonomy Teacher Relationship Specialty Start Date End Date Leeroy Baron MD [address] [facility] [address] PCP - General 08/21/22 documented as of this encounter
--- OUTSIDE RECORDS SUMMARY | 2025-03-05 15:36 | XMS_ITS | Encounter Summary ---
Author Organization [facility] Address [address] [place] [address] Care Team Providers Care Cloth Shrinking Tester Name Role Phone Leeroy Baron MD Primary Care Provider [phone] Encounter Details Date Type Department Care Team (Late st Contact Info) Description 02/19/2025 Orders Only [facility] Heart at [facility] [address] [place] [address] ProviderPhylicia MD [address] [place] [address] Social History Tobacco Use Types Packs/Day Years Used Date Smoking Tobacco: Every Day Cigarettes Smokeless Tobacco: Never Alcohol Use Standard Drinks/Week Comments Yes 0 (1 standard drink = 0.6 oz pur e alcohol) [place] Safety & Environment Answer Date Rec orded [...] Description 03/13/2025 11:30 AM EDT Hospital Encounter [facility] Heart and Vascular Center Vascular Lab [address] [place] [address] Alean Slater MD [address] [place] [address] Abnormal cardiovascular stress test; Coronary artery disease, unspecified vessel or lesion type, unspecified whether angina present, unspecified whether [place] or transplanted heart 03/13/2025 11:30 AM EDT - 03/13/2025 12:30 PM EDT Surgery [facility] Heart and Vascular Center Vascular Lab [address] [place] [address] Alena Slater MD [address] [place] [address] Coronary angiography documented as of this encounter [...] on filedocumented in this encounter Care Teams Cloth Shrinking Tester Relationship Specialty Start Date End Date Leeroy Baron MD [address] [facility] [facility] [address] PCP - General 08/21/22 documented as of this encounter
--- OUTSIDE RECORDS SUMMARY | 2025-03-05 15:36 | XMS_ITS | Clinical Summary ---
Author Organization [facility] Address [address] [place] [address] Care Team Providers Care Campground Manager Name Role Phone Leeroy Baron MD Primary Care Provider [phone] Allergies No known active allergies Medications irbesartan (Avapro) 300 mg tabletIndications:Co ronary arteriosclerosis Take 1 tablet (300 mg) by mouth once daily as directed. 90 tablet 3 01/25/20 24 Active metoprolol tartrate (Lopressor) 25 mg tabletIndications:Pr imary hypertension Take 0.5 tablets (12.5 mg) by mouth in the morning and at bedtime. 90 tablet 3 01/25/20 24 Active nitroglycerin (Nitrostat) 0.4 mg SL tabletIndications:Co ronary arteriosclerosis Place 1 tablet (0.4 mg) under the tongue every 5 (five) minutes if needed for chest pain. 25 tablet 1 01/25/20 24 Active metFORMIN (Glucophage) 500 mg tablet Take 500 mg by mouth with breakfast and with evening meal. Active pantoprazole (ProtoNix) 40 mg EC tablet Take 1 tablet by mouth in the morning. 12/09/19 25 Active atorvastatin (Lipitor) 80 mg tabletIndications:Co ronary artery disease due to lipid rich plaque Take 1 tablet (80 mg) by mouth in the evening. 90 tablet 3 02/02/20 25 026 Active ezetimibe (Zetia) 10 mg tabletIndications:Co ronary artery disease due to lipid rich plaque Take 1 tablet (10 mg) by mouth once daily as directed. 90 tablet 3 02/02/20 25 026 Active dapagliflozin propanediol (Farxiga) 10 mgIndications:[place] ry artery disease due to lipid rich plaque Take 1 tablet (10 mg) by mouth in the morning. 90 tablet 3 02/02/20 25 Active aspirin 81 mg EC tablet 81 mg in the morning. Active clopidogrel (Plavix) 75 mg tablet Take 75 mg by mouth in the morning. Active Active Problems Problem Noted Date Diagnosed Date Abnormal cardiovascular stress test 02/23/2025 Coronary artery disease 02/23/2025 Fracture of ankle 02/11/2023 02/11/2023 Coronary arteriosclerosis 07/24/20212022 Assessment & Plan (08/20/2023 9:37 AM EST): Coronary artery disease is stable Continue GDMT- ASA and plavix fci, lipitor and zetia, with metoprolol D/W risk [...] Encounters Date Type Department Care Team Description 02/26/2025 Orders Only [facility] [address] [place] [address] Melissa Neely MA 02/23/2025 Telephone [facility] [address] [place] [address] Melissa Neely MA 02/22/2025 Orders Only [facility] [address] [place] [address] ProviderPhylicia MD 02/19/2025 Orders Only [address] [place] [address] Phylicia Leigh MD 02/01/2025 3:00 PM EDT Office Visit [address] [place] [address] Alena Slater MD Dyspnea on exertion (Primary Dx); Coronary artery disease due to lipid rich plaque; Silent ischemia; Diabetes mellitus type II, non insulin dependent ([facility]) 01/29/[address] [place] [address] Michelle Gleason MD Coronary artery disease due [...] 02/01/2025 3:21 PM EDT Plan of Treatment Upcoming Encounters Date Type Department Care Team (Late st Contact Info) Description 03/13/2025 11:30 AM EDT Hospital Encounter [facility] Heart [facility] Vascular [place] V[facility] Lab [address] [place] [address] Alena Slater MD [address] [place] [address] Abnormal cardiovascular stress test; Coronary artery disease, unspecified vessel or lesion type, unspecified whether angina present, unspecified whether [place] or transplanted heart 03/13/2025 11:30 AM EDT - 03/13/2025 12:30 PM EDT Surgery [facility] Vascular Lab [address] [place] [address] Alena Slater MD [address] [place] [phone] Coronary angiography Health Maintenance Due Date Last Done Comments [...] (1 of 2) 12/15/2019 COVID-19 Vaccine ( - season) 2024 07/24/2021, 07/24/2021, 11/25/2020, Additional history [...] PERFUSION IMAGING Routine 02/19/2025 11:51 AM EDT COMPLETE TRANSTHORACIC ECHO (TTE) W/WO IMAGING AGENT, STRAIN, 3D, BUBBLE STUDY Routine 02/19/2025 9:34 AM EDT from Last 3 Months Results * Lexiscan Stress Myocardial Perfusion Imaging (02/19/2025 11:51 AM EDT) Anatomical Region Laterality Modality Other Historical Provider CV STRESS PROCEDURES Milvia l Result * Complete Echo (TTE) w/wo Imaging Agent, Strain, 3D, Bubble Study (02/19/2025 9:34 AM EDT) Anatomical Region Laterality Modality Ultrasound Historical Provider CV ECHO PROCEDURES Final Result from Last 3 Months Insurance [place]ICAID [place] Care Teams Campground Manager Relationship Specialty Start Date End Date Leeroy Baron MD [address] [facility] [place] [address] PCP - General 08/21/22
[2025-03-05 16:02] LABS: Hematocrit 42.4 % (42.0-54.0); Hemoglobin 14.8 g/dL (14.0-18.0); Immature Granulocytes Abs Auto 0.04 10^3/uL (0.00-0.03); Immature Granulocytes Pct Auto 0.5 % (0.0-0.5); Lymphocytes Absolute Auto 1.7 10^3/uL (1.2-3.8); Mean Corpuscular HGB Conc 34.9 g/dL (29.9-35.2); Mean Corpuscular Hemoglobin 30.8 pg (25.9-34.0); Mean Corpuscular Volume 88.3 fL (80.0-94.0); Platelet Count 249 10^3/uL (150-450); Red Blood Count 4.80 10^6/uL (4.70-6.10); White Blood Count 8.3 10^3/uL (4.0-11.0)
[2025-03-05 16:18] LABS: Anion Gap 11.4; Blood Urea Nitrogen 15.0 mg/dL (7.0-18.0); Calcium 9.3 mg/dL (8.5-10.1); Carbon Dioxide 28.4 mmol/L (21.0-32.0); Chloride 104 mmol/L (98-107); Estimated GFR (African America >60 (>=60 mL/min/1.73m^2); Estimated GFR (Non-African Ame 60 (>=60 mL/min/1.73m^2); Glucose 87 mg/dL (74-106); Potassium 3.8 mmol/L (3.5-5.1); Sodium 140 mmol/L (136-145)
== END 2025-03-05 15:30 | disposition home or self-care (01) ==
LOC: LAB 15:32
PROVIDERS: PCP Family Medicine; Visit Provider Internal Medicine Interventional Cardiology
DX: R94.39 Abnormal result of other cardiovascular function study (principal); I25.10 Atherosclerotic heart disease of native coronary artery without angina pectoris
CPT/HCPCS: 36415; 80048; 85025

== ENCOUNTER 2025-03-19 07:36 | Outpatient (OUT) | payer MEDICAID, SELFPAY ==
--- OUTSIDE RECORDS SUMMARY | 2025-02-20 10:46 | XMS_ITS ---
Author Organization [facility] [place] Address [address] [place] [address] Care Team Providers Care Quality Controller Name Role Phone Melquiades Baron Primary Care Provider REASON FOR VISIT Flunked Stress Encounters Encounter Location Date Provider Diagnosis [facility] [address] [place] [id number] 02/20/2025 Melquiades Baron Plan Of Treatment Next Appt Details Provider Name:Melquiades Scott Oleggalen, 01:00:00 PM, [address] [place], [address], Progress Notes * Wale LEWISDOB:1970 (54 yo M)Acc No.[id number]:02/20/2025 Patient: Cherri HAIDER Wale Snider :1970 A ge:54 Y S ex:Male Address:[address] [address] , [place] [address] * true * Date: Generated for Jay rojas/Lisset/eTransmitting on: 0 03/19/2025 07:38 AM EDT
--- OUTSIDE RECORDS SUMMARY | 2025-03-01 09:45 | XMS_ITS ---
Author Organization [facility] [place] Address [address] [place] [address] Care Team Providers Care Customer Service Security Officer Name Role Phone Melquiades Baron Primary Care Provider Allergies No Known Allergies REASON FOR VISIT 6mon check-up, Had US done today Medications Medication SIG (Take, Route, Frequency, Duration) Notes Start Date End Date Status Aspirin 81 81 MG 1 tablet Orally Once a day for 30 days Active Clopidogrel Bisulfate 75 MG 1 tablet Ora lly Once a day for 30 days Active Farxiga Active Atorvastatin Calcium 80 MG 1 tablet Oral ly Once a day for 30 days Active Centrum Silver 50+Men - as directed Oral ly daily for 30 days Active metFORMIN HCl 500 MG 1 tablet with a sparkle l Orally twice a day for 30 days 12/12/2024 Active Irbesartan 300 MG TAKE 1 TABLET BY EDDI TH EVERY DAY for 90 Active Nitroglycerin 0.4 MG every 5 mnutes ches t pain max 3 tabs Sublingual Active Protonix 40 MG 1 tablet Orally Once a day for 30 days 02/25/2024 Active Metoprolol Tartrate 25 MG 1/2 tab Orally Twice a day for 30 days Active Social History Tobacco Use: Social History Observation Description Date Details (start date - stop date) Former Smoker 07/26/1979 - 07/26/2019 Tobacco Use/Smoking Question Answer Notes Patient is a former smoker When did you start smoking? 07/26/1979 When did you stop smoking? 07/26/2019 Vital Signs Weight 353.4 lbs 03/01/2025 Height 74 in 03/01/2025 Blood pressure systolic 128 mm Hg 03/01/20 25 Blood pressure diastolic 76 mm Hg 025 BMI 45.37 kg/m2 03/01/2025 Encounters Encounter Location Date Provider Diagnosis [facility] [address] [place] [address] 03/01/2025 Melquiades Baron Hypertension I10 ; G ERD (gastroesophageal reflux disease) K21.9 ; Diabetes E11.9 and Alcohol abuse, uncomplicated F10.10 Assessments Encounter Date Diagnosis (ICD Code) Assessment Notes Treatment Notes Treatment Clinical Notes Section Notes 03/01/2025 Hypertension (ICD-10 - I10) 03/01/2025 GERD (gastroesophageal reflux disease) (ICD-10 - K21.9) 03/01/2025 Diabetes (ICD-10 - E11.9) 03/01/2025 Alcohol abuse, uncomplicated (ICD-10 - F10.10) Plan Of Treatment Next Appt Details Provider Name:Melquiades Baron, 01:00:00 PM, [address] [place], [address], Progress Notes * Wale LEWISDOB:1970 (54 yo M)Acc No.[id number]:03/01/2025 Progress Note Patient: Wale MCQUEEN Provider: Andrey Baron ([facility])MD :1970 A ge:54 Y S ex:Male Date:03/01/2025 Address:[facility] [address] [address] , [facility] Check In:01:00 PM ESTCheck O ut:02:19 PM EST Subjective: * Chief Complaints: * 6 mon check-upHad US done today * HPI: G eneral: DM -not checkigtn sugars htn - stable here f atty liver - lft up but sl and u/s no inflammation. * ROS: E ENT: hearing changes d enies. v isual changes d enies.?non-healing mouth sores d enies. s wollen glands or neck lumps d enies. h oarseness d enies. s ore throat d enies. d ifficulty swallowing d enies. n ose bleeds d enies. n megan congestion d enies. e ar ache d enies. e ar discharge?denies. r inging in ears d enies. l ight sensitivity d enies. e ye pain d enies. b lurring d enies. e ye irritation d enies. d ouble vision d enies.?vision loss d enies. G eneral/Constitutional: Sweats: D enies. F atigue d enies. S leep problems d enies. A norexia d enies. M alaise d enies. W eight loss d enies.?Fatigue or Weakness d enies. F ever or Chills d enies. C ardiovascular: Shortness of Breath w/lying flat d enies. L ightheadedness/dizziness d enies. C hest tightness/ heavy pressure d enies. S welling of legs, ankles, or feet d enies. W aking up with shortness of breath d enies. C hest pain denies. P alpitations d enies. W eight gain d enies. R espiratory: Chronic or frequent cough d enies. C oughing up blood?denies. D ifficulty breathing d enies. P roductive cough d enies. S noring?denies. S hortness of breath that awakens from sleep (PND) d enies. C hest pain d enies. S putum production d enies. W heezing d enies. M usculoskeletal: Joint pain d enies. J oint Fluid d enies. B ack pain d enies. K nee pain d enies. N fabiola pain d enies. J oint Stiffness d enies. M uscle cramps d enies. W eakness of muscles d enies. A rthritis d enies. M uscle aches d enies. P ain in shoulder(s) d enies. S wollen joints d enies. * Active Problem List Z00.00 Well adult Modified On:02/24/2023W/U Status:confirmed F10.10 Alcohol abuse, uncom plicated Modified On:08/27/2023/U Status:confirmed I10 Hypertension Modified On:08/27/2023U Status:confirmed D64.9 Anemia, unspecified Modified On:09/08/2023U Status:confirmed K21.9 GERD (gastroesophage al reflux disease) Modified On:02/25/2024U Status:confirmed E11.9 Diabetes Modified On:09/05/2024U Status:confirmed * Medical History: * Surgical History: c holecystectomy angioplasty with stent placement urgery right ankle 2015EGD- Dr. Valentino * Hospitalization/Major Diagno stic Procedure: s ee above * Family History: F ather: 75 yrs, pancreatic cancer. M other: 66 yrs, pancreatic cancer.?Brother(s): alive. S ister(s): alive. 1 brother(s) , 4 sister(s) - healthy. . * Social History: T obacco Use: T obacco Use/Smoking P atient is a f ormer smoker W hen did you start smoking? 0 07/26/1979 W hen did you stop smoking? 0 07/26/2019 * Medications: T akingAspirin 81(Aspirin) 81 MG Tablet Delayed Release 1 tablet Orally Once a day Atorvastatin Calcium 80 MG Tablet 1 tablet Orally Once a day Centrum Silver 50+Men(Multiple Vitamins-Minerals) - Tablet as directed Orally daily Clopidogrel Bisulfate 75 MG Tablet 1 tablet Orally Once a day Farxiga Irbesartan 300 MG Tablet TAKE 1 TABLET BY MOUTH EVERY DAY metFORMIN HCl 500 MG Tablet 1 tablet with a meal Orally twice a day Metoprolol Tartrate 25 MG Tablet 1/2 tab Orally Twice a day Nitroglycerin 0.4 MG Tablet Sublingual every 5 mnutes chest pain max 3 tabs Sublingual Protonix(Pantoprazole Sodium) 40 MG Tablet Delayed Release 1 tablet Orally Once a day Medication List reviewed and reconciled with the patientTaking Aspirin 81(Aspirin) 81 MG Tablet Delayed Release 1 tablet Orally Once a day Taking Atorvastatin Calcium 80 MG Tablet 1 tablet Orally Once a day Taking Centrum Silver 50+Men(Multiple Vitamins-Minerals) - Tablet as directed Orally daily Taking Clopidogrel Bisulfate 75 MG Tablet 1 tablet Orally Once a day Taking Farxiga Taking Irbesartan 300 MG Tablet TAKE 1 TABLET BY MOUTH EVERY DAY Taking metFORMIN HCl 500 MG Tablet 1 tablet with a meal Orally twice a day Taking Metoprolol Tartrate 25 MG Tablet 1/2 tab Orally Twice a day Taking Nitroglycerin 0.4 MG Tablet Sublingual every 5 mnutes chest pain max 3 tabs Sublingual Taking Protonix(Pantoprazole Sodium) 40 MG Tablet Delayed Release 1 tablet Orally Once a day Medication List reviewed and reconciled with the patient * Allergies: N .K.D.A.no[Allergies Verified] Objective: * Vitals: W t:353.4lbs, Ht: 74 in, BP:128/76mm Hg, BMI:45.37Index, Ht-cm: 187.96 cm, Wt-k.3 kg. * Examination: P hysical Exam: GENERAL: w ell developed, well nourished, in no acute distress. HEAD: n ormocephalic/atraumatic. EYES: p upils equal, round and reactive to light, conjunctivae and sclerae normal. EARS: n o deformity or lesion of external ear, canals and TM appear normal bilaterally, TM's intact, not inflamed with normal light reflex, hearing grossly normal to conversational speech. NOSE: n o deformity, discharge, inflammation, or lesions.? MOUTH: m ucous membranes moist, normal oropharynx and posterior pharynx without lesions or exudates, tongue normal, dentition normal. NECK: n fabiola supple, no masses or palpable cervical nodes, trachea midline, thyroid without nodules, masses, tenderness, or enlargement. CHEST: n o chest wall deformity, no chest wall tenderness.? LUNGS: n ormal respiratory effort and clear to auscultation, no wheezes, rales, or rhonchi, good air exchange. CARDIO: r egular rate and rhythm, normal S1 and S2, nor murmur, rub, or gallop. PULSES: n ormal capillary refill. ABDOMEN: s oft, non-distended, non-tender, no masses. MUSCULOSKELETAL: n o deformity or scoliosis noted, normal range of motion, joints normal, no erythema, edema, effusion, or ecchymosis. EXTREMITY: n o clubbing, cyanosis, edema, or deformity with normal ROM in both upper and lower bilateral extremities. NEUROLOGIC: g rossly normal. SKIN: n o rashes, ulcerations, or suspicious lesions. LYMPH NODES: n o cervical adenopathy, nodes normal. MENTAL STATUS: a lert and oriented x3, normal mood and affect. Assessment: * Assessment: 1. H ypertension - I10 (Primary) 2 . G ERD (gastroesophageal reflux disease) - K21.9 3 . D iabetes - E11.9 4 . A lcohol abuse, uncomplicated - F10.10 Plan: * Treatment: * Procedure Codes: * Preventive Medicine: Screenings/Counseling: B NC ACTION PLAN Above Normal BMI Follow-up D ietary management education, guidance, and counseling * * Sign off status: Completed Visit Status: C HK (Check Out) true * Provider: Andrey Baron ([facility])MD Date: 03/01/2025 Generated for Printi ng/Faxing/eTransmitting on: 03/19/2025 07:39 AM EDT History and Physical Notes * HPI (History of Present Illness) Category Sub-Category Detail Notes Category Not es General DM -not checkigtn sugars htn - stable here fatty liver - lft up but sl and u/s no inflammation Examination Category Sub-Category Detail Notes Category Not es Physical Exam GENERAL: well developed, well nourished, in no acute distress HEAD: normocephalic/atraum atic EYES: pupils equal, round and reactive to light, conjunctivae and sclerae normal EARS: no deformity or lesi on of external ear, canals and TM appear normal bilaterally, TM's intact, not inflamed with normal light reflex, hearing grossly normal to conversational speech NOSE: no deformity, discha rge, inflammation, or lesions MOUTH: mucous membranes neil st, normal oropharynx and posterior pharynx without lesions or exudates, tongue normal, dentition normal NECK: neck supple, no mass es or palpable cervical nodes, trachea midline, thyroid without nodules, masses, tenderness, or enlargement CHEST: no chest wall deform ity, no chest wall tenderness LUNGS: normal respiratory e ffort and clear to auscultation, no wheezes, rales, or rhonchi, good air exchange CARDIO: regular rate and rhy thm, normal S1 and S2, nor murmur, rub, or gallop PULSES: normal capillary ref ill ABDOMEN: soft, non-distended, non-tender, no masses RECTAL: MUSCULOSKELETAL: no deformity or scol iosis noted, normal range of motion, joints normal, no erythema, edema, effusion, or ecchymosis EXTREMITY: no clubbing, cyanosi s, edema, or deformity with normal ROM in both upper and lower bilateral extremities NEUROLOGIC: grossly normal SKIN: no rashes, ulceratio ns, or suspicious lesions LYMPH NODES: no cervical adenopat hy, nodes normal MENTAL STATUS: alert and oriented x 3, normal mood and affect
--- OUTSIDE RECORDS SUMMARY | 2025-03-01 10:15 | XMS_ITS ---
Author Organization [facility] in [place] Address [address] [place] [address] Care Team Providers Care Vice President Digital Strategist Name Role Phone Melquiades Baron Primary Care Provider Medications Medication SIG (Take, Route, Frequency, Duration) Notes Start Date End Date Status Aspirin 81 81 MG 1 tablet Orally Once a day for 30 days Active Protonix 40 MG 1 tablet Orally Once a day for 30 days 02/25/2024 Active Nitroglycerin 0.4 MG every 5 mnutes ches t pain max 3 tabs Sublingual Active Metoprolol Tartrate 25 MG 1/2 tab Orally Twice a day for 30 days Active metFORMIN HCl 500 MG 1 tablet with a sparkle l Orally twice a day for 30 days 12/12/2024 Active Clopidogrel Bisulfate 75 MG 1 tablet Ora lly Once a day for 30 days Active Centrum Silver 50+Men - as directed Oral ly daily for 30 days Active Atorvastatin Calcium 80 MG 1 tablet Oral ly Once a day for 30 days Active Irbesartan 300 MG TAKE 1 TABLET BY EDDI TH EVERY DAY for 30 days Active Encounters Encounter Location Date Provider Diagnosis [facility] [address] [place] [address] 03/01/2025 Melquiades Baron Hypertension I10 Assessments Encounter Date Diagnosis (ICD Code) Assessment Notes Treatment Notes Treatment Clinical Notes Section Notes 03/01/2025 Hypertension (ICD-10 - I10) Plan Of Treatment Medication Medication Name Sig Start Date Stop Date Notes Aspirin 81 81 MG 1 tablet Orally Once a day for 30 days Protonix 40 MG 1 tablet Orally Once a day for 30 days 02/25/2024 Nitroglycerin 0.4 MG every 5 mnutes ches t pain max 3 tabs Sublingual Metoprolol Tartrate 25 MG 1/2 tab Orally Twice a day for 30 days metFORMIN HCl 500 MG 1 tablet with a sparkle l Orally twice a day for 30 days 12/12/2024 Clopidogrel Bisulfate 75 MG 1 tablet Ora lly Once a day for 30 days Centrum Silver 50+Men - as directed Oral ly daily for 30 days Atorvastatin Calcium 80 MG 1 tablet Oral ly Once a day for 30 days Irbesartan 300 MG TAKE 1 TABLET BY EDDI TH EVERY DAY for 30 days Next Appt Details Provider Name:Melquiades Baron, 01:00:00 PM, [address] [place], [address], Progress Notes * Wale LEWISDOB:1970 (54 yo M)Acc No.[id number]:03/01/2025 Patient: Cherri HAIDERWale :1970 A ge:54 Y S ex:Male Address:[address] [place] [phone] * Refills Refill Aspirin 81 Tablet Delayed Release, 81 MG, Orally, 30 Tablet, 1 tablet, Once a day, 30 days, Refills=11 Refill Atorvastatin Calcium Tablet, 80 MG, Orally, 30 Tablet, 1 tablet, Once a day, 30 days, Refills=11 Refill Centrum Silver 50+Men Tablet, -, Orally, 30, as directed, daily, 30 days, Refills=11 Refill Clopidogrel Bisulfate Tablet, 75 MG, Orally, 30 Tablet, 1 tablet, Once a day, 30 days, Refills=11 Refill Irbesartan Tablet, 300 MG, 30, TAKE 1 TABLET BY MOUTH EVERY DAY, 30 days, Refills=11 Refill metFORMIN HCl Tablet, 500 MG, Orally, 60 Tablet, 1 tablet with a meal, twice a day, 30 days, Refills=11 Refill Metoprolol Tartrate Tablet, 25 MG, Orally, 30, 1/2 tab, Twice a day, 30 days, Refills=11 Refill Nitroglycerin Tablet Sublingual, 0.4 MG, Sublingual, 25, every 5 mnutes chest pain max 3 tabs, Refills=5 Refill Protonix Tablet Delayed Release, 40 MG, Orally, 30, 1 tablet, Once a day, 30 days, Refills=11 * true * Date: Generated for Jay rojas/Lisset/Jamesitting on: 0 03/19/2025 07:38 AM EDT
--- OUTSIDE RECORDS SUMMARY | 2025-03-13 09:24 | XMS_ITS | Encounter Summary ---
Author Organization [facility] Address [address] [place] [address] Care Team Providers Care Accounting Representative Name Role Phone Leeroy Baron MD Primary Care Provider [phone] Reason for Referral * (Routine) - Pending Review Specialty Diagnoses / Procedures Referred By Seth qureshi Referred To Contact Procedures ECG 12 lead Alena Slater MD [address] [facility] [place] [address] Phone: tel: fax: Referral ID Status Reason Start Date Expiration Date V isits Requested Visits Authorized [id number] Pending Review 03/13/2025 03/13/2026 1 1 * Consultation (Routine) - Pending Review Specialty Diagnoses / Procedures Referred By Seth qureshi Referred To Contact Cardiopulmonary Rehab / CardioPulmonary Rehab Diagnoses Coronary artery disease, unspecified vessel or lesion type, unspecified whether angina present, unspecified whether [place] or transplanted heart Procedures [facility] OFFICE/OUTPATIENT [facility] 60 MINUTES Alena Slater MD [address] [place] [address] Phone: tel: fax: [facility] [address] [place] [address] [place] [address] Phone: tel:[phone] fax:[phone] Referral ID Status Reason Start Date Expiration Date Visits Requested Visits Authorized [id number] Pending Review Specialty Services Required 03/13/2025 03/13/2026 1 1 * (Routine) - Pending Review Specialty Diagnoses / Procedures Referred By Seth qureshi Referred To Contact Procedures Electrocardiogram, 12-lead Alena Slater MD [address] [place] [address] Phone: tel: fax: Referral ID Status Reason Start Date Expiration Date V isits Requested Visits Authorized [id number] Pending Review 03/13/2025 03/13/2026 1 1 Reason for Visit * Auth/Cert (Routine) Specialty Diagnoses / Procedures Referred By Seth qureshi Referred To Contact Diagnoses Abnormal cardiovascular stress test Coronary artery disease, unspecified vessel or lesion type, unspecified whether angina present, unspecified whether [place] or transplanted heart Abnormal cardiovascular stress test [R94.39] Coronary artery disease, unspecified vessel or lesion type, unspecified whether angina present, unspecified whether [place] or transplanted heart [I25.10] Procedures Coronary angiography Alena Slater MD [address] [place] [address] Phone: tel: fax: [facility] [address] [place] [address] Phone: tel: fax: Referral ID Status Reason Start Date Expiration Date Visits Re quested Visits Authorized [id number] 1 1 Encounter Details Date Type Department Care Team (Late st Contact Info) Description 03/13/2025 9:24 AM EDT - 03/13/2025 5:23 PM EDT Hospital Encounter [facility] Heart [facility] [address] [place] [address] Alena Slater MD [address] [place] [address] Abnormal cardiovascular stress test; Coronary artery disease, unspecified vessel or lesion type, unspecified whether angina present, unspecified whether [place] or transplanted heart Discharge Disposition: Home or Self Care (01) Social History Tobacco Use Types Packs/Day Years [...] AM EDT documented as of this encounter Last Filed Vital Signs Vital Sign Reading Time Taken Comments Blood Pressure 127/90 03/13/2025 5:00 PM EDT Pulse 100 03/13/2025 5:00 PM EDT Temperature - - Respiratory Rate 22 03/13/2025 2:30 PM EDT Oxygen Saturation 96% 03/13/2025 5:00 PM EDT Inhaled Oxygen Concentration - - Weight - - Height - - Body Mass Index - - documented in this encounter Discharge Instructions * Attachments The following attachments cannot be sent through Care Everywhere. * Moderate Conscious Sedation Adult Care After (Bulgarian) * Coronary Angiogram Care After (Bulgarian) documented in this encounter Medications at Time of Discharge aspirin 81 mg EC tablet 81 mg in the morning. atorvastatin (Lipitor) 80 mg tabletIndications:Cor onary artery disease due to lipid rich plaque Take 1 tablet (80 mg) by mouth in the evening. 90 tablet 3 02/01/2025 02/02/20 26 clopidogrel (Plavix) 75 mg tablet Take 75 mg by mouth in the morning. dapagliflozin propanediol (Farxiga) 10 mgIndications:Coronar y artery disease due to lipid rich plaque Take 1 tablet (10 mg) by mouth in the morning. 90 tablet 3 02/01/2025 ezetimibe (Zetia) 10 mg tabletIndications:Cor onary artery disease due to lipid rich plaque Take 1 tablet (10 mg) by mouth once daily as directed. 90 tablet 3 02/01/2025 02/02/20 26 ferrous sulfate 325 (65 Fe) MG EC tablet Take 65 mg of iron by mouth in the morning. Do not crush, chew, or split. irbesartan (Avapro) 300 mg tabletIndications:Cor onary arteriosclerosis Take 1 tablet (300 mg) by mouth once daily as directed. 90 tablet 3 01/25/2024 metFORMIN (Glucophage) 500 mg tablet Take 500 mg by mouth with breakfast and with evening meal. metoprolol tartrate (Lopressor) 25 mg tabletIndications:Kassy florina hypertension Take 0.5 tablets (12.5 mg) by mouth in the morning and at bedtime. 90 tablet 3 01/25/2024 multivitamin tablet Take 1 tablet by mouth in the morning. nitroglycerin (Nitrostat) 0.4 mg SL tabletIndications:Cor onary arteriosclerosis Place 1 tablet (0.4 mg) under the tongue every 5 (five) minutes if needed for chest pain. 25 tablet 1 01/25/2024 pantoprazole (ProtoNix) 40 mg EC tablet Take 1 tablet by mouth in the morning. 12/08/2024 documented as of this encounter H&P Notes * Sherron Rodriguez MD - 03/13/2025 10:41 AM EDT History Of Present Illness Wale Lewis is a 54 y.o. male with a past medical history including hypertension, hyperlipidemia, and CAD status post PCI of the LAD in 05/2021. Lexiscan stress test done showed medium sized anterior ischemia. Past Medical History Medical History[1] Surgical History Surgical History[2] Social History Social History Socioeconomic History Marital status: Spouse name: Not on file Number of children: Not on file Years of education: Not on file Highest education level: Not on file Occupational History Not on file Tobacco Use Smoking status: Every Day Current packs/day: 0.50 Types: Cigarettes Smokeless tobacco: Never Substance and Sexual Activity Alcohol use: Yes Drug use: Not on file Sexual activity: Defer Other Topics Concern Not on file Social History Narrative Not on file Social Drivers of Health Financial Resource Strain: Not on file Food Insecurity: Not on file Transportation Needs: Not on file Physical Activity: Not on file Stress: Not on file Social Connections: Not on file Intimate Partner Violence: Unknown (09/16/2023) [place] Safety & Environment Fear of Current or Ex-Partner: Not on file Emotionally Abused: Not on file Physically Abused: Not on file Sexually Abused: Not on file Physically or Sexually Abused: Not on file Housing Stability: Not on file Family History Family History[3] Allergies Allergies[4] Medications Prescriptions Prior to Admission[5] Review of Systems Constitutional: Negative for chills and fever. Respiratory: Negative for chest tightness and shortness of breath. Gastrointestinal: Negative for abdominal pain, nausea and vomiting. Genitourinary: Negative for difficulty urinating and dysuria. Neurological: Negative for dizziness and light-headedness. Last Recorded Vitals Visit Vitals BP 139/75 Pulse 85 Resp 16 SpO2 96% Smoking Status Every Day Physical Exam Constitutional: General: He is not in acute distress. Appearance: Normal appearance. HENT: Right Ear: External ear normal. Left Ear: External ear normal. Nose: Nose normal. Eyes: Extraocular Movements: Extraocular movements intact. Cardiovascular: Rate and Rhythm: Normal rate and regular rhythm. Heart sounds: Normal heart sounds. Pulmonary: Breath sounds: Normal breath sounds. No wheezing or rales. Abdominal: General: There is no distension. Palpations: Abdomen is soft. Tenderness: There is no abdominal tenderness. Musculoskeletal: Right lower leg: No edema. Left lower leg: No edema. Neurological: Mental Status: He is alert and oriented to person, place, and time. Psychiatric: Mood and Affect: Mood normal. Behavior: Behavior normal. Relevant Lab Results Lab Results Component Value Date CO2 28 06/24/2021 BUN 22 06/24/2021 CALCIUM 9.0 06/24/2021 EGFR >60 06/24/2021 EGFR >60 06/24/2021 Relevant Imaging Results No image results found. Assessment & Plan Abnormal cardiovascular stress test No associated orders from this encounter found during lookback period of 72 hours. Coronary artery disease No associated orders from this encounter found during lookback period of 72 hours. Active Problems: Abnormal cardiovascular stress test Coronary artery disease Will proceed with coronary angiography for further evaluation. Consent for blood products obtained. Risks, benefits, and alternatives to procedure discussed with patient in detail who expressed understanding and agreed to proceed. Sherron Rodriguez PGY-4 [employer] Dispatcher [facility] [1] Past Medical History: Diagnosis Date Coronary atherosclerosis Hyperlipidemia Hypertension Smoker [2] Past Surgical History: Procedure Laterality Date CARDIAC CATHETERIZATION CORONARY STENT PLACEMENT FOOT SURGERY ankle/ foot [3] Family History Problem Relation Name Age of Onset Hypertension Mother Pancreatic cancer Mother Coronary artery disease Father Stomach cancer Father Other (cardiac device) Father Heart murmur Sister Hypertension Brother [4] No Known Allergies [5] Medications Prior to Admission Medication Sig Dispense Refill Last Dose/Taking aspirin 81 mg EC tablet 81 mg in the morning. 03/13/2025 Morning atorvastatin (Lipitor) 80 mg tablet Take 1 tablet (80 mg) by mouth in the evening. 90 tablet 3 03/12/2025 Evening clopidogrel (Plavix) 75 mg tablet Take 75 mg by mouth in the morning. 03/13/2025 Morning dapagliflozin propanediol (Farxiga) 10 mg Take 1 tablet (10 mg) by mouth in the morning. 90 tablet 3 03/13/2025 Morning ezetimibe (Zetia) 10 mg tablet Take 1 tablet (10 mg) by mouth once daily as directed. 90 tablet 3 03/13/2025 Morning ferrous sulfate 325 (65 Fe) MG EC tablet Take 65 mg of iron by mouth in the morning. Do not crush, chew, or split. 03/13/2025 Morning irbesartan (Avapro) 300 mg tablet Take 1 tablet (300 mg) by mouth once daily as directed. 90 tablet3 03/13/2025 Morning metFORMIN (Glucophage) 500 mg tablet Take 500 mg by mouth with breakfast and with evening meal. 03/12/2025 Evening metoprolol tartrate (Lopressor) 25 mg tablet Take 0.5 tablets (12.5 mg) by mouth in the morning andat bedtime. 90 tablet 3 03/13/2025 Morning multivitamin tablet Take 1 tablet by mouth in the morning. 03/13/2025 Morning pantoprazole (ProtoNix) 40 mg EC tablet Take 1 tablet by mouth in the morning. 03/13/2025 Morning nitroglycerin (Nitrostat) 0.[address] 1 tablet (0.4 mg) under the tongue every 5 (five) minutes if needed for chest pain. (Patient not taking: Reported on 03/13/2025) 25 tablet 1 Not Taking Cosigned by Alena Slater MD at 03/13/2025 10:47 AM EDT Associated attestation - Alena Slater MD - 03/13/2025 10:47 AM EDT By using the attestations below, the signing clinician agrees that I have read and verify that thedocumentation has been personally reviewed by me and ensure that the documentation accurately reflects the encounter. GC: I personally saw this patient on the day of the encounter, performed the leigh portion(s) of the service and participated in the management and confirm the resident's documentation. Please note there may be an additional personal documentation from me. Additional Comments: Alena Slater MD, MPH, FACC, [facility], [facility] Interventional Cardiology Pager Email: [email or web address] documented in this encounter Nursing Notes * Urszula Earl RN - 03/13/2025 5:23 PM EDT RN educated pt on d/c instructions. This included: site care, limited physical activity, resume normal diet, future appointments, medications, and moderate sedation instructions. RN educated pt on when to notify physician and when to go to the hospital. RN provided pt with arm sling and educated pt on importance of not using arm for 24 hours for radial sites. RN encouraged pt to voice any questions or concerns, and answered any questions or concerns if pt verbalized. Pt was wheeled off of unit with all of belongings. documented in this encounter Miscellaneous Notes * Pre-Sedation Documentation - Sherron Rodriguez MD - 03/13/2025 10:43 AM EDT Patient: Wale Lewis Pre-sedation Evaluation: Moderate sedation History of Present Illness:Wale Lewis is a 54 y.o. male with a past medical history including hypertension, hyperlipidemia, and CAD status post PCI of the LAD in 05/2021. Lexiscan stress test done showed medium sized anterior ischemia. 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 Recent sedation/surgery (24 hours) No Review of Systems: Please check all that apply: Cardiac Disease NPO guidelines met: Yes Physical Exam Airway Mallampati: IV Cardiovascular Rhythm: regular Rate: normal (+) peripheral edema (-) murmur Dental Pulmonary (-) rhonchi, decreased breath sounds, wheezes Plan ASA 3 Moderate Consent for blood products obtained. Risks, benefits, and alternatives to procedure discussed with patient in detail who expressed understanding and agreed to proceed. Sherron Rodriguez PGY-4 [employer] Dispatcher [facility] [1] Past Medical History: Diagnosis Date Coronary atherosclerosis Hyperlipidemia Hypertension Smoker [2] No Known Allergies [3] Medications Prior to Admission Medication Sig Dispense Refill Last Dose/Taking aspirin 81 mg EC tablet 81 mg in the morning. 03/13/2025 Morning atorvastatin (Lipitor) 80 mg tablet Take 1 tablet (80 mg) by mouth in the evening. 90 tablet 3 03/12/2025 Evening clopidogrel (Plavix) 75 mg tablet Take 75 mg by mouth in the morning. 03/13/2025 Morning dapagliflozin propanediol (Farxiga) 10 mg Take 1 tablet (10 mg) by mouth in the morning. 90 tablet 3 03/13/2025 Morning ezetimibe (Zetia) 10 mg tablet Take 1 tablet (10 mg) by mouth once daily as directed. 90 tablet 3 03/13/2025 Morning ferrous sulfate 325 (65 Fe) MG EC tablet Take 65 mg of iron by mouth in the morning. Do not crush, chew, or split. 03/13/2025 Morning irbesartan (Avapro) 300 mg tablet Take 1 tablet (300 mg) by mouth once daily as directed. 90 tablet3 03/13/2025 Morning metFORMIN (Glucophage) 500 mg tablet Take 500 mg by mouth with breakfast and with evening meal. 03/12/2025 Evening metoprolol tartrate (Lopressor) 25 mg tablet Take 0.5 tablets (12.5 mg) by mouth in the morning andat bedtime. 90 tablet 3 03/13/2025 Morning multivitamin tablet Take 1 tablet by mouth in the morning. 03/13/2025 Morning pantoprazole (ProtoNix) 40 mg EC tablet Take 1 tablet by mouth in the morning. 03/13/2025 Morning nitroglycerin (Nitrostat) 0.[address] 1 tablet (0.4 mg) under the tongue every 5 (five) minutes if needed for chest pain. (Patient not taking: Reported on 03/13/2025) 25 tablet 1 Not Taking [4] No current facility-administered medications for this encounter. Cosigned by Alena Slater MD at 03/13/2025 12:17 PM EDT Associated attestation - Alena Slater MD - 03/13/2025 12:17 PM EDT By using the attestations below, the signing clinician agrees that I have read and verify that thedocumentation has been personally reviewed by me and ensure that the documentation accurately reflects the encounter. GC: I personally saw this patient on the day of the encounter, performed the leigh portion(s) of the service and participated in the management and confirm the resident's documentation. Please note there may be an additional personal documentation from me. Additional Comments: Alena Slater MD, MPH, FACC, [facility], [facility] Interventional Cardiology Pager Email: [email or web address] Assessment & Plan Note - Sherron Rodriguez MD - 03/13/2025 10:43 AM EDTAssociated Problem(s): Abnormal cardiovascular stress test No associated orders from this encounter found during lookback period of 72 hours. * Assessment & Plan Note - Sherron Rodriguez MD - 03/13/2025 10:43 AM EDTAssociated Problem(s): Coronary artery disease No associated orders from this encounter found during lookback period of 72 hours. documented in this encounter Plan of Treatment Upcoming Encounters Date Type Department Care Team (Late st Contact Info) Description 05/14/2025 11:15 AM EDT Follow-Up [facility] at [address] [address] Alena Slater MD [address] [facility] [address] [facility] [place] [address] Scheduled Orders Name Type Priority Associated Diagnoses Orde r Schedule Basic metabolic panel Lab Routine Coronary artery disease, unspecified vessel or lesion type, unspecified whether angina present, unspecified whether [place] or transplanted heart Expected: 03/16/2025 (Approximate), Expires: 03/13/2026 Scheduled Referrals Name Type Priority Associated Diagnoses Orde r Schedule Ambulatory referral to Cardiac Rehab Outpatient Referral Routine Coronary artery disease, unspecified vessel or lesion type, unspecified whether angina present, unspecified whether [place] or transplanted heart Expected: 03/13/2025 (Approximate), Expires: 09/13/2025 documented as of this encounter Procedures Procedure Name Priority Date/Time Associated Diagnosis Comments ECG 12-LEAD Today 03/13/2025 1:54 PM EDT PERC CORONARY INTERVENTION Routine 03/13/2025 1:25 PM EDT Abnormal cardiovascular stress test Coronary artery disease, unspecified vessel or lesion type, unspecified whether angina present, unspecified whether [place] or transplanted heart CORONARY ANGIOGRAPHY Routine 03/13/2025 1:25 PM EDT Abnormal cardiovascular stress test Coronary artery disease, unspecified vessel or lesion type, unspecified whether angina present, unspecified whether [place] or transplanted heart ACTIVATED CLOTTING TIME Routine 03/13/2025 1:12 PM EDT ACTIVATED CLOTTING TIME Routine 03/13/2025 1:02 PM EDT ECG 12-LEAD Routine 03/13/2025 10:48 AM EDT documented in this encounter Results * ECG 12 lead (03/13/2025 1:54 PM EDT) [facility] Ventricular Rate 87 BPM GE MUSE Atrial Rate 87 BPM GE MUSE UT Interval 168 ms GE MUSE QRS DURATION 78 ms GE MUSE QT Interval 370 ms GE MUSE QTC CALCULATION(BAZE TT) 445 ms GE MUSE P [place] 52 degrees GE MUSE R-[place] 61 degrees GE MUSE T Wave [place] 99 degrees GE MUSE 03/13/2025 1:43 PM EDT 03/13/2025 2:36 PM EDT Impressions GE MUSE - 03/13/2025 2:36 PM EDT Normal sinus rhythm Nonspecific T wave abnormality Abnormal ECG When compared with ECG of 13-MAR-2025 10:11, No significant change was found Confirmed by Fernie Pendleton ([id number]) on 03/13/2025 2:36:27 PM Narrative Procedure Note Fernie Pendleton MD - 03/13/2025 IMPRESSION: Normal sinus rhythm Nonspecific T wave abnormality Abnormal ECG When compared with ECG of 13-MAR-2025 10:11, No significant change was found Confirmed by Fernie Pendleton ([id number]) on 03/13/2025 2:36:27 PM Alena Slater MD ECG ORDERABLES Final Result GE MUSE * CORONARY ANGIOGRAPHY, PERC CORONARY INTERVENTION (03/13/2025 1:25 PM EDT) Anatomical Region Laterality Modality Other Narrative 03/13/2025 1:50 PM EDT Cardiovascular Laboratory Report FINAL IMPRESSIONS: Severe distal disease of the right coronary artery successfully treated by balloon angioplasty and Synergy drug-eluting stent placement Patent stents in the proximal to mid left anterior descending coronary artery with mild to moderate mid vessel disease Moderate ostial disease of the left circumflex coronary artery Normal global left ventricular systolic function by noninvasive imaging RECOMMENDATIONS: Aspirin 81 mg lifelong Plavix 75 mg daily for minimum of 6 months preferably long-term Guideline directed medical therapy for coronary artery disease should include dual antiplatelet therapy, high intensity statin therapy, beta-april and a RAAS inhibitor Given diabetes mellitus and vascular disease, RAAS inhibitor and SGLT2 inhibitor are indicated A repeat basic metabolic panel will be checked in 3 to 4 days Follow-up with Dr. Slater in the next 1 to 2 months or sooner should problems arise PROCEDURES: Ultrasound-guided access to the left radial artery, bilateral selective coronary angiography via a left radial approach METHODS: After risks, benefits, and alternatives were explained, written informed consent was obtained. The patient was prepped and draped in usual sterile fashion over the left wrist. Local infiltration anesthesia was achieved of the left wrist. Using a micropuncture kit, access to the left radial artery was obtained. A 6 British glide sheath was inserted without difficulty. Bilateral selective coronary angiography was performed using JR 4.0 and JL 4.0 catheters. After reviewing the images, it was elected to Proceed with an interventional procedure. A 6 British JR4 guide catheter was advanced into however could not be coaxially engaged into the right coronary ostium. Therefore a 6 British AR-2 guide catheter was advanced in. This was coaxially engaged into the right coronary ostium. A 0.014 run-through NS wire was advanced through the catheter, across the suspect stenosis and positioned distally. Balloon angioplasty was performed using a 3.0 x 15 mm noncompliant balloon. An inadequate result was treated using a 3.5 x 28 mm Synergy drug-eluting stent. Repeat images showed an optimal result. The wire was removed. Final images showed TEZ-3 flow with no dissection thrombus or distal wire trauma. At this juncture, it was elected to conclude the procedure. The catheters were removed. The radial sheath was removed with application of a TR band per protocol to achieve optimal hemostasis. FINDINGS: Hemodynamics: AO 135/75 [89] LEFT VENTRICULOGRAPHY: This was not performed. Ejection fraction is 64% by noninvasive stress test. CORONARY ARTERIES: Left main coronary artery: This arises from the left coronary cusp and bifurcates into the left anterior descending and left circumflex coronary arteries. It is free of significant stenosis. Left anterior descending coronary artery: This shows evidence of previously placed stents in the proximal to midportion of the vessel. No significant in-stent restenosis is seen. Distal to the stent there are 30 to 40% sequential stenoses. The remainder of the vessel shows luminal irregularities and caliber reduction Left circumflex coronary artery: This shows an ostial 40% stenosis and luminal irregularities throughout. Right coronary artery: This arises from the right coronary cusp and appears to be a dominant vessel giving rise to the posterior descending artery and small posterolateral branches. There is a 30% proximal to mid vessel stenosis, 40% mid vessel stenosis. Baseline imaging shows a long segment 70 to 80% stenosis extending into the posterior descending branch. This was crossed, recanalize, and reduced to 0% by balloon angioplasty and placement of a 3.5 x 28 mm Synergy drug-eluting stent. Final images show TEZ-3 flow with no dissection thrombus or distal wire trauma. INDICATIONS: Chest discomfort, shortness of breath, abnormal stress test Coronary Findings Diagnostic Dominance: Right No diagnostic findings have been documented. Intervention Dist RCA lesion: Stent: Supplies Used: STENT,SYNERGY MR 3.50 X 28 Stent: Post-Intervention Lesion Assessment: There is a 0% residual stenosis post intervention. Alena Slater MD CV CARDIAC CATH PROCEDURES Milvia l Result * (ABNORMAL) Activated clotting time (03/13/2025 1:12 PM EDT) Activated Clotting Time 300(H) 82 - 152 s 03/13/2025 1:20 PM EDT [facility] ([place]) Blood Venous blood specimen / Unknown 03/13/2025 1:12 PM EDT 03/13/2025 1:20 PM EDT Alena Slater MD LAB POINT OF CARE TE ST DOCKED DEVICE UNSOLICITED RESULTS Final Result [facility] ([place]) [address] [place] [address] * (ABNORMAL) Activated clotting time (03/13/2025 1:02 PM EDT) Activated Clotting Time 230(H) 82 - 152 s 03/13/2025 1:20 PM EDT [facility] ([place]) Blood Venous blood specimen / Unknown 03/13/2025 1:02 PM EDT 03/13/2025 1:20 PM EDT Alena Slater MD LAB POINT OF CARE TE ST DOCKED DEVICE UNSOLICITED RESULTS Final Result Performing Organization Address [facility] Co de Phone Number [facility] (KEVIN) [address] [place] [address] * Electrocardiogram, 12-lead (03/13/2025 10:48 AM EDT) Ventricular Rate 92 BPM GE MUSE Atrial Rate 92 BPM GE MUSE UT Interval 172 ms GE MUSE QRS DURATION 78 ms GE MUSE QT Interval 338 ms GE MUSE QTC CALCULATION(BAZE TT) 417 ms GE MUSE P [place] 55 degrees GE MUSE R-[place] 58 degrees GE MUSE T Wave [place] 114 degrees GE MUSE 03/13/2025 10:1 1 AM EDT 03/13/2025 10:54 AM EDT Impressions GE MUSE - 03/13/2025 10:55 AM EDT Normal sinus rhythm Nonspecific T wave abnormality Abnormal ECG When compared with ECG of 23-JUN-2021 12:35, T wave inversion no longer evident in Anterior leads Confirmed by Fernie Pendleton (80) on 03/13/2025 10:54:57 AM Narrative Procedure Note Fernie Pendleton MD - 03/13/2025 IMPRESSION: Normal sinus rhythm Nonspecific T wave abnormality Abnormal ECG When compared with ECG of 23-JUN-2021 12:35, T wave inversion no longer evident in Anterior leads Confirmed by Fernie Pendleton (80) on 03/13/2025 10:54:57 AM Alena Slater MD ECG ORDERABLES Final Result REGINA ALEJO documented in this encounter Visit Diagnoses Diagnosis Abnormal cardiovascular stress test Other nonspecific abnormal cardiovascular system function study Coronary artery disease, unspecified vessel or lesion type, unspecified whether angina present, unspecified whether [place] or transplanted heart Abnormal cardiovascular stress test Other nonspecific abnormal cardiovascular system function study Coronary artery disease, unspecified vessel or lesion type, unspecified whether angina present, unspecified whether [place] or transplanted heart documented in this encounter Admitting Diagnoses Diagnosis Abnormal cardiovascular stress test Other nonspecific abnormal cardiovascular system function study Coronary artery disease Coronary atherosclerosis of unspecified type of vessel, [place] or graft documented in this encounter Administered Medications Inactive Administered Medications - up to 3 most recent administrations Medication Order MAR Action Action Date Dose Rate Site sodium chloride 0.9 % infusion 200 mL/hr, intravenous, Continuous, Starting on Wed03/13/25 at 1345, For 4 hours, Phase II/On Unit, Indication: post PCI documented in this encounter Active and Recently Administered Medications Times are shown in EDT. Continuous Medication Order 03/11/2025 03/12/2025 03/13/2025 sodium chloride 0.9 % infusion 200 mL/hr, intravenous, Continuous, Starting on Wed03/13/25 at 1345, For 4 hours, Phase II/On Unit, Indication: post PCI 1345 (Canceled Entry - Provider: Automatic Discharge Provider - Comment: Automatically canceled at discontinue of medication order) PRN Medication Order 03/11/2025 03/12/2025 03/13/2025 clopidogrel (Plavix) tablet (CANCELED) As needed, Starting on Wed03/13/25 at 1325, Intraprocedure 1325 (Given - Provid er: Gus Santillan RN) fentaNYL (Sublimaze) injection (CANCELED) As needed, Starting on Wed03/13/25 at 1242, Intraprocedure 1242 (Given - Provid er: Gus Santillan RN)1247 (Given - Provider: Gus Santillan RN)1308 (Given - Provider: Gus Santillan RN) heparin (porcine) injection (CANCELED) As needed, Starting on Wed03/13/25 at 1247, Intraprocedure 1247 (Given - Provid er: Gus Santillan RN)1306 (Given - Provider: Gus Santillan RN) heparin irrigation 2 units/mL in NS (CANCELED) As needed, Starting on Wed03/13/25 at 1241, Intraprocedure 1241 (Given - Provid er: Alena Slater MD) iodixanol (VISIPaque) 320 mg iodine/mL injection (CANCELED) As needed, Starting on Wed03/13/25 at 1325, Intraprocedure 1325 (Given - Provid er: Alena Slater MD) lidocaine (PF) (Xylocaine) 10 mg/mL (1 %) injection (CANCELED) As needed, Starting on Wed03/13/25 at 1241, Intraprocedure 1241 (Given - Provid er: Alena Slater MD) midazolam (Versed) injection (CANCELED) As needed, Starting on Wed03/13/25 at 1242, Intraprocedure 1242 (Given - Provid er: Gus Santillan RN)1247 (Given - Provider: Gus Santillan RN)1308 (Given - Provider: Gus Santillan RN) nitroglycerin 100 mcg/mL 25ml CVL soln (CANCELED) As needed, Starting on Wed03/13/25 at 1319, Intraprocedure 1319 (Given - Provid er: Alena Slater MD) sodium chloride 0.9 % infusion (COMPLETED) Continuous PRN, Starting on Wed03/13/25 at 1242, Intraprocedure 1242 (New Bag - Prov ider: Gus Santillan RN) verapamil (Isoptin) injection (CANCELED) As needed, Starting on Wed03/13/25 at 1244, Intraprocedure 1244 (Given - Provid er: Alena Slater MD) documented in this encounter Care Teams Accounting Representative Relationship Specialty [place] [address] [place], [place] [id number] PCP - General 08/21/22 documented as of this encounter
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
--- OUTSIDE RECORDS SUMMARY | 2025-03-19 07:39 | XMS_ITS | Clinical Summary ---
Author Organization [facility] Address [address] [place] [address] Care Team Providers Care Casting Room Helper Name Role Phone Leeroy Baron MD Primary Care Provider [phone] Allergies No known active allergies Medications irbesartan [...] pain. 25 tablet 1 01/25/20 24 Active Additional Information Patient not taking.Reported on 03/13/2025 metFORMIN (Glucophage) 500 mg tablet Take 500 [...] mg by mouth in the morning. Active multivitamin tablet Take 1 tablet by mouth in the morning. Active ferrous sulfate 325 (65 Fe) MG EC tablet Take 65 mg of iron by mouth in the morning. Do not crush, chew, or split. Active Active Problems Problem Noted Date Diagnosed Date Abnormal cardiovascular stress test 02/23/2025 Assessment & Plan (03/13/2025 10:43 AM EDT): No associated orders from this encounter found during lookback period of 72 hours. Coronary artery disease 02/23/2025 Assessment & Plan (03/13/2025 10:43 AM EDT): No associated orders from this encounter found during lookback period of 72 hours. Fracture of ankle 02/11/2023 02/11/2023 Coronary arteriosclerosis 07/24/20212022 Assessment & Plan (08/20/2023 9:37 AM EST): Coronary artery disease is stable Continue GDMT- ASA and plavix email marketing specialist, lipitor and zetia, with metoprolol D/W risk [...] Encounters Date Type Department Care Team Description 03/13/2025 1:09 PM EDT - 03/13/2025 2:09 PM EDT Surgery [facility] [place] [facility] [address] [place] [address] Alena Slater MD Coronary angiography 03/13/2025 9:24 AM EDT - 03/13/2025 5:23 PM EDT Hospital Encounter [facility] [address] [place] [address] Alena Slater MD Abnormal cardiovascular stress test; Coronary artery disease, unspecified vessel or lesion type, unspecified whether angina present, unspecified whether [place] or transplanted heart Discharge Disposition: Home or Self Care () 03/13/2025 Travel 03/06/2025 Travel 02/26/2025 Orders Only [address] [address] Melissa Neely MA 02/23/[address] [place] [address] Melissa Neely MA 02/22/2025 Orders Only [address] [address] ProviderPhylicia MD 02/19/2025 Orders Only [address] [address] ProviderPhylicia MD 02/01/2025 3:00 PM EDT Office Visit [address] [address] Alena Slater MD Dyspnea on exertion (Primary Dx); Coronary artery disease due to lipid rich plaque; Silent ischemia; Diabetes mellitus type II, non insulin dependent ([facility]) 01/29/2025 Refill [facility] [address] [place] [address] Michelle Gleason MD Coronary artery disease due [...] Info) Description 05/14/2025 11:15 AM EDT Follow-Up [facility] [address] [place] [address] Alena Slater MD [address] [facility] [place] [address] Health Maintenance Due Date Last Done Comments CT Colonography 1969 Diabetes: Hemoglobin A1C 1969 FIT-DNA 1969 [...] Additional history exists Influenza Vaccine (#1) 2025 Colonoscopy 09/22/2033 09/22/2023 Colorectal Cancer Screening 09/22/2033 HIB Vaccines Aged Out No longer eligi [...] on patient's age to complete this topic Medical Devices Implanted Type Area Production Leader Device Identifier Shelf Expiration Date Model / Serial / Lot Stent,Synergy Mr 3.50 X 28 - [id number] Implanted:Qty : 1 on 03/13/2025 by Alena Slater MD at [facility] Drug Eluting Stent Right: Coronary Equiendo [id number] 07/10/2026 [id number] / / [id number] Procedures Procedure Name Priority Date/Time Associated Diagnosis Comments ECG 12-LEAD Today 03/13/2025 1:54 PM EDT PERC CORONARY INTERVENTION Routine 03/13/2025 1:25 PM EDT Abnormal cardiovascular stress test Coronary artery disease, unspecified vessel or lesion type, unspecified whether angina present, unspecified whether [place] or transplanted heart CORONARY ANGIOGRAPHY Routine 03/13/2025 1:25 PM EDT Abnormal cardiovascular stress test Coronary artery disease, unspecified vessel or lesion type, unspecified whether angina present, unspecified whether [place] or transplanted heart ACTIVATED CLOTTING TIME Routine 03/13/2025 1:12 PM EDT ACTIVATED CLOTTING TIME Routine 03/13/2025 1:02 PM EDT ECG 12-LEAD Routine 03/13/2025 10:48 AM EDT LEXISCAN STRESS MYOCARDIAL PERFUSION IMAGING Routine 02/19/2025 11:51 AM EDT COMPLETE TRANSTHORACIC ECHO (TTE) W/WO IMAGING AGENT, STRAIN, 3D, BUBBLE STUDY Routine 02/19/2025 9:34 AM EDT from Last 3 Months Results * ECG 12 lead (03/13/2025 1:54 PM EDT) Only the most recent of2 resultswithin the time period is included. Ventricular Rate 87 BPM GE MUSE Atrial Rate 87 BPM GE MUSE MA Interval 168 ms GE MUSE QRS DURATION 78 ms GE MUSE QT Interval 370 ms GE MUSE QTC CALCULATION(BAZE TT) 445 ms GE MUSE P [place] 52 degrees GE MUSE R-[place] 61 degrees GE MUSE T Wave [place] 99 degrees GE MUSE 03/13/2025 1:43 PM [...] Pendleton (80) on 03/13/2025 2:36:27 PM us Alena Slater MD ECG ORDERABLES Final Result [facility] MUSE * CORONARY ANGIOGRAPHY, PERC CORONARY INTERVENTION [...] left radial artery was obtained. A 6 Venezuelan glide sheath was inserted without difficulty. Bilateral selective coronary angiography was performed using JR 4.0 and JL 4.0 catheters. After reviewing the images, it was elected to Proceed with an interventional procedure. A 6 Venezuelan JR4 guide catheter was advanced into however could not be coaxially engaged into the right coronary ostium. Therefore a 6 Venezuelan AR-2 guide catheter was advanced in. This [...] Activated clotting time (03/13/2025 1:12 PM EDT) Only the most recent of2 resultswithin the time period is included. Activated Clotting Time 300(H) 82 - 152 s 03/13/2025 1:20 PM EDT [facility] ([facility]) Blood Venous blood specimen / Unknown 03/13/2025 1:12 PM EDT 03/13/2025 1:20 PM EDT Result [facility] Alena Slater MD LAB POINT OF CARE TE ST DOCKED DEVICE UNSOLICITED RESULTS Final Result [facility] ([place]) [address] [place] [address] * Lexiscan Stress Myocardial Perfusion Imaging (02/19/2025 11:51 AM EDT) Anatomical Region Laterality Modality Other Historical Provider CV STRESS PROCEDURES Milvia l Result * Complete Echo (TTE) w/wo Imaging Agent, Strain, 3D, Bubble Study (02/19/2025 9:34 AM EDT) Anatomical Region Laterality Modality Ultrasound Historical Provider CV ECHO PROCEDURES Final Result from Last 3 Months Insurance [place]ICAID [place] Care Teams Casting Room Helper Relationship Specialty Start Date End Date Leeroy Baron MD [address] [facility] [place] [id number] PCP - General 08/21/22
--- OUTSIDE RECORDS SUMMARY | 2025-03-19 07:39 | XMS_ITS | Encounter Summary ---
Author Organization [facility] Address [address] [place] [address] Care Team Providers Care Band Cutting Machine Operator Name Role Phone Leeroy Baron MD Primary Care Provider [phone] Reason for Visit * Reason Comments Med Refill Encounter Details Date Type Department Care Team (Late st Contact Info) Description 03/05/2023 Refill [facility] [address] [facility] [place] [id number] Farida Ayala, SNAPPER ON [address] [place] [address] Palpitations Social History Tobacco Use [...] Info) Description 05/14/2025 11:15 AM EDT Follow-Up [facility] [address] [place] [address] Alena Slater MD [address] [facility] [place] [address] documented as of this encounter Visit Diagnoses Diagnosis Palpitations documented in this encounter Care Teams Band Cutting Machine Operator Relationship Specialty Start Date End Date Leeroy Baron MD [address] [place] [address] PCP - General 08/21/22 documented as of this encounter
--- OUTSIDE RECORDS SUMMARY | 2025-03-19 07:39 | XMS_ITS | Patient Health Record ---
Author Organization [facility] in [place] Address [address] [place] [address] Care Team Providers Care Orderly Name Role Phone Melquiades Baron Primary Care Provider [phone] Allergies No Known Allergies Results Component Value Reference Range Notes US right upper quadrant Reviewed date:03/01/2025 10:20:24 PM Interpretation: Performing Lab: Notes/Report: Source Facility: [place] [address] Ultrasound Report Signed Patient: THAD CASTRO MR#: [id number] : 1970 Acct:[id number] Age/Sex: 54 / M ADM Date: 03/01/25 Loc: US Attending Dr: Rubin Baron M.D. Ordering Physician: Rubin Baron M.D. Date of Service: 03/01/25 Procedure(s): US right upper quadrant Accession Number(s): [id number] cc: Rubin Baron M.D. [place] [id number] Patient Name: THAD CASTRO MRN: [id number] date: 1970 Sex: M Assigned Patient Location: CARD Current Patient Location: CARD Accession/Order Number: [id number] Exam Date: 03/01/2025 13:30 Report Date: 03/01/2025 13:31 At the request of: RUBIN BARON MD Procedure: US right upper quadrant LIMITED ABDOMINAL ULTRASOUND: CLINICAL HISTORY: ELEVATED LIVER ENZYMES R74.8 COMPARISON: None TECHNIQUE: Grayscale and color Doppler images of the right upper quadrant organs were obtained. FINDINGS: Pancreas: Not visualized. Liver: Fatty infiltration of the visualized portions of the liver. Gallbladder: Removed. CBD: 3.2 mm RT KIDNEY: No Hydronephrosis US/US right upper quadrant IMPRESSION: FATTY INFILTRATION OF THE LIVER. NO ACUTE PROCESS.. Impression dictated by: Gus Avila Jr., D.O. 03/01/2025 1:31 PM Dictation Location: [place] [address] Electronically authenticated by: [id number] Y Date: 03/01/2025 13:31 Dictated By: Gus Avila M.D. Signed By: 03/01/25 1333 DD/ 1331 TD/TT: Millinery Worker: [place] [address] Ultrasound Report Signed Patient: THAD CASTRO MR#: [id number] : 1970 Acct:[id number] Age/Sex: 54 / M ADM Date: 03/01/25 Loc: US Attending Dr: Shree Baron M.D. Ordering Physician: Rubin Baron M.D. Date of Service: 03/01/25 Procedure(s): US right upper quadrant Accession Number(s): [id number] cc: Rubin Baron M.D. [place] [id number] Patient Name: THAD CASTRO MRN: [id number] date: 1970 Sex: M Assigned Patient Location: CARD Current Patient Location: CARD Accession/Order Number: [id number] Exam Date: 03/01/2025 13:30 Report Date: 03/01/2025 13:31 At the request of: RUBIN BARON MD Procedure: US right upper quadrant LIMITED ABDOMINAL ULTRASOUND: CLINICAL HISTORY: ELEVATED LIVER ENZYMES R74.8 COMPARISON: None TECHNIQUE: Grayscale and color Doppler images of the right upper quadrant organs were obtained. FINDINGS: Pancreas: Not visualized. Liver: Fatty infiltration of the visualized portions of the liver. Gallbladder: Removed. CBD: 3.2 mm RT KIDNEY: No Hydronephrosis US/US right upper quadrant IMPRESSION: FATTY INFILTRATION O F THE LIVER. NO ACUTE PROCESS.. Impression dictated by: Gus Avila Jr., D.O. 03/01/2025 1:31 PM Dictation Location: [place] [address] Electronically authenticated by: [id number] Y Date: 03/01/2025 13:31 Dictated By: Gus Avila M.D. Signed By: 03/01/25 1333 DD/ 1331 TD/TT: Millinery Worker: NM og perf SPECT rest str Reviewed date:02/20/2025 02:47:16 PM Interpretation: Performing Lab: Notes/Report: Source Facility: [place] [address] Nuclear Medicine Report Signed Patient: THAD CASTRO MR#: [id number] : 1970 Acct:[id number] Age/Sex: 54 / M ADM Date: 02/19/25 Loc: CARD Attending Dr: Alena Jurado M.D. Ordering Physician: Alena Jurado M.D. Date of Service: 02/19/25 Procedure(s): NM og perf SPECT rest str Accession Number(s): [id number] cc: Alena Jurado M.D.; Rubin Baron M.D. Patient Name: THAD CASTRO MR#: [id number] : 1970 Exam Date: 02/19/2025 Ordering Doctor: DR ALENA JURADO M.D. RADIOLOGY REPORT PROCEDURE: NM OG PERF SPECT REST STR COMPARISON: None. INDICATIONS: CORONARY ARTERY DISEASE TECHNIQUE: Exam Description: Stress/Rest two day protocol gated SPECT Rest Imagin.9 mCi Tc-99m Cardiolite IV on 02-19-2025 Stress Imaging 25.6 mCi Tc-99m Cardiolite IV on 02-20-2025 Exercise Protocol: 0.4 mg Lexiscan given IV Heart Rate (bpm): Rest: 92 Max: 127 PMHR: 76 Blood Pressure: Rest: 149/90 Max: 154/94 Symptoms: Rest and peak stress ECG findings were pending and the EKG portion of the study was pending per attending physician [facility] . For more details please see separate cardiac stress test report. FINDINGS: QUALITY OF STUDY: Fair PERFUSION DEFECT: LOCATION: Anterior SIZE: Medium SEVERITY: Mild TYPE: Reversible WALL MOTION: Normal LV SIZE: 93 mL. TID / TCD: 1.0 LVEF: Calculated EF 64%. SUMMARY: Abnormal myocardial perfusion imaging study CONCLUSION: Abnormal myocardial perfusion stress study showing medium sized anterior mild ischemia Normal left ventricular systolic function, ejection fraction 64% No transient ischemic dilatation, TID 1.0 EKG portion of stress test is reported separate Dictated by: Naa Lugo MD on 02/20/2025 at 12:27 Approved by: Naa Lugo MD on 02/20/2025 at 12:34 Dictated By: Naa Lugo M.D. Signed By: 02/20/25 1235 DD/ 1234 TD/TT: Millinery Worker: [place] [address] Nuclear Medicine Report Signed Patient: THAD CASTRO MR#: [id number] : 1970 Acct:[id number] Age/Sex: 54 / M ADM Date: 02/19/25 Loc: CARD Attending Dr: Alena Jurado M.D. Ordering Physician: Alena Jurado M.D. Date of Service: 02/19/25 Procedure(s): NM og perf SPECT rest str Accession Number(s): [id number] cc: Alena Jurado M.D.; Rubin Baron M.D. Patient Name: THAD CASTRO MR#: [id number] : 1970 Exam Date: 02/19/2025 Ordering Doctor: DR ALENA JURADO M.D. RADIOLOGY REPORT PROCEDURE: NM OG PERF SPECT REST STR COMPARISON: None. INDICATIONS: CORONAR Y ARTERY DISEASE TECHNIQUE: Exam Description: Stress/Rest two day protocol gated SPECT Rest Imagin.9 mCi Tc-99m Cardiolite IV on 02-19-2025 Stress Imaging 25.6 mCi Tc-99m Cardiolite IV on 02-20-2025 Exercise Protocol: 0.4 mg Lexiscan given IV Heart Rate (bpm): Rest: 92 Max: 127 PMHR: 76 Blood Pressure: Rest: 149/90 Max: 154/94 Symptoms: Rest and peak stress ECG findings were pending and the EKG portion of the study was pending pe r attending physician [facility] . For more details please see separate cardiac stress test report. FINDINGS: QUALITY OF STUDY: Fair PERFUSION DEFECT: LOCATION: Anterior SIZE: Medium SEVERITY: Mild TYPE: Reversible WALL MOTION: Normal LV SIZE: 93 mL. TID / TCD: 1.0 LVEF: Calculated EF 64%. SUMMARY: Abnormal myocardial perfusion imaging study CONCLUSION: Abnormal myocardial perfusion stress study showing medium sized anterior mild ischemia Normal left ventricular systolic function, ejection fraction 64% No transient ischemi c dilatation, TID 1.0 EKG portion of stres s test is reported separate Dictated by: Naa Lugo MD on 02/20/2025 at 12:27 Approved by: Naa Lugo MD on 02/20/2025 at 12:34 Dictated By: Naa Lugo M.D. Signed By: 02/20/25 1235 DD/ 1234 TD/TT: Millinery Worker: REGINA echo doppler complete Reviewed date:02/19/2025 01:06:53 PM Interpretation: Performing Lab: Notes/Report: Source Facility: [place] [address] Cardiology Report Signed Patient: THAD CASTRO MR#: [id number] : 1970 Acct:[id number] Age/Sex: 54 / M ADM Date: 02/19/25 Loc: CARD Attending Dr: Alena Jurado M.D. Ordering Physician: Alena Jurado M.D. Date of Service: 02/19/25 Procedure(s): CA echo doppler complete Accession Number(s): [id number] cc: Alena Jurado M.D.; Rubin Baron M.D. Patient Name: THAD CASTRO MR#: [id number] : 1970 Exam Date: 02/19/2025 Ordering Doctor: DR ALENA JURADO M.D. ECHOCARDIOGRAM REPORT PROCEDURE: CA ECHO DOPPLER COMPLETE INDICATIONS: Dyspnea on exertion, coronary artery disease, cardiac stent, hypertension, smoker, diabetes COMPARISON: None. DESCRIPTION: COMPLETE ECHOCARDIOGRAM Real-time transthoracic echocardiography with 2D, M-mode, spectral and color flow Doppler performed. QUALITY: Technically difficult due to poor acoustics. LEFT VENTRICLE: Normal chamber size. Normal left ventricular wall thickness. Normal systolic function. LV EF: Normal left ventricular ejection fraction, (>55%). DIASTOLIC: Normal diastolic function. ATRIAL SEPTUM: LEFT ATRIUM: Normal chamber size. RIGHT ATRIUM: Normal chamber size. RIGHT VENTRICLE: Normal chamber size. TRICUSPID VALVE: Normal mobility and thickness. No stenosis with no regurgitation. Unable to assess right-sided pressures due to lack of measurable tricuspid regurgitation. MITRAL VALVE: Normal mobility and thickness. No evidence of mitral valve stenosis. There is no mitral annular calcification. AORTIC VALVE: Normal trileaflet appearance. No visible sclerosis. Normal leaflet mobility. No evidence of aortic valve stenosis. No aortic regurgitation. AORTIC ROOT: Normal diameter and appearance, measuring 3.6 cm. PULMONIC VALVE: Normal thickness and mobility. No stenosis. No regurgitation. PERICARDIUM: No evidence of pericardial effusion. IVC: Not well visualized. PLEURA: CONCLUSION: 1. Normal ventricular size and function. Estimated LVEF is 60 to 65%. 2. No significant valvular dysfunction. 3. Unable to assess right-sided pressures due to lack of measurable tricuspid regurgitation. Adult Echocardiography Procedure Report Left Ventricle LVEDD (3.7 - 5.6 cm): 4.45 cm LVESD (2.2 - 4.0 cm): 3.55 cm LVIVS thickness (0.6 - 1.2 cm): 0.90 cm LVPW thickness (0.5 - 1.0 cm): 0.88 cm e': 0.09 m/s E - e': 6.21 LVOT Max Gradient: 2.10 mm[Hg] LVOT Area (cm2): 0.73 m/s Peak Velocity (LVOT): 0.73 m/s LVOT Diameter 2.19 cm Left Atrium Left Atrium Systolic Dimension: 3.35 cm Mitral Valve MV E to A Ratio: 0.77 Mitral Valve A-Wave Peak Velocity: 0.70 m/s Mitral Valve E-Wave Peak Velocity: 0.54 m/s Right Ventricle Aorta AO Root Diam: 3.59 cm Aortic Valve AoV Area (Peak Jose Alejandro): 2.59 cm2, 2.59 cm2 Peak Velocity(Antegrade Flow): 1.05 m/s Peak Gradient(Antegrade Flow): 4.42 mm[Hg] Tricuspid Valve Pulmonic Valve Peak Velocity: 0.97 m/s Peak Gradient: 3.73 mm[Hg] Right Atrium Dictated by: Nemo Akins M.D. on 02/19/2025 at 08:56 Approved by: Nemo Akins M.D. on 02/19/2025 at 09:02 Dictated By: NEMO AKINS Signed By: 02/19/25902 DD/ 1 TD/TT: Millinery Worker: [place] [address] Cardiology Report Signed Patient: THAD CASTRO MR#: [id number] : 1970 Acct:[id number] Age/Sex: 54 / M ADM Date: 02/19/25 Loc: CARD Attending Dr: Alena Jurado M.D. Ordering Physician: Alena Jurado M.D. Date of Service: 02/19/25 Procedure(s): CA ech o doppler complete Accession Number(s): [id number] cc: Alena Jurado M.D.; Rubin Baron M.D. Patient Name: THAD CASTRO MR#: [id number] : 1970 Exam Date: 02/19/2025 Ordering Doctor: DR ALENA JURADO M.D. ECHOCARDIOGRAM REPORT PROCEDURE: CA ECHO DOPPLER COMPLETE INDICATIONS: Dyspnea on exertion, coronary artery disease, cardiac stent, hypertension, smoker , diabetes COMPARISON: None. DESCRIPTION: COMPLET E ECHOCARDIOGRAM Real-time transthoracic echocardiography wit h 2D, M-mode, spectral and color flow Doppler performed. QUALITY: Technically difficult due to poor acoustics. LEFT VENTRICLE: Normal chamber size. Normal left ventricular wall thickness. Normal systolic function. LV EF: Normal left ventricular ejection fraction, (>55%). DIASTOLIC: Normal diastolic function. ATRIAL SEPTUM: LEFT ATRIUM: Normal chamber size. RIGHT ATRIUM: Normal chamber size. RIGHT VENTRICLE: Normal chamber size. TRICUSPID VALVE: Normal mobility and thickness. No stenosis with no regurgitation. Unabl e to assess right-sided pressures due to lack of measurable tricuspid regurgitation. MITRAL VALVE: Normal mobility and thickness. No evidence of mitral valve stenosis. There is n o mitral annular calcification. AORTIC VALVE: Renée l trileaflet appearance. No visible sclerosis. Normal leaflet mobility. No evidence of aortic valve stenosis. No aortic regurgitation. AORTIC ROOT: Normal diameter and appearance, measuring 3.6 cm. PULMONIC VALVE: Normal thickness and mobility. No stenosis. No regurgitation. PERICARDIUM: No evidence of pericardial effusion. IVC: Not well visualized. PLEURA: CONCLUSION: 1. Normal ventricula r size and function. Estimated LVEF is 60 to 65%. 2. No significant valvular dysfunction. 3. Unable to assess right-sided pressures due to lack of measurable tricuspid regurgitation. Adult Echocardiography Procedure Report Left Ventricle LVEDD (3.7 - 5.6 cm) : 4.45 cm LVESD (2.2 - 4.0 cm) : 3.55 cm LVIVS thickness (0.6 - 1.2 cm): 0.90 cm LVPW thickness (0.5 - 1.0 cm): 0.88 cm e': 0.09 m/s E - e': 6.21 LVOT Max Gradient: 2.10 mm[Hg] LVOT Area (cm2): 0.7 3 m/s Peak Velocity (LVOT) : 0.73 m/s LVOT Diameter 2.19 cm Left Atrium Left Atrium Systolic Dimension: 3.35 cm Mitral Valve MV E to A Ratio: 0.77 Mitral Valve A-Wave Peak Velocity: 0.70 m/s Mitral Valve E-Wave Peak Velocity: 0.54 m/s Right Ventricle Aorta AO Root Diam: 3.59 cm Aortic Valve AoV Area (Peak Jose Alejandro): 2.59 cm2, 2.59 cm2 Peak Velocity(Antegrade Flow): 1.05 m/s Peak Gradient(Antegrade Flow): 4.42 mm[Hg] Tricuspid Valve Pulmonic Valve Peak Velocity: 0.97 m/s Peak Gradient: 3.73 mm[Hg] Right Atrium Dictated by: Nemo Akins M.D. on 02/19/2025 at 08:56 Approved by: Nemo Akins M.D. on 02/19/2025 at 09:02 Dictated By: NEMO AKINS Signed By: 02/19/25902 DD/ 1 TD/TT: Millinery Worker: PROF Pham(COMP METB) Reviewed date:02/19/2025 01:06:53 PM Interpretation: Performing Lab: Notes/Report: [facility] , Sodium 142 136-145 mmol/L Potassium 3.8 3.5-5.1 mmol/L Chloride 103 98-107 mmol/L Carbon Dioxide 27.9 21.0-32.0 mmol/L Anion Gap 14.9 Glucose 137 74-106 mg/dL Blood Urea Nitrogen 14.0 7.0-18.0 mg/dL Creatinine 1.23 0.70-1.30 mg/dL Estimated GFR ( Marga >60 >=60 mL/min/1.73m 2 Estimated GFR (Non- Yun >60 >=60 mL/min/1.73m 2 BUN Creatinine Ratio 11.4 Calcium 9.2 8.5-10.1 mg/dL Bilirubin Total 0.6 0.2-1.0 mg/dL Aspartate Amino Transferase 23 15-37 U/L Alanine Aminotransferase 68 16-63 U/L Alkaline Phosphatase 145 46-116 U/L Total Protein 7.4 6.4-8.2 g/dL Albumin Level 3.8 3.4-5.0 g/dL Globulin 3.6 Albumin Globulin Ratio 1.1 Performing Lab: see note ML - [facility] LB LIPID PROFILE Reviewed date:02/19/2025 01:06:53 PM Interpretation: Performing Lab: Notes/Report: [facility] , Triglycerides 133 <=150 mg/dL Cholesterol 119 <=200 mg/dL HDL Cholesterol 31 40-60 mg/dL > or =60 mg/dl - LOW CARDIOVASCULAR RISK <40 mg/dl - HIGH CARDIOVASCULAR RISK LDL Cholesterol Calculated 62.0 <100 mg/dl OPTIMAL 100-129 mg/dl NEAR OR ABOVE OPTIMAL 130-159 mg/dl BORDERLINE HIGH 160-189 mg/dl HIGH >190 mg/dl VERY HIGH VLDL CHOLESTEROL 26.6 Chol HDL Ratio 3.8 3.3 - 4.4 LOW RISK 4.4 - 7.1 AVERAGE RISK 7.1 - 11.0 MODERATE RISK >11.0 HIGH RISK Performing Lab: see note ML - [facility] LB TSH Reviewed date:12/10/2024 10:41:01 PM Interpretation: Performing Lab: Notes/Report: [facility] , Thyroid Stimulating Hormone 1.904 0.358-3.740 uIU/mL Performing Lab: see note ML - [facility] PROF 14(COMP METB) Reviewed date:12/10/2024 10:41:01 PM Interpretation: Performing Lab: Notes/Report: [facility] , Sodium 138 136-145 mmol/L Potassium 4.3 3.5-5.1 mmol/L Chloride 102 98-107 mmol/L Carbon Dioxide 27.1 21.0-32.0 mmol/L Anion Gap 13.2 Glucose 132 74-106 mg/dL Blood Urea Nitrogen 18.0 7.0-18.0 mg/dL Creatinine 1.20 0.70-1.30 mg/dL Estimated GFR ( Marga >60 >=60 mL/min/1.73m 2 Estimated GFR (Non- Yun >60 >=60 mL/min/1.73m 2 BUN Creatinine Ratio 15.0 Calcium 9.2 8.5-10.1 mg/dL Bilirubin Total 0.7 0.2-1.0 mg/dL Aspartate Amino Transferase 24 15-37 U/L Alanine Aminotransferase 54 16-63 U/L Alkaline Phosphatase 166 46-116 U/L Total Protein 7.5 6.4-8.2 g/dL Albumin Level 3.8 3.4-5.0 g/dL Globulin 3.7 Albumin Globulin Ratio 1.0 Performing Lab: see note ML - [facility] LB FREE T4 Reviewed date:12/10/2024 10:41:01 PM Interpretation: Performing Lab: Notes/Report: [facility] , Free T4 1.28 0.76-1.46 ng/dL Performing Lab: see note ML - [facility] LB CA 19-9 Reviewed date:09/03/2024 11:30:46 AM Interpretation: Performing Lab: Notes/Report: [facility] , CA 19-9 28 0-35 U/mL [facility] Electrochemiluminescence Immunoassay (ECLIA) Values obtained with different assay methods or kits cannot be used interchangeably. Results cannot be interpreted as absolute evidence of the presence or absence of malignant disease. Performed at: - [facility] [address] [id number] Credit Balance Specialist: Carmine Bradford PhD, Phone: [phone] Performing Lab: see note - [facility] LB XR chest 2V Reviewed date:08/23/2024 08:58:43 PM Interpretation: Performing Lab: Notes/Report: Source Facility: [place] [address] XRay Report Signed Patient: THAD CASTRO MR#: [id number] : 1970 Acct:[id number] Age/Sex: 53 / M ADM Date: 08/23/24 Loc: ER Attending Dr: Ordering Physician: Annette Wilson D.O. Date of Service: 08/23/24 Procedure(s): XR chest 2V Accession Number(s): [id number] cc: Rubin Baron M.D.; Annette Wilson D.O. [place] [address] Patient Name: THAD CASTRO MRN: [id number] date: 1970 Sex: M Assigned Patient Location: ER Current Patient Location: ER Accession/Order Number: [id number] Exam Date: 08/23/2024 11:30 Report Date: 08/23/2024 11:54 At the request of: ANNETTE WILSON Procedure: XR chest 2V EXAMINATION: XR chest 2V HISTORY: sob COMPARISON: No relevant comparison available. FINDINGS: LUNGS: Patchy opacities within lateral right mid and lower lung. VASCULATURE: No increased pulmonary vasculature. PLEURA: No pneumothorax, effusion, or pleural thickening. CARDIAC: No cardiomegaly or cardiac silhouette abnormality. MEDIASTINUM: No visible mass or adenopathy. BONES: No fracture or visible bone lesion. OTHER: Negative. XR/XR chest 2V IMPRESSION: 1. Several patchy infiltrates within lateral right mid and lower lung suspected represent pneumonia. Follow-up to document clearing and to exclude soft tissue masses is recommended. Electronically authenticated by: SUDHAKAR MELVIN Date: 08/23/2024 11:54 Dictated By: Sudhakar Melvin M.D. Signed By: 08/23/24 1157 DD/ 53 TD/TT: Millinery Worker: [place] [address] XRay Report Signed Patient: THAD CASTRO MR#: [id number] : 1970 Acct:[id number] Age/Sex: 53 / M ADM Date: 08/23/24 Loc: ER Attending Dr: Ordering Physician: Annette Wilson D.O. Date of Service: 08/23/24 Procedure(s): XR chest 2V Accession Number(s): [id number] cc: Rubin Baron M.D. ; Annette Wilson D.O. [place] [address] Patient Name: THAD CASTRO MRN: [id number] date: 1970 Sex: M Assigned Patient Location: ER Current Patient Location: ER Accession/Order Number: [id number] Exam Date: 08/23/2024 11:30 Report Date: 08/23/2024 11:54 At the request of: ANNETTE WILSON Procedure: XR chest 2V EXAMINATION: XR ches t 2V HISTORY: sob COMPARISON: No relevant comparison available. FINDINGS: LUNGS: Patchy opacities within lateral right mid and lower lung. VASCULATURE: No increased pulmonary vasculature. PLEURA: No pneumothorax, effusion, or pleural thickening. CARDIAC: No cardiomegaly or cardiac silhouette abnormality. MEDIASTINUM: No visible mass or adenopathy. BONES: No fracture o r visible bone lesion. OTHER: Negative. XR/XR chest 2V IMPRESSION: 1. Several patchy infiltrates within lateral right mid and lower lung suspected represent pneumonia. Follow-up to document clearing and to exclude soft tissue masses is recommended. Electronically authenticated by: SUDHAKAR MELVIN Date: 08/23/2024 11:54 Dictated By: Sudhakar Melvin M.D. Signed By: 08/23/24 1157 DD/ 53 TD/TT: Millinery Worker: SARS-CoV-2 Ag* Reviewed date:08/23/2024 08:58:43 PM Interpretation: Performing Lab: Notes/Report: [facility] , SARS-CoV-2 Ag NEGATIVE NEGATIVE This test has not been FDA cleared or approved, but has been authorized by the FDA under an Emergency Use Authorization (EUA) for use by authorized laboratories certified under CLIA that meet the requirements to perform moderate or high complexity testing. This test has been authorized only for the detection of proteins from SARS-CoV-2, not for any other viruses or pathogens. The emergency use of this test is authorized for the duration of the declaration that circumstances exist justifying the authorization of emergency use of in vitro diagnostic tests for detection and/or diagnosis of Covid-19 under section 564(b)(1) of the Act, 21 U.S.C. 360bbb-3(b)(1), unless the declaration is terminated or authorization is revoked sooner. Performing Lab: see note ML - [facility] LB INFLUENZA A AND B AG Reviewed date:08/23/2024 08:58:43 PM Interpretation: Performing Lab: Notes/Report: [facility] , Influenza Virus A Antigen Positive NOTE: Live attenuated influenza vaccine viruses can cause a positive result for a rapid influenza diagnostic test if administered up to 7 days prior to rapid testing. Influenza Virus B Antigen Negative Negative for Flu B protein antigen. Infection due to Flu B cannot be ruled out. Flu B antigen in the sample may be below the detection limit of the test. Performing Lab: see note ML - [facility] LB CBC AUTO DIFF Reviewed date:09/03/2024 11:30:46 AM Interpretation: Performing Lab: Notes/Report: [facility] , White Blood Count 4.2 4.0-11.0 10 3/uL Red Blood Count 4.82 4.70-6.10 10 6/uL Hemoglobin 14.2 14.0-18.0 g/dL Hematocrit 41.6 42.0-54.0 % Mean Corpuscular Volume 86.3 80.0-94.0 fL Mean Corpuscular Hemoglobin 29.5 25.9-34.0 pg Mean Corpuscular HGB Conc 34.1 29.9-35.2 g/dL Red Cell Distribution Width 13.1 11.0-15.0 % Platelet Count 236 150-450 10 3/uL Mean Platelet Volume 8.6 9.5-13.5 fL Neutrophils Percent Auto 55.9 43.0-75.0 % Lymphocytes Percent Auto 31.7 20.5-60.0 % Monocytes Percent Auto 9.5 1.7-12.0 % Eosinophils Percent Auto 1.9 0.9-7.0 % Basophils Percent Auto 0.5 0.2-2.0 % Immature Granulocytes Pct Auto 0.5 0.0-0.5 % Neutrophils Absolute Auto 2.4 1.4-6.5 10 3/uL Lymphocytes Absolute Auto 1.3 1.2-3.8 10 3/uL Monocytes Absolute Auto 0.4 0.3-0.8 10 3/uL Eosinophils Absolute Auto 0.1 0.0-0.7 10 3/uL Basophils Absolute Auto 0.0 0.0-0.1 10 3/uL Immature Granulocytes Abs Auto 0.02 0.00-0.03 10 3/uL Performing Lab: see note - [facility] LB PROF CHEM 8 (BAS METB) Reviewed date:03/05/2025 08:02:18 PM Interpretation: Performing Lab: Notes/Report: [facility] , Sodium 140 136-145 mmol/L Potassium 3.8 3.5-5.1 mmol/L Chloride 104 98-107 mmol/L Carbon Dioxide 28.4 21.0-32.0 mmol/L Anion Gap 11.4 Glucose 87 74-106 mg/dL Blood Urea Nitrogen 15.0 7.0-18.0 mg/dL Creatinine 1.25 0.70-1.30 mg/dL Estimated GFR ( Marga >60 >=60 mL/min/1.73m 2 Estimated GFR (Non- Yun 60 >=60 mL/min/1.73m 2 BUN Creatinine Ratio 12.0 Calcium 9.3 8.5-10.1 mg/dL Performing Lab: see note - [facility] LB CBC AUTO DIFF Reviewed date:03/05/2025 08:02:18 PM Interpretation: Performing Lab: Notes/Report: [facility] , White Blood Count 8.3 4.0-11.0 10 3/uL Red Blood Count 4.80 4.70-6.10 10 6/uL Hemoglobin 14.8 14.0-18.0 g/dL Hematocrit 42.4 42.0-54.0 % Mean Corpuscular Volume 88.3 80.0-94.0 fL Mean Corpuscular Hemoglobin 30.8 25.9-34.0 pg Mean Corpuscular HGB Conc 34.9 29.9-35.2 g/dL Red Cell Distribution Width 13.3 11.0-15.0 % Platelet Count 249 150-450 10 3/uL Mean Platelet Volume 8.8 9.5-13.5 fL Neutrophils Percent Auto 68.9 43.0-75.0 % Lymphocytes Percent Auto 20.5 20.5-60.0 % Monocytes Percent Auto 7.0 1.7-12.0 % Eosinophils Percent Auto 2.3 0.9-7.0 % Basophils Percent Auto 0.8 0.2-2.0 % Immature Granulocytes Pct Auto 0.5 0.0-0.5 % Neutrophils Absolute Auto 5.7 1.4-6.5 10 3/uL Lymphocytes Absolute Auto 1.7 1.2-3.8 10 3/uL Monocytes Absolute Auto 0.6 0.3-0.8 10 3/uL Eosinophils Absolute Auto 0.2 0.0-0.7 10 3/uL Basophils Absolute Auto 0.1 0.0-0.1 10 3/uL Immature Granulocytes Abs Auto 0.04 0.00-0.03 10 3/uL Performing Lab: see note ML - [facility] LB GLYCOHEMOGLOBIN A1C Reviewed date:12/10/2024 10:41:01 PM Interpretation: Performing Lab: Notes/Report: [facility] , Glycohemoglobin A1C 6.7 4.5-6.2 % ADA RECOMMENDED LIMIT 4.0 - 6.0 ADA THERAPEUTIC TARGET < 7.0 ACTION SUGGESTED > 7.0 Estimated Average Glucose 146 Performing Lab: see note ML - [facility] LB TSH Reviewed date:09/03/2024 11:30:46 AM Interpretation: Performing Lab: Notes/Report: [facility] , Thyroid Stimulating Hormone 1.677 0.358-3.740 uIU/mL Performing Lab: see note ML - [facility] LB T4 Reviewed date:09/03/2024 11:30:46 AM Interpretation: Performing Lab: Notes/Report: [facility] , T4 Thyroxine 14.60 4.50-12.10 ug/dL Performing Lab: see note ML - [facility] LB PSA SCREENING Reviewed date:09/03/2024 11:30:46 AM Interpretation: Performing Lab: Notes/Report: [facility] , Prostate Specific Antigen Scrn 1.01 <=4.00 ng/mL Performing Lab: see note ML - [facility] LB PROF 14(COMP METB) Reviewed date:09/03/2024 11:30:46 AM Interpretation: Performing Lab: Notes/Report: [facility] , Sodium 140 136-145 mmol/L Potassium 4.1 3.5-5.1 mmol/L Chloride 103 98-107 mmol/L Carbon Dioxide 26.1 21.0-32.0 mmol/L Anion Gap 15.0 Glucose 100 74-106 mg/dL Blood Urea Nitrogen 17.0 7.0-18.0 mg/dL Creatinine 1.31 0.70-1.30 mg/dL Estimated GFR ( Marga >60 >=60 mL/min/1.73m 2 Estimated GFR (Non- Yun 57 >=60 mL/min/1.73m 2 BUN Creatinine Ratio 13.0 Calcium 9.2 8.5-10.1 mg/dL Bilirubin Total 1.3 0.2-1.0 mg/dL Aspartate Amino Transferase 51 15-37 U/L Alanine Aminotransferase 90 16-63 U/L Alkaline Phosphatase 139 46-116 U/L Total Protein 7.5 6.4-8.2 g/dL Albumin Level 3.8 3.4-5.0 g/dL Globulin 3.7 Albumin Globulin Ratio 1.0 Performing Lab: see note ML - [facility] LB LIPID PROFILE Reviewed date:09/03/2024 11:30:46 AM Interpretation: Performing Lab: Notes/Report: [facility] , Triglycerides 217 <=150 mg/dL Cholesterol 121 <=200 mg/dL HDL Cholesterol 29 40-60 mg/dL > or =60 mg/dl - LOW CARDIOVASCULAR RISK <40 mg/dl - HIGH CARDIOVASCULAR RISK LDL Cholesterol Calculated 49.0 <100 mg/dl OPTIMAL 100-129 mg/dl NEAR OR ABOVE OPTIMAL 130-159 mg/dl BORDERLINE HIGH 160-189 mg/dl HIGH >190 mg/dl VERY HIGH VLDL CHOLESTEROL 43.4 Chol HDL Ratio 4.2 3.3 - 4.4 LOW RISK 4.4 - 7.1 AVERAGE RISK 7.1 - 11.0 MODERATE RISK >11.0 HIGH RISK Performing Lab: see note ML - [facility] LB GLYCOHEMOGLOBIN A1C Reviewed date:09/03/2024 11:30:46 AM Interpretation: Performing Lab: Notes/Report: [facility] , Glycohemoglobin A1C 6.7 4.5-6.2 % ADA RECOMMENDED LIMIT 4.0 - 6.0 ADA THERAPEUTIC TARGET < 7.0 ACTION SUGGESTED > 7.0 Estimated Average Glucose 146 Performing Lab: see note ML - [facility] LB FREE T3 Reviewed date:09/03/2024 11:30:46 AM Interpretation: Performing Lab: Notes/Report: [facility] , Free T3 2.78 2.18-3.98 pg/mL Performing Lab: see note ML - [facility] LB Reason For Referral No Information Medications Medication SIG (Take, Route, Frequency, Duration) Notes Start Date End Date Status Clopidogrel Bisulfate 75 MG 1 tablet Ora lly Once a day for 30 days Active Centrum Silver 50+Men - as directed Oral ly daily for 30 days Active Atorvastatin Calcium 80 MG 1 tablet Oral ly Once a day for 30 days Active Farxiga Active Aspirin 81 81 MG 1 tablet Orally [...] TH EVERY DAY for 30 days Active Social History Tobacco Use: Social History Observation Description Date Details (start date - stop date) Former Smoker 07/26/1979 - 07/26/2019 Tobacco Use/Smoking Question Answer Notes Patient is a former smoker When did you start smoking? 07/26/1979 When did you stop smoking? 07/26/2019 Alcohol Screen (Audit-C) Question Answer Notes Did you have a drink contain ing alcohol in the past year? Yes How often did you have 6 or more drinks on one occasion in the past year? Never (0 point) How many drinks did you have on a typical day when you were drinking in the past year? 5 or 6 drinks (2 points) Points 2 Interpretation Negative AUDIT-C (Standard) Question Answer Notes Did you have a drink contain ing alcohol in the past year? Yes How often did you have six o r more drinks on one occasion in the past year? Never (0 point) How many drinks did you have on a typical day when you were drinking in the past year? 3 or 4 drinks (1 point) How often did you have a dri nk containing alcohol in the past year? 2 to 3 times a week (3 points) Points 4 Interpretation Positive Problems Problem Type SNOMED Code ICD Code Onset Dates Problem Status W/U Status Risk Notes Problem 906285172 Anemia, unspecified (D64.9) Active confirmed Problem 39992142 Alcohol abuse, uncomplicated (F10.10) Active confirmed Problem Hypertension (10323248) Hypertension (I10) Active confirmed Problem Gastroesophageal reflux disease (555282836) GERD (gastroesophagea l reflux disease) (K21.9) Active confirmed Problem Well adult (668105819) Well adult (Z00.00) Active confirmed Problem Type II diabetes mellitus without complication (688836874) Diabetes (E11.9) Active confirmed Vital Signs Blood pressure diastolic 76 mm Hg 03/01/2025 Height 74 in 03/01/2025 Blood pressure systolic 128 mm Hg 03/01/2025 Weight 353.4 lbs 03/01/2025 BMI 45.37 kg/m2 03/01/2025 Encounters Encounter Location Date Provider Diagnosis [address] [address] 09/01/2024 Melquiades Hoy Well adult Z00.[address] [address] 03/01/2025 Melquiades Baron Hypertension I10 ; G ERD (gastroesophageal reflux disease) K21.9 ; Diabetes E11.9 and Alcohol abuse, uncomplicated F10.[address] [address] 09/05/2024 Melquiades Baron Diabetes E11.[address] [address] 06/26/2024 Melquiades Baron [facility] [address] [facility] [place] [address] 09/01/2024 Melquiades Dejesusy Hypertension I10 [facility] [address] [facility] [facility] [place] [address] 09/03/[address] [facility] [address] [facility] [place] [address] 12/07/2024 Melquiades [facility] [address] [facility] [place] [address] 12/10/2024 Melquiades galen [facility] [address] [facility] [place] [address] 02/19/2025 Melquiades Baron Elevated liver enzym es R74.8 [facility] [address] [facility] [place] [address] 02/20/2025 Melquiades galen [facility] [address] [facility] [place] [address] 03/01/2025 Melquiades Baron Hypertension I10 Assessments Encounter Date Diagnosis (ICD Code) Assessment Notes Treatment Notes Treatment Clinical Notes Section Notes 09/01/2024 Well adult (ICD-10 - Z00.00) 03/01/2025 Hypertension (ICD-10 - I10) 03/01/2025 GERD (gastroesophageal reflux disease) (ICD-10 - K21.9) 09/05/2024 Diabetes (ICD-10 - E11.9) 09/01/2024 Hypertension (ICD-10 - I10) 02/19/2025 Elevated liver enzymes (ICD-10 - R74.8) 03/01/2025 Hypertension (ICD-10 - I10) 03/01/2025 Diabetes (ICD-10 - E11.9) 03/01/2025 Alcohol abuse, uncomplicated (ICD-10 - F10.10) Plan Of Treatment Pending Test Test Name Order Date CMP (COMPLETE METABOLIC PANEL) 4 CMP (COMPLETE METABOLIC PANEL) 3 HEMOGLOBIN A1C (GLYCO) 02/24/2023 HEMOGLOBIN A1C (GLYCO) 08/27/2023 HEMOGLOBIN A1C (GLYCO) 09/01/2024 INSULIN, TOTAL 08/27/2023 LIPID PANEL (CHOL/TRIG/HDL/LDL) 08/27/19 24 LIPID PANEL (CHOL/TRIG/HDL/LDL) 09/01/19 25 LIPID PANEL (CHOL/TRIG/HDL/LDL) 02/25/20 23 CBC WITH DIFF 02/24/2023 CBC WITH DIFF 09/01/2024 CBC WITH DIFF 08/27/2023 PSA, PROSTATE-SPECIFIC ANTIGEN 4 PSA, PROSTATE-SPECIFIC ANTIGEN 3 US Liver 02/19/2025 US Pancreas 02/19/2025 PSA, TOTAL 09/01/2024 STOOL OCCULT BLOOD 02/24/2023 CA 19-9 02/25/2024 CA 19-9 09/01/2024 CA 19-9 02/24/2023 GLYCOHEMOGLOBIN A1C 09/05/2024 PROF 14(COMP METB) 09/05/2024 THYROID PROFILE WITH TSH 09/05/2024 THYROID PANEL (T4/TSH/FREE T3) 5 THYROID PANEL (T4/TSH/FREE T3) 4 THYROID PANEL (T4/TSH/FREE T3) 3 CMP (COMP MET HERZOG) w/eGFR CKD-EPI 2024 Next Appt Details Provider Name:Melquiades Baron, 01:00:00 PM, [address] [place], [address], Insurance Providers Payer Name Payer Address Payer Phone Subscriber Number Group Number Insured Name Patient Relationship to Insured Coverage Start Date Coverage End Date MEDICAID [place] [employer] ONLY [address] OFFICE OF [place], [place] [id number] Thad Castro Self - patient is the insured Medical (General) History Medical History History ICD Code Snoring R06.83 Alcohol abuse F10.10 Chest pain R07.9 Benign essential HTN I10 Surgical History Surgery Date(Month/Year) cholecystectomy angioplasty with stent placement 05/2021 surgery right ankle 2014 EGD- Dr. Valentino Hospitalization History Reason Date(Month/Year) see above
--- OUTSIDE RECORDS SUMMARY | 2025-03-19 07:39 | XMS_ITS | Encounter Summary ---
Author Organization [facility] Address [address] [place] [address] Care Team Providers Care Technical Sales Support Manager Name Role Phone Leeroy Baron MD Primary Care Provider [phone] Encounter Details Date Type Department Care Team (Latest Contact Info) Description 03/13/2025 Travel Social History Tobacco Use Types Packs/Day Years [...] Info) Description 05/14/2025 11:15 AM EDT Follow-Up [facility] [address] [place] [address] Alena Slater MD [address] [facility] [place] [phone] documented as of this encounter Visit Diagnoses Not on filedocumented in this encounter Care Teams Technical Sales Support Manager Relationship Specialty Start Date End Date Leeory Baron MD [address] [facility] [address] [place] [phone] PCP - General 08/21/22 documented as of this encounter
--- OUTSIDE RECORDS SUMMARY | 2025-03-19 07:40 | XMS_ITS | Encounter Summary ---
Author Organization [facility] Address [address] [place] [address] Care Team Providers Care Assembler Carbon Brushes Name Role Phone Leeroy Baron MD Primary Care Provider [phone] Reason for Visit * Reason Comments Med Refill Encounter Details Date Type Department Care Team (Late st Contact Info) Description 02/09/2023 Refill [facility] [address] [address] Farida Ayala, ENGINEERING CONSULTANT [address] [place] [address] Atherosclerotic heart disease of [place] coronary artery without angina pectoris Social History [...] Info) Description 05/14/2025 11:15 AM EDT Follow-Up [facility] [address] [place] [phone] Alena Slater MD [address] [facility] [place] [address] documented as of this encounter Visit Diagnoses Diagnosis Atherosclerotic heart disease of [place] coronary artery without angina pectoris documented in this encounter Care Teams Assembler Carbon Brushes Relationship Specialty Start Date End Date Leeroy Baron MD [address] [facility] [facility] [place] [address] PCP - General 08/21/22 documented as of this encounter
--- OUTSIDE RECORDS SUMMARY | 2025-03-19 07:40 | XMS_ITS | Encounter Summary ---
Author Organization [facility] Address [address] [place] [address] Care Team Providers Care Global Creative Chairman Name Role Phone Leeroy Baron MD Primary Care Provider [phone] Encounter Details Date Type Department Care Team (Latest Contact Info) Description 03/06/2025 Travel Social History Tobacco Use Types Packs/Day [...] Info) Description 05/14/2025 11:15 AM EDT Follow-Up [facility] [address] [place] [address] Alena Slater MD [address] [facility] [place] [phone] documented as of this encounter Visit Diagnoses Not on filedocumented in this encounter Care Teams Global Creative Chairman Relationship Specialty Start Date End Date Leeroy Baron MD [address] [facility] [address] [place] [phone] PCP - General 08/21/22 documented as of this encounter
--- OUTSIDE RECORDS SUMMARY | 2025-03-19 07:41 | XMS_ITS | CCD ---
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 Lymphocytes/100 WBC (Bld) 24.0 % Normal 20.0-45.0 [facility] Comment on above: Order Comment: No: D o not add to previous draw Performed By: #### 5 3 #### [facility] [address] [place] [address], [facility] MCH (RBC) [Entitic mass] 29.9 pg Normal 27.0-33.0 [facility] Comment on above: Order Comment: No: D o not add to previous draw Performed By: #### 5 0103 #### [facility] [address] [place] [id number], [facility] MCHC (RBC) [Mass/Vol] 33.5 g/dL Normal 32.0-35.0 [facility] Comment on above: Order Comment: No: D o not add to previous draw Performed By: #### 5 0103 #### [facility] [address] [place] [address], [facility] MCV (RBC) [Entitic vol] 89.2 fL Normal 82.0-98.0 [facility] Comment on above: Order Comment: No: D o not add to previous draw Performed By: #### 5 0103 #### [facility] [address] [place] [address], [facility] Monocytes (Bld) [#/Vol] 0.6 10*3/uL Normal 0.1-1.0 [facility] Comment on above: Order Comment: No: D o not add to previous draw Performed By: #### 5 3 #### [facility] [address] [place] [address], [facility] MONOS 8.0 % Normal 5.0-12.0 [facility] Comment on above: Order Comment: No: D o not add to previous draw Performed By: #### 5 0103 #### [facility] [address] [place] [address], [facility] Neutrophils/100 WBC (Bld) 63.9 % Normal 40.0-72.0 [facility] Comment on above: Order Comment: No: D o not add to previous draw Performed By: #### 5 3 #### [facility] [address] [facility] [address] Nucleated RBC/100 WBC (Bld) [Ratio] 0 % Normal 0-0 [facility] Comment on above: Order Comment: No: D o not add to previous draw Performed By: #### 5 0103 #### [facility] [address] [facility] [place] [address], [facility] PLAT CNT 187 10*3/uL Normal 150-400 [facility] Comment on above: Order Comment: No: D o not add to previous draw Performed By: #### 5 0103 #### [facility] [address] [facility] [address], [facility] RBC (Bld) [#/Vol] 4.65 10*6/uL Normal 4.20-5.70 [facility] Comment on above: Order Comment: No: D o not add to previous draw Performed By: #### 5 0103 #### [facility] [address] [facility] [address], [facility] WBC (Bld) [#/Vol] 7.22 10*3/uL Normal 4.00-10.60 [facility] Comment on above: Order Comment: No: D o not add to previous draw Performed By: #### 5 3 #### [facility] [address] [facility] [address], [facility] COMP METABOLIC PANELon 06-24 Albumin [Mass/Vol] 3.9 g/dL Normal 3.5-5.7 [facility] Comment on above: Order Comment: No: D o not add to previous draw Performed By: #### 0 0121, [id number] #### [facility] [address] [facility] [address], [facility] ALKALINE PHOSPH 108 IU/L High 34-104 [facility] Comment on above: Order Comment: No: D o not add to previous draw Performed By: #### 0 0121, [id number] #### [facility] [address] [place] [address], [place] ALT [Catalytic activity/Vol] 26 U/L Normal 7-52 [facility] Comment on above: Order Comment: No: D o not add to previous draw Performed By: #### 0 0121, [id number] #### [facility] [address] [place] [address], [place] AST [Catalytic activity/Vol] 12 U/L Low 13-39 [facility] Comment on above: Order Comment: No: D o not add to previous draw Performed By: #### 0 0121, [id number] #### [facility] [address] [place] [address], [place] Bilirubin [Mass/Vol] 0.8 mg/dL Normal 0.3-1.0 [facility] Comment on above: Order Comment: No: D o not add to previous draw Performed By: #### 0 0121, 66266 #### [facility] [address] [place] [address], [place] Calcium [Mass/Vol] 9.0 mg/dL Normal 8.6-10.3 [facility] Comment on above: Order Comment: No: D o not add to previous draw Performed By: #### 0 0121, 23123 #### [facility] [address] [place] [address], [place] Chloride [Moles/Vol] 103 mmol/L Normal 98-107 [facility] Comment on above: Order Comment: No: D o not add to previous draw Performed By: #### 0 0121, 43895 #### [facility] [address] [place] [address], [place] CO2 [Moles/Vol] 28 mmol/L Normal 21-31 [facility] Comment on above: Order Comment: No: D o not add to previous draw Performed By: #### 0 0121, 75587 #### [facility] [address] [place] [address], [place] Creatinine [Mass/Vol] 1.24 mg/dL Normal 0.70-1.30 [facility] Comment on above: Order Comment: No: D o not add to previous draw Performed By: #### 0 0121, 96621 #### [facility] [address] [place] [address], [place] GFR/1.73 sq M.predicted among blacks MDRD (S/P/Bld) [Vol rate/Area] mL/min/{1.73_m2} Normal >60 [facility] Comment on above: Order Comment: No: D o not add to previous draw Performed By: #### 0 0121, [id number] #### [facility] [address] [place] [address], [place] GFR/1.73 sq M.predicted among non-blacks MDRD (S/P/Bld) [Vol rate/Area] mL/min/{1.73_m2} Normal >60 [facility] Comment on above: Order Comment: No: D o not add to previous draw Performed By: #### 0 0121, 22484 #### [facility] [address] [place] [address], [place] Glucose [Mass/Vol] 102 mg/dL High 70-100 [facility] Comment on above: Order Comment: No: D o not add to previous draw Performed By: #### 0 0121, 96792 #### [facility] [address] [place] [address], [place] Potassium [Moles/Vol] 4.3 mmol/L Normal 3.5-5.1 [facility] Comment on above: Order Comment: No: D o not add to previous draw Performed By: #### 0 0121, 89555 #### [facility] [address] [place] [address], [place] Protein [Mass/Vol] 6.3 g/dL Normal 6.0-8.3 [facility] Comment on above: Order Comment: No: D o not add to previous draw Performed By: #### 0 0121, [id number] #### [facility] [address] [place] [address], [facility] Sodium [Moles/Vol] 136 mmol/L Normal 136-145 [facility] Comment on above: Order Comment: No: D o not add to previous draw Performed By: #### 0 0121, 90830 #### [facility] [address] [place] [address], [facility] Urea nitrogen [Mass/Vol] 22 mg/dL Normal 7-25 [facility] Comment on above: Order Comment: No: D o not add to previous draw Performed By: #### 0 0121, 90092 #### [facility] [address] [place] [address], [facility] LIPID PROFILEon 06-24-2021 Cholesterol [Mass/Vol] 149 mg/dL Normal 120-200 [facility] Comment on above: Order Comment: No: D o not add to previous draw Result Comment: CHOL ESTEROL REFERENCE RANGE: 20 YEARS AND OLDER CARDIOVASCULAR RISK Less than 200 mg/dl Low Risk 200 to 239 mg/dl Borderline Risk 240 mg/dl and greater High Risk Performed By: #### 0 0121, [id number] #### [facility] [address] [place] [address], [facility] Cholesterol in HDL [Mass/Vol] 34 mg/dL Normal 23-92 [facility] Comment on above: Order Comment: No: D o not add to previous draw Result Comment: Slig ht variation in normal range could be due to gender and/or age. HDL CHOLESTEROL REFERENCE RANGE: 20 years and older Cardiovascular Risk > or =60 mg/dL Desirable 40 TO 59 mg/dL Low Risk <40 mg/dL High Risk Performed By: #### 0 0121, 21020 #### [facility] [address] [place] [address], [facility] Cholesterol in LDL [Mass/Vol] 101 mg/dL Normal 0-130 [facility] Comment on above: Order Comment: No: D o not add to previous draw Result Comment: LDL IS A CALCULATION LDL IS ONLY VALID IF THE TRIG IS LESS THAN 400. Performed By: #### 0 0121, 31986 #### [facility] [address] [place] [address], [facility] Cholesterol.total/ Cholesterol in HDL [Mass ratio] 4.4 {ratio} Normal .0-4.5 [facility] Comment on above: Order Comment: No: D o not add to previous draw Performed By: #### 0 0121, 75538 #### [facility] [address] NON-HDL CHOLESTEROL 115 mg/dL Normal [facility] Comment on above: Order Comment: No: D o not add to previous draw Performed By: #### 0 0121, 13756 #### [facility] [address] Triglyceride [Mass/Vol] 72 mg/dL Normal 40-149 [facility] Comment on above: Order Comment: No: D o not add to previous draw Result Comment: TRIG LYCERIDE REFERENCE RANGE: 20 YEARS AND OLDER CARDIOVASCULAR RISK LESS THAN 150 mg/dl LOW RISK 150 TO 199 mg/dl BORDERLINE RISK 200 mg/dl AND GREATER HIGH RISK Performed By: #### 0 0121, 47893 #### [facility] [address] [place] [address], [facility] VLDL CHOL 14 mg/dL Normal 0-40 [facility] Comment on above: Order Comment: No: D o not add to previous draw Performed By: #### 0 0121, 95526 #### [facility] [address] Cardiovascular Lab Reporton 06-23-2021 Cardiovascular Lab Report [facility] Patient Name: Thad Castro MR #: [id number] [facility] Physician: Michelle Gleason MD Department of Service Date: 06/23/2021 Medicine Birthdate: 1970 Division of Room #: [id number] Cardiology Adult Cardiovascular Services [facility] [address] [place], [place] [address] Cardiovascular Laboratory Report Cardiovascular Laboratory Report FINAL IMPRESSIONS: 1. 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 2. 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 RECOMMENDATIONS: 1. Aspirin 81 mg lifelong. 2. 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 3. Aggressive risk factor modification. 4. Optimization [...] to proceed with an interventional procedure. A 6-Czech XB 3.5 catheter was advanced in and [...] Gleason MD Date Trans: 06/23/2021 07:55 P/ [id number] cc: Rubin Baron M.D. [address] [facility] [id number] Normal [facility] POC SARS COV2 ANTIGEN NEGATI VEon 06-23-2021 POC SARS COV2 ANTIGEN NEG Negative Normal NEGATIVE [facility] Comment [...] signs and symptoms consistent with COVID-19. The [facility] COVID-19 Ag Card is a lateral flow [...] Accreditation. Performed By: #### 3 1977 #### [facility] [address] [facility] [address], [facility] CBC AUTO DIFFon 06-18-2021 BASO # 0.1 103/ul Normal 0.0-0.1 [facility] Comment on above: Performed By: #### C BC #### [facility] [address] [place] [address] Dr. Carmelita Whtie Basophils/100 WBC (Bld) 0.9 % Normal 0.2-2.0 [facility] Comment on above: Performed By: #### C BC #### [facility] [address] [place] [address] Dr. Carmelita White EO # 0.2 103/ul Normal 0.0-0.7 [facility] Comment on above: Performed By: #### C BC #### [facility] [address] [place] [address] Dr. Carmelita White Eosinophils/100 WBC (Bld) 2.6 % Normal 0.9-7.0 [facility] Comment on above: Performed By: #### C BC #### [facility] [address] [place] [address] Dr. Carmelita White Erythrocyte distribution width (RBC) [Ratio] 12.4 % Normal 11.0-15.0 [facility] Comment on above: Performed By: #### C BC #### [facility] [address] [place] [address] Dr. Carmelita White Hematocrit (Bld) [Volume fraction] 44.8 % Normal 42.0-54.0 [facility] Comment on above: Performed By: #### C BC #### [facility] [address] [place] [address] Dr. Carmelita White Hemoglobin (Bld) [Mass/Vol] 15.2 g/dL Normal 14.0-18.0 [facility] Comment on above: Performed By: #### C BC #### [facility] [address] [place] [address] Dr. Carmelita White IG # 0.03 10e3/ul Normal 0.00-0.03 [facility] Comment on above: Performed By: #### C BC #### [facility] [address] [place] [address] Dr. Carmelita White IG % 0.5 % Normal 0.0-0.5 [facility] Comment on above: Performed By: #### C BC #### [facility] [address] [place] [address] Dr. Carmelita White LYMPH # 1.5 103/ul Normal 1.2-3.8 [facility] Comment on above: Performed By: #### C BC #### [facility] [address] [place] [address] Dr. Carmelita White Lymphocytes/100 WBC (Bld) 22.5 % Normal 20.5-60.0 [facility] Comment on above: Performed By: #### C BC #### [facility] [address] [place] [address] Dr. Carmelita White MANUAL DIFF REQ NO Normal [facility] Comment on above: Performed By: #### C BC #### [facility] [address] [place] [address] Dr. Carmelita White MCH (RBC) [Entitic mass] 29.7 pg Normal 25.9-34.0 [facility] Comment on above: Performed By: #### C BC #### [facility] [address] [place] [address] Dr. Carmelita White MCHC (RBC) [Mass/Vol] 33.9 g/dL Normal 29.9-35.2 [facility] Comment on above: Performed By: #### C BC #### [facility] [address] [address] [address] Carmelita White MCV (RBC) [Entitic vol] 87.5 fL Normal 80.0-94.0 [facility] Comment on above: Performed By: #### C BC #### [facility] [address] [address] [address] Carmelita White MONO # 0.4 103/ul Normal 0.3-0.8 [facility] Comment on above: Performed By: #### C BC #### [facility] [address] [place] [address] Dr. Carmelita White Monocytes/100 WBC (Bld) 5.5 % Normal 1.7-12.0 [facility] Comment on above: Performed By: #### C BC #### [facility] [address] [place] [address] Dr. Carmelita White NEUT # 4.5 103/ul Normal 1.4-6.5 [facility] Comment on above: Performed By: #### C BC #### [facility] [address] [place] [address] Dr. Carmelita White Neutrophils/100 WBC (Bld) 68.0 % Normal 43.0-75.0 [facility] Comment on above: Performed By: #### C BC #### [facility] [address] [address] [address] Carmelita White Platelet mean volume (Bld) [Entitic vol] 8.5 fL Critically low 9.5-13.5 [facility] Comment on above: Performed By: #### C BC #### [facility] [address] [place] [address] Dr. Carmelita White PLT 238 103/ul Normal 150-450 [facility] Comment on above: Performed By: #### C BC #### [facility] [address] [place] [address] Dr. Carmelita White RBC 5.12 106/ul Normal 4.70-6.10 [facility] Comment on above: Performed By: #### C BC #### [facility] [address] [place] [address] Dr. Carmelita White WBC 6.5 103/ul Normal 4.0-11.0 [facility] Comment on above: Performed By: #### C BC #### [facility] [address] [place] [address] Dr. Carmelita White PROF CHEM 8 (BAS METB)on Anion gap [Moles/Vol] 14.7 mmol/L Normal [facility] Comment on above: Performed By: #### B MP #### [facility] [address] [place] [address] Dr. Carmelita White Calcium [Mass/Vol] 9.3 mg/dL Normal 8.4-10.2 [facility] Comment on above: Performed By: #### B MP #### [facility] [address] [place] [address] Dr. Carmelita White Chloride [Moles/Vol] 101 mmol/L Normal 98-107 [facility] Comment on above: Performed By: #### B MP #### [facility] [address] [place] [address] Dr. Carmelita White CO2 [Moles/Vol] 28.2 mmol/L Normal 22.0-30.0 [facility] Comment on above: Performed By: #### B MP #### [facility] [address] [place] [address] Dr. Carmelita White Creatinine [Mass/Vol] 1.33 mg/dL Critically high 0.66-1.25 [facility] Comment on above: Performed By: #### B MP #### [facility] [address] [place] [address] Dr. Carmelita White EGFR-AF FAROESE >60 Normal >=60 [facility] Comment on above: Performed By: #### B MP #### [facility] [address] [place] [address] Dr. Carmelita White EGFR-NON AF FAROESE 57 mL/min/1.73m2 Critically low >=60 [facility] Comment on above: Performed By: #### B MP #### [facility] [address] [address] [address] Carmelita White Glucose [Mass/Vol] 99 mg/dL Normal 74-106 [facility] Comment on above: Performed By: #### B MP #### [facility] [address] [address] [address] Carmelita White Potassium [Moles/Vol] 4.9 mmol/L Normal 3.4-5.0 [facility] Comment on above: Performed By: #### B MP #### [facility] [address] [address] [address] Carmelita White Sodium [Moles/Vol] 139 mmol/L Normal 137-145 [facility] Comment on above: Performed By: #### B MP #### [facility] [address] [address] [address] Carmelita White Urea nitrogen [Mass/Vol] 21.0 mg/dL Critically high 9.0-20.0 [facility] Comment on above: Performed By: #### B MP #### [facility] [address] [address] [address] Carmelita White Urea nitrogen/Creatinin e [Mass ratio] 15.8 mg/mg Normal [facility] Comment on above: Performed By: #### B MP #### [facility] [address] [address] [address] Carmelita White NM STRESS/REST MULTIon 06-09 NM STRESS/REST MULTI Patient: THAD CASTRO Exam Date: 06/09/2021 : 1970 Gender:M Ordering : DR RUBIN BARON . Admission #: [id number] Family : Order #: [id number] CLICK HERE TO VIEW EXAM RADIOLOGY REPORT [...] PERFUSION DEFECT: LOCATION: Mid-anterior. Mid-anteroseptal. Apical anterior. Vancleave. SIZE: Medium (3-4 segments). SEVERITY: Severe. TYPE: [...] Mathur MD on 06/11/2021 at 13:23 Normal [facility] Vital Signs Date Time Vital Sign Value Performing Clinician Rudolph patton 09-08-2023 14:53-0500 Blood Pressure Location Naren GATITO [facility] 09-08-2023 14:53-0500 Diastolic blood pressure 88 mm[Hg] Naren MEDEROS [facility] 09-08-2023 14:53-0500 Heart rate 72 /min Naren MEDEROS [facility] 09-08-2023 14:53-0500 Respiratory rate 16 /min Naren MEDEROS [facility] 09-08-2023 14:53-0500 Systolic blood pressure 146 mm[Hg] Naren MEDEROS [facility] Encounters Encounter Date Encounter Type Care Provider Facility Start: 03-13-2025 ambulatory [facility] Start: 03-13-2025 End: 03-13-2025 ambulatory [facility] Start: 02-01-2025 End: 02-01-2025 ambulatory [facility] Start: 10-05-2023 End: 10-06-2023 ambulatory Naren R NILL [facility] Start: 10-05-2023 End: 10-05-2023 Patient encounter procedure Naren R NILL General [facility]ill[facility] Start: 09-22-2023 End: 09-23-2023 ambulatory Naren R NILL Facility:[facility] Start: 09-08-2023 End: 09-09-2023 ambulatory Naren R NILL [facility] Start: 09-08-2023 End: 09-08-2023 Patient encounter procedure Naren R NILL General Surgery [facility]ill[facility] Start: 09-07-2023 ambulatory Naren NILL Facility:[facility] Start: 09-06-2023 ambulatory Naren NILL Facility:[facility] Start: 02-23-2022 End: 02-24-2022 ambulatory ELVIRA ALSTON Facility:[facility] Start: 08-04-2021 End: 08-05-[address] RUBIN BARON Facility:[facility] Start: 06-28-2021 Encounter for preprocedural laboratory examination DR DOCTOR MILLER [facility] Start: 06-25-[address] DOCTOR MILLER Facility :[facility] Start: 06-23-2021 End: 06-24-2021 [facility] Start: 06-18-2021 End: 06-19-[address] DOCTOR MILLER Facility:[facility] Start: 06-18-2021 End: 06-19-2021 Encounter for preprocedural laboratory examination DR DOCTOR MILLER Facility:[facility] Start: 06-11-[address] AMALIA Rosas ity:[facility] Start: 06-09-2021 End: 06-10-[address] AMALIA FLORES Facility:[facility] Procedures Date Procedure Procedure Detail Performing Clinician Start: 09-22-2023 Colonoscopy Naren NILL Start: 09-22-2023 Esophagogastroduodenoscopy Naren NILL Start: 02-23-[address] AMALIA FLORES Comment on above: Performed By: #### PSASC #### [facility] [address] [place] [address] Dr. Carmelita White Cholecystectomy Naren HighconL Coronary artery sten t (physical object) Naren HighconL Fluoroscopic angiopl asty of bilateral iliac arteries and insertion of bilateral iliac artery stents Naren HighconL History of ankle surgery Maik hael NILL Immunizations Immunization Date Immunization Notes Care Provider [facility] 07-24-2021 SARS-CoV-2 (COVID-19 ) mRNA BNT-162b2 vax Naren HighconL [facility] 11-25-2020 SARS-CoV-2 (COVID-19 ) mRNA BNT-162b2 vax RedeemL [facility] 11-04-2020 SARS-CoV-2 (COVID-19 ) mRNA BNT-162b2 vax RedeemL [facility] NEGATED: Highlighted row has not occurred!09-08-2023 influenza virus vaccine, unspecified formulation Naren Frugoton [facility] Payers Date Payer Category Payer Unknown [id number] 2.16.8 [id number] 1970 Unknown [id number] 2.16.84 [id number] 1970 Unknown [id number] 2.16.84 [id number] 1970 Unknown [id number] 2.16.84 [id number] 1970 Unknown [id number] 2.16.84 [id number] 1970 Unknown [id number] 2.16.84 [id number] 1970 Unknown [id number] 2.16.84 [id number] 1970 Unknown [id number] 2.16.84 [id number] 1970 Unknown [id number] 2.16.8 [id number] 1970 Unknown [id number] 2.16.8 [id number] 1970 Unknown [id number] 2.16.8 [id number] 1970 Unknown [id number] 2.16.8 [id number] 1960 Medicaid [id number] Social History Date Type Detail Facility Start: 09-08-2023 Tobacco smoking status Light t obacco smoker (finding) [facility] Tobacco smoking status Smokeless tobacco user within last 30 days [facility] Sex Assigned At Male [facility] Functional Status Date Assessment Result Facility 09-08-2023 Functional Status N/A [facility] Progress note 03-13-2025 Note Date & Type Note Facility 03-13-2025 Note No associated orders from this encounter found during lookback period of 72 hours. [facility] Progress note 02-01-2025 Note Date & Type [...] mid vessel stenosis, 70% distal vessel stenosis Echocardiogram-[facility] Name: THAD CASTRO Study Date: 06/23/2021 12:48 PM B/P: / HR: Date of : 1970 Location: [facility] Height: 74 in. Age: 50 year(s) [...] for opacification and (more content not included)... [facility] Clinical Note 09-08-2023 Note Date & Type [...] tablet, 1 tab(s), (more content not included)... [facility] Comment on above: Result Comment: Elec tronically Signed By: GATITO HARRISON, Naren Gleason\Date and Time Signed: 09/08/23 19:40 EST Evaluation + Plan note Note Date & Type Note Facility Evaluation + Plan note No data available for this section [facility] Discharge instructions Note Date & Type Note Facility Hospital Discharge instructions No data available for this section [facility] Progress note Note Date & Type Note Facility Progress note No data available for this section [facility] Summary Purpose Family History No Family History [...] and content) DATE CREATED AUTHOR 06/28/2021 [facility] DATE CREATED AUTHOR AUTHOR'S ORGANIZ ATION 02/26/2022 [facility] DATE CREATED AUTHOR AUTHOR'S ORGANIZ ATION 10/12/2023 [facility] DATE CREATED AUTHOR AUTHOR'S ORGANIZ ATION 03/19/2025 [facility] Patient Care team informatio n (unrecognized section and content) Personnel Name: Rubin Baron MD Address: Address: [address] [place] [address] Personnel Name: Rubin Baron MD Address: Address: [address] [place] [address] FOR RECORDS PERTAINING TO PATIENTS WHO ARE [...] BE BASED ON THE PRIMARY CLINICAL RECORDS. [employer] provides no warranty or guarantee of the accuracy or completeness of information in this document.
[2025-03-19 08:10] LABS: Anion Gap 13.1; Blood Urea Nitrogen 17.0 mg/dL (7.0-18.0); Calcium 8.9 mg/dL (8.5-10.1); Carbon Dioxide 29.1 mmol/L (21.0-32.0); Chloride 103 mmol/L (98-107); Estimated GFR (African America >60 (>=60 mL/min/1.73m^2); Estimated GFR (Non-African Ame >60 (>=60 mL/min/1.73m^2); Glucose 143 mg/dL (74-106); Potassium 4.2 mmol/L (3.5-5.1); Sodium 141 mmol/L (136-145)
== END 2025-03-19 07:37 | disposition home or self-care (01) ==
LOC: LAB 07:37
PROVIDERS: PCP Family Medicine; Visit Provider Internal Medicine Interventional Cardiology
DX: I25.10 Atherosclerotic heart disease of native coronary artery without angina pectoris (principal)
CPT/HCPCS: 36415; 80048